=== PATIENT | female | born 1940 | race Caucasian/White ===

== ENCOUNTER 2017-10-04 13:30 | Outpatient (RCR) | payer MEDICARE, OTHER, SELFPAY ==
--- NOTE | 2017-09-14 13:44 | HP.PTEVAL_ITS ---
Patient's Visit Information ROSE RENTERIA is a 77 year old F referred to Physical Therapy by Misael MCDONALD with a diagnosis of Polyarthralgia. Date of Evaluation: 09/14/17 Physical Therapist: Misael Zimmerman DPT, OC - Visit Plan Frequency: 2x /Week Duration: 4-6 Weeks Plan: 2x/week for 3-6 for. 1. LB ROM and NS strength adn teach for HEP, hip flexor and HS stretch. Progress al to HEP. 2. may consider gym exercises or pool after HEP taught to patient and I. - Subjective Subjective: Stiff and hard to get up and down. B/c i am old and don't exercises. Not painful except putting on socks bending over. Feels stiff over all generally. Getting worse. Balance is doing better as she had ex for them last time. Sleep is good. Takes a while to do most things at home but not avoiding anything. Just stiff with most movements. No hobbies. Walking is good and grocery store is fine but tiring. Not employed. - Pain LBP Pain Intensity (Out of 10): 1 Pain Intensity Range: 0, 5 - Objective Walks into PT I, trasners I, bed mobility slow but I. L/S aROM mod limited in all directions, pain slightly with extension but more stiff. C/S aROM 45 ext adn 50 B rotations with stiffness. UE and LE aROM WFL. reflexes 2/3 in patella and achilles adn bi and tri. Sensation WNL to gross light touch in LE. Strength 4-/5 in LE adn UE adn 3+ in core, finds Neutral spine only with Vc and TC. - slump and SLR. HS and hip flexors mod tight at -25 90/90 test B. Shoulders tight with end range of elevation, not painful. - Goals Goal 1:: I approp HEp to minimize symptoms. Goal Time Frame: 4-6 Weeks Goal 2:: Tie shoes without increased back pain Goal Time Frame: 2-4 Weeks Goal 3:: 75% improvement in overall complaint of stiffness adn LBP. Goal Time Frame: 4-6 Weeks - Rehabilitation Potential Physical Therapy Diagnosis: Polyarhralgia Rehabilitation Potential: Fair - Anticipated Interventions Patient/Client Instruction: Educate patient on: Condition, Plan of Care For the Purpose of:: To decrease pain, To increase ROM, To improve ability of physical actions for home/community/work/leisure Therapeutic Exercise to Include: Strength training, Flexibilty training, Active ROM, Dynamic Lumbar Stabilization For the Purpose of:: To decrease pain, To increase ROM, To improve ability of physical actions for home/community/work/leisure Thank you for the opportunity to evaluate your patient. For Medicare and Medicare HMO plans, please review the plan of care and approve it. It will need to be FAXED BACK to us at [phone] for Medicare purposes. Please let me know if there are questions or concerns regarding this plan of care. Physician Signature: Date:
--- NOTE | 2017-10-04 14:02 | HP.PTDCSUM ---
HP - PT D/C Summary It has been my pleasure to treat ROSE RENTERIA under orders from DR.ESMITH Harika for the diagnosis of Polyarthralgia for a total of 8 visit(s). Discharge Date: 10/04/17 Please see the following information for a summary of their discharge status. - Subjective Subjective: Hart roslynt working out with Cassy tomorrow. Exercises in here do not bother her and seem to help. Has a list and will continue. Back is better. Sleep is normal. Activities are normal. Knows how to exercise from here on out. - Pain LBP Pain Intensity (Out of 10): 0 - Objective Objective/Function: achy intermittently. Poor management as patient sat and played cards 3 hours without getting up yesterday. - Goals Goal 1:: I approp HEp to minimize symptoms. Goal Progress: Goal Met Goal 2:: Tie shoes without increased back pain Goal Progress: Progressing Goal 3:: 75% improvement in overall complaint of stiffness adn LBP. Goal Progress: Progressing - Plan Plan: D/C - D/C Information Discharge Comments: D/C to I gym program, pt to orient Dante chowdhury tomorrow is confident she continued on her own. Also will attempt pool ex(with physical fitness trainer). May benefit from PT to teach water ex but wants to try herself first. If there are questions or concerns regarding this patient's physical therapy, please feel free to call me at [phone]. Thank you for the referral of this patient. Sincerely, Misael Zimmerman, DPT, OC
== END 2017-10-04 19:00 | disposition home or self-care (01) ==
LOC: PT 13:30
PROVIDERS: Family Provider Family Medicine; PCP Family Medicine; Visit Provider Family Medicine
DX: M25.50 Pain in unspecified joint (principal)
CPT/HCPCS: 97110; 97162; 97530

== ENCOUNTER → 2017-12-13 13:09 | Outpatient (CLI) | payer MEDICARE, OTHER, SELFPAY ==
--- NOTE | 2017-12-13 13:12 | RAD_ITS ---
STUDY: SWALLOWING STUDY REASON FOR EXAM: Female, 77 years old. Dysphagia TECHNIQUE: The examination was performed with Speech Pathology in attendance. Under fluoroscopic observation, the patient ingested thin barium, thick barium, barium pudding, and barium coated cracker. FLUOROSCOPY TIME: 1:03 minutes/seconds RADIOLOGIST INVOLVEMENT: Radiologist was not present during the procedure, but did review the images. COMPARISON: None. FINDINGS: The following was observed during swallowing of the various mixtures of barium: Thin Barium: There was no evidence of aspiration or laryngeal penetration. Thick Barium: There was no evidence of aspiration or laryngeal penetration. Barium Pudding: There was no evidence of aspiration or laryngeal penetration. Barium Coated Cracker: There was no evidence of aspiration or laryngeal penetration. RAD/Swallowing Function w/Video IMPRESSION: Normal tailored barium swallow study. No evidence of increased risk for aspiration. The swallow study findings were discussed with the patient by the speech pathologist at the conclusion of the examination. Please see speech pathology report for more information and recommendations. The procedure was performed by speech therapy Electronically Signed: Rogelio Dewitt MD at 14:18 EDT , Service support ,
--- NOTE | 2017-12-13 13:30 | SP.MBSS_ITS ---
PRIMARY / SECONDARY DIAGNOSIS: dysphagia (R13.10) REFERRING PHYSICIAN: Dr. Misael Nichols MD CURRENT DIET: regular textures, thin liquids DENTITION: WFL MENTAL STATUS: WNL RESPIRATORY STATUS: O2 via room air PREVIOUS MODIFIED BARIUM SWALLOW STUDY: none REASON FOR REFERRAL: Patient is a 77 year old female referred for a modified barium swallow (MBS) study to objectively assess the Patients oropharyngeal swallow function under fluoroscopy secondary to reported intermittent globus sensation / sensation of stasis located directly below the laryngeal notch following consumption of solids. Patient reports intermittent presentation (just every once in a while), further workup via Barium esophagram scheduled for 12/16/2017. 10/16/2014 Barium esophagram revealed trapping of the 12 mm tablet of barium at the gastroesophageal junction; atherosclerotic tortuosity of the aortic arch and descending thoracic aorta. 11/2014 upper endoscopy revealed minimal esophagitis MEDICAL HISTORY: Chronic sinusitis, hypertension, gastroesophageal reflux disease, prior history of esophagitis. STUDY FINDINGS: Patient participated in a Modified Barium Swallow (MBS) study on 12/13/2017. Dr. Dewitt was the radiologist present for this evaluation. This study was recorded in the lateral view and images were sent to PACs for storage. The following consistencies were presented to this patient for analysis of oropharyngeal swallow function: thin liquids, pudding, and a regular textured, Jacquie Doone cookie. Results of the MBS are as follows: PENETRATION / ASPIRATION SCALE (SOTO): 1 = does not enter airway 2 = enters airway/above vocal folds/ejected 3 = enters airway/above vocal folds/not ejected 4 = enters airway/contacts vocal folds/ejected 5 = enters airway/contacts vocal folds/not ejected 6 = enters airway/below vocal folds/ejected 7 = enters airway/below vocal folds/not ejected despite effort 8 = enters airway/below vocal folds/no effort PENETRATION / ASPIRATION SCALE (SCORE) WITH VIDEOFLOROSCOPIC SCALE SCORE: Thin liquids via cup (single sip): 2 Thin liquids via cup (single sip): 1 Thin liquids via cup (single sip): 1 Thin liquids via straw (single sip): 1 Thin liquids via straw (sequential swallows): 1 Pudding via spoon: 1 Regular textured cookie: 1 Thin liquids via straw (single sip): 1 Thin liquids via straw (single sip): 1 IMPRESSION: DIAGNOSIS: mild pharyngeal dysphagia (R13.13) ORAL PHASE CHARACTERIZED BY: LABIAL SEAL: no labial escape TONGUE CONTROL DURING BOLUS MANIPULATION: cohesive bolus between tongue to palatal seal BOLUS PREPARATION / MASTICATION: timely and efficient chewing and mashing BOLUS TRANSPORT / LINGUAL MOTION: brisk tongue motion ORAL RESIDUE: intermittent trace residue lining oral structures PHARYNGEAL PHASE CHARACTERIZED BY: INITIATION OF PHARYNGEAL SWALLOW: bolus head at posterior laryngeal surface of epiglottis at first hyoid excursion SOFT PALATE ELEVATION: no bolus between soft palate and pharyngeal wall LARYNGEAL ELEVATION: complete superior movement of thyroid cartilage with complete approximation of arytenoids cartilage to epiglottic petiole ANTERIOR HYOID EXCURSION: complete anterior movement EPIGLOTTIC MOVEMENT: complete epiglottic inversion LARYNGEAL VESTIBULE CLOSURE AT HEIGHT OF SWALLOW: complete laryngeal vestibule closure with no air/contrast in laryngeal vestibule PHARYNGEAL STRIPPING WAVE: pharyngeal stripping wave present / complete PHARYNGOESOPHAGEAL SEGMENT OPENING: partial distension and partial duration; partial obstruction of flow TONGUE BASE RETRACTION: trace column of contrast between tongue base and posterior pharyngeal wall PHARYNGEAL RESIDUE: collection of residue within or on pharyngeal structures ( pharyngoesophageal segment opening most prominently with purees and solids, valleculae with solids) ESOPHAGEAL PHASE CHARACTERIZED BY: ESOPHAGEAL BOLUS CLEARANCE IN THE UPRIGHT POSITION: could not view DIET TEXTURE RECOMMENDATIONS: Will recommend a regular-soft textured, thin liquid diet. COMPENSATORY STRATEGIES RECOMMENDED: Reduced bolus volume, liquid chaser, avoid dry foods. INTERPRETATION OF RESULTS: Patient presents with mild pharyngeal dysphagia (R13.12). Pharyngeal phase marked by mild delay in pharyngeal swallow onset timing (albeit clinically insignificant); and pharyngeal dysmotility attributed to reduced tongue based retraction resulting in pharyngeal retention within the valleculae (with solid textures only) and reduced pharyngoesophageal segment relaxation resulting in pharyngeal retention within the pharyngoesophageal segment (with more vicious textures). All deficits ameliorated with bolus volume adjustments and alternation of liquids and solids (liquid wash). Post prandial residue located within the pharyngoesophageal segment opening occasionally spilling into the pyriforms likely resulting in globus sensation below the laryngeal notch; presentation during study not significant enough to suspect significant aspiration risk with reduction in bolus volume and alternating bites and sips. RECOMMENDATIONS: Patient able to comprehend and express recommended intake precautions detailed above with sufficient detail to suggest high likelihood of compliance. Provided brief overview of signs and symptoms of aspiration, with recommendations for the Patient to further discuss symptoms with PCP. No further skilled speech- language services warranted at this time targeting dysphagia. ADDITIONAL COMMENTS/RECOMMENDATIONS: Results and recommendations were discussed with the Patient immediately following MBS completion, with the Patient verbalizing understanding and agreement with all recommendations and education provided. IMAGE COUNT: [phone] G-CODES: SWALLOWING [id number] Current Status: CI SWALLOWING G8997 Goal Status: CI SWALLOWING G8998 Discharge Status: CI
== END ==
PROVIDERS: Family Provider Family Medicine; PCP Family Medicine; Visit Provider Family Medicine
DX: R13.10 Dysphagia, unspecified (principal)
CPT/HCPCS: 74230; 92611; G8996; G8997; G8998

== ENCOUNTER → 2017-12-15 08:20 | Outpatient (CLI) | payer MEDICARE, OTHER, SELFPAY ==
--- NOTE | 2017-12-15 08:23 | RAD_ITS ---
STUDY: AIR-CONTRAST ESOPHAGRAM STUDY REASON FOR EXAM: Female, 77 years old. Vomiting RADIATION DOSAGE (If Supplied By Facility): CTDIvol = ( ) mGy, DLP = ( ) mGycm FLUOROSCOPY TIME (if supplied): (0:54) minutes/seconds, 14 spot views. And 2 overhead views were obtained TECHNIQUE: Barium pill swallow with sips of water is performed at the beginning of the study . Multiple barium swallows were performed under fluoroscopic monitoring. Multiple views of the esophagus, the upper stomach were performed. COMPARISON: None. FINDINGS: Barium pill swallow with sips of water is performed at the beginning of the study the pill was retained in the lower esophagus at the gastroesophageal junction due to a moderate stricture. The esophagus appears normal in size. There is a small hiatal hernia with gastroesophageal reflux up to the oli. There is a stricture at the gastroesophageal junction most likely due to reflux esophagitis. RAD/Esophagus Only IMPRESSION: Stricture at the gastroesophageal junction most likely due to reflux esophagitis. Small hiatal hernia with gastroesophageal reflux up to the oli. Electronically Signed: Eric Salgado MD at 9:10 EDT Tel , Service support ,
== END ==
PROVIDERS: Family Provider Family Medicine; PCP Family Medicine; Visit Provider Family Medicine
DX: R13.10 Dysphagia, unspecified (principal)
CPT/HCPCS: 74220

== ENCOUNTER 2018-01-20 05:45 | Day surgery (SDC) | payer MEDICARE, OTHER, SELFPAY ==
--- NOTE | 2018-01-20 | IMM_PTH ---
PATIENT: ROSE RENTERIA LOC: EN U#:[id number] AGE/SX: 77/F ROOM: RE01/20/[address]: Dr. Golden Nixon MD : 1940 BED: DIS: 01/20/2018 SPEC #: [id number] RECD: 01/21/18 09:48 STATUS: CAMILLE AISHWARYA #: [id number] MARK: 01/20/18 00:[address]: Golden Nixon DEPT: IMMUNOHISTOCHEMISTRY RECD BY: John Colin ENTERED: 01/21/18 09:48 SP TYPE: IMMUNO OTHR DR: Dr. Misael Nichols MD Tissues: Gastric mucous membrane Procedures: H Pylori (initial) PHYSICIAN & INSTITUTION [place] [address] SPECIMEN INFORMATION: Tissue Source: B ? Antral biopsy Clinical Info: Esophageal stricture, reflux Specimen Number: [id number] CPT code: 49135 METHODOLOGY: Deparaffinized sections of prefer/formalin-fixed tissue or PAP/DQ stained slides are incubated with monoclonal/polyclonal antibodies/oligonucleotide probes. Localization is made via biotin free immunoperoxidase method. Appropriate controls are performed and reacted as expected. Results on target cell population are indicated in the following table: RESULTS: ANTIBODY / CLONE RESULT Block B H Pylori (polyclonal) negative These tests were developed and their performance characteristics determined by [facility]. They may not have been cleared or approved by the U.S. Food and Drug Administration. The FDA has determined that such clearance or approval is not necessary. INTERPRETATION: B. Antral biopsy: Negative for Helicobacter pylori organisms. SJ:crystal 01/21/18
--- NOTE | 2018-01-20 | EGD_PTH ---
PATIENT: ROSE RENTERIA LOC: [facility] U#:[id number] AGE/SX: 77/F ROOM: RE01/20/[address]: Dr. Golden Nixon MD : 1940 BED: DIS: 01/20/2018 SPEC #: [id number] RECD: 01/20/18 09:47 STATUS: CAMILLE AISHWARYA #: [id number] MARK: 01/20/18 00:[address]: Golden Nixon DEPT: SURGICAL PATHOLOGY RECD BY: John Colin ENTERED: 01/21/18 08:52 SP TYPE: EGD BIOPSY CHENG DR: Dr. Misael Nichols MD Tissues: A - Duodenum, NOS B - Gastric mucous membrane C - Esophageal mucous membrane Procedures: Surgery Specimen Level IV HEADER OPERATION: EGD PRE-OP DIAGNOSIS: Esophageal stricture, reflux TISSUE SUBMITTED: A ? Duodenal biopsy, B ? Antral biopsy for H. pylori and path, C ? Distal esophagus biopsy MICROSCOPIC DIAGNOSIS A. Duodenal biopsy: Fragment of small intestinal mucosa, no pathologic diagnosis. B. Antral biopsy: Mild gastritis. C. Distal esophagus, biopsy: Fragment of squamous mucosa with chronic inflammation. SJ:crystal 01/21/18 COMMENT B. The results of immunohistochemistry for Helicobacter pylori will be reported separately ([id number]). MICROSCOPIC DESCRIPTION Slides are reviewed. B. The specimen shows fragments of gastric mucosa with chronic inflammatory cell infiltrates in the lamina propria consisting of lymphocytes and plasma cells, consistent with mild chronic gastritis. GROSS DESCRIPTION A - Received in fixative is one container labeled with the patient's name and designated duodenal biopsy. The specimen consists of one irregular fragment of light landeros soft tissue that measures 0.3 x 0.3 x 0.1 cm. The specimen is totally submitted in one cassette. B - Received in fixative is one container labeled with the patient's name and designated antral biopsy. The specimen consists of two irregular fragments of light landeros soft tissue that in aggregate measure 0.5 x 0.3 x 0.1 cm. The specimen is totally submitted in one cassette. C - Received in fixative is one container labeled with the patient's name and designated distal esophagus biopsy. The specimen consists of one irregular fragment of light landeros soft tissue that measures 0.3 x 0.2 x 0.1 cm. The specimen is totally submitted in one cassette. / SHAE:crystal 01/20/18 TC:3 CPT: 78690 x3
--- NOTE | 2018-01-20 05:45 | DT_ITS ---
This patient was seen during an EMR downtime January 17, 2018 - January 24, 2018. This patient may have a combination of paper and electronic documentation or all paper documentation. All documentation is viewable within the e-chart portion of [facility] for each patient visit.
== END 2018-01-20 07:42 | disposition home or self-care (01) ==
LOC: EN 05:46 → AC 05:47
PROVIDERS: Family Provider Family Medicine; PCP Family Medicine; Visit Provider Surgery
PROC: (CPT 43239; principal; 2018-01-20 06:25)
DX: K21.0 Gastro-esophageal reflux disease with esophagitis (principal); K22.2 Esophageal obstruction; K29.70 Gastritis, unspecified, without bleeding; K44.9 Diaphragmatic hernia without obstruction or gangrene; M19.90 Unspecified osteoarthritis, unspecified site
CPT/HCPCS: 43239; 43249; 88305; 88342; 99152; 99153; J7120; J2405

== ENCOUNTER → 2018-03-22 11:01 | Outpatient (CLI) | payer MEDICARE, OTHER, SELFPAY ==
[2018-03-22 14:29] LABS: Absolute Lymphocyte Count 1.58 X10^3/ul (0.83-4.51); Absolute Neutrophil Count 4.3 X10^3/uL (2.0-7.7); Basophil# 0.01 X10^3/uL; Basophil% 0.1 % (0-1); Eosinophil# 0.24 X10^3/uL; Eosinophils% 3.5 % (0-5); Hematocrit 47.5 % (37-47); Hemoglobin 15.8 g/dl (12.0-15.0); Lymphocyte # 1.58 X10^3/ul (4.0); Lymphocyte % 22.8 % (19-41); Mean Corp Hgb Conc 33.3 g/gl (32-36); Mean Corpuscular Hgb 30.7 pg (27.0-32.0); Mean Corpuscular Volume 92.4 fL (81-99); Mean Platelet Vol. 8.7 fl (6.2-12.0); Monocyte% 11.6 % (0-10); Neutrophil # 4.28 X10^3/uL (2.7-7.7); Neutrophil % 61.9 % (47-70); Platelet Count 294 K/mm3 (150-450); RBC Distribution Width CV 12.6 % (11.6-14.6); RBC Distribution Width SD 42.3 fl (35.1-43.9); Red Blood Count 5.14 M/mm3 (4.2-5.4); White Blood Count 6.9 K/mm3 (4.4-11.0)
[2018-03-22 14:34] LABS: POSITIVE COUNT NO; POSITIVE DIFFERENTIAL NO; POSITIVE MORPHOLOGY NO
[2018-03-22 14:53] LABS: ALB/GLOB Ratio 0.8 RATIO (0.9-2.4); AST(SGOT) 25 U/L (15-37); Alanine Aminotransfer ALT/SGPT 22 U/L (13-56); Albumin, Serum 3.5 g/dL (3.2-5.0); Alkaline Phosphatase 66 U/L (45-117); Anion Gap 9 (5-15); BUN 10 mg/dL (7-18); BUN/Creat Ratio 10.8 RATIO (10-20); Calcium,Total 8.8 mg/dL (8.5-10.1); Chloride 104 mmol/L (98-107); Creatinine, Serum 0.92 mg/dL (0.55-1.02); EST Glomerular Filtration Rate 62 mL/min (>60); Est Glom Filt Rate - Afr Amer 75 mL/min (>60); Globulin 4.2 g/dL (2.2-4.2); Glucose 89 mg/dL (74-106); Potassium 4.7 mmol/L (3.5-5.1); Protein, Total 7.7 g/dL (6.4-8.2); Sodium Level 141 mmol/L (136-145); T4 Free Direct 1.14 ng/dL (0.76-1.46); Thyroid Stim Hormone (TSH) 1.09 uIU/mL (0.358-3.74)
== END ==
PROVIDERS: Family Provider Family Medicine; PCP Family Medicine; Visit Provider Family Medicine
DX: L65.9 Nonscarring hair loss, unspecified (principal)
CPT/HCPCS: 36415; 80053; 84439; 84443; 85025

== ENCOUNTER → 2018-03-31 08:40 | Outpatient (CLI) | payer MEDICARE, OTHER, SELFPAY ==
[2018-04-01 14:06] LABS: Anti-Centromere B Ab <0.2 AI (0.0-0.9); Anti-Chromatin <0.2 AI (0.0-0.9); Anti-Jo <0.2 AI (0.0-0.9); Anti-Scleroderma-70 AB <0.2 AI (0.0-0.9); RNP Ab <0.2 AI (0.0-0.9); SJOGREN'S Anti-SS-A test < 0.2 AI (0.0-0.9); SJOGREN'S Anti-SS-B test < 0.2 AI (0.0-0.9); Smith Ab <0.2 AI (0.0-0.9)
[2018-04-01 18:37] LABS: Anti-dsDNA Ab <1 IU/mL (0-9)
[2018-04-07 16:10] LABS: Immunoglobulin A 329 mg/dL (64-422); Immunoglobulin E 32 IU/mL (0-100); Immunoglobulin G 1083 mg/dL (700-1600); Immunoglobulin M 159 mg/dL (26-217); Testosterone, % Free 3.01 % (0.50-2.80); Testosterone, Free 1.35 ng/dL (0.10-0.85); Testosterone, Total 45 ng/dL (3-41)
[2018-04-08 14:11] LABS: DHEA Sulfate 34.4 ug/dL (13.9-142.8)
== END ==
PROVIDERS: Family Provider Family Medicine; PCP Family Medicine; Visit Provider Family Medicine
DX: L65.9 Nonscarring hair loss, unspecified (principal)
CPT/HCPCS: 36415; 82533; 82627; 82784; 82785; 84402; 84403; 86225; 86235; 82626

== ENCOUNTER → 2018-04-25 09:20 | Outpatient (CLI) | payer MEDICARE, OTHER, SELFPAY ==
[2018-04-26 06:07] LABS: HEPATITIS B SURFACE AG Negative (Negative); Hepatitis A AB, Total Positive (Negative); Hepatitis A IgM Antibody Negative (Negative); Hepatitis B Core AB IgM Negative (Negative); Hepatitis B Core Ab Total Negative (Negative); Hepatitis C Ab <0.1 s/co ratio (0.0-0.9)
[2018-04-27 11:50] LABS: Hep B Surface Antibodies Non Reactive (.)
== END ==
PROVIDERS: Family Provider Family Medicine; PCP Family Medicine; Visit Provider Nurse Practitioner Family
DX: L66.1 Lichen planopilaris (principal)
CPT/HCPCS: 36415; 86704; 86705; 86706; 86708; 86709; 86803; 87340

== ENCOUNTER → 2018-11-07 11:36 | Outpatient (CLI) | payer MEDICARE, SELFPAY ==
[2018-09-17 12:22] VITALS: BMI 31.6
[2018-11-07 14:05] LABS: ALB/GLOB Ratio 0.9 RATIO (0.9-2.4); AST(SGOT) 25 U/L (15-37); Alanine Aminotransfer ALT/SGPT 22 U/L (13-56); Albumin, Serum 3.5 g/dL (3.2-5.0); Alkaline Phosphatase 74 U/L (45-117); Anion Gap 8 (5-15); BUN 13 mg/dL (7-18); BUN/Creat Ratio 15.5 RATIO (10-20); Chloride 102 mmol/L (98-107); Cholesterol 199 mg/dL (200); Creatinine, Serum 0.84 mg/dL (0.55-1.02); EST Glomerular Filtration Rate 69 mL/min (>60); Est Glom Filt Rate - Afr Amer 84 mL/min (>60); Globulin 3.8 g/dL (2.2-4.2); Glucose 100 mg/dL (74-106); High Density Lipoprotein 65 mg/dL; Potassium 4.9 mmol/L (3.5-5.1); Protein, Total 7.3 g/dL (6.4-8.2); Sodium Level 138 mmol/L (136-145); Triglycerides 98 mg/dL; Very Low Density Lipoprotein 20 mg/dL (5-40)
== END ==
PROVIDERS: Family Provider Family Medicine; PCP Family Medicine; Referring Provider Family Medicine; Visit Provider Family Medicine
DX: E78.00 Pure hypercholesterolemia, unspecified (principal)
CPT/HCPCS: 36415; 80053; 80061

== ENCOUNTER → 2019-05-11 | Outpatient (CLI) | payer MEDICARE, SELFPAY ==
[2018-09-17 12:22] VITALS: BMI 31.6
[2019-05-11 12:44] LABS: Anion Gap 6 (5-15); BUN 13 mg/dL (7-18); BUN/Creat Ratio 15.5 RATIO (10-20); Calcium,Total 8.7 mg/dL (8.5-10.1); Chloride 108 mmol/L (98-107); Cholesterol 176 mg/dL (200); Creatinine, Serum 0.84 mg/dL (0.55-1.02); EST Glomerular Filtration Rate 69 mL/min (>60); Est Glom Filt Rate - Afr Amer 84 mL/min (>60); Glucose 95 mg/dL (74-106); High Density Lipoprotein 58 mg/dL; Potassium 4.3 mmol/L (3.5-5.1); Sodium Level 139 mmol/L (136-145); Thyroid Stim Hormone (TSH) 1.28 uIU/mL (0.358-3.74); Triglycerides 98 mg/dL; Very Low Density Lipoprotein 20 mg/dL (5-40)
== END | disposition home or self-care (01) ==
LOC: MFPLAB 09:49
PROVIDERS: Family Provider Family Medicine; PCP Family Medicine; Referring Provider Family Medicine; Visit Provider Family Medicine
DX: L65.9 Nonscarring hair loss, unspecified (principal); E78.00 Pure hypercholesterolemia, unspecified
CPT/HCPCS: 36415; 80048; 80061; 84443

== ENCOUNTER → 2020-02-20 | Outpatient (CLI) | payer MEDICARE, OTHER, SELFPAY ==
[2018-09-17 12:22] VITALS: BMI 31.6
--- NOTE | 2020-02-20 09:15 | BD_ITS ---
STUDY: DUAL ENERGY X-RAY ABSORPTIOMETRY / DXA REASON FOR EXAM: Female, 79 years old. Age of abhinav 48. Pat is 133.1# and 55 and quot; a loss of 2.75 and quot;. Took an HRT for a short time in the past. Exercises a little. TECHNIQUE: Bone Mineral Density (BMD) measurements of lumbar spine and bilateral hips were obtained. COMPARISON: Comparison is made with prior examination dated July 13, 2017. FINDINGS: Lumbar Spine (L1-L4): g/cm2 (0.990) / T-score (-1.5) / Z-score (0.4) Findings are suggestive of osteopenia with a low fracture risk. Left Femur Total: g/cm2 (0.963) / T-score (-0.4) / Z-score (1.7) Left Femoral Neck: g/cm2 (0.872) / T-score (-1.2) / Z-score (1.0) Right Femur Total: g/cm2 (1.026) / T-score (0.1) / Z-score (2.2) Right Femoral Neck: g/cm2 (0.906) / T-score (0.9) / Z-score (1.3) The T-Scores on the most recent prior examination were: Lumbar Spine (L1-L4): There has been worsening of bone density since the previous examination. Left Femur Total: which represents a worsening of 0.2%. Right Femur Total: which represents an improvement of 2.5%. BD/Dexa Bone Density Study IMPRESSION: The patient is considered osteopenic as outlined below according to World [employer] Organization (WHO) criteria with a low fracture risk. There has been worsening of bone density since the previous examination. Reference Information: The T-score is the number of standard deviations above or below the standard which is normal for young adults at their peak bone mineral density. The World Health Organization (WHO) interprets the T-scores as follows: Above -1 Normal bone density Between -1 and -2.5 Osteopenia Equal to / or below -2.5 Osteoporosis As a practical clinical guideline, osteopenia may be graded as follows: Mild -1 through -1.5 Moderate -1.6 through -2.0 Severe -2.1 through -2.4 The Z-score is the number of standard deviations above or below age-matched controls. A Z-score of less than -1.5 would be considered abnormal. References: 1. NIH Osteoporosis and Related Bone Diseases http://www.osteo.org 2. International Society for Clinical Densitometry http://www.iscd.org 3. National Osteoporosis Foundation http://www.nof.org Electronically Signed: Lauri Hickman, at 13:46 EDT , Service support ,
--- NOTE | 2020-02-20 09:23 | BI_ITS ---
MAMMOGRAPHY - BILATERAL SCREENING REASON FOR EXAM: Female, 79 years old. Routine annual screening examination. PERTINENT HISTORY: Non-contributory. TECHNIQUE: Digital bilateral breast lorrie (3D mammographic acquisition) in the CC and MLO projections. 2-D mediolateral oblique (MLO) and craniocaudad (CC) views of both breasts were obtained. CAD: Full Field Digital Mammography with Computer Added Detection was performed. COMPARISON: Comparison is made with prior study dated October 28, 2015 and September 07, 2013. FINDINGS: Breast Composition: The breasts are heterogeneously dense, which may obscure small masses. There are no dominant masses or suspicious calcifications. Stable benign-appearing right axillary lymph node. No other significant abnormalities are identified. There has been no significant change since the prior study. BI/SCREEN MAMM (CAD) W/LORRIE BILAT IMPRESSION: Stable bilateral screening mammogram. Yearly follow-up mammogram recommended. (A) ASSESSMENT CATEGORY: BIRADS Category 2: Benign. A letter regarding these results will be sent to the patient by the facility within 30 days. Approximately 10% of breast cancers are not detected by mammography. A normal mammogram should not delay biopsy of a clinically suspicious abnormality. [id number] Electronically Signed: Lauri Hickman, at 10:17 EDT , Service support ,
== END | disposition home or self-care (01) ==
PROVIDERS: PCP Family Medicine; Referring Provider Family Medicine; Visit Provider Family Medicine
DX: Z78.0 Asymptomatic menopausal state (principal); Z12.31 Encounter for screening mammogram for malignant neoplasm of breast
CPT/HCPCS: 77063; 77067; 77080

== ENCOUNTER → 2020-02-27 | Outpatient (CLI) | payer MEDICARE, OTHER, SELFPAY ==
[2018-09-17 12:22] VITALS: BMI 31.6
--- NOTE | 2020-02-27 09:25 | RAD_ITS ---
STUDY: X-RAY CHEST REASON FOR EXAM: Female, 79 years old. Left anterior chest wall pain along T8-9 in lateral clavicular line/anterior axillary line under breast tissue TECHNIQUE: PA and lateral views of the chest. COMPARISON: Comparison is made with prior study dated July 01, 2017. FINDINGS: Hyperinflation. Scattered calcified granulomas. The lungs are clear. There is no demonstrated pleural abnormality. Normal size heart. Normal mediastinum and lev. Normal visualized pulmonary arteries. There is atherosclerotic calcification of the aortic arch with tortuosity. There is a dextroscoliosis of the thoracic spine. Normal visualized ribs, clavicles, and shoulders. There is no demonstrated abnormality of the visualized soft tissue structures of the upper abdomen. RAD/Chest PA and Lateral IMPRESSION: Hyperinflation. No acute abnormality is seen. Electronically Signed: Lauri Hickman, at 9:44 EDT , Service support ,
== END | disposition home or self-care (01) ==
LOC: MTRAD 09:21
PROVIDERS: PCP Family Medicine; Referring Provider Family Medicine; Visit Provider Family Medicine
DX: R07.89 Other chest pain (principal)
CPT/HCPCS: 71046

== ENCOUNTER 2020-04-23 12:00 | Outpatient (RCR) | payer MEDICARE, OTHER, SELFPAY ==
[2018-09-17 12:22] VITALS: BMI 31.6
--- NOTE | 2020-03-21 12:59 | HP.PTEVAL_ITS ---
Patient's Visit Information ROSE RENTERIA is a 79 year old F referred to Physical Therapy by Dr. Misael Nichols MD with a diagnosis of LOW BACK PAIN. Date of Evaluation: 03/21/20 Physical Therapist: Lashon Malloy PT, Cert MDT - Visit Plan Frequency: 1-2x /Week Duration: 4-6 Weeks Plan: AQUATIC THERAPY FOR PAIN RELIEF, POSTURE CORRECTION/STRENGTHENING, INSTRUCTION IN APPROPRIATE BODY MECHANICS AND ACTIVITY MODIFICATIONS. DLS STARTING WITH A NEUTRAL SPINE PROGRESSING ROM TOLERATED. EDGARD LE ROM, STRETCHING AND STRENGTHENING. HEP INSTRUCTION. - Subjective Work/Leisure: RETIRED. READS A LOT. Present symptoms: LOW BACK PAIN. SOMETIMES IT MOVES TO THE RIGHT BUT MOSTLY ON THE SPINE. SOME PAIN ON LEFT HIP TOO. Present since: OFF AND ON FOR YEARS. IT IS GETTING WORSE. DAILY DISCOMFORT NOW. Pain Scale: WORST 5/10, LEAST 3/10. Currently: 4/10. Commenced as a result of: NO APPARENT REASON. Symptoms at onset: LOW BACK. Worse: STANDING IN THE KITCHEN PREPARING MEALS, LIFTING, RISING FROM SITTING, GETTING OUT OF THE CAR, INITIATING GAIT AFTER SITTING. Better: LYING IN BED OR LYING ON FLOOR WITH LEGS ON SOFA. SITTING STILL, TYLON[place]. Disturbed sleep: NO. Previous history/Previous treatment: PHYSICAL THERAPY A COUPLE YEARS AGO - DIDN'T REALLY HELP - THEY GAVE ME SOME EX'S OUT THERE'. NO BACK SURGERY. NO BACK INJECTIONS. NO CHIROPRACTOR. NO PRESCRIPTION MEDICATIONS. Coughing/sneezing/straining: POSITIVE. Gait: PATIENT REPORTS DIFFICULTY STANDING UP STRAIGHT TO WALK AFTER SITTING BUT THEN GETS STRAIGHTENED UP BETTER WITH TIME. BACK GETS TIRED WALING. Difficulty initiating urinatin: NO. Accidents: NO. Unexplained weight loss: NO. Imaging: NO LUMBAR X-RAY OR MRI PER PATIENT REPORT. PMH: UNREMARKABLE, PARTIAL LUNG REMOVED IN 40'S, LEFT CTR. EDGARD FOOT SX FOR BUNIONS. OTHER: PATIENT REPORTS SHE ENJOYS SWIMMING AND SHE HAS SILVER SNEAKERS. SHE HAS BEEN IN OUR POOL BUT HAS NOT HAD POOL THERPAY. - Objective Sitting/Standing Posture: POOR. Lordosis: REDUCED. Lateral shift: NO. Relevant shift: N/A. Active Correction of posture: NE. Other Observations: INDEP GAIT INTO PT WITHOUT ANY ASSISTIVE DEVICES OR LOB. DIFFICULTY TRANSITIONING FROM SIT TO STAND AND INITIATING GAIT AFTER SITTING. Motor deficit: EDGARD LE STRENGTH GROSSLY 5/5 WITH MMT'ING EXCEPT HIPS 4/5. Sensory deficit: EDGARD LE LIGHT TOUCH SENSATION INTACT AND SYMMETRICAL. ROM deficit: MILD EDGARD LE HS AND GASTROC SOLEUS TIGHTNESS. MILD EDGARD HIP IR TIGHTNESS LEFT > RIGHT AND MILD INCREASED C/O LEFT HIP PAIN WITH HIP IR TESTING. Reflexes: NT. Dural Signs: NEGATIVE EDGARD LE'S. Lumbar mvmt loss: flex - NIL. ext - CONNIE. R SG - CONNIE. L SG - CONNIE. C/O INCREASED LBP WITH LUMBAR ROM TESTING ALL PLANES EXCEPT FLEXION. Core strength: POOR. Palpation: INCREASED MUSCLE TONE WITH PALPATION OF EDGARD LUMBAR PARASPINALS BUT NO ACUTE LUMBOSACRAL OR HIP TENDERNESS. OTHER: APARNA TESTING IS QUESTIONABLY POSITIVE EDGARD LE'S BUT TESTING INCREASES IPSILATERAL LBP AND DOES NOT PRODUCE GROIN PAIN. TREATMENT: NEUROMUSCULAR REEDUCATION - RETRAINING OF MVMT AND POSTURE FOR SITTING, LYING AND STANDING ACTIVITIES. - Goals Goal 1:: DECREASE C/O LB AND LEFT HIP PAIN Goal Time Frame: 4-6 Weeks Goal 2:: IMPROVE PERSONAL CARE, LIFTING, WALKING, STANDING, SOCIAL LIFE, TRAVEL AND HOMEMAKING FUNCTION. Goal Time Frame: 4-6 Weeks Goal 3:: INSTRUCT IN PROPHYLAXIS Goal Time Frame: 4-6 Weeks - Anticipated Interventions Patient/Client Instruction: Educate patient on: Condition, Plan of Care, Risk Factors, Benefits of Fitness Program For the Purpose of:: To improve self management Therapeutic Exercise to Include: Strength training, Body mechanics, Postural training, Flexibilty training, Gait and locomotor training, Neuromotor development, In an aquatic setting, Dynamic Lumbar Stabilization For the Purpose of:: To decrease pain, To increase ROM, To improve muscle performance and motor function, To increase tolerance to a ctivity/condition/position, To improve ability of physical actions for home/community/work/leisure, To improve gait and locomotor functions Cryotherapy (ice pack, ice massage): Yes Thermo therapy (hot pack): Yes Ultrasound (thermal/non thermal): Yes For the Purpose of:: To decrease pain, To improve nutrient delivery to tissue Thank you for the opportunity to evaluate your patient. For Medicare and Medicare HMO plans, please review the plan of care and approve it. It will need to be FAXED BACK to us at [phone] for Medicare purposes. For Medicare only, by signing this I certify the plan of care. Please let me know if there are questions or concerns regarding this plan of care. Physician Signature: Date:
--- NOTE | 2020-04-23 12:26 | HP.PTDCSUM ---
It has been my pleasure to treat ROSE RENTERIA referred by Dr. Misael Nichols MD, with the diagnosis of LOW BACK PAIN for a total of 10 visit(s). Discharge Date: 04/23/20 Please see the following information for a summary of their discharge status. Subjective: PATIENT REPORTS THERE ARE DAYS FOR TWO OR THREE HOURS SHE IS FINE. HER PAIN COMES AND GOES. A LOT OF PAIN TODAY FOR NO APPARENT REASON. PATIENT REPORTS SHE HAS FOLLOW UP PENDING WITH DR. NICHOLS NEXT WEEK. PATIENT REPORTS SHE REALLY LIKES THE WATER THERAPY AND PLANS TO CONTINUE ON HER OWN AT THIS POINT. OVER-ALL SHE DOES NOT FEEL SHE HAS MADE PROGRESS WITH HER BACK PAIN THOUGH. PATIENT REPORTS SHE IS NO WORSE. LB Pain Intensity (Out of 10): 7 R hip Pain Intensity (Out of 10): 5 % Improvement: 0 Objective/Function: PATIENT WAS SEEN TODAY FOR RE-ASSESSMENT OF PROGRESS TOWARD THE SET PT GOALS AND THE NEED FOR FURTHER PHYSICAL THERAPY VS READINESS FOR DISCHARGE. PATIENT HAS TOLERATED AQUATIC THERAPY WELL AND IS NO WORSE OVER-ALL BUT SHE IS NOT MAKING PROGRESS IN TERMS OF PAIN REDUCTION. WOULD RECOMMEND CONTINUED INDEP POOL PROGRAM AND PHYSICIAN RE-ASSESSMENT. PATIENT IS AGREEABLE AND HAS QUESTIONS FOR DR. NICHOLS ABOUT MASSAGE THERAPY, ACCUPUNCTURE AND CHIROPRACTIC. Goal 1:: DECREASE C/O LB AND LEFT HIP PAIN Goal Progress: Not Progressing Goal 2:: IMPROVE PERSONAL CARE, LIFTING, WALKING, STANDING, SOCIAL LIFE, TRAVEL AND HOMEMAKING FUNCTION. Goal Progress: Not Progressing Goal 3:: INSTRUCT IN PROPHYLAXIS Goal Progress: Not Progressing Plan: D/C TO INDEP POOL PROGRAM. PATIENT AGREEABLE. If there are questions or concerns regarding this patient's physical therapy, please feel free to call me at [phone]. Thank you for the referral of this patient. Sincerely, Lashon Malloy, PT, Cert MDT
== END 2020-04-23 19:00 | disposition home or self-care (01) ==
LOC: PT 12:00
PROVIDERS: PCP Family Medicine; Visit Provider Family Medicine
DX: M25.552 Pain in left hip (principal); M54.5 Low back pain; G89.29 Other chronic pain
CPT/HCPCS: 97112; 97113; 97162; 97164

== ENCOUNTER → 2020-11-11 10:15 | Outpatient (CLI) | payer MEDICARE, OTHER, SELFPAY ==
[2018-09-17 12:22] VITALS: BMI 31.6
[2020-11-11 12:05] LABS: Absolute Lymphocyte Count 1.58 X10^3/uL (0.83-4.51); Absolute Neutrophil Count 4.7 X10^3/uL (2.0-7.7); Basophil# 0.02 X10^3/uL; Basophil% 0.3 % (0-1); Eosinophil# 0.29 X10^3/uL; Hematocrit 46.5 % (37-47); Hemoglobin 14.9 g/dL (12.0-15.0); Lymphocyte # 1.58 X10^3/ul (4.0); Lymphocyte % 21.8 % (19-41); Mean Corpuscular Hgb 29.7 pg (27.0-32.0); Mean Corpuscular Volume 92.8 fL (81-99); Mean Platelet Vol. 8.6 fl (6.2-12.0); Monocyte# 0.65 X10^3/uL; NRBC Flagged by Analyzer 0 % (0-5); Neutrophil # 4.68 X10^3/uL (2.7-7.7); Neutrophil % 64.6 % (47-70); Platelet Count 309 K/mm3 (150-450); RBC Distribution Width CV 12.7 % (11.6-14.6); RBC Distribution Width SD 43.2 fl (35.1-43.9); Red Blood Count 5.01 M/mm3 (4.2-5.4); White Blood Count 7.2 K/mm3 (4.4-11.0)
[2020-11-11 12:24] LABS: Vitamin D,25 Hydroxy 27.4 ng/mL
[2020-11-11 12:38] LABS: PTHIN 74.2 pg/mL (18.4-80.1)
[2020-11-11 12:56] LABS: ALB/GLOB Ratio 0.9 RATIO (0.9-2.4); AST(SGOT) 23 U/L (15-37); Alanine Aminotransfer ALT/SGPT 26 U/L (13-56); Albumin, Serum 3.5 g/dL (3.2-5.0); Alkaline Phosphatase 69 U/L (45-117); Anion Gap 4 (5-15); BUN 15 mg/dL (7-18); Chloride 104 mmol/L (98-107); Creatinine, Serum 0.84 mg/dL (0.55-1.02); EST Glomerular Filtration Rate 69 mL/min (>60); Est Glom Filt Rate - Afr Amer 84 mL/min (>60); Globulin 3.9 g/dL (2.2-4.2); Glucose 104 mg/dL (74-106); Potassium 4.6 mmol/L (3.5-5.1); Protein, Total 7.4 g/dL (6.4-8.2); Sodium Level 137 mmol/L (136-145); Thyroid Stim Hormone (TSH) 1.51 uIU/mL (0.358-3.74)
== END ==
PROVIDERS: PCP Family Medicine; Referring Provider Family Medicine; Visit Provider Family Medicine
DX: M85.80 Other specified disorders of bone density and structure, unspecified site (principal); M47.816 Spondylosis without myelopathy or radiculopathy, lumbar region
CPT/HCPCS: 36415; 80053; 82306; 83970; 84443; 85025

== ENCOUNTER 2020-12-19 09:00 | Outpatient (RCR) | payer MEDICARE, OTHER, SELFPAY ==
[2018-09-17 12:22] VITALS: BMI 31.6
--- NOTE | 2020-11-18 13:24 | HP.PTEVAL_ITS ---
Patient's Visit Information ROSE RENTERIA is a 80 year old F referred to Physical Therapy by Dr. Misael Nichols MD with a diagnosis of Lumbar pain, arthritis, deconditioning. Date of Evaluation: 11/18/20 Physical Therapist: Elmo Henson DPT - Visit Plan Frequency: 1-2x /Week Duration: 2 Months Plan: Start with ROM of lumbar spine, and core strengthening progression as tolerated. - Subjective Pt. is here today for her initial evaluation with diagnosis of low back pain and arthritis, deconditioning. Pt. reports no mech of injury. My pain just aches all the time. She reports having to lie down to rest frequently. Pt. is able to complete all of her ADLs, but needs rest periods due to her back being achey. Pt. reports doing less since COVID and not getting out as much. She reports overall stiff feeling in lumbar spine. Pt. denies N/T in either LE, no LE weakness noted, no saddle region pain and no changes in B/B. She reports doing ALDs, but has to take frequent rest periods due to her lumbar spine symptoms. Sleeping okay, symptoms are not waking her up at night. No night pain. Pt. reports symptoms are the worst with initial getting up after prolonged sitting and increased pain after prolonged standing. She ws diagnosed previously with arthritis of her spine. Pt. is hopeful to get back to all recreational walking and sikhism/recreational activities without limitations. - Pain Lumbar spine Pain Intensity (Out of 10): 5 Pain Intensity Range: 2, 6 Comment: achey - Objective POSTURE: Pt. has slight forward lean. with normal iliac crest hights Pt. has slight increase in lumbar lordosis, but minimal. PALPATION: Pt. has tenderness along R side lumbar spine, I usually get muscle spams there, but not too frequently. Pt. refering to R sided lumbar erector spinea. NEURO: Pt. has normal sensation and normal DTR of B achilles and patellar tendons. Pt. is able to rise on heels and toes without limitations, she did require balance aid for stability. ROM: LUMBAR SPINE: flexion nil loss (required increased time to progress ROM) with increased pain upon rising, extension mod loss (improved with reps), SB mod loss bilat, rotation min/mod loss bilat. Pt. had greatest symptoms with flexion of lumbar spine. B hips normal ROM, except decreased hip extension with L hip (pain at anterior hip). MMT: Pt. has generally good strength of BLEs, slight weakness with B knee ext 4+/5 and with hip flexion 4/5, hip abd 4/5. Core strength- poor. GAIT: Pt. ambulates well. She has normal step length. Pt. has decreased arm swing and increased postural sway with gait. STAIRS: step to pattern noted with use of BHR. - Special Tests L/S Slump test left side: Negative L/S Slump test right side: Negative L/S Left Straight Leg Raise: Negative L/S Right Straight Leg Raise: Negative Lumbar Standing: Flexion - Mechanical Response: No effect Lumbar Standing: Flexion - Symptoms During Testing: Decreases Lumbar Standing: Flexion - Symptoms After Testing: No better Lumbar Standing: Extension - Mechanical Response: No effect Lumbar Standing: Extension - Symptoms During Testing: Decreases Lumbar Standing: Extension - Symptoms After Testing: Better - Goals Goal 1:: LTG: Pt. to be I with HEP. Goal Time Frame: 4-6 Weeks Goal 2:: STG: Pt. to be able to reduce acute on set of soreness with stretching exercises allowing increased tolerance to all ADLs and recreational activities. Goal Time Frame: 2-4 Weeks Goal 3:: LTG: Pt. to have increased lumbar spine ROM by 25% in all directions. Goal Time Frame: 4-6 Weeks Goal 4:: LTG: pt. to have increased core and BLEs strength increased by 1/2 grade of all effected musculature. Goal Time Frame: 4-6 Weeks Goal 5:: LTG: pt. to tolerate all ADLs with 0-2/10 pain. Goal Time Frame: 4-6 Weeks - Rehabilitation Potential Physical Therapy Diagnosis: Pt. has signs and symptoms consistent with low back pain without radiculopathy and generalized deconditioning. Pt. has marked hypomobility in her lumbar spine and decreased BLE and core strength. Pt. would benefit from PT to address above limitations progressing back to all recreational activities without limitations. Rehabilitation Potential: Good - Anticipated Interventions Patient/Client Instruction: Educate patient on: Condition, Plan of Care, Risk Factors, Benefits of Fitness Program For the Purpose of:: To improve decision making, To facilitate caregiver knowledge, To improve self management, To prevent re-injury, To improve ability to perform tasks related to life management, To improve tolerance to ADL's Therapeutic Exercise to Include: Strength training, Power training, Endurance training, Body mechanics, Postural training, Gait and locomotor training, Passive ROM, Active ROM, Dynamic Lumbar Stabilization, Hugo Exercises For the Purpose of:: To decrease pain, To increase ROM, To improve nutrient delivery to tissue, To increase oxygenation perfusion, To improve muscle performance and motor function, To improve ability to perform ADL's, To increase tolerance to activity/condition/position, To improve health of tissue, To decrease soft tissue restriction, To increase flexibility/ROM Thank you for the opportunity to evaluate your patient. For Medicare and Medicare HMO plans, please review the plan of care and approve it. It will need to be FAXED BACK to us at [phone] for Medicare purposes. For Medicare only, by signing this I certify the plan of care. Please let me know if there are questions or concerns regarding this plan of care. Physician Signature: Date:
--- NOTE | 2021-01-14 11:06 | HP.PTDCSUM_ITS ---
It has been my pleasure to treat ROSE RENTERIA referred by Dr. Misael Nichols MD, with the diagnosis of Lumbar pain, arthritis, deconditioning for a total of 9 visit(s). Discharge Date: 12/19/20 Please see the following information for a summary of their discharge status. Subjective: vacumming is hard and cleaning around the house. Pt's reports being HEP compliant and is 80% better overall. She is independent with her HEP and will be DC from PT at this point in time. Lumbar spine Pain Intensity (Out of 10): 3 % Improvement: 80 Objective/Function: The pt. did well with PT today. Hip flex bilat 5/5, knee ext bilat 5/5, knee flex 5/5, rectus abdominis 4/5 and causes some pain. Lumbar flex WNL, lumbar ext minimal limitation, ;umbar side-bending minimal limitation, lumbar rotation WNL. She still has back pain when driving and sitting for long periods of time, but feels she can progress on her own. Goal 1:: LTG: Pt. to be I with HEP. 12/19/2020: Pt. will be d/c and continue to be independent with her HEP. Goal Progress: Progressing Goal 2:: STG: Pt. to be able to reduce acute on set of soreness with stretching exercises allowing increased tolerance to all ADLs and recreational activities. Goal Progress: Goal Met Goal 3:: LTG: Pt. to have increased lumbar spine ROM by 25% in all directions. 12/19/2020: Pt. has minimal limitation with lumbar extension, but all other directions have increased. Goal Progress: Goal Met Goal 4:: LTG: pt. to have increased core and BLEs strength increased by 1/2 gr patricio of all effected musculature. Goal Progress: Goal Met Goal 5:: LTG: pt. to tolerate all ADLs with 0-2/10 pain. Goal Progress: Goal Met Plan: The pt. will be discharged today and will be independent with her HEP. The pt. is going to continue to work on ROM and core strength and will call if she needs anything. Discharge Comments: Pt. has progressed well with ROM and core strength. She is to continue strengthening her core and general muscle strength. Pt. was educated about how to perform ADL's at home with proper body mechanics. She states that she will be independent with her HEP. If there are questions or concerns regarding this patient's physical therapy, please feel free to call me at [phone]. Thank you for the referral of this patient. Sincerely, OFELIA BirminghamT
== END 2020-12-19 19:00 | disposition home or self-care (01) ==
LOC: PT 09:00
PROVIDERS: PCP Family Medicine; Referring Provider Family Medicine; Visit Provider Family Medicine
DX: M54.5 Low back pain (principal); M19.90 Unspecified osteoarthritis, unspecified site
CPT/HCPCS: 97110; 97161; 97530

== ENCOUNTER → 2021-05-14 | Outpatient (CLI) | payer MEDICARE, OTHER, SELFPAY ==
[2021-05-14 12:44] LABS: Color, Urine Yellow (Yellow); Glucose, Dipstick Normal (Normal); Ketone-Dipstick Negative (Negative); Leukocyte Esterase-Dipstick Negative /ul (Negative); Nitrite-Dipstick Negative (Negative); Occult Blood-Urine Negative /ul (Negative); Protein-Dipstick Negative (Negative); Urine Bilirubin Dipstick Negative (Negative); Urine Clarity Sl. Cloudy (Clear); Urine Urobilinogen Normal (Normal)
== END | disposition home or self-care (01) ==
LOC: LABSPEC 10:26
PROVIDERS: PCP Family Medicine; Referring Provider Family Medicine; Visit Provider Family Medicine
DX: R30.0 Dysuria (principal)
CPT/HCPCS: 81002; 87086

== ENCOUNTER → 2021-06-02 | Outpatient (CLI) | payer MEDICARE, OTHER, SELFPAY | END | disposition home or self-care (01) | PROVIDERS: PCP Family Medicine; Referring Provider Family Medicine; Visit Provider Family Medicine | DX: U07.1 COVID-19 (principal) | CPT/HCPCS: 87635; U0005; U0003 ==

== ENCOUNTER 2021-06-03 15:06 | Outpatient (CLI) | payer MEDICARE, OTHER, SELFPAY ==
[2021-06-03 15:25] VITALS: BP 144/62; PULSE 90; RESP 20; TEMP 37.1; O2SAT 97; BMI 28.3
[2021-06-03] MEDS: 0.9% Saline Lock 10 ML Syringe IV (15:32)
[2021-06-03 15:56] VITALS: BP 140/50; PULSE 74; RESP 16; TEMP 36.8; O2SAT 96
[2021-06-03 16:50] VITALS: BP 149/66; PULSE 77; RESP 16; TEMP 36.9; O2SAT 97
== END 2021-06-03 16:57 | disposition home or self-care (01) ==
LOC: MS3OUT 15:07 → MS3 15:08
PROVIDERS: PCP Family Medicine; Referring Provider Nurse Practitioner Adult Health; Visit Provider Nurse Practitioner Adult Health
DX: Z23 Encounter for immunization (principal); U07.1 COVID-19
CPT/HCPCS: J7050; M0243; A4216; Q0244

== ENCOUNTER 2021-12-07 15:18 | Emergency (ER) | payer MEDICARE, SELFPAY ==
[2021-12-07 15:19] VITALS: BP 178/55; PULSE 72; RESP 16; TEMP 36.3; O2SAT 97; BMI 28.0
[2021-12-07 15:32] VITALS: BP 178/74; PULSE 76; RESP 18; O2SAT 97
--- NOTE | 2021-12-07 15:41 | EKG12_ITS ---
Test Reason : WEAKNESS Blood Pressure : / mmHG Vent. Rate : 072 BPM Atrial Rate : 072 BPM P-R Int : 166 ms QRS Dur : 120 ms QT Int : 418 ms P-R-T Axes : 077 067 141 degrees QTc Int : 457 ms Normal sinus rhythm Left bundle branch block Abnormal ECG Confirmed by MIKI HOUSE, COLLEEN ([id number]), editor index KAYLEEN HENRY ([id number]) on 12/09/2021 11:12:12 AM Referred By: KEVYN Confirmed By:COLLEEN LIVINGSTON MD
--- NOTE | 2021-12-07 15:42 | EDS_ITS ---
HPI History of Present Illness Chief Complaint: Weakness Detail of Chief Complaint: Lightheaded and generalized weakness and not feeling well Informant: patient Narrative Narrative: Patient presents to the emergency department complaint of not feeling well that started while driving home this afternoon. Patient had been at a restaurant and it was cool inside and she that she stepped out into the heat. She felt well and got in her car and started driving and while driving she began feeling extremely lightheaded and feeling like she was going to pass out. Patient was able to pull up hand to the side of the road and she waited about 5 or 10 minutes and her symptoms passed but she generally felt weak afterwards. Patient was able to drive home. Currently just states that she just does not feel quite right and feels somewhat weak. She denies focal weakness. She denies vision changes. She denies headache. She denies chest pain. She denies abdominal pain. She denies recent illness. Prior similar symptoms: No PFSH PFSH Medical History (Updated 12/07/21 @ 16:[address] Sondra Winn, DO) Arthritis Difficulty swallowing Esophageal stricture GERD (gastroesophageal reflux disease) Home Medications calcium carbonate 200 mg calcium (500 mg) chewable tablet 200 mg PO TID PRN tab 01/07/18 [History Last Taken Unknown] multivitamin 1 tab PO DAILY 06/03/21 [History Last Taken Unknown] Allergy/AdvReac Type Severity Reaction Status Date / Time codeine AdvReac Nausea Verified 12/07/21 15:20 Family History Sister Heart disease Mother CVA (cerebral vascular accident) Surgical History history bilateral cataract surgery history foot surgery history left breast biopsy History of colonoscopy (~2017) History of lung surgery History of right breast biopsy History of tubal ligation Social History (Updated 09/17/18 @ 12:36 by Matt PEÑA, PA) Smoking Status: Never smoker alcohol intake: never substance use type: does not use ROS ROS ED Constitutional Constitutional ED: Reports systems reviewed and no addt'l complaints, except as documented; Denies body ache(s), change in weight or chills Eyes Eyes: Denies acute decrease in peripheral vision, change in vision, double vision or loss of vision ENT ENT ED: Reports none; Denies ear pain, lip swelling, loss taste/smell, neck pain, otalgia or sore throat Cardiovascular Cardiovascular: Reports none; Denies abdominal pain, chest pain with activity, leg edema, lightheadedness, palpitations, rapid heart rate or syncope Respiratory/Chest Respiratory/Chest: Reports none; Denies change in mental status, dry cough, dy spnea, hemoptysis, shortness of breath at rest or shortness of breath with exertion Gastrointestinal Gastrointestinal: Reports none; Denies abdominal pain, change in stool character, diarrhea, hematemesis, hematochezia, melena, rectal bleeding or vomiting Genitourinary Genitourinary ED: Reports none; Denies abdominal discomfort, anuria, dysuria, genital pain or polyuria Musculoskeletal Musculoskeletal: Reports none; Denies arthralgias, back pain, difficulty walking, extremity pain, muscle weakness or myalgias Integumentary Reports none; Denies abscess or rash Neurologic Neurologic: Reports none, weakness and other Details: Lightheaded ; Denies abnormal gait, confusion, focal weakness, frequent falls, headache(s), loss of vision, numbness, paresthesias, radicular pain or vertigo Psychiatric Psychiatric: Reports systems reviewed and no addt'l complaints, except as documented and none; Denies behavioral changes, confusion, difficulty concentrating, hallucinations, suicidal ideation, tactile hallucinations or visual hallucinations Endocrine Endocrinology: Denies none, cold intolerance, excessive sweating, fatigue or heat intolerance Hematologic/Lymphatic Hematologic/Lymphatic: Reports none; Denies anemia, easy bleeding or easy bruis ing Allergic/Immunologic Allergic/Immunologic ED: Denies as per HPI, none, lip swelling, mouth swelling, throat swelling, tongue swelling or hives EXAM Physical Exam Const Vital Signs: 12/07/21 15:19 12/07/21 15:29 12/07/21 15:32 Temperature 97.4 F L Temperature Source Temporal Pulse Rate 72 76 Pulse Rate [Lying] Pulse Rate [Sitting (for 1 minute prior to obtaining)] Pulse Rate [Standing (for 1 minute prior to obtaining)] Respiratory Rate 16 18 Respiratory Effort Normal Respiratory Pattern Normal Blood Pressure 178/55 H 178/74 H Blood Pressure [Lying] Blood Pressure [Sitting (for 1 minute prior to obtaining)] Blood Pressure [Standing (for 1 minute prior to obtaining)] Blood Pressure Mean 96 108 Blood Pressure Mean [Lying] Blood Pressure Mean [Sitting (for 1 minute prior to obtaining)] Blood Pressure Mean [Standing (for 1 minute prior to obtaining)] Pulse Ox 97 97 Oxygen Delivery Method Room Air Room Air 12/07/21 16:01 Temperature Temperature Source Pulse Rate Pulse Rate [Lying] 76 Pulse Rate [Sitting (for 1 minute prior to obtaining)] 78 Pulse Rate [Standing (for 1 minute prior to obtaining)] 76 Respiratory Rate Respiratory Effort Respiratory Pattern Blood Pressure Blood Pressure [Lying] 134/50 H Blood Pressure [Sitting (for 1 minute prior to obtaining)] 180/74 H Blood Pressure [Standing (for 1 minute prior to obtaining)] 194/65 H Blood Pressure Mean Blood Pressure Mean [Lying] 78 Blood Pressure Mean [Sitting (for 1 minute prior to obtaining)] 109 Blood Pressure Mean [Standing (for 1 minute prior to obtaining)] 108 Pulse Ox Oxygen Delivery Method Positive well nourished and well developed General Appearance ED: well developed and NAD HEENT Reports TM's clear and moist mucous membranes normocephalic and atraumatic; Negative for trauma or tenderness Tympanic Membrane ED: Yes TM's clear Eyes PERRL and EOMs intact bilaterally General Eye ED: Negative for pale conjunctiva or scleral icterus Neck no lymphadenopathy, supple and no JVD General: Negative for tenderness Chest Wall inspection of chest normal and palpation of chest normal Chest: Negative for tenderness Resp normal respiratory effort and clear to auscultation bilaterally Effort and Inspection: Negative for respiratory distress or pain with movement Auscultation: Negative for rhonchi, wheezes or diminished lung sounds Cardio regular rate, regular rhythm, S1 normal heart sound, S2 normal heart sound and no murmurs Peripheral Pulses: pulses 2+ throughout GI normal to inspection, nondistended, normoactive bowel sounds, soft to palpation, non-tender, non-distended and no masses Back/Spine no CVA tenderness and no thoracic nor lumbar tenderness Extremity normal to inspection General Extremety ED: Negative for edema General Extremity: Negative for edema Neuro oriented x3, CN's II-XII intact bilaterally, no sensory deficits noted and gait normal Sensorium / Orientation: awake, alert, oriented to person, oriented to place and oriented to time Motor Exam: strength 5/5 throughout and strength abnormal Psych mental status grossly normal Skin no rashes or lesions noted and no wounds MDM MDM MDM Narrative Medical decision making narrative: IV line established on arrival. Patient placed on a teletypesetter monitor. Orthostatic vital signs were negative. 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 It did look changed when compared with EKG from 2009. The stress echo EKG was from 2013. Patient remained essentially asymptomatic in the department. At this point etiology of her lightheadedness is unclear however its resolved. Patient advised to follow-up with primary care physician 3 to 5 days. She is to return if chest pain, shortness of breath, dizziness, or condition should worsen anyway. Lab Data Attestation: I reviewed the patient's lab results. Labs: Laboratory Results - last 24 hr 12/07/21 12/07/21 12/07/21 15:40 15:40 15:40 WBC 9.8 RBC 4.83 Hgb 14.7 Hct 45.3 MCV 93.8 MCH 30.4 MCHC 32.5 RDW Std Deviation 42.6 RDW Coeff of Lanie 12.3 Plt Count 296 MPV 8.2 Immature Gran % (Auto) 0.300 Neut % (Auto) 69.7 Lymph % (Auto) 15.8 L Sullivan % (Auto) 11.2 H Eos % (Auto) 2.8 Baso % (Auto) 0.2 Absolute Neuts (auto) 6.8 Absolute Lymphs (auto) 1.55 Nucleated RBC % 0 Sodium 138 Potassium 3.6 Chloride 104 Carbon Dioxide 30.0 Anion Gap 4 L BUN 12 Creatinine 0.90 Estim Creat Clear Calc 42.39 Est GFR (MDRD) Af Amer 76 Est GFR (MDRD) Non-Af 63 BUN/Creatinine Ratio 13.3 Glucose 95 Calcium 8.9 Troponin I High Sens < 3 L Urine Color Yellow Urine Clarity Clear Urine pH 6.0 Ur Specific [place] 1.010 Urine Protein Negative Urine Glucose (UA) Normal Urine Ketones Negative Urine Occult Blood Negative Urine Nitrite Negative Urine Bilirubin Negative Urine Urobilinogen Normal Ur Leukocyte Esterase Negative Urine RBC 0 SEEN Urine WBC 0 SEEN Ur Squamous Epith Cells 0 SEEN Urine Bacteria 0 SEEN Urine Mucus 0 SEEN EKG Initial EKG: Attestation: I personally reviewed and interpreted this EKG as follows: Comments: 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 and nonspecific ST changes Prior EKG tracings: available for review Prior: Unchanged Discharge Plan Triage Chief Complaint: Weakness ED Provider: Ungur,Remus Dx/Rx/DC Orders Clinical Impression: Dizziness Instructions: ED Dizziness, Uncertain Cause, ED Weakness (Uncertain Cause) Prescriptions: No Action calcium carbonate [Tums] 200 mg calcium (500 mg) tablet,chewable 200 mg PO TID PRN (Reason: .) RF: 0 multivitamin Tablet 1 tab PO DAILY RF: 0 Primary Care Provider: Misael Nichols Referrals: Misael Nichols MD [Primary Care Provider] - 3-5 Days Activity Restrictions/Additional Instructions: Keep a log of your blood pressure daily and follow-up with primary care physician. Disposition Disposition: Home, Self Care
[2021-12-07 15:55] LABS: Bacteria 0 SEEN /hpf (None Seen); Mucous, Urine 0 SEEN /hpf (<or=2+); Red Blood Cells-Urine 0 SEEN /hpf (0-5); Squamous Epithelial Cells - UA 0 SEEN /hpf (5-10); White Blood Cells 0 SEEN /hpf (0-5)
[2021-12-07 15:58] LABS: Absolute Lymphocyte Count 1.55 X10^3/uL (0.83-4.51); Absolute Neutrophil Count 6.8 X10^3/uL (2.0-7.7); Basophil# 0.02 X10^3/uL; Basophil% 0.2 % (0-1); Color, Urine Yellow (Yellow); Eosinophil# 0.27 X10^3/uL; Eosinophils% 2.8 % (0-5); Glucose, Dipstick Normal (Normal); Hematocrit 45.3 % (37-47); Hemoglobin 14.7 g/dL (12.0-15.0); Ketone-Dipstick Negative (Negative); Leukocyte Esterase-Dipstick Negative /ul (Negative); Lymphocyte # 1.55 X10^3/ul (0.83-4.51); Lymphocyte % 15.8 % (19-41); Mean Corp Hgb Conc 32.5 g/dL (32-36); Mean Corpuscular Hgb 30.4 pg (27.0-32.0); Mean Corpuscular Volume 93.8 fL (81-99); Mean Platelet Vol. 8.2 fl (6.2-12.0); Monocyte% 11.2 % (0-10); NRBC Flagged by Analyzer 0 % (0-5); Neutrophil # 6.83 X10^3/uL (2.7-7.7); Neutrophil % 69.7 % (47-70); Nitrite-Dipstick Negative (Negative); Occult Blood-Urine Negative /ul (Negative); Platelet Count 296 K/mm3 (150-450); Protein-Dipstick Negative (Negative); RBC Distribution Width CV 12.3 % (11.6-14.6); RBC Distribution Width SD 42.6 fl (35.1-43.9); Red Blood Count 4.83 M/mm3 (4.2-5.4); Urine Bilirubin Dipstick Negative (Negative); Urine Clarity Clear (Clear); Urine Urobilinogen Normal (Normal); White Blood Count 9.8 K/mm3 (4.4-11.0)
[2021-12-07 16:01] VITALS: BP 134/50; BP 180/74; BP 194/65; PULSE 76; PULSE 78
[2021-12-07] MEDS: 0.9% Normal Saline 1,000 ML 150 ML IV (16:01)
[2021-12-07 16:17] LABS: Anion Gap 4 (5-15); BUN 12 mg/dL (7-18); BUN/Creat Ratio 13.3 RATIO (10-20); Calcium,Total 8.9 mg/dL (8.5-10.1); Chloride 104 mmol/L (98-107); EST Glomerular Filtration Rate 63 mL/min (>60); Est Glom Filt Rate - Afr Amer 76 mL/min (>60); Estimated Creatinine Clearance 42.39 ml/min; Glucose 95 mg/dL (74-106); Potassium 3.6 mmol/L (3.5-5.1); Sodium Level 138 mmol/L (136-145); Troponin-I HS < 3 pg/mL (3.0-54.0)
[2021-12-07 16:44] VITALS: BP 194/65; PULSE 75; RESP 17
== END 2021-12-07 16:49 | disposition home or self-care (01) ==
PROVIDERS: Emergency Provider Emergency Medicine; PCP Family Medicine; Visit Provider Emergency Medicine
DX: R53.1 Weakness (principal); R42 Dizziness and giddiness; M19.90 Unspecified osteoarthritis, unspecified site; K21.9 Gastro-esophageal reflux disease without esophagitis; R13.10 Dysphagia, unspecified
CPT/HCPCS: 80048; 81001; 84484; 85025; 93005; 99285; J7030; A4216

== ENCOUNTER 2022-03-17 10:00 | Outpatient (RCR) | payer MEDICARE, SELFPAY ==
--- NOTE | 2022-02-05 09:57 | HP.PTEVAL_ITS ---
Patient's Visit Information [facility] AZRA RENTERIA is a 81 year old F referred to Physical Therapy by Dr. Misael Nichols MD with a diagnosis of feeling off balance/opthalmic vestibular dysfunction. Date of Evaluation: 02/05/22 Physical Therapist: ALEXANDRA Arredondo - Visit Plan Frequency: 1-2x /Week Duration: 6 Weeks Plan: Re-test smooth pursuit and try to advance to standing. Start seated head moving exercises. Advance VOR. Test CATSIB and FGA when feel pt is ready for it - Subjective Pt reports that when she is driving if she looks down at the panel and then looks back up it does not seem right and turning head right and left does not seem right. She feels like she is stumbling around. She feels likes she is not with it. She was in ER (1 month ago) and she got really cold and then it was warm outside and coming back into [place] she got lightheaded and felt like she was going to pass out and daughter took her to the ER. She has a lot of sinus issues. She has no head aches. She has some neck pain occ. She wakes up a couple of times during the night. She reports that she is a slow walker. She is not afraid to fall. She tends to stumble on the R foot. Sit to stand too quick or sit up really quick.... Her head feels full. - Objective Smooth pursuit with horizontal (pt could move her eyes horizontally for 10 seconds and then really felt head pressure and off). she did track well. Smooth pursuit with vertical eye movements (pt could move her eyes for about 15 seconds but struggled with eye tracking and would jump ahead of the moving target... she did have to stop due to eye fatigue and feeling off. Pt likes to walk with her head straight. When she turns her head horizontally, more so to the Right, she tends to become unsteady and off balance). - Balance/Special Test Scores Dizziness Score: 14 - Goals Goal 1:: I HEP Goal Time Frame: 8-12 Weeks Goal 2:: Be able to walk with horizontal head turns without veering and feeling dizzy or off balance Goal Time Frame: 8-12 Weeks Goal 3:: Test on the CATSIB and FGA when able Goal Time Frame: 2-4 Weeks Goal 4:: Be able to complete 60 seconds of horizontal and vertical smooth pursuit in standing without feeling off Goal Time Frame: 2-4 Weeks - Rehabilitation Potential Rehabilitation Potential: Good - Anticipated Interventions Thank you for the opportunity to evaluate your patient. For Medicare and Medicare HMO plans, please review the plan of care and approve it. It will need to be FAXED BACK to us at [phone] for Medicare purposes. For Medicare only, by signing this I certify the plan of care. Please let me know if there are questions or concerns regarding this plan of care. Physician Signature: Date:
--- NOTE | 2022-05-11 10:22 | HP.PT.NRP ---
ROSE RENTERIA was seen in my office for initial evaluation on 02/05/22. The following Plan of Care was established for this patient: Initial Frequency: 1-2x /Week Initial Duration: 6 Weeks This patient was last seen in our office 03/17/22. Pertinent comments regarding their Physical therapy will appear below: DC PT (pt was going to call in after her Dr appt and she did not) At this point I will be discontinuing this patient from physical therapy. I would be happy to see this patient again in the future if found appropriate by the physician. Thank you! Gracie Garcia, ALEXANDRA Balance/Gait/Functional tests - Balance/Special Test Scores CATSIB Score (Max score 120 seconds): 110 Dizziness Score: 14
== END 2022-03-17 19:00 | disposition home or self-care (01) ==
LOC: PT 10:00
PROVIDERS: PCP Family Medicine; Referring Provider Family Medicine; Visit Provider Family Medicine
DX: H81.8X9 Other disorders of vestibular function, unspecified ear (principal)
CPT/HCPCS: 97110; 97161

== ENCOUNTER → 2022-07-17 | Outpatient (CLI) | payer MEDICARE, SELFPAY ==
--- NOTE | 2022-07-17 09:32 | RAD_ITS ---
STUDY: X-RAY - ESOPHAGUS (BARIUM SWALLOW) WITH FLUOROSCOPY REASON FOR EXAM: Female, 82 years old. DYSPHAGIA TECHNIQUE: 21 view(s) of the esophagus were obtained following swallowing of barium. FLUOROSCOPY TIME (if supplied): (31 seconds) minutes/seconds COMPARISON: None. FINDINGS: There is no demonstrated esophageal foreign body. Mild degree of narrowing at the gastroesophageal junction. The patient ingested a 12 mm tablet of barium. The tablet is trapped at the gastroesophageal junction. There is atherosclerotic calcification of the aortic arch with tortuosity of the descending aorta. Normal visualized pulmonary parenchyma. There are diffuse degenerative changes of the visualized thoracic spine. RAD/Esophagus Single Contrast IMPRESSION: Narrowing of the distal esophagus at the level of the gastroesophageal junction with trapping of the ingested 12 mm tablet of barium. Electronically Signed: Lauri Hickman MD at 15:22 EST ,
== END | disposition home or self-care (01) ==
LOC: RAD 09:31
PROVIDERS: PCP Family Medicine; Visit Provider Otolaryngology
DX: R13.10 Dysphagia, unspecified (principal)
CPT/HCPCS: 74220

== ENCOUNTER → 2022-08-05 | Outpatient (CLI) | payer MEDICARE, SELFPAY ==
[2022-08-05 12:45] LABS: Absolute Lymphocyte Count 1.75 X10^3/uL (0.83-4.51); Absolute Neutrophil Count 4.7 X10^3/uL (2.0-7.7); Basophil# 0.04 X10^3/uL; Basophil% 0.5 % (0-1); Eosinophil# 0.37 X10^3/uL; Eosinophils% 4.8 % (0-5); Hematocrit 45.3 % (37-47); Hemoglobin 15.1 g/dL (12.0-15.0); Lymphocyte # 1.75 X10^3/ul (0.83-4.51); Lymphocyte % 22.6 % (19-41); Mean Corp Hgb Conc 33.3 g/dL (32-36); Mean Corpuscular Hgb 30.8 pg (27.0-32.0); Mean Corpuscular Volume 92.4 fL (81-99); Mean Platelet Vol. 8.4 fl (6.2-12.0); Monocyte# 0.82 X10^3/uL; Monocyte% 10.6 % (0-10); NRBC Flagged by Analyzer 0 % (0-5); Neutrophil # 4.73 X10^3/uL (2.7-7.7); Neutrophil % 61.1 % (47-70); Platelet Count 302 K/mm3 (150-450); RBC Distribution Width CV 11.9 % (11.6-14.6); RBC Distribution Width SD 40.8 fl (35.1-43.9); White Blood Count 7.7 K/mm3 (4.4-11.0)
[2022-08-05 13:19] LABS: ALB/GLOB Ratio 0.9 RATIO (0.9-2.4); AST(SGOT) 17 U/L (15-37); Alanine Aminotransfer ALT/SGPT 21 U/L (13-56); Albumin, Serum 3.3 g/dL (3.2-5.0); Alkaline Phosphatase 71 U/L (45-117); Anion Gap 7 (5-15); BUN 14 mg/dL (7-18); Chloride 104 mmol/L (98-107); Creatinine, Serum 0.78 mg/dL (0.55-1.02); EST Glomerular Filtration Rate 75 mL/min (>60); Est Glom Filt Rate - Afr Amer 91 mL/min (>60); Globulin 3.6 g/dL (2.2-4.2); Glucose 100 mg/dL (74-106); Potassium 4.6 mmol/L (3.5-5.1); Protein, Total 6.9 g/dL (6.4-8.2); Sodium Level 138 mmol/L (136-145)
== END | disposition home or self-care (01) ==
LOC: MFPLAB 11:24
PROVIDERS: PCP Family Medicine; Referring Provider Family Medicine; Visit Provider Family Medicine
DX: I10 Essential (primary) hypertension (principal); R21 Rash and other nonspecific skin eruption
CPT/HCPCS: 36415; 80053; 85025

== ENCOUNTER → 2023-01-25 | Outpatient (CLI) | payer MEDICARE, SELFPAY ==
--- NOTE | 2023-01-25 16:03 | RAD_ITS ---
INDICATION: Cough EXAMINATION/TECHNIQUE: X-RAY - XR Chest 2 Views COMPARISON: 02/27/2020 FINDINGS: LINES/DEVICES: None. LUNGS: No consolidation, edema or effusion. No pneumothorax. MEDIASTINUM AND CARDIOVASCULAR STRUCTURES: Cardiac silhouette not enlarged. Central airways and mediastinal contour are unremarkable. BONES AND SOFT TISSUES: Unremarkable. RAD/Chest PA and Lateral IMPRESSION: No radiographic evidence of acute cardiopulmonary disease. Electronically Signed: Jeffry Donato MD at 17:28 EDT ,
== END | disposition home or self-care (01) ==
PROVIDERS: PCP Family Medicine; Referring Provider Nurse Practitioner Family; Visit Provider Nurse Practitioner Family
DX: R05.9 Cough, unspecified (principal)
CPT/HCPCS: 71046

== ENCOUNTER → 2023-02-09 | Outpatient (CLI) | payer MEDICARE, SELFPAY ==
[2023-02-09 13:43] LABS: Vitamin D,25 Hydroxy 33.6 ng/mL
[2023-02-09 14:19] LABS: ALB/GLOB Ratio 0.8 RATIO (0.9-2.4); AST(SGOT) 19 U/L (15-37); Alanine Aminotransfer ALT/SGPT 21 U/L (13-56); Albumin, Serum 3.2 g/dL (3.2-5.0); Alkaline Phosphatase 64 U/L (45-117); Anion Gap 6 (5-15); BUN 10 mg/dL (7-18); BUN/Creat Ratio 12.1 RATIO (10-20); Chloride 104 mmol/L (98-107); Cholesterol 206 mg/dL (200); Creatinine, Serum 0.83 mg/dL (0.55-1.02); EST Glomerular Filtration Rate 70 mL/min (>60); Est Glom Filt Rate - Afr Amer 85 mL/min (>60); Globulin 4.2 g/dL (2.2-4.2); Glucose 103 mg/dL (74-106); High Density Lipoprotein 63 mg/dL; Potassium 4.3 mmol/L (3.5-5.1); Protein, Total 7.4 g/dL (6.4-8.2); Sodium Level 136 mmol/L (136-145); Thyroid Stim Hormone (TSH) 1.14 uIU/mL (0.358-3.74); Triglycerides 92 mg/dL; Very Low Density Lipoprotein 18 mg/dL (5-40)
[2023-02-09 15:06] LABS: Microalbumin,Random Urine 9.8 mg/L (NO RANGE EST.); Microalbumin:Creatinine Ratio 5.9 mg/g CRE (<30 mg/g CRE)
== END | disposition home or self-care (01) ==
LOC: MFPLAB 09:53
PROVIDERS: PCP Family Medicine; Visit Provider Family Medicine
DX: M85.80 Other specified disorders of bone density and structure, unspecified site (principal); I10 Essential (primary) hypertension; E78.00 Pure hypercholesterolemia, unspecified
CPT/HCPCS: 36415; 80053; 80061; 82043; 82306; 82570; 84443

== ENCOUNTER → 2023-02-24 | Outpatient (CLI) | payer MEDICARE, SELFPAY ==
--- NOTE | 2023-02-24 09:23 | BI_ITS ---
MAMMOGRAPHY - BILATERAL SCREENING REASON FOR EXAM: Female, 82 years old. Routine annual screening examination. PERTINENT HISTORY: Non-contributory. History of bilateral breast biopsies. TECHNIQUE: Digital bilateral breast lorrie (3D mammographic acquisition) in the CC and MLO projections. 2-D mediolateral oblique (MLO) and craniocaudad (CC) views of both breasts were obtained. CAD: Full Field Digital Mammography with Computer Added Detection was performed. COMPARISON: Comparison is made with prior study February 20, 2020 and October 28, 2015. FINDINGS: Breast Composition: The breasts are heterogeneously dense, which may obscure small masses. There are no dominant masses or suspicious calcifications. A tissue clip marker is seen in the upper central portion of the left breast. No other significant abnormalities are identified. There has been no significant change since the prior study. BI/SCRN MAMM (CAD)W/LORRIE BILAT IMPRESSION: Stable bilateral screening mammogram. Yearly follow-up mammogram recommended. (A) ASSESSMENT CATEGORY: BIRADS Category 2: Benign. A letter regarding these results will be sent to the patient by the facility within 30 days. Approximately 10% of breast cancers are not detected by mammography. A normal mammogram should not delay biopsy of a clinically suspicious abnormality. [id number] Electronically Signed: Lauri Hickman MD at 10:18 EDT ,
== END | disposition home or self-care (01) ==
LOC: OPBI 09:22
PROVIDERS: PCP Family Medicine; Referring Provider Family Medicine; Visit Provider Family Medicine
DX: Z12.31 Encounter for screening mammogram for malignant neoplasm of breast (principal)
CPT/HCPCS: 77063; 77067

== ENCOUNTER 2023-03-05 09:30 | Outpatient (RCR) | payer MEDICARE, SELFPAY ==
--- NOTE | 2023-02-23 15:34 | HP.PTEVAL_ITS ---
Patient's Visit Information Visit Information Visit Information: [facility] AZRA RENTERIA is a 82 year old F referred to Physical Therapy by Dr. Misael Nichols MD with a diagnosis of dizzyness, balance. Date of Evaluation: 02/23/23 Physical Therapist: Misael Zimmerman, DPT, OCS, CSCS Visit Plan Frequency: 1x/Week Duration: 2-4 Weeks Plan: weekly x 2-4 as helpful for trial of adaptation exercises and progression if helpful or referral back to doctor for possible orthostatic checks. Subjective Subjective: Getting lightheaded so bad I think I might pass out. happening more frequently. it started 2 months ago. Not spinning, just lightheadedness. Happened at a greenhouse once adn at [employer] once. They last seconds. Then feels fuzzy for a little bit. Seems fuzzy in between. May happen if she bends over or comes up too quick or turns head quick. Balance feels OK in between epidsodes. No falls. No AD needed. Sleep is OK about normal. Employed: no Hobbies: none spends day Breakfasts and lunch, girls night out, bible study, dom[employer]entis. Lives alone, one story house, two steps to enter which are no problem. Basic ADLs are OK. Put on HTN medication. about a month ago. Objective Objective: Walks I and safely back to PT with good balance. Trasnfer bed and chair I. Steps reciprocal up no rail and descends with one rail I. cervical aROM WFL and without pain. UE AROM WFL reflexes 2/3 bi/tri/patella/achilles Sensation UE and LE WNL to gross light touch. - B hallpike do but does get dizzy consistently recovering from dependent position. Oculomotor: no nystagmus with gaze or head shake. - ocular tilt - skew eye deviation - head thrust Pursuit and saccades are normal VOR is good but symptomatic after 30 seconds 3/10 for 5 seconds. Balance/Special Test Scores Functional Gait Assessment Score: 26 % Disability: 13.3400 CATSIB Score (Max score 120 seconds): 120 Dizziness Score: 20 Goals Goal 1:: VOR x 60 seconds without lightheaded feeling. Goal Time Frame: 2-4 Weeks Goal 2:: Pt feel 95% better in overall dizzy feeling Goal Time Frame: 2-4 Weeks Goal 3:: I management condition Goal Time Frame: 2-4 Weeks Goal 4:: 5 or less DHI Goal Time Frame: 2-4 Weeks Rehabilitation Potential Physical Therapy Diagnosis: Orthostatic hypotension vs vestibular weakness. Rehabilitation Potential: Questionable Anticipated Interventions Patient/Client Instruction: Educate patient on: Condition and Plan of Care For the Purpose of:: To increase tolerance to activity/condition/position Comment: adaptation ex For the Purpose of:: To increase tolerance to activity/condition/position Text: Thank you for the opportunity to evaluate your patient. For Medicare and Medicare HMO plans, please review the plan of care and approve it. It will need to be FAXED BACK to us at [phone] for Medicare purposes. For Medicare only, by signing this I certify the plan of care. Please let me know if there are questions or concerns regarding this plan of care. Physician Signature: Date:
--- NOTE | 2023-03-05 09:59 | HP.PTDCSUM_ITS ---
Discharge Summary D/C summary: It has been my pleasure to treat ROSE RENTERIA referred by Dr. Misael Nichols MD, with the diagnosis of dizzyness, balance for a total of 2 visit(s). Discharge Date: Please see the following information for a summary of their discharge status. Subjective Subjective: Everything stopped and I am fine. Doing exercises but not as often as I should. Normal activities and no symptoms. None in 3 weeks. Exercises do not make her symptomatic. Overall Improvement % Improvement: 100 Objective Objective/Function: Does get some minor fuzzyness with VOR H 60 seconds when I ask her to speed up as she was going fairly slow. Balance is excellent for her age and able to do VOR with just slight symptoms now but more so when she moves her head faster. Otherwise she is feeling pretty normal. No neck problems were found according to patient but she was referred to patient experience coordinator which is next week. Since she has not had any symptoms in over 3 weeks, she is wondering if she needs to keep that appointment, she will discuss that with her family doctor this afternoon. Goals Goal 1:: VOR x 60 seconds without lightheaded feeling. Goal Progress: slowly yes Goal 2:: Pt feel 95% better in overall dizzy feeling Goal Progress: Goal Met Goal 3:: I management condition Goal Progress: Goal Met Goal 4:: 5 or less DHI Goal Progress: Goal Met Plan [facility] D/C Information d/c sentence: If there are questions or concerns regarding this patient's physical therapy, please feel free to call me at [phone]. Thank you for the referral of this patient. Sincerely, Misael Zimmerman, DPT, OCS, CSCS Balance/Gait/Functional tests Balance/Special Test Scores Functional Gait Assessment Score: 27 % Disability: 10.0000 CATSIB Score (Max score 120 seconds): 120 Dizziness Score: 4
== END 2023-03-05 19:00 | disposition home or self-care (01) ==
LOC: PT 09:30
PROVIDERS: PCP Family Medicine; Referring Provider Family Medicine; Visit Provider Family Medicine
DX: R42 Dizziness and giddiness (principal)
CPT/HCPCS: 97161; 97164

== ENCOUNTER → 2023-04-29 | Outpatient (CLI) | payer MEDICARE, SELFPAY ==
--- NOTE | 2023-04-29 07:11 | ECHOCS_ITS ---
Reason For Study: Abnormal EKG Procedure This was a 2D Doppler, Color Flow transthoracic echocardiogram. The study was technically difficult. Contrast injection was performed. Exam performed in department. Left Ventricle Normal size and thickness. The left ventricular ejection fraction is 60 %. Unable to assess diastolic dysfunction due to arrhythmia. Right Ventricle Normal right ventricle. Atria There is mild biatrial dilatation. Lipomatous hypertrophy of the atrial septum. Mitral Valve Mild (1+) mitral valve insufficiency. Tricuspid Valve Mild tricuspid valve insufficiency. Normal pulmonary artery pressure. Aortic Valve Aortic sclerosis, no stenosis. Pulmonic Valve Mild (1+) pulmonic valve insufficiency. Great Vessels Normal sized aortic root. Pericardium/Pleural No pericardial effusion. Medication 22 gauge I.V. with prn adaptor inserted into right arm. Diluted definity 1ml given slow IV push to enhance endocardial definition. MMode/2D Measurements & Calculations LVIDd: 3.5 cm IVSd: 0.76 cm Ao root diam: 2.5 cm LVIDs: 2.8 cm LVPWd: 0.92 cm LA dimension: 3.0 cm FS: 19.2 % LAV(MOD-bp): 28.9 ml LVAd ap4: 21.7 cm2 SV(MOD-sp4): 35.8 ml LAV(MOD-bp) Indexed: 19.5 ml/m2 LVLd ap4: 6.4 cm LAV(MOD-sp2): 22.0 ml EDV(MOD-sp4): 60.8 ml LAV(MOD-sp4): 29.6 ml EDV(sp4-el): 62.5 ml LVAs ap4: 12.5 cm2 LVLs ap4: 5.3 cm ESV(MOD-sp4): 25.0 ml ESV(sp4-el): 25.0 ml EF(MOD-sp4): 58.9 % EF(sp4-el): 60.0 % SV(sp4-el): 37.5 ml LA A4 area: 13.8 cm2 RA A4 area: 16.2 cm2 TAPSE: 1.3 cm Doppler Measurements & Calculations MV E max don: 92.9 cm/sec Lat Peak E' Don: 7.8 cm/sec Med Peak E' Don: 6.0 cm/sec E/E' lat: 11.9 E/E' med: 15.4 MV V2 max: 88.4 cm/sec Ao V2 max: 79.8 cm/sec LV V1 max: 85.8 cm/sec MV max P.1 mmHg Ao max P.6 mmHg LV V1 max P.0 mmHg MV V2 mean: 50.7 cm/sec LV V1 mean P.4 mmHg MV mean P.2 mmHg LV V1 mean: 54.3 cm/sec MV V2 VTI: 17.2 cm LV V1 VTI: 13.2 cm PA V2 max: 94.8 cm/sec TR max don: 271.0 cm/sec TR max P.4 mmHg ECHO/Echo Complete W/ Contrast Interpretation Summary The left ventricular ejection fraction is 60 %. Unable to assess diastolic dysfunction due to arrhythmia. There is mild biatrial dilatation. Mild (1+) mitral valve insufficiency. Mild tricuspid valve insufficiency. Mild (1+) pulmonic valve insufficiency. Ordering Physician: Jessica Bernard Referring Physician: Jessica Bernard Performed By: Avery Hanson [facility]
--- NOTE | 2023-04-29 12:26 | STRESSREP ---
Stress Test Report Date: 04/29/2023 Procedure: Pharmacologic stress nuclear imaging study Indications: Abnormal ECG Consent: Per the patient Procedure: The patient underwent pharmacologic (Regadenoson 0.4mg ) evaluation with a peak heart rate of 106 beats per minute (77%predicted maximal heart rate) and a peak blood pressure of 134/70 mmHg. The baseline ECG demonstrated atrial fibrillation with left bundle branch block. The peak pharmacologic ECG demonstrated no diagnostic changes. There were no cardiac dysrhythmias pretest, during pharmacologic infusion, or recovery. There was no complaint of chest discomfort during pharmacologic infusion or recovery. The patient was injected with 11.5 millicuries of technetium 99m Cardiolite and subsequently rest SPECT Cardiolite nuclear imaging was obtained in the horizontal long, vertical long, and short axis views. The patient underwent pharmacologic (Regadenoson) evaluation. The patient was injected with 34.3 millicuries of technetium 99m Cardiolite and subsequently stress SPECT Cardiolite nuclear imaging was obtained in the horizontal long, vertical long, and short axis views. A gated Cardiolite study at peak stress was obtained. The examination was stopped secondary to completion of protocol. Rest and stress SPECT Cardiolite nuclear imaging status post realignment, normalization, and attenuation correction demonstrate no fixed or reversible perfusion defects. There is end systolic thickening and brightening. The gated Cardiolite study demonstrates myocardial thickening and inward wall motion. The reported LVEF is 86%. Impression: 1. Pharmacologic (Regadenoson) evaluation 2. Peak pharmacologic ECG with no diagnostic changes secondary to baseline abnormality. 3. Baseline atrial fibrillation with left bundle branch block. 5. Rest and stress SPECT Cardiolite nuclear imaging demonstrate relative uniform tracer uptake and myocardial perfusion appearing within normal limits. 6. The gated Cardiolite study reports an LVEF of 86%. This note was generated with Liquiteriaation software. It may contain incorrect words, spelling, and punctuation that were not noted in checking the note before signing.
== END | disposition home or self-care (01) ==
PROVIDERS: PCP Family Medicine; Referring Provider Internal Medicine Cardiovascular Disease; Visit Provider Internal Medicine Cardiovascular Disease
DX: R94.31 Abnormal electrocardiogram [ECG] [EKG] (principal); R06.09 Other forms of dyspnea
CPT/HCPCS: 78452; 93017; 93306; A9500; Q9957; A4216; C8929; J2785

== ENCOUNTER → 2023-05-14 | Outpatient (CLI) | payer MEDICARE, SELFPAY | END | disposition home or self-care (01) | LOC: PSN 12:11 | PROVIDERS: PCP Family Medicine; Referring Provider Internal Medicine Cardiovascular Disease; Visit Provider Internal Medicine Cardiovascular Disease | DX: R94.31 Abnormal electrocardiogram [ECG] [EKG] (principal); R42 Dizziness and giddiness; R06.09 Other forms of dyspnea; I10 Essential (primary) hypertension | CPT/HCPCS: 93225; 93226 ==

== ENCOUNTER 2023-06-01 14:28 | Outpatient (CLI) | payer MEDICARE, SELFPAY ==
--- NOTE | 2023-06-01 14:29 | RAD_ITS ---
INDICATION: polyarthralgia and R hip pain worse than L hip pain EXAMINATION/TECHNIQUE: X-RAY - XR Hips Bilateral with Pelvis when performed; 2 Views COMPARISON: No relevant prior comparison study available FINDINGS: PELVIC BONES: No displaced fracture, destructive or sclerotic lesions. Note that overlapping bowel shadows may however obscure fine detail. Sacroiliac joints are unremarkable. No widening of the pubic symphysis. HIPS: Symmetric moderate hip joint arthrosis. No displaced fracture seen in this frontal view. SOFT TISSUES: No soft tissue swelling or gas. RAD/Hips B/L min 2 views w/ Pelvis IMPRESSION: Age consistent bilateral hip joint arthrosis without fracture or suspicious osseous lesion Electronically Signed: Rogelio Dewitt MD at 17:04 EDT ,
[2023-06-01 17:35] LABS: Absolute Neutrophil Count 5.3 X10^3/uL (2.0-7.7); Basophil# 0.03 X10^3/uL; Basophil% 0.3 % (0-1); Eosinophil# 0.44 X10^3/uL; Eosinophils% 5.1 % (0-5); Hematocrit 46.2 % (37-47); Lymphocyte % 21.9 % (19-41); Mean Corp Hgb Conc 32.5 g/dL (32-36); Mean Corpuscular Hgb 29.9 pg (27.0-32.0); Mean Corpuscular Volume 92.2 fL (81-99); Mean Platelet Vol. 8.2 fl (6.2-12.0); Monocyte# 0.96 X10^3/uL; Monocyte% 11.1 % (0-10); NRBC Flagged by Analyzer 0 % (0-5); Neutrophil # 5.32 X10^3/uL (2.7-7.7); Neutrophil % 61.4 % (47-70); Platelet Count 315 K/mm3 (150-450); RBC Distribution Width CV 12.1 % (11.6-14.6); RBC Distribution Width SD 41.3 fl (35.1-43.9); Red Blood Count 5.01 M/mm3 (4.2-5.4); White Blood Count 8.7 K/mm3 (4.4-11.0)
[2023-06-01 18:00] LABS: PTHIN 78.2 pg/mL (18.4-80.1)
[2023-06-01 18:15] LABS: ALB/GLOB Ratio 0.8 RATIO (0.9-2.4); AST(SGOT) 20 U/L (15-37); Alanine Aminotransfer ALT/SGPT 21 U/L (13-56); Albumin, Serum 3.3 g/dL (3.2-5.0); Alkaline Phosphatase 73 U/L (45-117); Anion Gap 7 (5-15); BUN 11 mg/dL (7-18); BUN/Creat Ratio 8.9 RATIO (10-20); CRP 5.58 mg/L (0.0-3.0); Calcium,Total 8.8 mg/dL (8.5-10.1); Chloride 104 mmol/L (98-107); Creatinine, Serum 1.23 mg/dL (0.55-1.02); EST Glomerular Filtration Rate 44 mL/min (>60); Est Glom Filt Rate - Afr Amer 53 mL/min (>60); Globulin 4.4 g/dL (2.2-4.2); Glucose 97 mg/dL (74-106); Protein, Total 7.7 g/dL (6.4-8.2); Rheumatoid Factor < 10.0 IU/mL (<15); Sodium Level 138 mmol/L (136-145); Thyroid Stim Hormone (TSH) 1.07 uIU/mL (0.358-3.74)
[2023-06-01 18:43] LABS: Hepatitis C Antibody Non-Reactive (Nonreactive); Vitamin D,25 Hydroxy 25.3 ng/mL
[2023-06-03 12:09] LABS: ANTINUCLEAR ANTIBODIES DIRECT Negative (Negative)
[2023-06-03 15:08] LABS: Lyme Scn Total Ab w/Rflx Negative (Negative); PROEL- A/G Ratio 1.1 (0.7-1.7); PROEL- Albumin 3.6 g/dL (2.9-4.4); PROEL- Alpha-1 Globulin 0.3 g/dL (0.0-0.4); PROEL- Alpha-2 Globulin 0.9 g/dL (0.4-1.0); PROEL- Beta Globulin 1.1 g/dL (0.7-1.3); PROEL- Gamma Globulin 1.1 g/dL (0.4-1.8); PROEL- Globulin, Total 3.4 g/dL (2.2-3.9); PROEL-M-Spike Not Observed g/dL (Not Observed)
== END 2023-06-01 23:59 | disposition home or self-care (01) ==
LOC: MTLAB 14:29
PROVIDERS: PCP Family Medicine; Referring Provider Family Medicine; Visit Provider Family Medicine
DX: M85.80 Other specified disorders of bone density and structure, unspecified site (principal); M25.551 Pain in right hip; M25.552 Pain in left hip; I10 Essential (primary) hypertension
CPT/HCPCS: 36415; 73521; 80053; 82306; 83970; 84165; 84443; 85025; 86038; 86140; 86431; 86618; 86803

== ENCOUNTER 2023-09-07 12:30 | Outpatient (RCR) | payer MEDICARE, SELFPAY ==
--- NOTE | 2023-07-15 16:04 | HP.PTEVAL ---
Patient's Visit Information Visit Information Visit Information: [facility] AZRA RENTERIA is a 82 year old F referred to Physical Therapy by Dr. Misael Nichols MD with a diagnosis of HIP ARTHRITIS BILATERAL ,BACK PAIN ,OSTEOPROSIS. Date of Evaluation: 07/15/23 Physical Therapist: Vadim Betancur, PT, Cert MDT, OCS Visit Plan Frequency: 2x /Week Duration: 4 Weeks Plan: PT INTERVETIONS AQUATIC THERAPY ROM/STRENGTHENING HIPS /KNEES ,DLS ,LE FLEXABLITY ,DLS ,AND LUMBAR ROM Subjective Subjective: This 82 y/o female presents to physical therapy with back pain and hip pain right > left. Patient ahs had hip back pain for many years but pain in hip ahs increased past 6 months . Patient [address] DR recommended PT ,x-rays hip mild/mod DJD ,and DDD and h/o osteoporosis . Patient has been on heart monitor due to light headiness. Patient symmetrical LBP and and posterior glut and groin pain > right. Patient has radicular symptoms to foot .Aggravating factors standing walking. bending , lifting and affects housework tasks. Patient ahs difficulty donning socks > right leg. Alleviating rest. Coughing/sneezing-. No abnormal night pain. Bowel/bladder -. Denies paresthesia/tingling - Patient has had prior PT in past to included Aquatics. Patient condition affects QOL and function. Patient goals to decrease pain. VOCATION: retired SOCIAL: Pain Bilateral Back: Pain Intensity (Out of 10): 8 Pain Intensity Range: 10 Objective Objective: POSTURTE: mild forward posture GAIT: reciprocal mild antalgic mild slow alvina , NEURO: denies parestehesia/tingling ,reflexes L3-4,L4-5,L5-S 1/3 SYMMTRIES: align AROM HIP: right 90 degrees right ,hip abd 35 degrees , IR 0 degrees , left 95 flexion hip ,abduction 35 degrees ,IR 0 degrees LUMBAR ROM: flexion mod loss ,extension severe ,side glides mod loss MMT: ( peak force) quads 23.5 right ,left 22.3, hams right 24.8 ,left 23,.8 ,hip flexion 13.2 right, left 14.2 ,hip abd right 10.7 ,left 10.2 Special Tests L/S Slump test left side: Negative L/S Slump test right side: Negative L/S Left Straight Leg Raise: Negative L/S Right Straight Leg Raise: Negative R Hip Scour: Positive R Hip Quadrant - Intraarticular Pathology: Positive R Hip APARNA - Intraarticular Pathology: Positive R Hip Trendelenberg - Glut Medius: Negative L Hip Scour: Positive L Hip Quadrant - Intraarticular Pathology: Positive L Hip APARNA - Intraarticular Pathology: Positive L Hip Trendelenberg - Glut Medius: Negative Balance/Special Test Scores Lower Extremity Functional Score: 25 Goals Goal 1:: Patient to be I with Aquatic PT for hip and back. Goal Time Frame: 4-6 Weeks Goal 2:: Patient to improve lumbar ROM for function of recovery to put on shoes and socks Goal Time Frame: 4-6 Weeks Goal 3:: Patient to improve AROM hip flexion by 5-10 degrees to improve ability to put on pants Goal Time Frame: 4-6 Weeks Goal 4:: Patient to improve peak force of hips by 5-10# to improve strength for gait Goal Time Frame: 4-6 Weeks Goal 5:: Patient to improve LFES SCORE by 5 points to improve QOL Goal Time Frame: 4-6 Weeks Goal 6:: Patient to demonstrate 40% improvement with less pain and improve function Goal Time Frame: 4-6 Weeks Rehabilitation Potential Physical Therapy Diagnosis: This patient has bilateral hip pain ,decrease ROM ,strength ,impairs gait and decrease lumbar ROM with back pain with position walking/standing thus will benefit from skilled PT Rehabilitation Potential: Good Anticipated Interventions Patient/Client Instruction: Educate patient on: Condition and Plan of Care For the Purpose of:: To decrease pain, To increase ROM, To improve muscle performance and motor function, To improve ability to perform ADL's, To increase tolerance to activity/condition/position, To improve ability of physical actions for home/community/work/leisure, To improve health of tissue, To decrease soft tissue restriction, To increase flexibility/ROM, To reduce risk of recurrence and To improve tolerance to ADL's Therapeutic Exercise to Include: Strength training, Endurance training, Balance training, Postural training, Flexibilty training, In an aquatic setting , Passive ROM and Dynamic Lumbar Stabilization For the Purpose of:: To decrease pain, To increase ROM, To improve muscle performance and motor function, To improve ability to perform ADL's, To increase tolerance to activity/condition/position, To improve ability of physical actions for home/community/work/leisure, To improve gait and locomotor functions, To improve health of tissue, To decrease soft tissue restriction, To increase flexibility/ROM, To improve endurance, To improve balance and To improve tolerance to ADL's Text: Thank you for the opportunity to evaluate your patient. For Medicare and Medicare HMO plans, please review the plan of care and approve it. It will need to be FAXED BACK to us at [phone] for Medicare purposes. For Medicare only, by signing this I certify the plan of care. Please let me know if there are questions or concerns regarding this plan of care. Physician Signature: Date:
--- NOTE | 2023-09-07 13:52 | HP.PTDCSUM ---
Discharge Summary D/C summary: It has been my pleasure to treat ROSE RENTERIA referred by Dr. Misael Nichols MD, with the diagnosis of HIP ARTHRITIS BILATERAL ,BACK PAIN ,OSTEOPROSIS for a total of 12 visit(s). Discharge Date: 09/07/23 Please see the following information for a summary of their discharge status. Subjective Subjective: I can do ex's on own ,but I still hurt Standing 15mins , Pain Bilateral Back: Pain Intensity (Out of 10): 1 hips: Pain Intensity (Out of 10): 7 Overall Improvement % Improvement: 30 Objective Objective/Function: Objective: POSTURTE: mild forward posture GAIT: reciprocal mild antalgic mild slow alvina , NEURO: denies parestehesia/tingling ,reflexes L3-4,L4-5,L5-S 1/3 SYMMTRIES: align AROM HIP: right 98 degrees right ,hip abd 35 degrees , IR 7 degrees , left 99 flexion hip ,abduction 35 degrees ,IR 5 degrees LUMBAR ROM: flexion mod loss ,extension severe ,side glides mod loss MMT: ( peak force) quads 28.5 right ,left 23.3, hams right 27.8 ,left 25,.8 ,hip flexion 23.8 right, left 22.9 ,hip abd right 18.9 ,left 15.2 Special Tests L/S Slump test left side: Negative Goals Goal 1:: Patient to be I with Aquatic PT for hip and back. Goal Progress: Progressing Goal 2:: Patient to improve lumbar ROM for function of recovery to put on shoes and socks Goal Progress: Progressing Goal 3:: Patient to improve AROM hip flexion by 5-10 degrees to improve ability to put on pants Goal Progress: Progressing Goal 4:: Patient to improve peak force of hips by 5-10# to improve strength for gait Goal Progress: Progressing Goal 5:: Patient to improve LFES SCORE by 5 points to improve QOL Goal Progress: Progressing Goal 6:: Patient to demonstrate 40% improvement with less pain and improve function Plan Plan: D/C D/C Information Discharge Comments: Aquatic d/c sentence: If there are questions or concerns regarding this patient's physical therapy, please feel free to call me at [phone]. Thank you for the referral of this patient. Sincerely, Vadim Betancur, PT, Cert MDT, OCS Balance/Gait/Functional tests Balance/Special Test Scores Lower Extremity Functional Score: 45 Improvement % Improvement: 30
== END 2023-09-07 19:00 | disposition home or self-care (01) ==
LOC: PT 12:30
PROVIDERS: PCP Family Medicine; Referring Provider Family Medicine; Visit Provider Family Medicine
DX: M16.0 Bilateral primary osteoarthritis of hip (principal); M81.0 Age-related osteoporosis without current pathological fracture; M54.9 Dorsalgia, unspecified
CPT/HCPCS: 97113; 97162; 97530

== ENCOUNTER → 2023-09-16 | Outpatient (CLI) | payer MEDICARE, SELFPAY ==
[2023-09-16 12:18] LABS: Hematocrit 45.8 % (37-47); Hemoglobin 14.9 g/dL (12.0-15.0); Mean Corp Hgb Conc 32.5 g/dL (32-36); Mean Corpuscular Volume 92.3 fL (81-99); Mean Platelet Vol. 8.4 fl (6.2-12.0); Platelet Count 318 K/mm3 (150-450); RBC Distribution Width CV 12.4 % (11.6-14.6); RBC Distribution Width SD 42.5 fl (35.1-43.9); Red Blood Count 4.96 M/mm3 (4.2-5.4); White Blood Count 8.1 K/mm3 (4.4-11.0)
[2023-09-16 12:29] LABS: ALB/GLOB Ratio 0.8 RATIO (0.9-2.4); AST(SGOT) 21 U/L (15-37); Alanine Aminotransfer ALT/SGPT 23 U/L (13-56); Albumin, Serum 3.3 g/dL (3.2-5.0); Alkaline Phosphatase 80 U/L (45-117); Anion Gap 2 (5-15); BUN 11 mg/dL (7-18); BUN/Creat Ratio 14.1 RATIO (10-20); Calcium,Total 9.3 mg/dL (8.5-10.1); Chloride 102 mmol/L (98-107); Creatinine, Serum 0.78 mg/dL (0.55-1.02); EST Glomerular Filtration Rate 75 mL/min (>60); Est Glom Filt Rate - Afr Amer 90 mL/min (>60); Globulin 4.4 g/dL (2.2-4.2); Glucose 109 mg/dL (74-106); Lipase 34 U/L (13-75); Potassium 4.2 mmol/L (3.5-5.1); Protein, Total 7.7 g/dL (6.4-8.2); Sodium Level 133 mmol/L (136-145)
[2023-09-16 12:31] LABS: Erythrocyte Sedimentation Rate 35 mm/hr (0-30)
== END | disposition home or self-care (01) ==
LOC: MTLAB 10:32
PROVIDERS: PCP Family Medicine; Referring Provider Family Medicine; Visit Provider Family Medicine
DX: R10.13 Epigastric pain (principal); R63.4 Abnormal weight loss; M54.9 Dorsalgia, unspecified
CPT/HCPCS: 36415; 80053; 83690; 85027; 85652

== ENCOUNTER → 2023-10-11 | Outpatient (CLI) | payer MEDICARE, SELFPAY ==
--- OUTSIDE RECORDS SUMMARY | 2023-10-11 10:33 | XMS RPT_ITS | CCD ---
Author Name Unknown Address [address] [place] [address] Organization [facility] Care Team Providers Care Market Research Worker Name Role Phone GHAZOUL, ANUP Unavailable Unavailable SELF, SELF Unavailable Unavailable GHAZOUL, ANUP Unavailable Unavailable GHAZOUL, ANUP Unavailable Unavailable GHAZOUL, ANUP Unavailable Unavailable GHAZOUL, ANUP Unavailable Unavailable BOLDEN, THU A Unavailable Unavailable GHAZOUL, ANUP Unavailable Unavailable BOLDEN, THU A Unavailable Unavailable Nicki Curtis Unavailable Unavailable Allergies Allergy Classification Reported Allergen(s) Allergy Type Date of Onset Reaction(s) Facility (1 source) Adhesive Tape drug allergy 0 skin rash and skin break down [facility] Work Phone: (1 source) Codeine Drug Allergy [address] [facility] Work Phone: Medications Completed/Discontinued Medications Medication Drug Class(es) Dates Sig (Normalized) Sig (Original) fluorouracil 50 mg/ml topical cream (1 source) Nucleoside Metabolic Inhibitor Start: 12-03-2009 EFUDEX 5 % CREA apply twice a day for a month then stop for a month. FLUOROURACIL [id number] Vadim Harp MD fluticasone propionate 0.05 mg/actuat metered dose nasal spray (1 source) Corticosteroid Start: 07-21-2011 FLONASE 50 MCG/ACT SUSP Take as directed (0.05 Mg/inh) FLUTICASONE PROPIONATE [id number] Valery Panda nitroglycerin 0.4 mg sublingual tablet (1 source) Nitrate Vasodilator Start: 07-21-2011 NITROSTAT 0.4 MG SUBL 1 tablet under tongue every 5 min up to 3 X NITROGLYCERIN [id number] Valery Panda omeprazole 20 mg delayed release oral capsule (1 source) Proton Pump Inhibitor Start: 07-21-2011 take 1 tablet by mouth once daily OMEPRAZOLE 20 MG CPDR One tablet by mouth daily OMEPRAZOLE [id number] Valery Panda Problems Active Problems Problem Classification Problem Date Documented Da te Episodic/Chronic Essential hypertension (1 source) Hypertensive disorder; Translations: [Essential (primary) hypertension] Onset: 07-21-2011 07-21-2011 Chronic Melanomas of skin (2 sources) Melanoma in situ of right upper limb, including shoulder; Translations: [Melanoma in situ of right upper limb, including shoulder] Onset: 06-17-2018 Chronic Past or Other Problems Problem Classification Problem Date Documented Date Episodic/Chronic Neoplasms of unspecified nature or uncertain behavior (1 source) Neoplasm of uncertain behavior of skin; Translations: [Neoplasm of uncertain behavior of skin] Onset: 12-03-2009 12-11-2009 Episodic Nonmalignant breast conditions (1 source) Unspecified lump in breast; Translations: [Unspecified lump in breast] Onset: 12-03-2009 12-11-2009 Episodic Nonspecific chest pain (1 source) Precordial pain; Translations: [Precordial pain] Onset: 07-21-2011 07-21-2011 Episodic Other eye disorders (1 source) Unspecified ptosis of unspecified eyelid; Translations: [Unspecified ptosis of unspecified eyelid] Onset: 12-03-2009 12-11-2009 Episodic Other lower respiratory disease (1 source) Dyspnea; Translations: [Dyspnea, unspecified] Onset: 07-21-2011 07-21-2011 Episodic Other screening for suspected conditions (not mental disorders or infectious disease) (1 source) Electrocardiogram abnormal; Translations: [Abnormal electrocardiogram [ECG] [EKG]] Onset: 07-21-2011 07-21-2011 Episodic Results Test Name Value Interpretation Reference Range Facil ity Vital Signs Date Time Vital Sign Value Performing Clinician Facility 05-20-2017 09:23-0400 BMI (Body Mass Index) 31.75 kg/m2 Nicki Curtis [facility] Work Phone: 05-20-2017 09:23-0400 Body Temperature 98.4 [degF] Nicki Curtis [facility] Work Phone: 05-20-2017 09:23-0400 BP Diastolic 91 mm[Hg] [facility] [employer] Work Phone: 05-20-2017 09:23-0400 BP Systolic 152 mm[Hg] [facility] [employer] Work Phone: 05-20-2017 09:23-0400 Height 137.16 cm [facility] [employer] Work Phone: 05-20-2017 09:23-0400 Pulse (Heart Rate) 72 /min [facility] Work Phone: 05-20-2017 09:23-0400 Respiratory Rate 18 /min [facility] [employer] Work Phone: 05-20-2017 09:23-0400 Weight 59.74 kg [facility] [employer] Work Phone: Encounters Encounter Date Encounter Type Care Provider Facility Start: 07-19-2018 Patient encounter procedure [facility] Start: 06-29-2018 Patient encounter procedure [facility] Start: 06-17-2018 End: 06-17-2018 Patient encounter procedure [facility] Start: 06-14-2018 Patient encounter procedure [facility] Procedures Date Procedure Procedure Detail Performing Clinician Start: 05-20-2017 End: 05-20-2017 Colonoscopy flx dx w/collj spec when pfrmd Golden Nixon MD Work Phone: Start: 05-20-2017 Screening for malign ant neoplasm of colon Screening for colon cancer [facility] Plan of Treatment Date Care Activity Detail Author Start: 06-15-2017 End: 06-15-[address] [facility] Work Phone: Start: 05-20-2017 End: 05-20-2017 Colonoscopy flx dx w/collj spec when pfrmd Colonoscopy [facility] [employer] Work Phone: Start: 05-20-2017 End: 05-20-[address] [facility] Work Phone: Summary Purpose Family History No Family History Records Found Advance Directives No Advanced Directives Records Found Additional Source Comments INFORMATION SOURCE (unrecogn ized section and content) FOR RECORDS PERTAINING TO PATIENTS WHO ARE OR HAVE BEEN ENROLLED IN A CHEMICAL DEPENDENCY/SUBSTANCEABUSE PROGRAM, SOME INFORMATION MAY BE OMITTED. This clinical summary was aggregated from multiple sources. Caution should be exercised in using it in the provision of clinical care. This summary normalizes information from multiple sources, and as a consequence, information in this document may materially change the coding, format and clinical context of patient data. In addition, data may be omitted in some cases. CLINICAL DECISIONS SHOULD BE BASED ON THE PRIMARY CLINICAL RECORDS. [facility]. provides no warranty or guarantee of the accuracy or completeness of information in this document.
[2023-10-11 12:22] LABS: Erythrocyte Sedimentation Rate 11 mm/hr (0-30)
[2023-10-11 12:25] LABS: Urine Sodium 65 mmol/L (Not Establ.)
[2023-10-11 12:29] LABS: ALB/GLOB Ratio 0.8 RATIO (0.9-2.4); AST(SGOT) 18 U/L (15-37); Alanine Aminotransfer ALT/SGPT 21 U/L (13-56); Albumin, Serum 3.3 g/dL (3.2-5.0); Alkaline Phosphatase 71 U/L (45-117); Anion Gap 2 (5-15); BUN 10 mg/dL (7-18); BUN/Creat Ratio 14.1 RATIO (10-20); CRP < 2.90 mg/L (0.0-3.0); Chloride 106 mmol/L (98-107); Creatinine, Serum 0.71 mg/dL (0.55-1.02); EST Glomerular Filtration Rate 83 mL/min (>60); Est Glom Filt Rate - Afr Amer 101 mL/min (>60); Globulin 3.9 g/dL (2.2-4.2); Glucose 108 mg/dL (74-106); Potassium 4.6 mmol/L (3.5-5.1); Protein, Total 7.2 g/dL (6.4-8.2); Sodium Level 138 mmol/L (136-145)
[2023-10-11 13:09] LABS: Osmolality, Serum 294 mOsm/KG (280-301)
[2023-10-11 13:09] LABS: Osmolality, Urine 436 mOsm/KG
== END | disposition home or self-care (01) ==
LOC: MFPLAB 09:57
PROVIDERS: PCP Family Medicine; Visit Provider Family Medicine
DX: E87.1 Hypo-osmolality and hyponatremia (principal)
CPT/HCPCS: 36415; 80053; 83930; 83935; 84300; 85652; 86140

== ENCOUNTER → 2023-11-23 | Outpatient (CLI) | payer MEDICARE, SELFPAY ==
--- NOTE | 2023-11-23 08:54 | CDU_ITS ---
Reason For Study: Syncope Rt. Velocities/BP Lt. Velocities/BP Prox CCA 94.1/15.5 cm/sec. Prox CCA 86.4/16.0 cm/sec. Mid CCA 78.1/15.5 cm/sec. Mid CCA 87.5/16.0 cm/sec. Dist CCA 76.9/15.5 cm/sec. Dist CCA 72.1/17.1 cm/sec. Prox ICA 65.8/13.0 cm/sec. Prox ICA 67.7/13.8 cm/sec. Mid ICA 69.9/19.3 cm/sec. Mid ICA 81.5/19.4 cm/sec. Dist ICA 93.3/22.2 cm/sec. Dist ICA 107.0/23.0 cm/sec. Rt. ICA/CCA = 1.2. Lt. ICA/CCA = 1.2. Prox ECA 134.8/12.7 cm/sec. Prox ECA 125.3/12.1 cm/sec. Rt. Vert. 44.1/6.6 cm/sec. Lt. Vert. 53.4/6.2 cm/sec. Right Extracranial There is homogeneous, smooth atherosclerotic plaque noted in the right common carotid artery. There is heterogeneous, smooth atherosclerotic plaque noted in the right internal carotid artery. There is intimal thickening but no significant atherosclerotic plaque noted in the right external carotid artery. Antegrade flow is noted in the right vertebral artery. Left Extracranial There is homogeneous, smooth atherosclerotic plaque noted in the left common carotid artery. There is heterogeneous, irregular atherosclerotic plaque noted in the left internal carotid artery. There is intimal thickening but no significant atherosclerotic plaque noted in the left external carotid artery. Antegrade flow is noted in the left vertebral artery. VL/Carotid Duplex Ultrasound Interpretation Summary Mild (<50%) stenosis right extracranial internal carotid. Mild (<50%) stenosis left extracranial internal carotid. Patent and antegrade vertebrals bilaterally. Ordering Physician: Jessica Bernard Referring Physician: Misael Nichols Performed By: Isai Obrien RVT
== END | disposition home or self-care (01) ==
LOC: CVS 08:52
PROVIDERS: PCP Family Medicine; Referring Provider Internal Medicine Cardiovascular Disease; Visit Provider Internal Medicine Cardiovascular Disease
DX: R55 Syncope and collapse (principal); R42 Dizziness and giddiness
CPT/HCPCS: 93880

== ENCOUNTER 2023-12-17 14:18 | Outpatient (CLI) | payer MEDICARE, SELFPAY ==
[2023-12-17 17:30] LABS: Absolute Lymphocyte Count 1.85 X10^3/uL (0.83-4.51); Absolute Neutrophil Count 5.1 X10^3/uL (2.0-7.7); Basophil# 0.03 X10^3/uL; Basophil% 0.4 % (0-1); Eosinophil# 0.26 X10^3/uL; Eosinophils% 3.2 % (0-5); Hematocrit 44.6 % (37-47); Hemoglobin 14.3 g/dL (12.0-15.0); Lymphocyte # 1.85 X10^3/ul (0.83-4.51); Lymphocyte % 22.8 % (19-41); Mean Corp Hgb Conc 32.1 g/dL (32-36); Mean Corpuscular Hgb 29.9 pg (27.0-32.0); Mean Corpuscular Volume 93.1 fL (81-99); Mean Platelet Vol. 8.3 fl (6.2-12.0); Monocyte# 0.84 X10^3/uL; Monocyte% 10.4 % (0-10); NRBC Flagged by Analyzer 0 % (0-5); Platelet Count 291 K/mm3 (150-450); RBC Distribution Width CV 12.5 % (11.6-14.6); RBC Distribution Width SD 42.8 fl (35.1-43.9); Red Blood Count 4.79 M/mm3 (4.2-5.4); White Blood Count 8.1 K/mm3 (4.4-11.0)
[2023-12-17 18:04] LABS: ALB/GLOB Ratio 0.9 RATIO (0.9-2.4); AST(SGOT) 19 U/L (15-37); Alanine Aminotransfer ALT/SGPT 22 U/L (13-56); Albumin, Serum 3.5 g/dL (3.2-5.0); Alkaline Phosphatase 71 U/L (45-117); Anion Gap 4 (5-15); BUN 13 mg/dL (7-18); BUN/Creat Ratio 16.5 RATIO (10-20); Calcium,Total 9.4 mg/dL (8.5-10.1); Chloride 104 mmol/L (98-107); Creatinine, Serum 0.79 mg/dL (0.55-1.02); EST Glomerular Filtration Rate 74 mL/min (>60); Est Glom Filt Rate - Afr Amer 89 mL/min (>60); Globulin 4.1 g/dL (2.2-4.2); Glucose 94 mg/dL (74-106); Potassium 4.1 mmol/L (3.5-5.1); Protein, Total 7.6 g/dL (6.4-8.2); Sodium Level 137 mmol/L (136-145); Thyroid Stim Hormone (TSH) 1.01 uIU/mL (0.358-3.74)
== END 2023-12-17 23:59 | disposition home or self-care (01) ==
LOC: MTLAB 14:19
PROVIDERS: PCP Family Medicine; Referring Provider Family Medicine; Visit Provider Family Medicine
DX: M25.50 Pain in unspecified joint (principal); I48.0 Paroxysmal atrial fibrillation
CPT/HCPCS: 36415; 80053; 84443; 85025

== ENCOUNTER 2024-01-03 19:01 | Emergency (ER) | payer MEDICARE, SELFPAY ==
[2024-01-03] VITALS (16 sets, daily range): BP systolic 168–187; BP diastolic 57–69; PULSE 63–90; RESP 13–25; TEMP 36.4–36.5; O2SAT 92–97; BMI 28.0
--- NOTE | 2024-01-03 19:16 | EKG12_ITS ---
Test Reason : DYSRHYTHMIA Blood Pressure : / mmHG Vent. Rate : 073 BPM Atrial Rate : 073 BPM P-R Int : 184 ms QRS Dur : 124 ms QT Int : 408 ms P-R-T Axes : 068 036 104 degrees QTc Int : 449 ms Normal sinus rhythm Left bundle branch block Abnormal ECG Confirmed by Mark Lau ([id number]), supervising film or videotape editor ELHAM SAUCEDA ([id number]) on 01/04/2024 8:09:43 AM Referred By: GARRETT Confirmed By:Mark Lau
--- NOTE | 2024-01-03 19:17 | EDS_ITS ---
HPI History of Present Illness Chief Complaint: Hypertension [facility] Medical History Abnormal ECG Dyspnea on exertion Essential hypertension Thoracic outlet syndrome Lightheadedness Reactive airway disease Seasonal allergies Contact with and (suspected) exposure to other viral communicable diseases Acute bronchitis, unspecified Over 65 years old COVID-19 Esophageal stricture Arthritis Difficulty swallowing GERD (gastroesophageal reflux disease) Home Medications ?Medication ?Instructions ?Recorded ?Last Taken ?Type B-complex with vitamin C 1 cap PO DAILY 03/03/23 Unknown History acetaminophen 325 mg capsule 325 mg PO ONCE PRN 03/03/23 Unknown History (Tylenol) cholecalciferol (vitamin D3) 125 125 mcg PO DAILY 03/03/23 Unknown History mcg (5,000 unit) capsule zinc sulfate 25 mg zinc (110 mg) 25 mg PO DAILY 03/03/23 Unknown History tablet mecobalamin (vitamin B12) 1,000 1,000 mcg PO DAILY 03/30/23 Unknown History mcg chewable tablet omega-3 900 mg-dha 360 mg-epa 455 1 cap PO DAILY 03/30/23 Unknown History mg-fish oil 1,000 mg capsule (Fish Oil) famotidine 20 mg tablet 40 mg PO BID PRN acid reflex 11/09/23 Unknown History metoprolol succinate 50 mg 50 mg PO DAILY #90 tabs 11/09/23 01/03/24 Rx tablet,extended release 24 hr rivaroxaban 15 mg tablet (Xarelto) 15 mg PO QDAY 11/09/23 Unknown History Allergy/AdvReac Type Severity Reaction Status Date / Time Estrogens Allergy weight gain Verified 01/03/24 19:05 codeine AdvReac Nausea Verified 01/03/24 19:05 Family History Sister Heart disease Mother CVA (cerebral vascular accident) Surgical History History of bilateral carpal tunnel release History of bilateral cataract extraction History of breast biopsy History of foot surgery History of colonoscopy (~2017) History of right breast biopsy History of lung surgery History of tubal ligation Social History Smoking Status: Never smoker alcohol intake: never substance use type: does not use caffeine: Yes Type: coffee Number of servings: 1 and tea Number of servings: 1 EXAM Physical Exam Const Vital Signs: 01/03/24 19:05 01/03/24 19:29 01/03/24 19:29 Temperature 97.5 F L Temperature Source Temporal Pulse Rate 77 Respiratory Rate 18 Respiratory Effort Normal Respiratory Pattern Blood Pressure 178/69 H Blood Pressure Mean 105 Pulse Ox 95 Oxygen Delivery Method Room Air Room Air 01/03/24 19:29 01/03/24 19:39 01/03/24 20:02 Temperature Temperature Source Pulse Rate Respiratory Rate Respiratory Effort Respiratory Pattern Normal Blood Pressure 181/65 H 187/57 H Blood Pressure Mean 103 100 Pulse Ox Oxygen Delivery Method 01/03/24 21:47 Temperature Temperature Source Pulse Rate 70 Respiratory Rate 20 H Respiratory Effort Respiratory Pattern Blood Pressure 183/59 H Blood Pressure Mean 100 Pulse Ox 93 Oxygen Delivery Method Room Air MDM MDM MDM Narrative Medical decision making narrative: HISTORY OF PRESENT ILLNESS: 83-year-old female presents with transient chest tightness and diaphoresis. Notes this occurred prior to arrival. Notes she called EMS her systolic blood pressure 210. Symptoms have since resolved. Patient denies sudden onset of pain, no tearing sensation, no migratory symptoms, no new numbness, weakness or loss of sensation. Patient denies family history or personal history of Connective tissue disorders (Marfan's Syndrome, Maxine Danlos etc) The patient denies recent surgery in the last 4 weeks or immobilization in the last 3 days, denies previous diagnosis of DVT or PE, hemoptysis, unilateral leg swelling or malignancy with treatment the last 6 months or palliative. No estrogen use noted. REVIEW OF SYSTEMS: Pertinent positives: Chest pain, diaphoresis Pertinent negatives: Neck pain, focal neurologic deficit PHYSICAL EXAM: Nursing triage notes reviewed, Vital signs reviewed Constitutional: please see mdm HENT: MMM Eyes: Pupils equal round and reactive to light, Extraocular muscles intact Neck: No stridor, no JVD, full neck ROM Lungs: Clear to auscultation, No wheezing or rales. No increased work of breathing, no conversational dyspnea, no accessory muscle use, no nasal flaring. No respiratory distress noted Heart: Regular rate and rhythm, No murmurs, No rubs and No gallops, 2+ distal pulses (radial, femoral, posterior tibial) in all extremities Abdomen: Soft, there is no tenderness, rigidity, rebound or guarding, no obvious peritoneal signs, no palpable pulsatile abdominal masses, no auscultated abdominal bruit : No CVAT Extremities: No edema Neuro: No focal neurological deficits, cranial nerves II through XII intact, 5/5 strength in all extremities. Intact sensation to light touch in all extremities, 2+ reflexes bilateral patella tendons. Normal gait. No ataxia. Skin: No rash or lesions noted MEDICAL DECISION MAKING: Chief Complaint: Chest pain, elevated blood pressure External records reviewed: Echocardiogram shows ejection fraction 60% Factors affecting care: hypertension, paroxysmal A-fib on Xarelto Social determinants of health: Elderly History obtained from others: EMS Consults: none MDM Narrative: Patient was hemodynamically stable, afebrile nontoxic-appearing. No focal cardiopulmonary normalities noted I considered the following differential diagnosis: ACS, arrhythmia, anemia, electro disturbance, ALL IMAGES (IF OBTAINED) HAVE BEEN PERSONALLY REVIEWED AND INTERPRETED BY MYSELF. High-sensitivity troponin is negative, no evidence of myocardial ischemia x 2 CBC without leukocytosis, severe anemia, no thrombocytopenia. BMP without evidence of significant electrolyte abnormalities, no anion gap, no acute kidney injury. High-sensitivity troponin is negative, no evidence of myocardial ischemia The synthesis of the patient's history, physical exam, labs images suggest no acute life-limiting etiology. Patient initial blood pressure was 228 systolic. This resolved spontaneously to an appropriate 180 systolic. I suspect her symptoms are secondary to elevated blood pressure rather than plaque rupture or ACS. The patient is appropriate for discharge home given negative high- sensitivity troponin protocol. She is appropriate for repeat evaluation by her primary care physician for antihypertensive titration. Strict return precautions were discussed. The patient and/or family, caregivers express understanding. The patient and/or family, caregivers agrees with the plan. Shared decision making: I will have a discussion with the patient and or visitors regarding risk/benefits of further testing or admission. They will be made aware of of the risk/benefits inherent in this decision they will be given the opportunity to voice understanding. Total critical care time today provided was at least 0 minutes. This excludes separately billable procedures. Critical care time (if documented) is secondary to the patient having high probability of clinically significant/life threatening deterioration in the patient's condition which required my urgent intervention. Impression: 1. Chest pain 2. Poorly controlled hypertension Dispo: Discharge home This note was generated with Mavination software. It may contain incorrect words, spelling, and punctuation that were not noted in review of the chart prior to signing. Lab Data Labs: Laboratory Results - last 24 hr 01/03/24 01/03/24 19:30 21:37 WBC 8.8 RBC 4.51 Hgb 13.3 Hct 41.4 MCV 91.8 MCH 29.5 MCHC 32.1 RDW Std Deviation 42.8 RDW Coeff of Lanie 12.7 Plt Count 260 MPV 8.0 Immature Gran % (Auto) 0.300 Neut % (Auto) 60.8 Lymph % (Auto) 23.4 Arthur % (Auto) 10.6 H Eos % (Auto) 4.4 Baso % (Auto) 0.5 Absolute Neuts (auto) 5.4 Absolute Lymphs (auto) 2.07 Nucleated RBC % 0 Sodium 136 Potassium 4.0 Chloride 104 Carbon Dioxide 28.0 Anion Gap 4 L BUN 12 Creatinine 0.85 Estim Creat Clear Calc 38.83 Est GFR (MDRD) Af Amer 82 Est GFR (MDRD) Non-Af 68 BUN/Creatinine Ratio 14.1 Glucose 127 H Calcium 8.8 Troponin I High Sens 4 7 Radiography Diagnostic Testing: Clinical Impression(s) from Imaging Studies Chest X-Ray 01/03/24 20:00 IMPRESSION: Poor inspiration with some bibasilar atelectasis. Electronically Signed: John Quiles MD at 21:04 EDT , Discharge Plan Triage Chief Complaint: Hypertension Other Complaint: Chest Pain ED Provider: Francisco Mattson Dx/Rx/DC Orders Prescriptions: No Action B-complex with vitamin C Capsule 1 cap PO DAILY cholecalciferol (vitamin D3) 125 mcg (5,000 unit) capsule 125 mcg PO DAILY acetaminophen [Tylenol] 325 mg capsule 325 mg PO ONCE PRN zinc sulfate 25 mg zinc (110 mg) tablet 25 mg PO DAILY Fish Oil 900 mg-360 mg- 455 mg-1,000 mg capsule 1 cap PO DAILY mecobalamin (vitamin B12) 1,000 mcg tablet,chewable 1,000 mcg PO DAILY Xarelto 15 mg tablet 15 mg PO QDAY famotidine 20 mg tablet 40 mg PO BID PRN (Reason: acid reflex) metoprolol succinate 50 mg tablet extended release 24 hr 50 mg PO DAILY Qty: 90 3RF Primary Care Provider: Misael Nichols Referrals: Misael Nichols MD [Primary Care Provider] - Print Language: Cape Verdean
[2024-01-03 19:34] LABS: Absolute Lymphocyte Count 2.07 X10^3/uL (0.83-4.51); Absolute Neutrophil Count 5.4 X10^3/uL (2.0-7.7); Basophil# 0.04 X10^3/uL; Basophil% 0.5 % (0-1); Eosinophil# 0.39 X10^3/uL; Eosinophils% 4.4 % (0-5); Hematocrit 41.4 % (37-47); Hemoglobin 13.3 g/dL (12.0-15.0); Lymphocyte # 2.07 X10^3/ul (0.83-4.51); Lymphocyte % 23.4 % (19-41); Mean Corp Hgb Conc 32.1 g/dL (32-36); Mean Corpuscular Hgb 29.5 pg (27.0-32.0); Mean Corpuscular Volume 91.8 fL (81-99); Monocyte# 0.94 X10^3/uL; Monocyte% 10.6 % (0-10); NRBC Flagged by Analyzer 0 % (0-5); Neutrophil # 5.36 X10^3/uL (2.7-7.7); Neutrophil % 60.8 % (47-70); Platelet Count 260 K/mm3 (150-450); RBC Distribution Width CV 12.7 % (11.6-14.6); RBC Distribution Width SD 42.8 fl (35.1-43.9); Red Blood Count 4.51 M/mm3 (4.2-5.4); White Blood Count 8.8 K/mm3 (4.4-11.0)
[2024-01-03 19:54] LABS: Anion Gap 4 (5-15); BUN 12 mg/dL (7-18); BUN/Creat Ratio 14.1 RATIO (10-20); Calcium,Total 8.8 mg/dL (8.5-10.1); Chloride 104 mmol/L (98-107); Creatinine, Serum 0.85 mg/dL (0.55-1.02); EST Glomerular Filtration Rate 68 mL/min (>60); Est Glom Filt Rate - Afr Amer 82 mL/min (>60); Estimated Creatinine Clearance 38.83 ml/min; Glucose 127 mg/dL (74-106); Sodium Level 136 mmol/L (136-145); Troponin-I HS (w/2H Reflex) 4 pg/mL (3.0-54.0)
--- NOTE | 2024-01-03 20:00 | RAD_ITS ---
STUDY: X-RAY CHEST REASON FOR EXAM: Female, 83 years old. chest pain TECHNIQUE: Single AP portable view of the chest. COMPARISON: 01/25/2023 FINDINGS: Poor inspiration with some bibasilar atelectasis. There is no demonstrated pleural abnormality. Normal size heart. Normal mediastinum and lev. Normal visualized pulmonary arteries. Normal visualized aortic arch and descending thoracic aorta. Normal visualized thoracic spine. Normal visualized ribs, clavicles, and shoulders. There is no demonstrated abnormality of the visualized soft tissue structures of the upper abdomen. RAD/Chest 1 View (Portable) IMPRESSION: Poor inspiration with some bibasilar atelectasis. Electronically Signed: John Quiles MD at 21:04 EDT ,
[2024-01-03 21:32] LABS: Reflex Troponin-HS? (from REC) Y
[2024-01-03 22:06] LABS: Troponin-I HS 7 pg/mL (3.0-54.0)
== END 2024-01-03 22:42 | disposition home or self-care (01) ==
PROVIDERS: Emergency Provider Emergency Medicine; PCP Family Medicine; Visit Provider Emergency Medicine
DX: R07.9 Chest pain, unspecified (principal); I48.0 Paroxysmal atrial fibrillation; I10 Essential (primary) hypertension; Z79.01 Long term (current) use of anticoagulants
CPT/HCPCS: 71045; 80048; 84484; 85025; 93005; 99284; A4216

== ENCOUNTER → 2024-01-20 | Outpatient (CLI) | payer MEDICARE, SELFPAY ==
--- NOTE | 2024-01-20 12:50 | RAD_ITS ---
INDICATION: PAIN EXAMINATION/TECHNIQUE: X-RAY - XR Spine Lumbar Min 4 Views COMPARISON: None. FINDINGS: VERTEBRAE: There is an S-shaped scoliotic curvature. No evidence of fracture destructive bony process. No spondylolisthesis. Preservation of the normal lumbar lordosis. Moderate facet arthropathy from L3 to S1. DISCS: Multilevel disc space narrowing most notable at L2-3 T12-L1 and L1-2. Marginal osteophyte formation and endplate sclerosis present. There is mild retrolisthesis of L2 on L3. INCLUDED ABDOMEN: Included bowel gas pattern is non-obstructive. RAD/L/S Spine Min 4 Views IMPRESSION: 1. S-shaped scoliotic curvature and multilevel lumbar spondylosis. 2. Mild retrolisthesis of L2 on L3. 3. No fracture or acute destructive bony process. Electronically Signed: John Pike MD at 20:22 EDT ,
== END | disposition home or self-care (01) ==
LOC: MTRAD 12:44
PROVIDERS: PCP Family Medicine; Referring Provider Family Medicine; Visit Provider Family Medicine
DX: M47.816 Spondylosis without myelopathy or radiculopathy, lumbar region (principal)
CPT/HCPCS: 72110

== ENCOUNTER 2024-02-23 10:00 | Outpatient (RCR) | payer MEDICARE, SELFPAY ==
--- NOTE | 2024-02-01 13:54 | HP.PTEVAL_ITS ---
Patient's Visit Information Visit Information Visit Information: [facility] AZRA RENTERIA is a 83 year old F referred to Physical Therapy by Dr. Misael Nichols MD with a diagnosis of BACK PAIN. Date of Evaluation: 02/01/24 Physical Therapist: Lashon Malloy PT, Cert MDT Visit Plan Frequency: 2x /Week Duration: 4-6 Weeks Plan: GAIT TRAINING WITH LEAST AD FOR SAFETY AND BACK PAIN RELIEF. 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 Subjective Subjective: Work/Leisure: RETIRED. LIVES ALONE ON ONE FLOOR WITH BASEMENT. Present symptoms: LOW BACK AND EDGARD HIP PAIN. EDGARD THIGH PAIN ON THE OUTSIDES. EDGARD KNEE PAIN R>L. Present since: A FEW YEARS Pain Scale: WORST 8/10, LEAST 0/10 Currently: 0/10 Is it getting better, worse or staying the same: WORSENING. Commenced as a result of: NO APPARENT REASON Worse: STANDING, LIFTING, SHOPPING, WALKING Better: SITTING, LYING DOWN Disturbed sleep: NO Previous history/Previous treatment: PHYSICAL THERAPY - WITHOUT BENEFIT Treatment this episode: TYLONOL - DOESN'T REALLY HELP Coughing/sneezing/straining: NEGATIVE FOR INCREASED PAIN. Gait: NO FALLS. FEELS WOBBLY WHEN FIRST GETS UP TO WALK. HIP OR KNEE GIVES OUT SOMETIMES BUT CATCHES HERSELF. DOES NOT USE AD - REFUSES DUE TO PRIDE. Bowel or Bladder Dysfunction: NO Accidents: NO Unexplained weight loss: NO Imaging: YES - SEE [facility] EMR - BACK AND HIPS PMH/Recent major surgery: HTN. ON BLOOD THINNER. RECENT EPISODE OF CHEST PAIN. FOOT SURGERY. PARTIAL LUNG REMOVAL. OSTEOPENIA. Objective Objective: Sitting/Standing Posture: PATIENT STANDS WITH ANTERIOR PELVIC TILT AND INCREASED TRUNK FLEXION. Other Observations: THIS PATIENT AMBULATES INDEP'LY INTO PT WITHOUT ANY ASSISTIVE DEVICES WITH DECREASED CADANCE, INCREASED TRUNK FLEXION AND INTERMITTENT LIMPING ON R LE. SHE HAS DIFFICULTING INITIATING GAIT AFTER SITTING AND DIFFICULTY RISING FROM SITTING BUT ABLE TO DO SO WITHOUT UE ASSIST. R LE BUCKES ON HER INTERMITTENLTY BUT SHE MAINTAINS HER BALANCE INDEP'LY. Sensory deficit: EDGARD LE LIGHT TOUCH SENSATION GROSSLY INTACT AND SYMMETRICAL ROM deficit: EDGARD HIP FLEX, HIP ROTATOR, HS, AND CALF TIGHTNESS. VERY LIMITED IN HIP IR EDGARD. PATIENT C/O PAIN WITH HIP ROM TESTING R>L Motor deficit: EDGARD LE WEAKNESS. R HIP 4-/5, KNEE 4-/5, ANKLE 4/5. L HIP 4-/5, KNEE 4/5, ANKLE 4/5. Reflexes: EDGARD QUADS AND ELOISE'S 1+ Dural Signs: NEGATIVE EDGARD LE'S. Lumbar mvmt loss: flex - MIN ext - CONNIE R SG - CONNIE L SG - CONNIE PATIENT C/O INCREASED PAIN WITH LUMBAR ROM TESTING ALL PLANES BUT IT DOES NOT REMAIN WORSE A RESULT. Core strength: POOR Palpation: PATIENT DENIES TENDERNESS WITH PALPATION OF LOWER THORACIC, LUMBAR, SACRAL AND EDGARD HIP REGIONS. OTHER: PATIENT IS ABLE TO SLS ON EA LE X > 5 SEC EA WITHOUT UE ASSIST BUT SHE IS WOBBLY. TREATMENT: EDUCATED PATIENT ON RISK OF FALLING DUE TO R LE BUCKLING AND BENEFITS OF CANE FOR SAFETY. PATIENT RELUCTANT BUT AGREEABLE TO HAVE GAIT TRAINING. PATIENT ABLE TO RETURN DEMO GOOD SEQUENCING WITH CANE AFTER INSTRUCTION. ALSO INSTRUCTED PATIENT IN CONTINUED USE OF LUMBAR SUPPORT IN SITTING. EDUCATION GIVEN TO PATIENT ABOUT ARTHRITIC CHANGES FOUND ON IMAGING IN BACK. Balance/Special Test Scores Oswestry Low Back Score: 30 Goals Goal 1:: PATIENT WILL REPORT AT LEAST 25% LESS BACK AND HIP PAIN TO EASE ADL'S. Goal Time Frame: 4-6 Weeks Goal 2:: PATIENT WILL COMPLETE 6 STANDS IN 30 SECS WITHOUT UE ASSIST AND WITHOUT C/O INCREASED PAIN TO DEMONSTRATE IMPROVED FUNCTIONAL STRENGTH Goal Time Frame: 4-6 Weeks Goal 3:: PATIENT WILL COMPLETE TUG IN < 15 SECS WITH LEAST AD TO DEMONSTRATE IMPROVED GAIT STABILITY Goal Time Frame: 4-6 Weeks Goal 4:: PATIENT WILL BE ABLE TO WALK FOR AT LEAST 10 MINUTES WITH LEAST AD AND WITHOUT AGGREVATION OF SYMPTOMS IN ORDER TO PERFORM ADL'S AND IADL'S. Goal Time Frame: 4-6 Weeks Goal 5:: PATIENT WILL BE INDEP WITH A HEP FOR CONTINUED IMPROVEMENT ONCE FORMAL PHYSICAL THERAPY CONCLUDES. Goal Time Frame: 4-6 Weeks Rehabilitation Potential Physical Therapy Diagnosis: THIS PATIENT PRESENTS TO PT WITH DIFFICULTY WITH TRANSFERS AND WALKING DUE TO BACK AND LE PAIN, STIFFNESS AND WEAKNESS. Rehabilitation Potential: Fair Anticipated Interventions Patient/Client Instruction: Educate patient on: Condition, Plan of Care and Risk Factors For the Purpose of:: To improve self management Therapeutic Exercise to Include: Strength training, Body mechanics, Postural training, Flexibilty training, Neuromotor development and Dynamic Lumbar Stabilization For the Purpose of:: To decrease pain, To improve muscle performance and motor function, To increase tolerance to activity/condition/position, To improve ability of physical actions for home/community/work/leisure, To improve gait and locomotor functions, To increase flexibility/ROM and To improve safety with gait Cryotherapy (ice pack, ice massage): Yes Thermo therapy (hot pack): Yes Ultrasound (thermal/non thermal): Yes (1.3 W/CM2 X 8 TO LOW BACK) For the Purpose of:: To decrease pain and To improve nutrient delivery to tissue Text: Thank you for the opportunity to evaluate your patient. For Medicare and Medicare HMO plans, please review the plan of care and approve it. It will need to be FAXED BACK to us at [phone] for Medicare purposes. For Medicare only, by signing this I certify the plan of care. Please let me know if there are questions or concerns regarding this plan of care. Physician Signature: Date:
--- NOTE | 2024-02-23 15:10 | HP.PTDCSUM ---
Discharge Summary D/C summary: It has been my pleasure to treat ROSE RENTERIA referred by Dr. Misael Nichols MD, with the diagnosis of BACK PAIN for a total of 6 visit(s). Discharge Date: 02/23/24 Please see the following information for a summary of their discharge status. Subjective Subjective: PATIENT REPORTS SHE HATES TO SAY IT BUT SHE DOESN'T THINK THERAPY IS HELPING. SHE STATES SHE HAS TALKED TO SOME PEOPLE AND SHE THINKS MAYBE SHE SHOULD SEE DR. BERRIOS. THIS PT RECOMMENDED SHE DISCUSS THE PRO'S AND CON'S OF THAT WITH DR. NICHOLS. SHE REPORTS THAT THE HEAT WE PUT ON HER BACK AND SOME OF THE STRETCHES WE TAUGHT HER FEEL GOOD THOUGH. SHE STATES SHE WOULD LIKE TO STOP PT AND FOLLOW UP WITH DR. NICHOLS AT THIS POINT. Pain Low Back: Pain Intensity (Out of 10): 4 Objective Objective/Function: UPON EXAM TODAY THERE ARE NO SIGNIFICANT OBJECTIVE CHANGES BUT PATIENT IS NOW INDEP WITH A HEP THAT SHE CAN TOLERATE TO WORK ON STRETCHING AND STRENGTHENING. SHE STILL REALLY DOESN'T WANT TO USE ANY ASSISTIVE DEVICES TO HELP WITH HER PAIN AND SHE DOESN'T WANT TO CONTINUE PHYSICAL THEARAPY AT THIS POINT. Goals Goal 1:: PATIENT WILL REPORT AT LEAST 25% LESS BACK AND HIP PAIN TO EASE ADL'S. Goal Progress: Not Progressing Goal 2:: PATIENT WILL COMPLETE 6 STANDS IN 30 SECS WITHOUT UE ASSIST AND WITHOUT C/O INCREASED PAIN TO DEMONSTRATE IMPROVED FUNCTIONAL STRENGTH Goal Progress: Not Progressing Goal 3:: PATIENT WILL COMPLETE TUG IN < 15 SECS WITH LEAST AD TO DEMONSTRATE IMPROVED GAIT STABILITY Goal Progress: Not Progressing Goal 4:: PATIENT WILL BE ABLE TO WALK FOR AT LEAST 10 MINUTES WITH LEAST AD AND WITHOUT AGGREVATION OF SYMPTOMS IN ORDER TO PERFORM ADL'S AND IADL'S. Goal Progress: Not Progressing Goal 5:: PATIENT WILL BE INDEP WITH A HEP FOR CONTINUED IMPROVEMENT ONCE FORMAL PHYSICAL THERAPY CONCLUDES. Goal Progress: Not Progressing Plan Plan: D/C D/C Information d/c sentence: If there are questions or concerns regarding this patient's physical therapy, please feel free to call me at [phone]. Thank you for the referral of this patient. Sincerely, Lashon Malloy, PT, Cert MDT Balance/Gait/Functional tests Balance/Special Test Scores Oswestry Low Back Score: 19
== END 2024-02-23 19:00 | disposition home or self-care (01) ==
LOC: PT 10:00
PROVIDERS: PCP Family Medicine; Referring Provider Family Medicine; Visit Provider Family Medicine
DX: M54.9 Dorsalgia, unspecified (principal)
CPT/HCPCS: 97110; 97162; 97530

== ENCOUNTER → 2024-03-30 | Outpatient (CLI) | payer MEDICARE, SELFPAY ==
--- NOTE | 2024-03-30 08:55 | RAD_ITS ---
STUDY: X-RAY - ESOPHAGUS (BARIUM SWALLOW) WITH FLUOROSCOPY REASON FOR EXAM: Female, 83 years old. and with 11 mm tablet TECHNIQUE: 41 fluoroscopic view(s) of the esophagus were obtained following swallowing of barium. FLUOROSCOPY TIME (if supplied): (34 seconds) minutes/seconds. 3.3 mGy. COMPARISON: Comparison is made with prior study dated July 17, 2022. FINDINGS: There is no demonstrated esophageal foreign body. There is no demonstrated stricture or mucosal abnormality. Normal gastroesophageal junction, without a demonstrated hiatal hernia. The patient ingested a 12 mm tablet of barium. The tablet is trapped at the gastroesophageal junction. There is atherosclerotic calcification of the aortic arch with tortuosity of the descending aorta. Normal visualized pulmonary parenchyma. There are diffuse degenerative changes of the visualized thoracic spine. RAD/Esophagus Dual Contrast IMPRESSION: The ingested 12 mm tablet of barium is trapped at the gastroesophageal junction. Electronically Signed: Lauri Hickman MD at 9:33 EDT ,
== END | disposition home or self-care (01) ==
PROVIDERS: PCP Family Medicine; Referring Provider Family Medicine; Visit Provider Family Medicine
DX: K22.2 Esophageal obstruction (principal)
CPT/HCPCS: 74221

== ENCOUNTER 2024-04-28 08:53 | Day surgery (SDC) | payer MEDICARE, SELFPAY ==
[2024-04-28] VITALS (7 sets, daily range): BP systolic 93–126; BP diastolic 39–66; PULSE 55–67; RESP 14–16; TEMP 36.2–36.9; O2SAT 92–98; BMI 27.7
--- NOTE | 2024-04-28 09:19 | PRE.ANES_ITS ---
ASA Classification* ASA Classification ASA Classification: 2 Assessment & Plan Anesthesia* Anesthesia Assessment Anesthesia Assessment: Discussed sedation and/or anesthesia options, risks, benefits, and alternatives with patient/parents/legal guardian/POA. Questions invited. The patient/parents/legal guardian/POA seems to understand and agrees to proceed with anesthesia plan. Reviewed the physical assessment, medical history, allergy history and patient home medications list prior to surgery/procedure/anesthetic and documented any changes. Performed airway and anesthesia risk assessments. Anesthesia Type Anesthesia Type: MAC Anesthesia Focused Assessment* Airway Assessment Mouth opens: >3 cm Mallampati Score: II Focused Labs Anesthesia Preop lab: CBC WBC 8.8 K/mm3 (4.4-11.0) 01/03/24 19:30 RBC 4.51 M/mm3 (4.2-5.4) 01/03/24 19:30 Hgb 13.3 g/dL (12.0-15.0) 01/03/24 19:30 Hct 41.4 % (37-47) 01/03/24 19:30 Plt Count 260 K/mm3 (150-450) 01/03/24 19:30 CHEMISTRY Potassium 4.0 mmol/L (3.5-5.1) 01/03/24 19:30 Sodium 136 mmol/L (136-145) 01/03/24 19:30 BUN 12 mg/dL (7-18) 01/03/24 19:30 Creatinine 0.85 mg/dL (0.55-1.02) 01/03/24 19:30 Glucose 127 mg/dL (74-106) H 01/03/24 19:30 TSH 1.01 uIU/mL (0.358-3.74) 12/17/23 14:21 COAG Pre-Assessment Diagnosis/Proposed Procedure Planned Operative Procedure(s): EGD Anesthesia History 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 When Was Last Pacemaker Check QUESTION #4 FULL TEXT: You/Your Family Experience fever (hyperthermia) with Anesthesia Last Oral Intake Last Oral intake: Last Oral Intake NPO since Meds taken in AM with sips of water? 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: PONV - auto body builder apprentice Female Yes 04/27/24 09:08 HX of Motion Sickness No 04/27/24 09:08 HX of N/V After Surgery Yes 04/27/24 09:08 Non-Smoker Yes 04/27/24 09:08 Duration of Surgery greater No 04/27/24 09:08 than 60 minutes Number of Risk Factors 3 04/27/24 09:08 PONV Score Moderate Risk 04/27/24 09:08 Height & Weight Height & Weight: Anesthesia: Height & Weight Height 4 ft 9 in 04/27/24 08:35 Respiratory Assessment Respiratory Assessment - auto body builder apprentice: Respiratory Tract Infection Hx - auto body builder apprentice Hx Respiratory Tract Infection No 04/27/24 09:08 STOP Sleep Apnea STOP Sleep Apnea - auto body builder apprentice: STOP Sleep Apnea - auto body builder apprentice Hx Hypertension Yes: CONTROLLED WITH MEDS 04/27/24 09:08 Hx Sleep Apnea No 04/27/24 09:08 CPAP BIPAP Do you snore loudly (louder No 04/27/24 09:08 than talking or can be heard Do you often feel tired/ Yes 04/27/24 09:08 fatigued/ sleepy during daytime? Has anyone observed you stop No 04/27/24 09:08 breathing during sleep? STOP Results Positive 04/27/24 09:08 QUESTION #5 FULL TEXT : Do you snore loudly (louder than talking or can be heard through closed doors)? 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 Specify any problems Hx of Preganancy in last 3 No 04/27/24 09:08 Months Nurse Filling Out Transfusion [email or web address] 04/27/24 09:08 & Questions: Date: 04/27/24 04/27/24 09:08 Time: :04/27/24 09:08 Patient unable to answer at this time (ie. confused, unrespo /Reproduction History /Reproductive History - auto body builder apprentice: /Reproductive Hx- auto body builder apprentice Hx Now Gestational Age (in weeks): EDC: Hx Hx Para Hx Section SAB Active Medications Active Medications: Current Medications Generic Name Dose Route Start Last Admin Trade Name Freq PRN Reason Stop Dose Admin Lactated Ringer's 1,000 mls @ 15 mls/hr 04/28/24 09:15 IV .Q48H NIDA PFSH Medical History Abnormal ECG Acute bronchitis, unspecified Arthritis Back pain Cardiology follow-up encounter Chronic cough Contact with and (suspected) exposure to other viral communicable diseases COVID-19 Difficulty swallowing Dyspnea on exertion Esophageal stricture Essential hypertension GERD (gastroesophageal reflux disease) History of echocardiogram History of pain when walking History of stress test Lightheadedness Non-smoker Over 63 years old Reactive airway disease Seasonal allergies Shortness of breath on exertion Thoracic outlet syndrome Wears glasses Home Medications ?Medication ?Instructions ?Recorded ?Last Taken ?Type B-complex with vitamin C 1 cap PO DAILY 03/03/23 Unknown History acetaminophen 325 mg capsule 325 mg PO ONCE PRN pain 03/03/23 Unknown History (Tylenol) cholecalciferol (vitamin D3) 125 125 mcg PO DAILY 03/03/23 Unknown History mcg (5,000 unit) capsule zinc sulfate 25 mg zinc (110 mg) 25 mg PO DAILY 03/03/23 Unknown History tablet mecobalamin (vitamin B12) 1,000 1,000 mcg PO DAILY 03/30/23 Unknown History mcg chewable tablet omega-3 900 mg-dha 360 mg-epa 455 1 cap PO DAILY 03/30/23 04/26/24 History mg-fish oil 1,000 mg capsule (Fish Oil) rivaroxaban 15 mg tablet (Xarelto) 15 mg PO QDAY 11/09/23 04/24/24 History calcium carbonate (Antacid 400 mg PO Q4H PRN heartburn 04/27/24 Unknown History (calcium carbonate)) diltiazem HCl 180 mg 180 mg PO QHS 04/27/24 04/27/24 History capsule,extended release 24 hr (Cardizem CD) Allergy/AdvReac Type Severity Reaction Status Date / Time Estrogens Allergy weight gain Verified 04/28/24 09:16 codeine AdvReac Nausea Verified 04/28/24 09:16 Family History Sister Heart disease Mother CVA (cerebral vascular accident) Surgical History History of bilateral carpal tunnel release History of bilateral cataract extraction History of breast biopsy History of colonoscopy (~2017) History of foot surgery History of lung surgery History of right breast biopsy History of tubal ligation Social History Smoking Status: Never smoker alcohol intake: never substance use type: does not use caffeine: Yes Type: coffee Number of servings: 1 and tea Number of servings: 1 Review of Systems (Anesthesia) ROS Narrative System reviewed and no additional complaints, except as documented.
[2024-04-28] MEDS: Lactated Ringers 1,000 ML 15 ML IV (09:20)
--- NOTE | 2024-04-28 10:02 | HP.PCM_ITS ---
History and Physical Date of Admission: 04/28/24 Intake Vital Signs 01/02/2419:05 02/24/2415:42 03/20/2414:10 Height 4 ft 9 in 4 ft 9 in 4 ft 9 in Weight: 129 lb BMI 27.9 BP 150/75 H Blood Pressure Location Rt brachial Position Sitting Respiration 17 Pulse 62 Pulse Source Monitor Temp 97.6 F L Temp Source Temporal Pulse Oximetry (%) 94 Oxygen Delivery Method room air Intake Visit Reasons: NAUSEA, POSSIBLE SCOPE Chief Complaint: nausea, possible scope Is patient in pain?: No Allergies Estrogens Allergy (Verified 03/20/24 14:11) weight gaincodeine Adverse Reaction (Verified 03/20/24 14:11) Nausea Medications ?Medication ?Instructions ?Recorded ?Confirmed ?Type B-complex with vitamin C 1 cap PO DAILY 03/03/23 03/20/24 History acetaminophen 325 mg capsule 325 mg PO ONCE PRN 03/03/23 03/20/24 History (Tylenol) cholecalciferol (vitamin D3) 125 125 mcg PO DAILY 03/03/23 03/20/24 History mcg (5,000 unit) capsule zinc sulfate 25 mg zinc (110 mg) 25 mg PO DAILY 03/03/23 03/20/24 History tablet mecobalamin (vitamin B12) 1,000 1,000 mcg PO DAILY 03/30/23 03/20/24 History mcg chewable tablet omega-3 900 mg-dha 360 mg-epa 455 1 cap PO DAILY 03/30/23 03/20/24 History mg-fish oil 1,000 mg capsule (Fish Oil) famotidine 20 mg tablet 40 mg PO BID PRN acid reflex 11/09/23 03/20/24 History rivaroxaban 15 mg tablet (Xarelto) 15 mg PO QDAY 11/09/23 03/20/24 History diltiazem HCl 120 mg 120 mg PO QDAY 03/20/24 03/20/24 History capsule,extended release 12 hr Have you fallen in the past year?: No PFSH Medical History Abnormal ECG Dyspnea on exertion Essential hypertension Thoracic outlet syndrome Lightheadedness Reactive airway disease Seasonal allergies Contact with and (suspected) exposure to other viral communicable diseases Acute bronchitis, unspecified Over 63 years old COVID-19 Esophageal stricture Arthritis Difficulty swallowing GERD (gastroesophageal reflux disease) Surgical History History of bilateral carpal tunnel release History of bilateral cataract extraction History of breast biopsy History of foot surgery History of colonoscopy (~2017) History of right breast biopsy History of lung surgery History of tubal ligation Family History Sister Heart diseaseMother CVA (cerebral vascular accident) Social History Smoking Status: Never smoker alcohol intake: never substance use type: does not use caffeine: Yes Type: coffee Number of servings: 1 and tea Number of servings: 1 HPI HPI HPI: Patient is an 83-year-old female here for dysphagia. The patient had an EGD in [address] Nixon. Patient reports that she is not having difficulty but she takes small bites and occasionally feels like food goes very slowly. ROS General General: Yes fatigue; No weight change, appetite, colon cancer, breast cancer or weakness HEENT HEENT: Yes difficulty swallowing; No eye injury, eye surgery, swollen glands or hoarseness Endo Endocrine: No thyroid disease, diabetes mellitus, thyroid cancer, Hair loss, heat intolerance or cold intolerance Skin Skin: No rash or changing moles Musc Musculoskeletal: Yes back problems and arthritis; No rheumatoid arthritis, gout or joint pain Cardio Cardiovascular: Yes atrial fibrillation and high blood pressure; No murmur, pacemaker, heart disease, heart attack, heart stent, palpitations, shortness of breat with exertion or chest pain Psych Psychiatric: No depression, anxiety or hearing voices Resp Respiratory: Yes shortness of breath, No sleep apnea, Yes cough, No COPD, No asthma, No emphysema and No wheezing Gastro Gastrointestinal: No abdominal pain, No nausea or vomiting, No diarrhea, No constipation, No blood in stool, Yes acid reflux, No hemorrhoids, No ulcers, No gallbladder problem and No black,tarry stools Maikel Hematologic: Yes blood thinners, No blood disorders, No bleeding, No anemia and No blood clots Neuro Neurologic: No system reviewed and no additional complaints, except as documented, No as per HPI, No abnormal gait, No abnormal hearing, No abnormal movements, No abnormal speech, No behavioral changes, No burning sensations, No confusion, No convulsions, No disequilibrium, No dizziness, No localized weakness, No frequent falls, No headache(s), No lack of coordination, No loss of vision, No memory loss, No numbness, No other visual disturbances, No radicular pain, No restless legs, No sensory deficit, No syncope, No tingling, No tremor(s), No weakness and No other Exam Const General: cooperative Orientation: alert and oriented x3 HENMT Head: normal to inspection Neck Neck: normal visual inspection and full ROM Chest Chest palpation & inspection: normal inspection of the chest Resp Effort & Inspection: normal respiratory effort Auscultation: clear to auscultation bilaterally Cardio Rate: regular rate Rhythm: regular rhythm GI Inspection: non-distended Palpation: soft and nontender Skin General: no rashes or lesions noted Neuro General: patient alert and patient oriented x3 Extrem General: full ROM Psych Appearance: grossly normal Mental Status: mental status grossly normal Assessment and Plan Assessment and Plan (1) Esophageal stricture: Status: Acute Plan: She has a history of esophageal stricture dilation in the past. She had a repeat study in 2021 that showed a trapping of the barium tablet. She has not had any intervention since then. She says most of the time she does not have any problem swallowing. I did discuss performing EGD with dilation for her. I discussed the risks of bleeding, infection, increased risk of perforation. Patient understands the risks and is under proceed. She will hold her Xarelto and fish oil for 3 days prior to the procedure. Allen Garcia MD Pager: [facility] [address] [place] [address], [address] [place] [phone] Office: I have examined the patient and the H&P has been reviewed. There are no clinical changes since date of exam.
--- NOTE | 2024-04-28 10:31 | PCM.POST.ANE ---
Anesthesia: Postop Eval I Current Vital Signs Temperature: 97.5 F Pulse Rate: 62 Blood Pressure: 101/41 Respiratory Rate: 16 Pulse Ox: 95 Oxygen Delivery Method: Room Air Assessment Airway patent: Yes Spontaneous unlabored respirations: Yes Mental status: Awake and Calm nausea: No Vomiting: No Anesthesia Complication: No Fluid Hydration Crystalloid volume administer (ml): 400 Total IV fluid infused: 400 Progress Note Anesthesia document: Postop Eval 1 completed: Yes
--- NOTE | 2024-04-28 10:55 | OP.EGD_ITS ---
Patient Name: Danyell Elizondo Procedure Date: 04/28/2024 10:04 AM Date of : 1940 Age: 83 Procedure: Upper GI endoscopy Indications: Dysphagia Providers: Allen Garcia MD Referring MD: Allen Garcia MD Medicines: Propofol per Anesthesia Patient Profile: This is an 83 year old female. Refer to note in patient chart for documentation of history and physical. Complications: No immediate complications. Estimated blood loss: Minimal. Procedure: Pre-Anesthesia Assessment: - Prior to the procedure, a History and Physical was performed, and patient medications and allergies were reviewed. The patient's tolerance of previous anesthesia was also reviewed. The risks and benefits of the procedure and the sedation options and risks were discussed with the patient. All questions were answered, and informed consent was obtained. Prior Anticoagulants: The patient has taken Xarelto (rivaroxaban), last dose was 3 days prior to procedure. After reviewing the risks and benefits, the patient was deemed in satisfactory condition to undergo the procedure. After obtaining informed consent, the endoscope was passed under direct vision. Throughout the procedure, the patient's blood pressure, pulse, and oxygen saturations were monitored continuously. The gastroscope was introduced through the mouth, and advanced to the second part of duodenum. The upper GI endoscopy was accomplished without difficulty. The patient tolerated the procedure well. Scope In: 10:14:21 AM Scope Out: 10:20:28 AM Total Procedure Duration Time 0 hours 6 minutes 7 seconds Findings: The esophagus was normal. The stomach was normal. The examined duodenum was normal. One benign-appearing, intrinsic moderate stenosis was found at the gastroesophageal junction. The stenosis was traversed. A TTS dilator was passed through the scope. Dilation with a 12-13.5-15 mm balloon dilator was performed to 16 mm. The dilation site was examined following endoscope reinsertion and showed moderate improvement in luminal narrowing. Estimated blood loss was minimal. Impression: - Normal esophagus. - Normal stomach. - Normal examined duodenum. - Benign-appearing esophageal stenosis. Dilated. - No specimens collected. Recommendation: - Discharge patient to home. - Resume previous diet. - Continue present medications. - Resume Xarelto (rivaroxaban) at prior dose tomorrow. Procedure Code(s): --- Professional --- 34128, Esophagogastroduodenoscopy, flexible, transoral; with transendoscopic balloon dilation of esophagus (less than 30 mm diameter) Diagnosis Code(s): --- Professional --- K22.2, Esophageal obstruction R13.10, Dysphagia, unspecified CPT copyright 2021 [employer]. All rights reserved. The codes documented in this report are preliminary and upon editorial specialist review may be revised to meet current compliance requirements. Allen Garcia MD 04/28/2024 10:55:33 AM This report has been signed electronically. Number of Addenda: 0 Note Initiated On: 04/28/2024 10:04 AM
--- NOTE | 2024-04-28 10:56 | OP.CCLET_ITS ---
04/28/2024 Misael Nichols [address] [place] [address] Re : Upper GI endoscopy procedure for [facility] Dye Dear Dr. Nichols This procedure was performed on Sunday, April 28, 2024. My impressions and recommendations are as follows: Impressions : - Normal esophagus. - Normal stomach. - Normal examined duodenum. - Benign-appearing esophageal stenosis. Dilated. - No specimens collected. Recommendations : - Discharge patient to home. - Resume previous diet. - Continue present medications. - Resume Xarelto (rivaroxaban) at prior dose tomorrow. My findings are described in the full procedure note, which is enclosed. If I can be of further assistance, please feel free to contact me at Doctor phone number(s): , Work: . Sincerely, Allen Garcia MD 04/28/2024 10:55:33 AM This report has been signed electronically.
--- NOTE | 2024-04-28 15:41 | PCM.POSTANE2 ---
Anesthesia Postop Eval I Sum Postop Eval Completion status Anesthesia document: Postop Eval 1 completed: Yes Anesthesia Postop Eval I Summary Anesthesia Postop Eval I Summary: Anesthesia Postop Eval I: Assessment Summary Airway patent Yes 04/28/24 10:33 [email or web address] Spontaneous unlabored Yes 04/28/24 10:33 [email or web address] respirations Mental status Awake,Calm 04/28/24 10:33 [email or web address] nausea No 04/28/24 10:33 [email or web address] Vomiting No 04/28/24 10:33 [email or web address] Anesthesia Postop Eval I: Fluid Summary Crystalloid volume administer 400 04/28/24 10:33 [email or web address] (ml) Colloids volume administered ( ml) Blood Product volume administered (ml) Total IV fluid infused 400 04/28/24 10:33 [email or web address] Anesthesia Postop Eval I: Summary Notes Anesthesia Complication No 04/28/24 10:33 [email or web address] Anesthesia Complication Comment: Post-operative progress note Anesthesia: Postop Eval II Evaluation Mental status: Awake Pain Level: 0 nausea: No Vomiting: No
== END 2024-04-28 11:23 | disposition home or self-care (01) ==
LOC: EN 08:54 → AC 08:57
PROVIDERS: PCP Family Medicine; Referring Provider Family Medicine; Visit Provider Surgery
PROC: 0DJ08ZZ Inspection of Upper Intestinal Tract, Via Natural or Artificial Opening Endoscopic (ICD-10-PCS; CPT 43235; principal; 2024-04-28 09:55)
DX: K22.2 Esophageal obstruction (principal); I48.91 Unspecified atrial fibrillation; R13.10 Dysphagia, unspecified; I10 Essential (primary) hypertension; K21.9 Gastro-esophageal reflux disease without esophagitis; Z79.01 Long term (current) use of anticoagulants
CPT/HCPCS: 43249; J7120; J2405

== ENCOUNTER → 2024-08-21 | Outpatient (CLI) | payer MEDICARE, SELFPAY ==
--- NOTE | 2024-08-21 12:55 | RAD_ITS ---
STUDY: X-RAY CHEST REASON FOR EXAM: Female, 84 years old. SOB TECHNIQUE: PA and lateral views of the chest. COMPARISON: 01/03/2024 FINDINGS: Lungs are expanded with interstitial edema in the lung bases and bilateral pleural effusions. Findings suggest pulmonary vascular congestion/CHF. Follow-up recommended to assure resolution. Normal size heart. Normal mediastinum and lev. Normal visualized pulmonary arteries. There is atherosclerotic calcification of the aortic arch with tortuosity. There are diffuse degenerative changes of the visualized thoracic spine. Normal visualized ribs, clavicles, and shoulders. There is no demonstrated abnormality of the visualized soft tissue structures of the upper abdomen. RAD/Chest PA and Lateral IMPRESSION: Chronic interstitial changes with superimposed interstitial edema and bilateral pleural effusions new since the previous study. Findings suggest pulmonary vascular congestion/CHF. Follow-up recommended to assure resolution Electronically Signed: Rogelio Dewitt MD at 13:06 EST ,
[2024-08-21 16:15] LABS: BNP,B-Type NATRIURETIC PEPTIDE 1008.5 pg/mL (0-100)
[2024-08-21 16:34] LABS: ALB/GLOB Ratio 0.9 RATIO (0.9-2.4); AST(SGOT) 36 U/L (15-37); Alanine Aminotransfer ALT/SGPT 66 U/L (13-56); Albumin, Serum 3.3 g/dL (3.2-5.0); Alkaline Phosphatase 75 U/L (45-117); Anion Gap 7 (5-15); BUN 10 mg/dL (7-18); BUN/Creat Ratio 12.8 RATIO (10-20); Calcium,Total 9.2 mg/dL (8.5-10.1); Chloride 106 mmol/L (98-107); Creatinine, Serum 0.78 mg/dL (0.55-1.02); EST Glomerular Filtration Rate 74 mL/min (>60); Est Glom Filt Rate - Afr Amer 90 mL/min (>60); Globulin 3.8 g/dL (2.2-4.2); Glucose 105 mg/dL (74-106); Potassium 4.3 mmol/L (3.5-5.1); Protein, Total 7.1 g/dL (6.4-8.2); Sodium Level 138 mmol/L (136-145)
== END | disposition home or self-care (01) ==
PROVIDERS: PCP Family Medicine; Referring Provider Family Medicine; Visit Provider Family Medicine
DX: R06.02 Shortness of breath (principal)
CPT/HCPCS: 36415; 71046; 80053; 83880

== ENCOUNTER → 2024-08-25 | Outpatient (CLI) | payer MEDICARE, SELFPAY ==
[2024-08-25 15:48] LABS: BNP,B-Type NATRIURETIC PEPTIDE 797.1 pg/mL (0-100)
[2024-08-25 15:53] LABS: ALB/GLOB Ratio 0.9 RATIO (0.9-2.4); AST(SGOT) 20 U/L (15-37); Alanine Aminotransfer ALT/SGPT 36 U/L (13-56); Albumin, Serum 3.5 g/dL (3.2-5.0); Alkaline Phosphatase 77 U/L (45-117); Anion Gap 5 (5-15); BUN 11 mg/dL (7-18); BUN/Creat Ratio 11.8 RATIO (10-20); CRP 6.64 mg/L (0.0-3.0); Calcium,Total 9.5 mg/dL (8.5-10.1); Chloride 101 mmol/L (98-107); Creatinine, Serum 0.93 mg/dL (0.55-1.02); EST Glomerular Filtration Rate 61 mL/min (>60); Est Glom Filt Rate - Afr Amer 74 mL/min (>60); Globulin 4.1 g/dL (2.2-4.2); Glucose 108 mg/dL (74-106); Protein, Total 7.6 g/dL (6.4-8.2); Sodium Level 132 mmol/L (136-145)
== END | disposition home or self-care (01) ==
LOC: MFPLAB 12:32
PROVIDERS: PCP Family Medicine; Referring Provider Family Medicine; Visit Provider Family Medicine
DX: I50.9 Heart failure, unspecified (principal)

== ENCOUNTER → 2024-09-14 | Outpatient (CLI) | payer MEDICARE, SELFPAY ==
[2024-09-14 15:52] LABS: ALB/GLOB Ratio 0.9 RATIO (0.9-2.4); AST(SGOT) 21 U/L (15-37); Alanine Aminotransfer ALT/SGPT 24 U/L (13-56); Albumin, Serum 3.5 g/dL (3.2-5.0); Alkaline Phosphatase 71 U/L (45-117); Anion Gap 7 (5-15); BUN 12 mg/dL (7-18); BUN/Creat Ratio 12.2 RATIO (10-20); CRP 5.75 mg/L (0.0-3.0); Calcium,Total 9.6 mg/dL (8.5-10.1); Chloride 98 mmol/L (98-107); Creatinine, Serum 0.98 mg/dL (0.55-1.02); EST Glomerular Filtration Rate 57 mL/min (>60); Est Glom Filt Rate - Afr Amer 69 mL/min (>60); Globulin 4.1 g/dL (2.2-4.2); Glucose 102 mg/dL (74-106); Potassium 4.2 mmol/L (3.5-5.1); Protein, Total 7.6 g/dL (6.4-8.2); Sodium Level 134 mmol/L (136-145)
[2024-09-14 16:00] LABS: Absolute Lymphocyte Count 1.35 X10^3/uL (0.83-4.51); Absolute Neutrophil Count 5.5 X10^3/uL (2.0-7.7); Basophil# 0.05 X10^3/uL; Basophil% 0.6 % (0-1); Eosinophil# 0.23 X10^3/uL; Eosinophils% 2.8 % (0-5); Hematocrit 46.9 % (37-47); Hemoglobin 15.6 g/dL (12.0-15.0); Lymphocyte # 1.35 X10^3/ul (0.83-4.51); Lymphocyte % 16.7 % (19-41); Mean Corp Hgb Conc 33.3 g/dL (32-36); Mean Corpuscular Hgb 30.4 pg (27.0-32.0); Mean Corpuscular Volume 91.2 fL (81-99); Mean Platelet Vol. 8.6 fl (6.2-12.0); Monocyte# 0.95 X10^3/uL; Monocyte% 11.8 % (0-10); NRBC Flagged by Analyzer 0 % (0-5); Neutrophil # 5.46 X10^3/uL (2.7-7.7); Neutrophil % 67.6 % (47-70); Platelet Count 341 K/mm3 (150-450); RBC Distribution Width SD 40.5 fl (35.1-43.9); Red Blood Count 5.14 M/mm3 (4.2-5.4); White Blood Count 8.1 K/mm3 (4.4-11.0)
== END | disposition home or self-care (01) ==
LOC: MFPLAB 11:34
PROVIDERS: PCP Family Medicine; Visit Provider Family Medicine
DX: R53.81 Other malaise (principal); I50.9 Heart failure, unspecified
CPT/HCPCS: 36415; 80053; 83880; 85025; 86140

== ENCOUNTER → 2024-10-09 | Outpatient (CLI) | payer MEDICARE, SELFPAY ==
[2024-10-09 20:40] LABS: Anion Gap 9 (5-15); BUN 16 mg/dL (7-18); BUN/Creat Ratio 15.5 RATIO (10-20); Calcium,Total 9.6 mg/dL (8.5-10.1); Chloride 98 mmol/L (98-107); Creatinine, Serum 1.03 mg/dL (0.55-1.02); EST Glomerular Filtration Rate 54 mL/min (>60); Est Glom Filt Rate - Afr Amer 65 mL/min (>60); Glucose 155 mg/dL (74-106); Magnesium 2.2 mg/dL (1.6-2.6); Sodium Level 132 mmol/L (136-145)
== END | disposition home or self-care (01) ==
LOC: MFPLAB 10:10
PROVIDERS: PCP Family Medicine; Referring Provider Family Medicine; Visit Provider Family Medicine
DX: I50.32 Chronic diastolic (congestive) heart failure (principal); I48.0 Paroxysmal atrial fibrillation
CPT/HCPCS: 36415; 80048; 83735; 84443

== ENCOUNTER → 2025-04-18 | Outpatient (CLI) | payer MEDICARE, SELFPAY ==
[2025-04-18 13:09] LABS: AST(SGOT) 22 U/L (<=31); Alanine Aminotransfer ALT/SGPT 9 U/L (<=34); Albumin, Serum 3.9 g/dL (3.4-4.8); Alkaline Phosphatase 61 U/L (35-104); Anion Gap 9 (5-15); BUN 13 mg/dL (4-19); BUN/Creat Ratio 16.9 RATIO (10-20); Calcium,Total 9.6 mg/dL (7.6-11.0); Carbon Dioxide 24.9 mmol/L (21.0-32.0); Chloride 103 mmol/L (98-108); Globulin 3.3 g/dL (2.2-4.2); Glucose 101 mg/dL (70-99); Potassium 5.3 mmol/L (3.3-5.1)
== END | disposition home or self-care (01) ==
LOC: MFPLAB 10:54
PROVIDERS: PCP Family Medicine; Visit Provider Family Medicine
DX: I48.0 Paroxysmal atrial fibrillation (principal); I10 Essential (primary) hypertension
CPT/HCPCS: 36415; 80053; 84443

== ENCOUNTER → 2025-06-04 | Outpatient (CLI) | payer MEDICARE, SELFPAY ==
--- NOTE | 2025-06-04 09:52 | CDU_ITS ---
Reason For Study Reason For Study: lightheadedness Rt. Velocities/BP Lt. Velocities/BP Prox CCA 85.0/11.3 cm/sec. Prox CCA 89.4/13.5 cm/sec. Mid CCA 79.5/14.6 cm/sec. Mid CCA 81.7/16.8 cm/sec. Dist CCA 80.6/12.4 cm/sec. Dist CCA 63.0/11.3 cm/sec. Prox ICA 56.4/10.2 cm/sec. Prox ICA 76.5/16.3 cm/sec. Mid ICA 71.4/15.4 cm/sec. Mid ICA 70.5/17.3 cm/sec. Dist ICA 95.5/18.8 cm/sec. Dist ICA 126.6/22.5 cm/sec. Rt. ICA/CCA = 1.2. Lt. ICA/CCA = 1.5. Prox ECA 112.1/7.7 cm/sec. Prox ECA 112.1/0.0 cm/sec. Rt. Vert. 44.3/6.9 cm/sec. Lt. Vert. 55.6/7.7 cm/sec. Right Extracranial There is homogeneous, smooth atherosclerotic plaque noted in the right common carotid artery. There is heterogeneous, irregular atherosclerotic plaque noted in the right internal carotid artery. There is intimal thickening but no significant atherosclerotic plaque noted in the right external carotid artery. Antegrade flow is noted in the right vertebral artery. Left Extracranial There is homogeneous, smooth atherosclerotic plaque noted in the left common carotid artery. There is heterogeneous, irregular atherosclerotic plaque noted in the left internal carotid artery. There is homogeneous, smooth atherosclerotic plaque noted in the left external carotid artery. Antegrade flow is noted in the left vertebral artery. Procedure Carotid Duplex [id number]. This is a Carotid Duplex examination using B-mode, color flow and specral Doppler. Exam performed in department. VL/Carotid Duplex Ultrasound Interpretation Summary Mild (<50%) stenosis right extracranial internal carotid. Moderate (50-69%) stenosis left extracranial internal carotid. Patent and antegrade vertebrals bilaterally. Ordering Physician: Jessica Bernard Referring Physician: Misael Nichols MD Performed By: Inga Gu RVT
--- NOTE | 2025-06-04 09:52 | ECHOCS_ITS ---
Reason For Study Reason For Study: SOB Procedure This was a 2D Doppler, Color Flow transthoracic echocardiogram. Contrast injection was performed. Exam performed in department. Left Ventricle Normal size and thickness. Severe anterior septal and anterior hypokinesis to akinesis. Estimated LVEF 40%. Stage I diastolic dysfunction. Right Ventricle Normal right ventricle. Atria The left and right atria are normal. Lipomatous hypertrophy of the atrial septum. Mitral Valve Mild diffuse mitral valve thickening. Mild (1+) mitral valve insufficiency. Tricuspid Valve Mild (1+) tricuspid valve insufficiency. Normal pulmonary artery pressure. Aortic Valve Trisinus/trileaflet aortic valve. Pulmonic Valve Trivial pulmonic valve insufficiency. Great Vessels Normal sized aortic root. Pericardium/Pleural No pericardial effusion. Medication 22 gauge I.V. with prn adaptor inserted into left arm. Diluted definity 1ml given slow IV push to enhance endocardial definition. MMode/2D Measurements & Calculations LVIDd: 4.2 cm IVSd: 0.79 cm Ao root diam: 2.6 cm LVIDs: 3.4 cm LVPWd: 0.66 cm RVDd: 3.9 cm FS: 20.3 % LAV(MOD-bp): 41.0 ml LVAd ap4: 29.6 cm2 LVAd ap2: 28.7 cm2 LAV(MOD-bp) Indexed: 30.3 ml/m2 LVLd ap4: 7.6 cm LVLd ap2: 7.5 cm LAV(MOD-sp2): 35.8 ml EDV(MOD-sp4): 92.1 ml EDV(MOD-sp2): 90.9 ml LAV(MOD-sp4): 37.9 ml EDV(sp4-el): 97.7 ml EDV(sp2-el): 93.3 ml LVAs ap4: 20.4 cm2 LVAs ap2: 21.7 cm2 LVLs ap4: 7.1 cm LVLs ap2: 7.1 cm ESV(MOD-sp4): 47.2 ml ESV(MOD-sp2): 55.5 ml ESV(sp4-el): 50.2 ml ESV(sp2-el): 56.2 ml EF(MOD-sp4): 48.8 % EF(MOD-sp2): 39.0 % EF(sp4-el): 48.6 % SV(MOD-sp4): 44.9 ml SV(MOD-sp2): 35.5 ml SV(sp4-el): 47.5 ml SI(MOD-sp4): 33.2 ml/m2 SI(MOD-sp2): 26.2 ml/m2 LA A4 area: 15.8 cm2 LA dimension(2D): 3.3 cm RA A4 area: 11.6 cm2 TAPSE: 2.3 cm Time Measurements MV dec time: 0.28 sec Doppler Measurements & Calculations MV E max don: 68.8 cm/sec Lat Peak E' Don: 8.3 cm/sec Med Peak E' Don: 6.1 cm/sec MV A max don: 119.8 cm/sec E/E' lat: 8.3 E/E' med: 11.2 MV E/A: 0.57 MV V2 max: 135.9 cm/sec MV P1/2t max don: 84.0 cm/sec Ao V2 max: 150.2 cm/sec MV max P.4 mmHg MV P1/2t: 91.6 msec Ao max P.0 mmHg MV V2 mean: 57.6 cm/sec MV dec slope: 268.6 cm/sec2 Ao V2 mean: 101.7 cm/sec MV mean P.7 mmHg MVA(P1/2t): 2.4 cm2 Ao mean P.8 mmHg MV V2 VTI: 35.0 cm Ao V2 VTI: 36.4 cm AV (velocity ratio): 0.70 LV V1 max: 102.6 cm/sec MR max don: 460.7 cm/sec PA V2 max: 110.4 cm/sec LV V1 max P.2 mmHg MR max P.9 mmHg PA V2 mean: 70.5 cm/sec LV V1 mean P.6 mmHg LV V1 mean: 76.0 cm/sec LV V1 VTI: 25.6 cm TR max don: 263.1 cm/sec TR max P.9 mmHg ECHO/Echo Complete W/ Contrast Interpretation Summary Severe anterior septal and anterior hypokinesis to akinesis. Estimated LVEF 40% . Stage I diastolic dysfunction. Lipomatous hypertrophy of the atrial septum. Mild (1+) mitral valve insufficiency. Mild (1+) tricuspid valve insufficiency. Ordering Physician: Jessica Bernard Referring Physician: Jessica Bernard Performed By: Avery Hanson RCS
== END | disposition home or self-care (01) ==
PROVIDERS: PCP Family Medicine; Referring Provider Internal Medicine Cardiovascular Disease; Visit Provider Internal Medicine Cardiovascular Disease
DX: R94.31 Abnormal electrocardiogram [ECG] [EKG] (principal); R42 Dizziness and giddiness; R06.02 Shortness of breath
CPT/HCPCS: 93306; 93880; Q9957; A4216; C8929

== ENCOUNTER 2025-06-20 10:32 | Observation (INO) | payer MEDICARE, SELFPAY ==
--- NOTE | 2025-06-14 12:01 | RAD_ITS ---
PROCEDURE: CHEST PA AND LATERAL 06/14/2025 REASON FOR EXAM: FOR HEART CATH TECHNIQUE: Procedure Code: RADCXR Modality: DX Procedure: CHEST PA AND LATERAL COMPARISON: None FINDINGS: There is vague patchy opacity overlying the right lower lung zone. On the lateral projection this seems to relate to costochondral cartilage anteriorly although it is difficult to be definitive. The lungs are likely hyperinflated. There is subsegmental atelectasis or scarring at the left lung base. No pneumothorax or definite pleural effusion. Dextroconvex curvature of the thoracic spine is present. RAD/Chest PA and Lateral IMPRESSION: Opacity over the right lower lung zone is likely related to overlying calcifica tion of the costochondral junction rather than a true pulmonary process. Consider comparison with any older outside studies. I f clinical concern exists, recommend CT. Reading [facility]
[2025-06-14 13:05] LABS: Hematocrit 44.7 % (37-47); Hemoglobin 15.0 g/dL (12.0-15.0); Immature Granulocytes Count 0.040 X10^3/uL (0.0-0.0); Mean Corp Hgb Conc 33.6 g/dL (32-36); Mean Corpuscular Volume 91.6 fL (81-99); Mean Platelet Vol. 8.1 fl (6.2-12.0); NRBC Flagged by Analyzer 0 % (0-5); Platelet Count 347 K/mm3 (150-450); RBC Distribution Width CV 12.0 % (11.6-14.6); RBC Distribution Width SD 40.4 fl (35.1-43.9); Red Blood Count 4.88 M/mm3 (4.2-5.4); White Blood Count 9.0 K/mm3 (4.4-11.0)
[2025-06-14 13:54] LABS: Anion Gap 12 (5-15); BUN 13 mg/dL (4-19); BUN/Creat Ratio 15.1 RATIO (10-20); Calcium,Total 9.5 mg/dL (7.6-11.0); Carbon Dioxide 26.1 mmol/L (21.0-32.0); Chloride 97 mmol/L (98-108); Glucose 113 mg/dL (70-99); Potassium 3.7 mmol/L (3.3-5.1)
[2025-06-19 08:45] VITALS: BMI 26.2
[2025-06-20] VITALS (11 sets, daily range): BP systolic 109–120; BP diastolic 45–61; PULSE 61–67; RESP 14–18; TEMP 36.4–36.8; O2SAT 95–98; BMI 26.2
--- OUTSIDE RECORDS SUMMARY | 2025-06-20 07:18 | XMS RPT_ITS | CCD ---
Author Organization [facility]iniSyga Care Team Providers Care Emergency Department Technician Name Role Phone GHAZOUL, ANUP Unavailable Unavailable SELF, SELF Unavailable Unavailable GHAZOUL, ANUP Unavailable Unavailable GHAZOUL, ANUP Unavailable Unavailable GHAZOUL, ANUP Unavailable Unavailable GHAZOUL, ANUP Unavailable Unavailable THU NICHOLS Unavailable Unavailable GHAZOUL, ANUP Unavailable Unavailable THU NICHOLS Unavailable Unavailable Nicki Curtis Unavailable Unavailable Dr. Thu Nichols Primary Care Provider Dr. Thu Nichols Referring Provider 1([facility])[phone] Daren PEÑA, MARIANA Rosario Attending Provider Dr. Thu Nichols Primary Care Provider 1([facility])[phone] Thu Nichols Referring Provider 1([facility])[phone] Sveta PEÑA, MARIANA Rosario Attending Provider Dr. Diego Dorantes Attending Provider 1([facility])[phone] Dr. Eloy Hart Attending Provider Dr. Jessica Benrard Attending Provider Dr. Jessica Bernard Referring Provider Dr. Jessica Bernard Other Provider AYLIN Welsh NP Attending Provider Dr. Thu Nichols Primary Care Provider Dr. Thu Nichols Referring Provider [phone] Dr. Thu Nichols Primary Care Provider [phone] Thu Nichols Referring Provider [phone] Dr. Jessica Bernard Attending Provider Dr. Thu Garcia Attending Provider Dr. Jessica Bernard Referring Provider SIMONE HOUSE, THU A Primary Care Physician SIMONE HOUSE, THU A Primary Care Unavailable CRISTY HOUSE, DR MAXIME Prado Attending Unavailab Micheal HOUSE, DR MAXIME Prado Attending Unavailab Bibi HOUSE, THU A Primary Care Unavailable SIMONE HOUSE, THU A Primary Care Unavailable CRISTY HOUSE, DR MAXIME Prado Attending Unavailab Bibi HOUSE, Dr. Douglas Primary Care Provider Simone HOUSE, Dr. Douglas Attending Provider Simone HOUSE, Dr. Douglas Primary Care Physician Simone HOUSE, Dr. Douglas Attending Physician Simone HOUSE, Dr. Douglas Referring Provider Marco Antonio HOUSE, Dr. Lopez Attending Physician 1([facility])[phone] Nichols, Thu Referring Unavailable Nichols, Thu Attending Unavailable Nichols, Thu Primary Care Unavailable Nichols, Thu Primary Care Unavailable Marco Antonio, Jessica Referring Unavailable Marco Antonio, Jessica Attending Unavailable Nichols, Thu Primary Care Unavailable Nichols, Thu Attending Unavailable Nichols, Thu Referring Unavailable Nichols, Thu Attending Unavailable Nichols, Thu Primary Care Unavailable Nichols, Thu Primary Care Unavailable Marco Antonio, Jessica Attending Unavailable Nichols, Thu Referring Unavailable Nichols, Thu Primary Care Unavailable Marco Antonio, Jessica Attending Unavailable Nichols, Thu Referring Unavailable Nichols, Thu Primary Care Unavailable Marco Antonio, Jessica Attending Unavailable Nichols, Thu Primary Care Unavailable Thu Garcia Attending Unavailable Marco Antonio, Jessica Referring Unavailable Nichols, Thu Primary Care Unavailable Rainer Arce Attending Unavailable Nichols, Thu Referring Unavailable Nichols, Thu Referring Unavailable Nichols, Thu Primary Care Unavailable Fransisco Bhatti Attending Unavailable Eloy Hart Attending Unavailable Nichols, Thu Primary Care Unavailable Nichols, Thu Attending Unavailable Nichols, Thu Primary Care Unavailable Nichols, Thu Primary Care Unavailable Nichols, Thu Attending Unavailable Nichols, Thu Referring Unavailable Nichols, Thu Primary Care Unavailable Nichols, Thu Attending Unavailable Nichols, Thu Primary Care Unavailable Marco Antonio, Jessica Attending Unavailable Marco Antonio, Jessica Referring Unavailable Allergies Allergy Classification Reported Allergen(s) Allergy Type Date of Onset Reaction(s) Facility (1 source) Adhesive Tape drug allergy 0 skin rash and skin break down [facility] Work Phone: (20 sources) Codeine; Translations: [codeine] Drug Allergy 0 Nausea, Nausea and vomiting [facility] Work Phone: (9 sources) Estrogens Drug Allergy 3 weight gain [facility] (1 source) Estrogens Drug Allergy 5 [facility] Repository Medications Current Medications Medication Drug Class(es) Dates Sig (Normalized) Sig (Original) acetaminophen 500 mg oral tablet (13 sources) Start: 05-03-2025 take 1 tablet by mouth every six hours as needed Start: 07-31-2024 Tylenol Extra Strength 500 mg oral tablet Dose : 500 mg = 1 tab(s), Oral, q4h, PRN as needed for pain, # 24 tab(s), 0 Refill(s) Start Date: 07/31/24 Status: Ordered Start: 03-03-2023 End: 05-03-2025 take 1 capsule by mouth once as needed for pain Acetaminophen (Tylenol) 325 mg capsule Discontinued 325 mg PO ONCE as needed for pain March 03, 2023 12:00am May 03, 2025 1:40pm ascorbic acid 1000 mg oral capsule (1 source) Vitamin C Start: 05-03-2025 take 1 capsule by mouth once daily B-Complex With Vitamin C (8 sources) Start: 03-03-2023 take 1 capsule by mouth once daily B-Complex With Vitamin C Active 1 CAP PO DAILY March 02, 2023 11:00pm Start: 03-03-2023 take 1 capsule by mo [facility] once daily B-Complex With Vitamin C Active 1 CAP PO DAILY March 03, 2023 12:00am calcium carbonate 500 mg chewable tablet (18 sources) Start: 04-27-2024 take 1 tablet by marcel every four hours as needed for gastroesophageal reflux disease Start: 01-07-2018 End: 11-09-2023 take 1 tablet by mouth three times daily as needed Calcium Carbonate (Tums) 200 mg calcium (500 mg) tablet,chewable Discontinued 200 mg PO THREE TIMES A DAY as needed for . January 07, 2018 12:00am November 09, 2023 2:21pm cholecalciferol 0.125 mg oral capsule (10 sources) Vitamin D Start: 03-03-2023 take 1 capsule by mouth once daily 24 hr dilTIAZem hydrochloride 120 mg extended release oral tablet (5 sources) Calcium Channel Ewa Start: 05-03-2025 take 1 tablet by mouth once daily Start: 04-27-2024 End: 05-03-2025 take 1 capsule by mouth at bedtime, then take 1 capsule by mouth every twenty-four hours Diltiazem Hcl (Cardizem Cd) 180 mg capsule,extended release 24hr Discontinued 180 mg PO AT BEDTIME April 27, 2024 12:00am May 03, 2025 1:38pm Start: 03-20-2024 End: 04-27-2024 take 1 capsule by mouth once daily Diltiazem Hcl 120 mg capsule,extended release 12 hr Discontinued 120 mg PO daily March 20, 2024 12:00am April 27, 2024 9:07am DilTIAZem (Eqv-Tiazac) 180 mg/24 hours oral capsule, extended release (2 sources) Start: 07-31-2024 DilTIAZem (Eqv-Tiazac) 180 mg/24 hours oral capsule, extended release Dose : 180 mg = 1 cap(s), 0 Refill(s) Start Date: 07/31/24 Status: Ordered Fish Oils (2 sources) Start: 07-31-2024 Fish Oil 1000 mg oral capsule Dose : 1,000 mg = 1 cap(s), Oral, qDay, # 90 cap(s), 0 Refill(s) Start Date: 07/31/24 Status: Ordered hydroCHLOROthiazide 25 mg / spironolactone 25 mg oral tablet (2 sources) Thiazide Diuretic, Aldosterone Antagonist Start: 10-26-2024 take 1 tablet by mouth once daily mecobalamin 1 mg chewable tablet (9 sources) Start: 03-30-2023 take 1 tablet by mouth once daily Multivitamin preparation (20 sources) Start: 06-03-2021 take 1 tablet by mouth once daily Multivitamin Active 1 TABLET PO DAILY June 03, 2021 3:23pm Start: 06-03-2021 End: 03-03-2023 take 1 tablet by mouth once daily Multivitamin Discontinued 1 TABLET PO DAILY June 02, 2021 11:00pm March 03, 2023 10:05am Start: 06-03-2021 End: 03-03-2023 take 1 tablet by mouth once daily Multivitamin Discontinued 1 TABLET PO DAILY June 03, 2021 12:00am March 03, 2023 11:05am Start: 06-03-2021 take 1 tablet by marcel th once daily Multivitamin Active 1 TABLET PO DAILY June 02, 2021 11:00pm Start: 06-03-2021 take 1 tablet by marcel th once daily Multivitamin Active 1 TABLET PO DAILY June 03, 2021 12:00am Start: 04-22-2015 End: 01-07-2018 Multivitamin Discontinued 1 EACH PO DAILY April 22, 2015 7:51pm January 07, 2018 3:53pm Start: 04-22-2015 End: 01-07-2018 Multivitamin Discontinued 1 EACH PO DAILY April 21, 2015 11:00pm January 07, 2018 2:53pm Start: 04-22-2015 End: 01-07-2018 Multivitamin Discontinued 1 EACH PO DAILY April 22, 2015 12:00am January 07, 2018 3:53pm [place] 2-Owa-Ght-Fish Oil (Fish Oil) 1,200 (144-216) mg capsule (1 source) Start: 05-03-2025 rivaroxaban 15 mg oral tablet (6 sources) Factor Xa Inhibitor Start: 11-09-2023 take 1 tablet by mouth once daily Vitamin B12 50 mcg oral tablet (2 sources) Start: 07-31-2024 Vitamin B12 50 mcg oral tablet Dose : 50 mcg = 1 tab(s), Oral, Daily, 0 Refill(s) Start Date: 07/31/24 Status: Ordered Vitamin C 500 mg oral tablet, chewable (2 sources) Start: 07-31-2024 Vitamin C 500 mg oral tablet, chewable Dose : 500 mg = 1 tab(s), Chewed, Daily, # 30 tab(s), 0 Refill(s) Start Date: 07/31/24 Status: Ordered Vitamin D3 (2 sources) Start: 07-31-2024 Vitamin D3 Dos e : 100 mcg = 1 tab(s), Oral, Daily, # 90 tab(s), 0 Refill(s) Start Date: 07/31/24 Status: Ordered zinc acetate 25 mg oral capsule (2 sources) Start: 07-31-2024 zinc (as acetate) 25 mg oral capsule Dose : 25 mg = 1 cap(s), Oral, TID, # 250 cap(s), 0 Refill(s) Start Date: 07/31/24 Status: Ordered zinc sulfate 110 mg oral tablet (10 sources) Start: 03-03-2023 take 1 tablet by mouth once daily Completed/Discontinued Medications Medication Drug Class(es) Dates Sig (Normalized) Sig (Original) acetaminophen 325 mg / HYDROcodone bitartrate 5 mg oral tablet (16 sources) Opioid Agonist Start: 04-22-2015 End: 01-07-2018 Hydrocodone-Acetami nophen 1 TABLET tablet Discontinued 1 - 2 {tbl} PO EVERY 4 HOURS NEEDED as needed for Pain April 22, 2015 12:00am January 07, 2018 3:52pm Start: 04-22-2015 End: 01-07-2018 take 1 tablet by mouth every four hours as needed Hydrocodone-Acetaminophen Discontinued 1 - 2 TABLET PO EVERY 4 HOURS NEEDED April 22, 2015 12:00am January 07, 2018 3:52pm amLODIPine 5 mg oral tablet (20 sources) Dihydropyridine Calcium Channel Ewa Start: 03-30-2023 End: 11-09-2023 take 1 tablet by mouth once daily Amlodipine 5 mg tablet Discontinued 5 mg PO DAILY 15 07April 01, 2023 5:13pm November 09, 2023 2:21pm Start: 03-03-2023 End: 03-30-2023 take 1 tablet by mouth once daily Amlodipine 2.5 mg tablet Discontinued 2.5 mg PO DAILY March 30, 2023 10:37am March 30, 2023 11:23am Start: 03-03-2023 End: 03-30-2023 Amlodipine Discontinued MG P O March 03, 2023 12:00am March 30, 2023 10:39am amoxicillin 875 mg / clavulanate 125 mg oral tablet (14 sources) Penicillin-class Antibacterial Start: 05-28-2022 End: 01-23-2023 Amoxicillin-Pot Clavulanate 875-125 mg tablet Discontinued 1 {tbl} PO TWICE A DAY May 28, 2022 12:00am January 23, 2023 12:04pm Start: 05-28-2022 End: 01-23-2023 take 1 tablet by mouth twice daily Amoxicillin-Pot Clavulanate Discontinued 1 TABLET PO TWICE A DAY May 28, 2022 12:00am January 23, 2023 12:04pm B-Complex With Vitamin C capsule (2 sources) Start: 03-03-2023 End: 05-03-2025 B-Complex With Vitamin C cap silvestre Discontinued 1 NMA PO DAILY March 03, 2023 12:00am May 03, 2025 1:41pm Start: 03-03-2023 B-Complex With Vitamin C capsule Active 1 NMA PO DAILY March 03, 2023 12:00am benzonatate 200 mg oral capsule (14 sources) Non-narcotic Antitussive Start: 05-28-2022 End: 03-03-2023 take 1 capsule by mouth three times daily as needed for cough Benzonatate 200 mg capsule Discontinued 200 mg PO THREE TIMES A DAY as needed for cough 30 0 May 28, 2022 12:00am March 03, 2023 11:06am famotidine 20 mg oral tablet (4 sources) Histamine-2 Receptor Antagonist Start: 11-09-2023 End: 04-27-2024 take 2 tablets by mouth twice daily as needed Famotidine 20 mg tablet Discontinued 40 mg PO TWICE A DAY as needed for acid reflex November 09, 2023 12:00am April 27, 2024 9:07am Start: 11-09-2023 take 40 mg by mouth twice iglesia y Famotidine Active 40 MG PO TWICE A DAY November 09, 2023 12:00am fexofenadine / Pseudoephedrine (16 sources) alpha-Adrenergic Agonist, Histamine-1 Receptor Antagonist Start: 04-22-2015 End: 01-07-2018 Fexofenadine/Pseudoephedrine Discontinued April 22, 2015 7:51pm January 07, 2018 3:52pm Start: 04-22-2015 End: 01-07-2018 Fexofenadine/Pseudoephedrine Discontinued April 21, 2015 11:00pm January 07, 2018 2:52pm Start: 04-22-2015 End: 01-07-2018 Fexofenadine/Pseudoephedrine Discontinued April 22, 2015 12:00am January 07, 2018 3:52pm fluorouracil 50 mg/ml topical cream (1 source) Nucleoside Metabolic Inhibitor Start: 12-03-2009 EFUDEX 5 % CREA apply twice a day for a month then stop for a month. FLUOROURACIL [id number] Vadim Harp MD fluticasone propionate 0.05 mg/actuat metered dose nasal spray (1 source) Corticosteroid Start: 07-21-2011 FLONASE 50 MCG/ACT SUSP Take as directed (0.05 Mg/inh) FLUTICASONE PROPIONATE [id number] Valery Panda 24 hr metoprolol succinate 25 mg extended release oral tablet (8 sources) beta-Adrenergic Ewa Start: 11-09-2023 End: 11-09-2023 take 1 tablet by mouth once daily Metoprolol Succinate 25 mg tablet extended release 24 hr Discontinued 25 mg PO daily November 09, 2023 12:00am November 09, 2023 2:51pm Start: 11-09-2023 End: 03-20-2024 take 1 tablet by mouth once daily Metoprolol Succinate 50 mg tablet extended release 24 hr Discontinued 50 mg PO DAILY 90 3 November 09, 2023 12:00am March 20, 2024 2:13pm Start: 11-09-2023 End: 11-09-2023 take 25 mg by mouth once daily Metoprolol Succinate Di scontinued 25 MG PO daily November 09, 2023 12:00am November 09, 2023 2:51pm Multivitamin 1 EACH tablet (2 sources) Start: 04-22-2015 End: 01-07-2018 Multivitamin 1 EACH tablet Discontinued 1 NMA PO DAILY April 22, 2015 12:00am January 07, 2018 3:53pm Multivitamin Tablet (2 sources) Start: 06-03-2021 End: 03-03-2023 Multivitamin Tablet Discontinued 1 {tbl} PO DAILY June 03, 2021 12:00am March 03, 2023 11:05am nitroglycerin 0.4 mg sublingual tablet (1 source) Nitrate Vasodilator Start: 07-21-2011 NITROSTAT 0.4 MG SUBL 1 tablet under tongue every 5 min up to 3 X NITROGLYCERIN [id number] Valery Panda [place] 1-Fli-Ahq-Fish Oil (Fish Oil) 900 mg-360 mg- 455 mg-1,000 mg capsule (9 sources) Start: 03-30-2023 End: 05-03-2025 [place] 0-Rta-Qeq-Fish Oil (Fish Oil) 900 mg-360 mg- 455 mg-1,000 mg capsule Discontinued 1 NMA PO DAILY March 30, 2023 12:00am May 03, 2025 1:39pm Start: 03-30-2023 [place] 3-Dha-Ep a-Fish Oil (Fish Oil) 900 mg-360 mg- 455 mg-1,000 mg capsule Active 1 NMA PO DAILY March 30, 2023 12:00am Start: 03-30-2023 take 1 capsule by [facility] once daily [place] 1-Yoz-Tvv-Fish Oil (Fish Oil) 900 mg-360 mg- 455 mg-1,000 mg capsule Active 1 CAP PO DAILY March 29, 2023 11:00pm Start: 03-30-2023 take 1 capsule by [facility] once daily [place] 3-Gsq-Dsr-Fish Oil (Fish Oil) 900 mg-360 mg- 455 mg-1,000 mg capsule Active 1 CAP PO DAILY March 30, 2023 12:00am omeprazole 20 mg delayed release oral capsule (1 source) Proton Pump Inhibitor Start: 07-21-2011 take 1 tablet by mouth once daily OMEPRAZOLE 20 MG CPDR One tablet by mouth daily OMEPRAZOLE [id number] Valeryobed Panda predniSONE 10 mg oral tablet (12 sources) Start: 01-23-2023 End: 03-03-2023 Prednisone 10 mg tablet Discontinued 10 mg PO .COMPLEX 30 0 January 23, 2023 12:00am March 03, 2023 11:05am Take 4 pills for 3 days, 3 pills for 3 days, 2 pills for 3 days, take 1 pill for 3 days Sodium Bicarbonate-Citric Acid (1 source) Start: 03-03-2023 End: 11-09-2023 Sodium Bicarbonate-Citric Acid ([facility]-[place] Heartburn) 1,650-1,000 mg tablet, effervescent Discontinued 1 {tbl} PO .prn March 03, 2023 12:00am November 09, 2023 2:21pm dissolved in 4 ounces of water Sodium Bicarbonate-Citric Acid ([place] Heartburn) 1,650-1,000 mg tablet, effervescent (9 sources) Start: 03-03-2023 End: 11-09-2023 Sodium Bicarbonate-Citric Acid ([place]ly-[place] Heartburn) 1,650-1,000 mg tablet, effervescent Discontinued 1 {tbl} PO .prn March 03, 2023 12:00am November 09, 2023 2:21pm dissolved in 4 ounces of water Start: 03-03-2023 End: 11-09-2023 Sodium Bicarbonate-Citric Ac id ([facility] Heartburn) 1,650-1,000 mg tablet, effervescent Discontinued 1 TABLET PO .prn March 03, 2023 12:00am November 09, 2023 2:21pm dissolved in 4 ounces of water Start: 03-03-2023 Sodium Bicarbo gaurav-Citric Acid ([place]ly-[place] Heartburn) 1,650-1,000 mg tablet, effervescent Active 1 TABLET PO .prn March 02, 2023 11:00pm dissolved in 4 ounces of water Start: 03-03-2023 Sodium Bicarbo gaurav-Citric Acid ([place] Heartburn) 1,650-1,000 mg tablet, effervescent Active 1 TABLET PO .prn March 03, 2023 12:00am dissolved in 4 ounces of water Problems Active Problems Problem Classification Problem Date Documented Da te Episodic/Chronic Acute bronchitis (16 sources) Acute bronchitis; Translations: [Acute bronchitis, unspecified] Episodic Asthma (16 sources) Reactive airway disease; Translations: [Unspecified asthma, uncomplicated] 01-23-2023 Chronic Cardiac dysrhythmias (9 sources) Paroxysmal atrial fibrillation; Translations: [Paroxysmal atrial fibrillation] Onset: 5 11-09-2023 Chronic Conditions associated with dizziness or vertigo (20 sources) Dizziness; Translations: [Dizziness and giddiness] Onset: 5 12-15-2021 Episodic Congestive heart failure; nonhypertensive (2 sources) Chronic diastolic (congestive) heart failure; Translations: [Heart failure, unspecified] Onset: Chronic Esophageal disorders (16 sources) Stricture of esophagus; Translations: [Esophageal obstruction] 01-07-2018 Chronic Essential hypertension (15 sources) Hypertensive disorder; Translations: [Essential hypertension] Onset: 1 07-21-2011 Chronic Fluid and electrolyte disorders (1 source) Hyperkalemia; Translations: [Hyperkalemia] Onset: 5 Episodic Immunizations and screening for infectious disease (16 sources) Contact with and (suspected) exposure to other viral communicable diseases; Translations: [Contact with or suspected exposure to other viral communicable disease] Episodic Melanomas of skin (2 sources) Melanoma in situ of right upper limb, including shoulder; Translations: [Melanoma in situ of right upper limb, including shoulder] Onset: 8 Chronic Osteoarthritis (3 sources) Unilateral primary osteoarthritis, right hip; Translations: [Osteoarthritis of right hip joint] Onset: 4 06-23-2024 Chronic Other acquired deformities (2 sources) Scoliosis of lumbar spine; Translations: [Scoliosis, unspecified] 06-23-2024 Chronic Other bone disease and musculoskeletal deformities (2 sources) Osteopenia; Translations: [Other specified disorders of bone density and structure, unspecified site] 06-23-2024 Episodic Other circulatory disease (3 sources) Disorder of carotid artery; Translations: [Disorder of arteries and arterioles, unspecified] 10-26-2024 Chronic Other gastrointestinal disorders (3 sources) History of stricture of esophagus; Translations: [Personal history of other diseases of the digestive system] 10-26-2024 Episodic Other lower respiratory disease (9 sources) Dyspnea on exertion; Translations: [Other forms of dyspnea] 03-30-2023 Episodic Other lower respiratory disease (3 sources) Other forms of dyspnea; Translations: [Other respiratory abnormalities] Onset: 5 03-30-2023 Episodic Other screening for suspected conditions (not mental disorders or infectious disease) (15 sources) Electrocardiogram abnormal; Translations: [Abnormal electrocardiogram [ECG] [EKG]] Onset: 1 07-21-2011 Episodic Other upper respiratory disease (12 sources) Seasonal allergy; Translations: [Other seasonal allergic rhinitis] 01-23-2023 Chronic Other upper respiratory disease (4 sources) Other seasonal allergic rhinitis; Translations: [Allergic rhinitis, cause unspecified] 01-23-2023 Chronic Spondylosis; intervertebral disc disorders; other back problems (4 sources) Lumbar radiculopathy; Translations: [Radiculopathy, lumbar region] 06-23-2024 Episodic Syncope (7 sources) Near syncope; Translations: [Syncope and collapse] Onset: 5 11-09-2023 Episodic Unclassified (1 source) Low back pain, unspecified; Translations: [Low back pain, unspecified] Onset: 4 Viral infection (16 sources) Disease caused by 2019-nCoV; Translations: [COVID-19] 06-03-2021 Episodic Past or Other Problems Problem Classification Problem Date Documented Da te Episodic/Chronic Cataract (15 sources) Cataract 03-05-2022 Malaise and fatigue (1 source) Other malaise; Translations: [Other malaise] Onset: 10-03-2024 Episodic Neoplasms of unspecified nature or uncertain behavior [...] [Dyspnea, unspecified] Onset: 07-21-2011 07-21-2011 Episodic Other lower respiratory disease (1 source) Dyspnea, unspecified; Translations: [Dyspnea, unspecified] Onset: 07-31-2024 Episodic Other lower respiratory disease (1 source) Other disorders of lung; Translations: [Other disorders of lung] Onset: 07-31-2024 Episodic Other lower respiratory disease (1 source) Shortness of breath; Translations: [Shortness of breath] Onset: 09-14-2024 Episodic Residual codes; unclassified (1 source) Acquired absence of lung [part of]; Translations: [Acquired absence of lung [part of]] Onset: 12-16-2024 Episodic Unclassified (16 sources) Age more than 65 years; Translations: [Over 65 years old] 06-03-2021 Unclassified (15 sources) history foot surgery 03-05-2022 Unclassified (15 sources) history left breast biopsy 03-05-2022 Results Test Name Value Interpretation Reference Range Facility Basic Metabolic Profile (BMP )on 06-14-2025 BUN/CRE 15.1 RATIO Normal 06-04 [facility] Comment on above: Order Comment: CC CO PY YO THU NICHOLS For heart cath Performed By: #### L 500.2500, L100.0100 #### [facility] [address] [place], [address] Calcium [Mass/Vol] 9.5 mg/dL Normal 7.6-11.0 [facility] Comment on above: Order Comment: CC CO PY YO THU NICHOLS For heart cath Performed By: #### L 500.2500, L100.0100 #### [facility] [address] [place], [address] Chloride [Moles/Vol] 97 mmol/L Low 98-108 [facility] Comment on above: Order Comment: CC CO PY YO THU NICHOLS For heart cath Performed By: #### L 500.2500, L100.0100 #### [facility] [address] [place], [address] CO2 [Moles/Vol] 26.1 mmol/L Normal 21.0-32.0 [facility] Comment on above: Order Comment: CC CO PY YO THU NICHOLS For heart cath Performed By: #### L 500.2500, L100.0100 #### [facility] [address] [place], [address] Creatinine [Mass/Vol] 0.86 mg/dL Normal 0.70-1.20 [facility] Comment on above: Order Comment: CC CO PY YO THU NICHOLS For heart cath Performed By: #### L 500.2500, L100.0100 #### [facility] [address] [place], [address] GAP 12 Normal 5-15 [facility] Comment on above: Order Comment: CC CO MEGHAN NICHOLS For heart cath Performed By: #### L 500.2500, L100.0100 #### [facility] [address] [place], [address] GFR/1.73 sq M.predicted among non-blacks MDRD (S/P/Bld) [Vol rate/Area] 66 mL/min/{1.73_m2} Normal >60 [facility] Comment on above: Order Comment: CC CO MEGHAN NICHOLS For heart cath Result Comment: mL/m in/1.73m2 CKD-EPI Creatinine Equation (2020) Performed By: #### L 500.2500, L100.0100 #### [facility] [address] [place], [address] Glucose [Mass/Vol] 113 mg/dL High 70-99 [facility] Comment on above: Order Comment: CC CO MEGHAN NICHOLS For heart cath Performed By: #### L 500.2500, L100.0100 #### [facility] [address] [place], [address] Potassium [Moles/Vol] 3.7 mmol/L Normal 3.3-5.1 [facility] Comment on above: Order Comment: CC CO MEGHAN NICHOLS For heart cath Performed By: #### L 500.2500, L100.0100 #### [facility] [address] [place], [address] Sodium [Moles/Vol] 134 mmol/L Normal 133-145 [facility] Comment on above: Order Comment: CC CO PY FARIHA NICHOLS For heart cath Performed By: #### L 500.2500, L100.0100 #### [facility] [address] [place], [address] Urea nitrogen [Mass/Vol] 13 mg/dL Normal 4-19 [facility] Comment on above: Order Comment: CC CO PY YO THU NICHOLS For heart cath Performed By: #### L 500.2500, L100.0100 #### [facility] [address] [place], [address] BUN Normal 4-19 [facility] Comment on above: Order Comment: Order Date: 04/20/25 Order Info: 0667-1 - BMP Order Date: 01/12/25 Order Info: 0786-1 - CMP Elevated potassium level Result Comment: DUP ORDERS Performed By: #### L 500.2500 #### [facility] [address] [place], [address] BUN/CRE Normal 10-20 [facility] Comment on above: Order Comment: Order Date: 04/20/25 Order Info: 0667-1 - BMP Order Date: 01/12/25 Order Info: 0786-1 - CMP Elevated potassium level Result Comment: DUP ORDERS Performed By: #### L 500.2500 #### [facility] [address] [place], [address] Calcium Normal 7.6-11.0 [facility] Comment on above: Order Comment: Order Date: 04/20/25 Order Info: 666- - BMP Order Date: 01/12/25 Order Info: 0786-1 - CMP Elevated potassium level Result Comment: DUP ORDERS Performed By: #### L 500.2500 #### [facility] [address] [place], [address] CL Normal 98-108 [facility] Comment on above: Order Comment: Order Date: 04/20/25 Order Info: 0667-1 - BMP Order Date: 01/12/25 Order Info: 0786-1 - CMP Elevated potassium level Result Comment: DUP ORDERS Performed By: #### L 500.2500 #### [facility] [address] [place], [address] CO2 Normal 21.0-32.0 [facility] Comment on above: Order Comment: Order Date: 04/20/25 Order Info: 0667-1 - BMP Order Date: 01/12/25 Order Info: 0786-1 - CMP Elevated potassium level Result Comment: DUP ORDERS Performed By: #### L 500.2500 #### [facility] [address] [place], [address] CREAT,SERUM Normal 0.70-1.20 [facility] Comment on above: Order Comment: Order Date: 04/20/25 Order Info: 0667-1 - BMP Order Date: 01/12/25 Order Info: 0786-1 - CMP Elevated potassium level Result Comment: DUP ORDERS Performed By: #### L 500.2500 #### [facility] [address] [place], [address] eGFR Normal >60 [facility] Comment on above: Order Comment: Order Date: 04/20/25 Order Info: 0667-1 - BMP Order Date: 01/12/25 Order Info: 0786-1 - CMP Elevated potassium level Result Comment: DUP ORDERS Performed By: #### L 500.2500 #### [facility] [address] [place], [address] GAP Normal 5-15 [facility] Comment on above: Order Comment: Order Date: 04/20/25 Order Info: 0667-1 - BMP Order Date: 01/12/25 Order Info: 0786-1 - CMP Elevated potassium level Result Comment: DUP ORDERS Performed By: #### L 500.2500 #### [facility] [address] [place], [address] GLU Normal 70-99 [facility] Comment on above: Order Comment: Order Date: 04/20/25 Order Info: 0667-1 - BMP Order Date: 01/12/25 Order Info: 0786-1 - CMP Elevated potassium level Result Comment: DUP ORDERS Performed By: #### L 500.2500 #### [facility] [address] [place], [address] Potassium Normal 3.3-5.1 [facility] Comment on above: Order Comment: Order Date: 04/20/25 Order Info: 0667-1 - BMP Order Date: 01/12/25 Order Info: 0786-1 - CMP Elevated potassium level Result Comment: DUP ORDERS Performed By: #### L 500.2500 #### [facility] [address] [place], [address] Basic Metabolic Profile (BMP) Normal 133-145 [facility] Comment on above: Order Comment: Order Date: 04/20/25 Order Info: 0667-1 - BMP Order Date: 01/12/25 Order Info: 0786-1 - CMP Elevated potassium level Result Comment: DUP ORDERS Performed By: #### L 500.2500 #### [facility] [address] [place], [address] CBC W/Diff, Automatedon 10-3 0-2025 Absolute Lymph 1.64 X10 3/uL Normal 0.83-4.51 [facility] Comment on above: Order Comment: Comme nts: For heart cath Performed By: #### L 500.2500, L100.0100 #### [facility] [address] [place], [address] Absolute Neut 6.1 X10 3/uL Normal 2.0-7.7 [facility] Comment on above: Order Comment: Comme nts: For heart cath Performed By: #### L 500.2500, L100.0100 #### [facility] [address] [place], [address] Basophils/100 WBC (Bld) 0.4 % Normal 0-1 [facility] Comment on above: Order Comment: Comme nts: For heart cath Performed By: #### L 500.2500, L100.0100 #### [facility] [address] [place], [address] Eosinophils/100 WBC (Bld) 2.8 % Normal 0-5 [facility] Comment on above: Order Comment: Comme nts: For heart cath Performed By: #### L 500.2500, L100.0100 #### [facility] [address] [place], [address] Erythrocyte distribution width (RBC) [Ratio] 12.0 % Normal 11.6-14.6 [facility] Comment on above: Order Comment: Comme nts: For heart cath Performed By: #### L 500.2500, L100.0100 #### [facility] [address] [place], [address] Hematocrit (Bld) [Volume fraction] 44.7 % Normal 37-47 [facility] Comment on above: Order Comment: Comme nts: For heart cath Performed By: #### L 500.2500, L100.0100 #### [facility] [address] [place], [address] Hemoglobin (Bld) [Mass/Vol] 15.0 g/dL Normal 12.0-15.0 [facility] Comment on above: Order Comment: Comme nts: For heart cath Performed By: #### L 500.2500, L100.0100 #### [facility] [address] [place], [address] IG% 0.400 Normal 0.0-0.9 [facility] Comment on above: Order Comment: Comme nts: For heart cath Result Comment: IG% - Immature Granulocytes (promyelocytes, myelocytes and metamyelocytes) > 1% indicates that a LEFT SHIFT is Present. Performed By: #### L 500.2500, L100.0100 #### [facility] [address] [place], [address] Lymphocytes/100 WBC (Bld) 18.2 % Low 19-41 [facility] Comment on above: Order Comment: Comme nts: For heart cath Performed By: #### L 500.2500, L100.0100 #### [facility] [address] [place], [address] MCH (RBC) [Entitic mass] 30.7 pg Normal 27.0-32.0 [facility] Comment on above: Order Comment: Comme nts: For heart cath Performed By: #### L 500.2500, L100.0100 #### [facility] [address] [place], [address] MCHC (RBC) [Mass/Vol] 33.6 g/dL Normal 32-36 [facility] Comment on above: Order Comment: Comme nts: For heart cath Performed By: #### L 500.2500, L100.0100 #### [facility] [address] [place], [address] MCV (RBC) [Entitic vol] 91.6 fL Normal 81-99 [facility] Comment on above: Order Comment: Comme nts: For heart cath Performed By: #### L 500.2500, L100.0100 #### [facility] [address] [place], [address] Monocytes/100 WBC (Bld) 10.0 % Normal 0-10 [facility] Comment on above: Order Comment: Comme nts: For heart cath Performed By: #### L 500.2500, L100.0100 #### [facility] [address] [place], [address] Neutrophils/100 WBC (Bld) 68.2 % Normal 47-70 [facility] Comment on above: Order Comment: Comme nts: For heart cath Performed By: #### L 500.2500, L100.0100 #### [facility] [address] [place], [address] Nucleated RBC (Bld) [#/Vol] 0 10*3/uL Normal 0-5 [facility] Comment on above: Order Comment: Comme nts: For heart cath Performed By: #### L 500.2500, L100.0100 #### [facility] [address] [place], [address] Platelet mean volume (Bld) [Entitic vol] 8.1 fL Normal 6.2-12.0 [facility] Comment on above: Order Comment: Comme nts: For heart cath Performed By: #### L 500.2500, L100.0100 #### [facility] [address] [place], [address] Platelets (Bld) [#/Vol] 347 10*3/uL Normal 150-450 [facility] Comment on above: Order Comment: Comme nts: For heart cath Performed By: #### L 500.2500, L100.0100 #### [facility] [address] [place], [address] RBC (Bld) [#/Vol] 4.88 10*6/uL Normal 4.2-5.4 [facility] Comment on above: Order Comment: Comme nts: For heart cath Performed By: #### L 500.2500, L100.0100 #### [facility] [address] [place], [address] RDW SD 40.4 fl Normal 35.1-43.9 [facility] Comment on above: Order Comment: Comme nts: For heart cath Performed By: #### L 500.2500, L100.0100 #### [facility] [address] [place], [address] WBC (Bld) [#/Vol] 9.0 10*3/uL Normal 4.4-11.0 [facility] Comment on above: Order Comment: Comme nts: For heart cath Performed By: #### L 500.2500, L100.0100 #### [facility] [address] [place], [address] Absolute Neut Normal 2.0-7.7 [facility] Comment on above: Order Comment: Order Date: 10/09/24Order Info: 0184-1 - CBCD Result Comment: DUP ORDERS Performed By: #### L 503.6677 #### [facility] [address] [place], [address] HCT Normal 37-47 [facility] Comment on above: Order Comment: Order Date: 10/09/24Order Info: 0184-1 - CBCD Result Comment: DUP ORDERS Performed By: #### L 503.6620 #### [facility] [address] [place], [address] HGB Normal 12.0-15.0 [facility] Comment on above: Order Comment: Order Date: 10/09/24Order Info: 0184-1 - CBCD Result Comment: DUP ORDERS Performed By: #### L 503.6620 #### [facility] [address] [place], [address] MCH Normal 27.0-32.0 [facility] Comment on above: Order Comment: Order Date: 10/09/24Order Info: 0184-1 - CBCD Result Comment: DUP ORDERS Performed By: #### L 503.6620 #### [facility] [address] [place], [address] MCHC Normal 32-36 [facility] Comment on above: Order Comment: Order Date: 10/09/24Order Info: 0184-1 - CBCD Result Comment: DUP ORDERS Performed By: #### L 503.6620 #### [facility] [address] [place], [address] MCV Normal 81-99 [facility] Comment on above: Order Comment: Order Date: 10/09/24Order Info: 0184-1 - CBCD Result Comment: DUP ORDERS Performed By: #### L 503.6620 #### [facility] [address] [place], [address] NEUT% Normal 47-70 [facility] Comment on above: Order Comment: Order Date: 10/09/24Order Info: 0184-1 - CBCD Result Comment: DUP ORDERS Performed By: #### L 503.6620 #### [facility] [address] [place], [address] PLT Normal 150-450 [facility] Comment on above: Order Comment: Order Date: 10/09/24Order Info: 0184-1 - CBCD Result Comment: DUP ORDERS Performed By: #### L [id number] #### [facility] [address] [place], [address] RBC Normal 4.2-5.4 [facility] Comment on above: Order Comment: Order Date: 10/09/24Order Info: 0184-1 - CBCD Result Comment: DUP ORDERS Performed By: #### L 503.6620 #### [facility] [address] [place], [address] RDW CV Normal 11.6-14.6 [facility] Comment on above: Order Comment: Order Date: 10/09/24Order Info: 0184-1 - CBCD Result Comment: DUP ORDERS Performed By: #### L 503.6620 #### [facility] [address] [place], [address] RDW SD Normal 35.1-43.9 [facility] Comment on above: Order Comment: Order Date: 10/09/24Order Info: 0184-1 - CBCD Result Comment: DUP ORDERS Performed By: #### L 503.6620 #### [facility] [address] [place], [address] WBC Normal 4.4-11.0 [facility] Comment on above: Order Comment: Order Date: 10/09/24Order Info: 0184-1 - CBCD Result Comment: DUP ORDERS Performed By: #### L 503.6620 #### [facility] [address] [place], [address] Chest PA and Lateralon 06-14 Chest PA and Lateral [facility] [address] [place] [address] Chest PA and Lateral MR#: [id number] Acct: [id number] Name: ROSE RENTERIA Rep #: [id number] : 1940 F 84 From: Jakub Masters MD PCP: Dr. Thu Nichols MD Status: PRE OHC Study: Chest PA and Lateral Date of Exam: 06/14/25 Exam# [id number] Ordering Dr: Jessica Bernard MD PROCEDURE: CHEST PA AND LATERAL 06/14/2025 REASON FOR EXAM: FOR HEART CATH TECHNIQUE: Procedure Code: RADCXR Modality: DX Procedure: CHEST PA AND LATERAL COMPARISON: None FINDINGS: There is vague patchy opacity overlying the right lower lung zone. On the lateral projection this seems to relate to costochondral cartilage anteriorly although it is difficult to be definitive. The lungs are likely hyperinflated. There is subsegmental atelectasis or scarring at the left lung base. No pneumothorax or definite pleural effusion. Dextroconvex curvature of the thoracic spine is present. RAD/Chest PA and Lateral IMPRESSION: Opacity over the right lower lung zone is likely related to overlying calcification of the costochondral junction rather than a true pulmonary process. Consider comparison with any older outside studies. If clinical concern exists, recommend CT. Reading Location: [facility] CC: Dr. Jessica Bernard MD; Dr. Thu Nichols MD Per Diem: Signed Normal [facility] Comprehensive Metabolic Prof ilon 06-14-2025 ALB Normal 3.4-4.8 [facility] Comment on above: Order Comment: Order Date: 04/20/25Order Info: 0667-1 - BMPOrder Date: 01/12/25Order Info: 0786-1 - CMPElevated potassium level Result Comment: DUP ORDERS Performed By: #### L [id number] #### [facility] [address] [place], [address] ALK PHOS Normal 35-104 [facility] Comment on above: Order Comment: Order Date: 04/20/25Order Info: 0667-1 - BMPOrder Date: 01/12/25Order Info: 0786-1 - CMPElevated potassium level Result Comment: DUP ORDERS Performed By: #### L [id number] #### [facility] [address] [place], [address] ALT Normal <=34 [facility] Comment on above: Order Comment: Order Date: 04/20/25Order Info: 666-08 - BMPOrder Date: 01/12/25Order Info: 0786-1 - CMPElevated potassium level Result Comment: DUP ORDERS Performed By: #### L [id number] #### [facility] [address] [place], [address] AST Normal <=31 [facility] Comment on above: Order Comment: Order Date: 04/20/25Order Info: 666- - BMPOrder Date: 01/12/25Order Info: 0786-1 - CMPElevated potassium level Result Comment: DUP ORDERS Performed By: #### L [id number] #### [facility] [address] [place], [address] T BILI Normal 0.00-1.30 [facility] Comment on above: Order Comment: Order Date: 04/20/25Order Info: 666-08 - BMPOrder Date: 01/12/25Order Info: 0786-1 - CMPElevated potassium level Result Comment: DUP ORDERS Performed By: #### L [id number] #### [facility] [address] [place], [address] T PROT Normal 5.9-8.4 [facility] Comment on above: Order Comment: Order Date: 04/20/25Order Info: 666- - BMPOrder Date: 01/12/25Order Info: 0786-1 - CMPElevated potassium level Result Comment: DUP ORDERS Performed By: #### L [id number] #### [facility] [address] [place], [address] Carotid Duplex Ultrasound 10-20-2025 Carotid Duplex Ultrasound [facility] [address] [place] [address] Carotid Duplex Ultrasound 06/04/25 1057 MR#: [id number] Acct: [id number] Name: ROSE RENTERIA Rep #: [id number] : 1940 84 From: Thu Garcia MD Attending Dr: Dr. Jessica Bernard MD Status: REG CLI Ordering Dr: Jessica Bernard MD Date: 06/04/25 Location: [facility] Sex: F C Admitted: Reason For Study Reason For Study: lightheadedness Rt. Velocities/BP Lt. Velocities/BP Prox CCA 85.0/11.3 cm/sec. Prox CCA 89.4/13.5 cm/sec. Mid CCA 79.5/14.6 cm/sec. Mid CCA 81.7/16.8 cm/sec. Dist CCA 80.6/12.4 cm/sec. Dist CCA 63.0/11.3 cm/sec. Prox ICA 56.4/10.2 cm/sec. Prox ICA 76.5/16.3 cm/sec. Mid ICA 71.4/15.4 cm/sec. Mid ICA 70.5/17.3 cm/sec. Dist ICA 95.5/18.8 cm/sec. Dist ICA 126.6/22.5 cm/sec. Rt. ICA/CCA = 1.2. Lt. ICA/CCA = 1.5. Prox ECA 112.1/7.7 cm/sec. Prox ECA 112.1/0.0 cm/sec. Rt. Vert. 44.3/6.9 cm/sec. Lt. Vert. 55.6/7.7 cm/sec. Right Extracranial There is homogeneous, smooth atherosclerotic plaque noted in the right common carotid artery. There is heterogeneous, irregular atherosclerotic plaque noted in the right internal carotid artery. There is intimal thickening but no significant atherosclerotic plaque noted in the right external carotid artery. Antegrade flow is noted in the right vertebral artery. Left Extracranial There is homogeneous, smooth atherosclerotic plaque noted in the left common carotid artery. There is heterogeneous, irregular atherosclerotic plaque noted in the left internal carotid artery. There is homogeneous, smooth atherosclerotic plaque noted in the left external carotid artery. Antegrade flow is noted in the left vertebral artery. Procedure Carotid Duplex 75112. This is a Carotid Duplex examination using B-mode, color flow and specral Doppler. Exam performed in department. VL/Carotid Duplex Ultrasound Interpretation Summary Mild (<50%) stenosis right extracranial internal carotid. Moderate (50-69%) stenosis left extracranial internal carotid. Patent and antegrade vertebrals bilaterally. __ Ordering Physician: Jessica Bernard Referring Physician: Thu Nichols MD Performed By: Inga Gu Chad 06/04/251713 Date Thu Garcia MD CC: Dr. Jesisca Bernard MD; Dr. Thu Nichols MD Date Dictated: 06/04/251056 Date Transcribed: 06/04/251713 Per Diem: Signed Normal [facility] Echo Complete W/ Contraston 06-04-2025 Echo Complete W/ Contrast [facility] [address] [place] [address] Echo Complete W/ Contrast 06/04/25 1004 MR#: [id number] Acct: [id number] Name: ROSE RENTERIA AZRA OCONNOR Rep #: [id number] : 1940 84 From: Jessica Bernard MD Attending Dr: Dr. Jessica Bernard MD Status: REG I Ordering Dr: Jessica Bernard MD Date: 06/04/25 Location: [facility] Sex: F C Admitted: Reason For Study Reason For Study: SOB Procedure This was a 2D Doppler, Color Flow transthoracic echocardiogram. Contrast injection was performed. Exam performed in department. Left Ventricle Normal size and thickness. Severe anterior septal and anterior hypokinesis to akinesis. Estimated LVEF 40%. Stage I diastolic dysfunction. Right Ventricle Normal right ventricle. Atria The left and right atria are normal. Lipomatous hypertrophy of the atrial septum. Mitral Valve Mild diffuse mitral valve thickening. Mild (1+) mitral valve insufficiency. Tricuspid Valve Mild (1+) tricuspid valve insufficiency. Normal pulmonary artery pressure. Aortic Valve Trisinus/trileaflet aortic valve. Pulmonic Valve Trivial pulmonic valve insufficiency. Great Vessels Normal sized aortic root. Pericardium/Pleural No pericardial effusion. Medication 22 gauge I.V. with prn adaptor inserted into left arm. Diluted definity 1ml given slow IV push to enhance endocardial definition. MMode/2D Measurements Calculations LVIDd: 4.2 cm IVSd: 0.79 cm Ao root diam: 2.6 cm LVIDs: 3.4 cm LVPWd: 0.66 cm RVDd: 3.9 cm FS: 20.3 % __ LAV(MOD-bp): 41.0 ml LVAd ap4: 29.6 cm2 LVAd ap2: 28.7 cm2 LAV(MOD-bp) Indexed: 30.3 ml/m2 LVLd ap4: 7.6 cm LVLd ap2: 7.5 cm LAV(MOD-sp2): 35.8 ml EDV(MOD-sp4): 92.1 ml EDV(MOD-sp2): 90.9 ml LAV(MOD-sp4): 37.9 ml EDV(sp4-el): 97.7 ml EDV(sp2-el): 93.3 ml LVAs ap4: 20.4 cm2 LVAs ap2: 21.7 cm2 LVLs ap4: 7.1 cm LVLs ap2: 7.1 cm ESV(MOD-sp4): 47.2 ml ESV(MOD-sp2): 55.5 ml ESV(sp4-el): 50.2 ml ESV(sp2-el): 56.2 ml EF(MOD-sp4): 48.8 % EF(MOD-sp2): 39.0 % EF(sp4-el): 48.6 % __ SV(MOD-sp4): 44.9 ml SV(MOD-sp2): 35.5 ml SV(sp4-el): 47.5 ml SI(MOD-sp4): 33.2 ml/m2 SI(MOD-sp2): 26.2 ml/m2 __ LA A4 area: 15.8 cm2 LA dimension(2D): 3.3 cm RA A4 area: 11.6 cm2 __ TAPSE: 2.3 cm Time Measurements MV dec time: 0.28 sec Doppler Measurements Calculations MV E max vivek: 68.8 cm/sec Lat Peak E' Vivek: 8.3 cm/sec Med Peak E' Vivek: 6.1 cm/sec MV A max vivek: 119.8 cm/sec E/E' lat: 8.3 E/E' med: 11.2 MV E/A: 0.57 __ MV V2 max: 135.9 cm/sec MV P1/2t max vivek: 84.0 cm/sec Ao V2 max: 150.2 cm/sec MV max P.4 mmHg MV P1/2t: 91.6 msec Ao max P.0 mmHg MV V2 mean: 57.6 cm/sec MV dec slope: 268.6 cm/sec2 Ao V2 mean: 101.7 cm/sec MV mean P.7 mmHg MVA(P1/2t): 2.4 cm2 Ao mean P.8 mmHg MV V2 VTI: 35.0 cm Ao V2 VTI: 36.4 cm AV (velocity ratio): 0.70 __ LV V1 max: 102.6 cm/sec MR max vivek: 460.7 cm/sec PA V2 max: 110.4 cm/sec LV V1 max P.2 mmHg MR max P.9 mmHg PA V2 mean: 70.5 cm/sec LV V1 mean P.6 mmHg LV V1 mean: 76.0 cm/sec LV V1 VTI: 25.6 cm __ TR max vivek: 263.1 cm/sec TR max P.9 mmHg ECHO/Echo Complete W/ Contrast Interpretation Summary Severe anterior septal and anterior hypokinesis to akinesis. Estimated LVEF 40%. Stage I diastolic dysfunction. Lipomatous hypertrophy of the atrial septum. Mild (1+) mitral valve insufficiency. Mild (1+) tricuspid valve insufficiency. __ Ordering Physician: Jessica Bernard Referring Physician: Jessica Bernard Performed By: Avery Hanson, [facility] 06/04/25 1153 Date Jessica Bernard MD CC: Dr. Jessica Bernard MD; Dr. Thu Nichols MD Date Dictated: 06/04/25 1004 Date Transcribed: 06/04/25 1153 Per Diem: Signed Normal [facility] Cardiology Visit Reporton Cardiology Visit Report [facility] [address] [place] [address] OFFICE VISIT Date of Service: 05/03/25 MR#: [id number] Acct: [id number] Name: ROSE RENTERIA ANN Rep #: [id number] : 1940 Provider: Dr. Jessica Bernard MD Age/Sex: 84/F Location: [facility] [place].[facility] Status: Signed HPI HPI History of Present Illness Details: This lady with history of paroxysmal atrial fibrillation and hypertension is here for follow-up visit. Denies any chest pains. No shortness of breath. No palpitations. No orthopnea or PND. According to her, she occasionally feels lightheaded for a few seconds. No syncope or presyncope. Intake Vital Signs 10/26/24 09:54 05/03/25 13:32 Height 4 ft 6.5 in 4 ft 6.5 in Weight: 116 lb 112 lb BMI 27.4 26.5 BP 119/65 123/66 H Blood Pressure Location Lt brachial Lt brachial Position Sitting Sitting Respiration 18 16 Pulse 63 66 Pulse Source NIBP Monitor Intake Visit Reasons: 6 M FU [employer] Supervisor Required: No Accompanied by: Self Is patient in pain?: No Allergies Estrogens Allergy (Verified 05/03/25 13:32) weight gain codeine Adverse Reaction (Verified 05/03/25 13:32) Nausea Medications ???Medication ???Instructions ???Recorded ???Confirmed ???Type cholecalciferol (vitamin D3) 125 125 mcg PO DAILY 03/03/23 05/03/25 History mcg (5,000 unit) capsule zinc sulfate 25 mg zinc (110 mg) 25 mg PO DAILY 03/03/23 05/03/25 H istory tablet mecobalamin (vitamin B12) 1,000 1,000 mcg PO DAILY 03/30/23 History mcg chewable tablet rivaroxaban 15 mg tablet (Xarelto) 15 mg PO QDAY 11/09/23 05/03/25 History calcium carbonate (Antacid 400 mg PO Q4H PRN heartburn 05/03/25 History (calcium carbonate)) spironolactone 25 tab PO DAILY 10/26/24 05/03/25 His tory mg-hydrochlorothiaz chris 25 mg tablet acetaminophen 500 mg tablet 500 mg PO Q6H PRN 05/03/25 5 History (Tylenol Extra Strength) ascorbic acid (vitamin C) 1,000 mg 1,000 mg PO QDAY 05/03/25 History capsule diltiazem HCl 120 mg 120 mg PO QDAY 05/03/25 05/03/25 H istory tablet,extended release 24 hr omega 6-lnx-mas-fish oil 1,200 mg 1 cap PO DAILY 05/03/25 05/03/25 History (144 mg-216 mg) capsule (Fish Oil) Ejection fraction %: 60 Have you fallen in the past year?: No PFSH Medical History Wears glasses Back pain Non-smoker Shortness of breath on exertion Chronic cough History of pain when walking History of stress test History of echocardiogram Cardiology follow-up encounter Abnormal ECG Dyspnea on exertion Essential hypertension Thoracic outlet syndrome Lightheadedness Reactive airway disease Seasonal allergies Contact with and (suspected) exposure to other viral communicable diseases Acute bronchitis, unspecified Over 63 years old COVID-19 Esophageal stricture Arthritis Difficulty swallowing GERD (gastroesophageal reflux disease) Surgical History History of bilateral carpal tunnel release History of bilateral cataract extraction History of breast biopsy History of foot surgery History of colonoscopy ( 2017) History of right breast biopsy History of lung surgery History of tubal ligation Family History Sister Heart disease Mother CVA (cerebral vascular accident) Social History Smoking Status: Never smoker alcohol intake: never substance use type: does not use caffeine: Yes Type: coffee Number of servings: 1 and tea Number of servings: 1 ROS Const Const: Negative for fatigue or weakness Eyes Eyes: Negative for change in vision ENT ENT: Positive for balance problems; Negative for dizziness Cardio Chest Pain: No Palpitations: No Edema: None Resp Respiratory: Positive for SOB with activity; Negative for SOB at rest or SOB orthopnea SOB lying down GI GI: Negative nausea or heartburn Musc Musc: Positive for balance problems Neuro Neuro: Positive for lightheadedness; Negative for dizziness, near syncope, syncope or weakness Endo Endo: Negative for fatigue Cardiology Exam Const Appearance: comfortable and no acute distress Nutritional Appearance: well nourished Neck Neck: no JVD Carotids: Negative bruit Chest Auscultation: Bilateral: Clear to Auscultation Cardio Rate: regular rate Rhythm: regular rhythm Heart sounds: S1 normal and S2 normal Neuro General: patient alert, patient awake and patient oriented x3 Extremities Lower Extremity Edema: None: Bilateral Supplemental Info Supplemental Information Diagnostics: Electrocardiogram Echocardiog (more content not included)... Normal [facility] Anion gap in Serum or Plasma Ordered By: Thu Nichols on 04-18-2025 Anion gap [Moles/Vol] 9 mmol/L 5-15 [facility] BUN/creatinine ratioOrdered By: Thu Nichols on 04-18-2025 Urea nitrogen/Creatinine [Mass ratio] 16.9 mg/mg 10-20 [facility] Bilirubin, totalOrdered By: Thu Nichols on 04-18-2025 Bilirubin [Mass/Vol] 0.39 mg/dL 0.00-1.30 [facility] Carbon dioxide, total [Moles /volume] in Central venous bloodOrdered By: Thu Nichols on 04-18-2025 CO2 [Moles/Vol] 24.9 mmol/L 21.0-32.0 [facility] Chloride assayOrdered By: Johnnie Nichols on 04-18-2025 Chloride [Moles/Vol] 103 mmol/L 98-108 [facility] Comprehensive Metabolic Prof ilon 04-18-2025 Albumin [Mass/Vol] 3.9 g/dL Normal 3.4-4.8 [facility] Comment on above: Order Comment: Order Date: 04/18/25Order Info: 0786-1 - CMPOrder Info: 3016-3 - TSH Performed By: #### L [id number] #### [facility] [address] [place], [address] Albumin/Globulin [Mass ratio] 1.2 {ratio} Normal 0.9-2.4 [facility] Comment on above: Order Comment: Order Date: 04/18/25Order Info: 0786-1 - CMPOrder Info: 3016-3 - TSH Performed By: #### L [id number] #### [facility] [address] [place], [address] ALK PHOS 61 U/L Normal 35-104 [facility] Comment on above: Order Comment: Order Date: 04/18/25Order Info: 0786-1 - CMPOrder Info: 3016-3 - TSH Performed By: #### L [id number] #### [facility] [address] [place], [address] ALT [Catalytic activity/Vol] 9 U/L Normal <=34 [facility] Comment on above: Order Comment: Order Date: 04/18/25Order Info: 0786-1 - CMPOrder Info: 3015-3 - TSH Performed By: #### L [id number] #### [facility] [address] [place], [address] AST [Catalytic activity/Vol] 22 U/L Normal <=31 [facility] Comment on above: Order Comment: Order Date: 04/18/25Order Info: 785-1 - CMPOrder Info: 3015-3 - TSH Performed By: #### L [id number] #### [facility] [address] [place], [address] Bilirubin [Mass/Vol] 0.39 mg/dL Normal 0.00-1.30 [facility] Comment on above: Order Comment: Order Date: 04/18/25Order Info: 785-1 - CMPOrder Info: 3 - TSH Performed By: #### L [id number] #### [facility] [address] [place], [address] BUN/CRE 16.9 RATIO Normal 10-20 [facility] Comment on above: Order Comment: Order Date: 04/18/25Order Info: 07-1 - CMPOrder Info: 3 - TSH Performed By: #### L [id number] #### [facility] [address] [place], [address] Calcium [Mass/Vol] 9.6 mg/dL Normal 7.6-11.0 [facility] Comment on above: Order Comment: Order Date: 04/18/25Order Info: 0786-1 - CMPOrder Info: 3015-3 - TSH Performed By: #### L [id number] #### [facility] [address] [place], [address] Chloride [Moles/Vol] 103 mmol/L Normal 98-108 [facility] Comment on above: Order Comment: Order Date: 04/18/25Order Info: 0786-1 - CMPOrder Info: 3015-3 - TSH Performed By: #### L [id number] #### [facility] [address] [place], [address] CO2 [Moles/Vol] 24.9 mmol/L Normal 21.0-32.0 [facility] Comment on above: Order Comment: Order Date: 04/18/25Order Info: 0786-1 - CMPOrder Info: 3015-10 - TSH Performed By: #### L [id number] #### [facility] [address] [place], [address] Creatinine [Mass/Vol] 0.77 mg/dL Normal 0.70-1.20 [facility] Comment on above: Order Comment: Order Date: 04/18/25Order Info: 0786-1 - CMPOrder Info: 3015-10 - TSH Performed By: #### L [id number] #### [facility] [address] [place], [address] GAP 9 Normal 5-15 [facility] Comment on above: Order Comment: Order Date: 04/18/25Order Info: 0786-1 - CMPOrder Info: 3 - TSH Performed By: #### L [id number] #### [facility] [address] [place], [address] GFR/1.73 sq M.predicted among non-blacks MDRD (S/P/Bld) [Vol rate/Area] 75 mL/min/{1.73_m2} Normal >60 [facility] Comment on above: Order Comment: Order Date: 04/18/25Order Info: 0786-1 - CMPOrder Info: 3015-3 - TSH Result Comment: mL/m in/1.73m2 CKD-EPI Creatinine Equation (2020) Performed By: #### L [id number] #### [facility] [address] [place], [address] Globulin (S) [Mass/Vol] 3.3 g/dL Normal 2.2-4.2 [facility] Comment on above: Order Comment: Order Date: 04/18/25Order Info: 0786-1 - CMPOrder Info: 3 - TSH Performed By: #### L [id number] #### [facility] [address] [place], [address] Glucose [Mass/Vol] 101 mg/dL High 70-99 [facility] Comment on above: Order Comment: Order Date: 04/18/25Order Info: 86-1 - CMPOrder Info: 3015-3 - TSH Performed By: #### L [id number] #### [facility] [address] [place], [address] Potassium [Moles/Vol] 5.3 mmol/L High 3.3-5.1 [facility] Comment on above: Order Comment: Order Date: 04/18/25Order Info: 07-1 - CMPOrder Info: 3015- - TSH Performed By: #### L [id number] #### [facility] [address] [place], [address] Sodium [Moles/Vol] 137 mmol/L Normal 133-145 [facility] Comment on above: Order Comment: Order Date: 04/18/25Order Info: 0786-1 - CMPOrder Info: 3015-3 - TSH Performed By: #### L [id number] #### [facility] [address] [place], [address] T PROT 7.2 g/dL Normal 5.9-8.4 [facility] Comment on above: Order Comment: Order Date: 04/18/25Order Info: 0786-1 - CMPOrder Info: 3015-3 - TSH Performed By: #### L [id number] #### [facility] [address] [place], [place], [id number] Urea nitrogen [Mass/Vol] 13 mg/dL Normal 4-19 [facility] Comment on above: Order Comment: Order Date: 04/18/25Order Info: 0786-1 - CMPOrder Info: 3016-3 - TSH Performed By: #### L [id number] #### [facility] [address] [place], [place], [address] Glomerular filtration rate ( GFR) estimation/1.73 sq m using serum, plasma, or whole bOrdered By: Thu Nichols on 04-18-2025 GFR/1.73 sq M.predicted among non-blacks MDRD (S/P/Bld) [Vol rate/Area] 75 mL/min/{1.73_m2} >60 [facility] Comment on above: mL/min/1.73m2 CKD-EP I Creatinine Equation (2020) Laboratory - Chemistry and C hemistry - challengeOrdered By: Thu Nichols on 04-18-2025 AST [Catalytic activity/Vol] 22 U/L <32 [facility] Potassium measurement (mass/ volume)Ordered By: Thu Nichols on 04-18-2025 Potassium (Unsp spec) [Mass/Vol] 5.3 mmol/L High 3.3-5.1 [facility] Serum creatinine measurement (mass/volume)Ordered By: Thu Nichols on 04-18-2025 Creatinine [Mass/Vol] 0.77 mg/dL 0.70-1.20 [facility] Serum globulin measurementOr dered By: Thu Nichols on 04-18-2025 Globulin (S) [Mass/Vol] 3.3 g/dL 2.2-4.2 [facility] Serum glucose measurement (m ass/volume)Ordered By: Thu Nichols on 04-18-2025 Glucose [Mass/Vol] 101 mg/dL High 70-99 [facility] Serum or plasma alanine canseco otransferase (ALT) measurementOrdered By: Thu Nichols on 04-18-2025 ALT [Catalytic activity/Vol] 9 U/L <35 [facility] Serum or plasma albumin jordan urement (mass/volume)Ordered By: Thu Nichols on 04-18-2025 Albumin [Mass/Vol] 3.9 g/dL 3.4-4.8 [facility] Serum or plasma albumin/glob ulin mass ratioOrdered By: Thu Nichols on 04-18-2025 Albumin/Globulin [Mass ratio] 1.2 {ratio} 0.9-2.4 [facility] Serum or plasma alkaline maggie sphatase measurementOrdered By: Thu Nichols on 04-18-2025 ALP [Catalytic activity/Vol] 61 U/L 35-104 [facility] Serum or plasma calcium jordan urement (mass/volume)Ordered By: Thu Nichols on 04-18-2025 Calcium [Mass/Vol] 9.6 mg/dL 7.6-11.0 [facility] Serum or plasma urea nitroge n measurement (mass/volume)Ordered By: Thu Nichols on 04-18-2025 Urea nitrogen [Mass/Vol] 13 mg/dL 4-19 [facility] Sodium levelOrdered By: Thu Nichols on 04-18-2025 Sodium [Moles/Vol] 137 mmol/L 133-145 [facility] TSH DL <= 0.005 mIU/L QnOrde red By: Thu Nichols on 04-18-2025 TSH Qn 1.300 uIU/mL 0.300-4.200 [facility] Thyroid Stim Hormone (TSH)on 04-18-2025 TSH 1.300 uIU/mL Normal 0.300-4.200 [facility] Comment on above: Order Comment: Order Date: 04/18/25Order Info: 0786-1 - CMPOrder Info: 3016-3 - TSH Performed By: #### L [id number] #### [facility] [address] [place], [address] Total proteinOrdered By: Monique Nichols on 04-18-2025 Protein [Mass/Vol] 7.2 g/dL 5.9-8.4 [facility] Cardiology Visit Reporton Cardiology Visit Report [facility] [address] [place] [address] OFFICE VISIT Date of Service: 10/26/24 MR#: [id number] Acct: [id number] Name: ROSE RENTERIA Rep #: [id number] : 1940 Provider: Dr. Jessica Bernard MD Age/Sex: 84/F Location: [facility] [place].[facility] Status: Signed HPI HPI History of Present Illness Details: This lady with history of paroxysmal atrial fibrillation is here for follow-up visit. Denies any complaints. No palpitations. No chest pains. No shortness of breath. No orthopnea or PND. No ankle edema. Tolerating her Xarelto well and denies any abnormal bleeding. No lightheadedness or dizziness. No syncope or presyncope. No nausea or vomiting. Intake Vital Signs 06/23/24 10:10 10/26/24 09:54 Height 4 ft 6.5 in 4 ft 6.5 in Weight: 116 lb BMI 27.4 BP 119/65 Blood Pressure Location Lt brachial Position Sitting Respiration 18 Pulse 63 Pulse Source NIBP Intake Visit Reasons: 6 M FU [employer] Supervisor Required: No Accompanied by: Self Is patient in pain?: No Allergies Estrogens Allergy (Verified 10/26/24 10:31) weight gain codeine Adverse Reaction (Verified 10/26/24 10:31) Nausea Medications ???Medication ???Instructions ???Recorded ???Confirmed ???Type B-complex with vitamin C 1 cap PO DAILY 03/03/23 10/26/24 H istory acetaminophen 325 mg capsule 325 mg PO ONCE PRN pain 03/03/23 0 10/26/24 History (Tylenol) cholecalciferol (vitamin D3) 125 125 mcg PO DAILY 03/03/23 10/26/24 History mcg (5,000 unit) capsule zinc sulfate 25 mg zinc (110 mg) 25 mg PO DAILY 03/03/23 10/26/24 H istory tablet mecobalamin (vitamin B12) 1,000 1,000 mcg PO DAILY 03/30/23 History mcg chewable tablet omega-3 900 mg-dha 360 mg-epa 455 1 cap PO DAILY 03/30/23 10/26/24 History mg-fish oil 1,000 mg capsule (Fish Oil) rivaroxaban 15 mg tablet (Xarelto) 15 mg PO QDAY 11/09/23 10/26/24 History calcium carbonate (Antacid 400 mg PO Q4H PRN heartburn 10/26/24 History (calcium carbonate)) diltiazem HCl 180 mg 180 mg PO QHS 04/27/24 10/26/24 Hi story capsule,extended release 24 hr (Cardizem CD) spironolactone 25 tab PO DAILY 10/26/24 10/26/24 His tory mg-hydrochlorothiaz chris 25 mg tablet Ejection fraction %: 60 Have you fallen in the past year?: No PFSH Medical History Abnormal ECG Acute bronchitis, unspecified Arthritis Back pain Cardiology follow-up encounter Chronic cough Contact with and (suspected) exposure to other viral communicable diseases COVID-19 Difficulty swallowing Dyspnea on exertion Esophageal stricture Essential hypertension GERD (gastroesophageal reflux disease) History of echocardiogram History of pain when walking History of stress test Lightheadedness Non-smoker Over 63 years old Reactive airway disease Seasonal allergies Shortness of breath on exertion Thoracic outlet syndrome Wears glasses Surgical History History of bilateral carpal tunnel release History of bilateral cataract extraction History of breast biopsy History of colonoscopy ( 2017) History of foot surgery History of lung surgery History of right breast biopsy History of tubal ligation Family History Sister Heart disease Mother CVA (cerebral vascular accident) Social History Smoking Status: Never smoker alcohol intake: never substance use type: does not use caffeine: Yes Type: coffee Number of servings: 1 and tea Number of servings: 1 ROS Const Const: Positive for fatigue; Negative for weakness, headache(s) or weight gain ENT ENT: Positive for balance problems; Negative for headache(s), dizziness or Nosebleed/epistaxis Cardio Chest Pain: No Palpitations: No Edema: None Muscle aches with walking: None Resp Respiratory: Negative for SOB with activity, SOB at rest or SOB orthopnea SOB lying down GI GI: Negative nausea, vomiting or heartburn Musc Musc: Positive for balance problems; Negative for muscle aches/ myalgia, muscle weakness or joint pain Neuro Neuro: Positive for vertigo; Negative for dizziness, lightheadedness, near syncope, syncope, headache(s) or weakness Endo Endo: Positive for fatigue Cardiology Exam Const Appearance: comfortable and no acute distress Nutritional Appearance: well nourished Neck Neck: no JVD Carotids: Negative bruit Chest Auscultation: Bilateral: Clear to Auscultation Cardio Rate: regular rate Rhythm: regular rhythm Heart sounds: S1 normal and S2 normal Neuro General: patient alert, patient awake and patient oriented x3 Extremitie (more content not included)... Normal [facility] Basic Metabolic Profile (BMP )on 10-09-2024 BUN/CRE 15.5 RATIO Normal 10-20 [facility] Comment on above: Order Comment: Order Date: 10/09/24Order Info: 666-08 - BMPOrder Info: [id number] - MGOrder Info: 6-3 - TSH Performed By: #### L [id number] #### [facility] [address] [place], [address] CA,Total 9.6 mg/dL Normal 8.5-10.1 [facility] Comment on above: Order Comment: Order Date: 10/09/24Order Info: 666-08 - BMPOrder Info: - MGOrder Info: 3016-3 - TSH Performed By: #### L [id number] #### [facility] [address] [place], [address] Chloride [Moles/Vol] 98 mmol/L Normal 98-107 [facility] Comment on above: Order Comment: Order Date: 10/09/24Order Info: 666-08 - BMPOrder Info: [id number] - MGOrder Info: 3016-3 - TSH Performed By: #### L [id number] #### [facility] [address] [place], [address] CO2 [Moles/Vol] 25.0 mmol/L Normal 21.0-32.0 [facility] Comment on above: Order Comment: Order Date: 10/09/24Order Info: 666- - BMPOrder Info: [id number] - MGOrder Info: 3015-3 - TSH Performed By: #### L [id number] #### [facility] [address] [place], [address] Creatinine [Mass/Vol] 1.03 mg/dL High 0.55-1.02 [facility] Comment on above: Order Comment: Order Date: 10/09/24Order Info: 666- - BMPOrder Info: [id number] - MGOrder Info: 3015-3 - TSH Result Comment: The validity of the calculated GFR GFRAA in patients over 70 years has not been determined. Clinical correlation is essential. Performed By: #### L [id number] #### [facility] [address] [place], [address] EST GFR - AA 65 mL/min Normal >60 [facility] Comment on above: Order Comment: Order Date: 10/09/24Order Info: 666-08 - BMPOrder Info: [id number] - MGOrder Info: 3015-3 - TSH Result Comment: Afri can Danish GFR Calc Performed By: #### L [id number] #### [facility] [address] [place], [address] GAP 9 Normal 5-15 [facility] Comment on above: Order Comment: Order Date: 10/09/24Order Info: 666-08 - BMPOrder Info: [id number] - MGOrder Info: 3015-10 - TSH Performed By: #### L [id number] #### [facility] [address] [place], [address] GFR/1.73 sq M.predicted among non-blacks MDRD (S/P/Bld) [Vol rate/Area] 54 mL/min/{1.73_m2} Low >60 [facility] Comment on above: Order Comment: Order Date: 10/09/24Order Info: 666- - BMPOrder Info: [id number] - MGOrder Info: 3015-3 - TSH Result Comment: Non- GFR Calc Performed By: #### L [id number] #### [facility] [address] [place], [address] Glucose [Mass/Vol] 155 mg/dL High 74-106 [facility] Comment on above: Order Comment: Order Date: 10/09/24Order Info: 666- - BMPOrder Info: [id number] - MGOrder Info: 3 - TSH Result Comment: Fast ing Glucose result greater than or equal to 126 mg/dL suggests DIABETES MELLITUS per A.D.A. criteria. Performed By: #### L [id number] #### [facility] [address] [place], [address] Potassium [Moles/Vol] 4.0 mmol/L Normal 3.5-5.1 [facility] Comment on above: Order Comment: Order Date: 10/09/24Order Info: 666-08 - BMPOrder Info: [id number] - MGOrder Info: 3015-10 - TSH Performed By: #### L [id number] #### [facility] [address] [place], [address] Sodium [Moles/Vol] 132 mmol/L Low 136-145 [facility] Comment on above: Order Comment: Order Date: 10/09/24Order Info: 666-08 - BMPOrder Info: [id number] - MGOrder Info: 3015-10 - TSH Performed By: #### L [id number] #### [facility] [address] [place], [address] Urea nitrogen [Mass/Vol] 16 mg/dL Normal 7-18 [facility] Comment on above: Order Comment: Order Date: 10/09/24Order Info: 666-08 - BMPOrder Info: [id number] - MGOrder Info: 3 - TSH Performed By: #### L [id number] #### [facility] [address] [place], [address] Magnesiumon 10-09-2024 Magnesium [Mass/Vol] 2.2 mg/dL Normal 1.6-2.6 [facility] Comment on above: Order Comment: Order Date: 10/09/24Order Info: 06- - BMPOrder Info: - MGOrder Info: 3016-3 - TSH Performed By: #### L [id number] #### [facility] [address] [place], [place], [address] Thyroid Stim Hormone (TSH)on 10-09-2024 TSH 1.300 uIU/mL Normal 0.358-3.740 [facility] Comment on above: Order Comment: Order Date: 10/09/24Order Info: 666-08 - BMPOrder Info: - MGOrder Info: 6-3 - TSH Performed By: #### L [id number] #### [facility] [address] [place], [address] BNP,B-Type NATRIURETIC PEPTI Dana 09-14-2024 Natriuretic peptide B (Bld) [Mass/Vol] 604.0 pg/mL High 0-100 [facility] Comment on above: Performed By: #### L [id number] #### [facility] [address] [place], [place], [address] CBC W/Diff, Automatedon 08-18 Absolute Lymph 1.35 X10 3/uL Normal 0.83-4.51 [facility] Comment on above: Order Comment: Order Date: 09/14/24 Order Info: 0184-1 - CBCD Performed By: #### L 501.6710, L100.0100, [id number] #### [facility] [address] [place], [address] Absolute Neut 5.5 X10 3/uL Normal 2.0-7.7 [facility] Comment on above: Order Comment: Order Date: 09/14/24 Order Info: 0184-1 - CBCD Performed By: #### L 501.6710, L100.0100, [id number] #### [facility] [address] [place], [address] Basophils/100 WBC (Bld) 0.6 % Normal 0-1 [facility] Comment on above: Order Comment: Order Date: 09/14/24 Order Info: 0184-1 - CBCD Performed By: #### L 501.6710, L100.0100, [id number] #### [facility] [address] [place], [address] Eosinophils/100 WBC (Bld) 2.8 % Normal 0-5 [facility] Comment on above: Order Comment: Order Date: 09/14/24 Order Info: 0184-1 - CBCD Performed By: #### L 501.6710, L100.0100, [id number] #### [facility] [address] [place], [address] Erythrocyte distribution width (RBC) [Ratio] 12.0 % Normal 11.6-14.6 [facility] Comment on above: Order Comment: Order Date: 09/14/24 Order Info: 0184-1 - CBCD Performed By: #### L 501.6710, L100.0100, [id number] #### [facility] [address] [place], [address] Hematocrit (Bld) [Volume fraction] 46.9 % Normal 37-47 [facility] Comment on above: Order Comment: Order Date: 09/14/24 Order Info: 0184-1 - CBCD Performed By: #### L 501.6710, L100.0100, [id number] #### [facility] [address] [place], [address] Hemoglobin (Bld) [Mass/Vol] 15.6 g/dL High 12.0-15.0 [facility] Comment on above: Order Comment: Order Date: 09/14/24 Order Info: 0184-1 - CBCD Performed By: #### L 501.6710, L100.0100, [id number] #### [facility] [address] [place], [address] IG% 0.500 Normal 0.0-0.9 [facility] Comment on above: Order Comment: Order Date: 09/14/24 Order Info: 0184- - CBCD Result Comment: IG% - Immature Granulocytes (promyelocytes, myelocytes and metamyelocytes) > 1% indicates that a LEFT SHIFT is Present. Performed By: #### L 501.6710, L100.0100, L500.4050 #### [facility] [address] [place], [address] Lymphocytes/100 WBC (Bld) 16.7 % Low 19-41 [facility] Comment on above: Order Comment: Order Date: 09/14/24 Order Info: 0184- - CBCD Performed By: #### L 501.6710, L100.0100, [id number] #### [facility] [address] [place], [address] MCH (RBC) [Entitic mass] 30.4 pg Normal 27.0-32.0 [facility] Comment on above: Order Comment: Order Date: 09/14/24 Order Info: 0184- - CBCD Performed By: #### L 501.6710, L100.0100, [id number] #### [facility] [address] [place], [address] MCHC (RBC) [Mass/Vol] 33.3 g/dL Normal 32-36 [facility] Comment on above: Order Comment: Order Date: 09/14/24 Order Info: 0184- - CBCD Performed By: #### L 501.6710, L100.0100, L500.4050 #### [facility] [address] [place], [address] MCV (RBC) [Entitic vol] 91.2 fL Normal 81-99 [facility] Comment on above: Order Comment: Order Date: 09/14/24 Order Info: 0184-1 - CBCD Performed By: #### L 501.6710, L100.0100, [id number] #### [facility] [address] [place], [address] Monocytes/100 WBC (Bld) 11.8 % High 0-10 [facility] Comment on above: Order Comment: Order Date: 09/14/24 Order Info: 0184-1 - CBCD Performed By: #### L 501.6710, L100.0100, [id number] #### [facility] [address] [place], [address] Neutrophils/100 WBC (Bld) 67.6 % Normal 47-70 [facility] Comment on above: Order Comment: Order Date: 09/14/24 Order Info: 0184-1 - CBCD Performed By: #### L 501.6710, L100.0100, [id number] #### [facility] [address] [place], [address] Nucleated RBC (Bld) [#/Vol] 0 10*3/uL Normal 0-5 [facility] Comment on above: Order Comment: Order Date: 09/14/24 Order Info: 0184-1 - CBCD Performed By: #### L 501.6710, L100.0100, L500.4050 #### [facility] [address] [place], [address] Platelet mean volume (Bld) [Entitic vol] 8.6 fL Normal 6.2-12.0 [facility] Comment on above: Order Comment: Order Date: 09/14/24 Order Info: 0184-1 - CBCD Performed By: #### L 501.6710, L100.0100, L500.4050 #### [facility] [address] [place], [address] Platelets (Bld) [#/Vol] 341 10*3/uL Normal 150-450 [facility] Comment on above: Order Comment: Order Date: 09/14/24 Order Info: 0184-1 - CBCD Performed By: #### L 501.6710, L100.0100, [id number] #### [facility] [address] [place], [address] RBC (Bld) [#/Vol] 5.14 10*6/uL Normal 4.2-5.4 [facility] Comment on above: Order Comment: Order Date: 09/14/24 Order Info: 0184-1 - CBCD Performed By: #### L 501.6710, L100.0100, L500.4050 #### [facility] [address] [place], [address] RDW SD 40.5 fl Normal 35.1-43.9 [facility] Comment on above: Order Comment: Order Date: 09/14/24 Order Info: 0184-1 - CBCD Performed By: #### L 501.6710, L100.0100, [id number] #### [facility] [address] [place], [address] WBC (Bld) [#/Vol] 8.1 10*3/uL Normal 4.4-11.0 [facility] Comment on above: Order Comment: Order Date: 09/14/24 Order Info: 0184-1 - CBCD Performed By: #### L 501.6710, L100.0100, L500.4050 #### [facility] [address] [place], [address] CRPon 09-14-2024 C-REACTIVE PROT 5.75 mg/L High 0.0-3.0 [facility] Comment on above: Order Comment: Order Date: 09/14/24 Order Info: 0786-1 - CMP Order Info: [id number] - CRP Result Comment: C-Re active Protein (CRP) provides useful information for the diagnosis, therapy and monitoring of inflammatory processes and associated diseases. For the evaluation of Relative Risk for Cardiovascular Disease, a High Sensitivity CRP (HSCRP) should be ordered. Performed By: #### L 501.6710, L100.0100, L500.4050 #### [facility] [address] [place], [address] Comprehensive Metabolic Prof ilon 09-14-2024 Albumin [Mass/Vol] 3.5 g/dL Normal 3.2-5.0 [facility] Comment on above: Order Comment: Order Date: 09/14/24 Order Info: 0786-1 - CMP Order Info: [id number] - CRP Performed By: #### L 501.6710, L100.0100, L500.4050 #### [facility] [address] [place], [address] Albumin/Globulin [Mass ratio] 0.9 {ratio} Normal 0.9-2.4 [facility] Comment on above: Order Comment: Order Date: 09/14/24 Order Info: 0786-1 - CMP Order Info: [id number] - CRP Performed By: #### L 501.6710, L100.0100, L500.4050 #### [facility] [address] [place], [address] ALK P 71 U/L Normal 45-117 [facility] Comment on above: Order Comment: Order Date: 09/14/24 Order Info: 0786-1 - CMP Order Info: [id number] - CRP Performed By: #### L 501.6710, L100.0100, L500.4050 #### [facility] [address] [place], [address] ALT [Catalytic activity/Vol] 24 U/L Normal 13-56 [facility] Comment on above: Order Comment: Order Date: 09/14/24 Order Info: 0786-1 - CMP Order Info: [id number] - CRP Performed By: #### L 501.6710, L100.0100, L500.4050 #### [facility] [address] [place], [address] AST [Catalytic activity/Vol] 21 U/L Normal 15-37 [facility] Comment on above: Order Comment: Order Date: 09/14/24 Order Info: 0786-1 - CMP Order Info: [id number] - CRP Performed By: #### L 501.6710, L100.0100, L500.4050 #### [facility] [address] [place], [address] Bilirubin [Mass/Vol] 0.50 mg/dL Normal 0.20-1.00 [facility] Comment on above: Order Comment: Order Date: 09/14/24 Order Info: 0786-1 - CMP Order Info: [id number] - CRP Result Comment: For patients on eltrombopag therapy, use of Dimension [place] TBIL is not recommended. Performed By: #### L 501.6710, L100.0100, L500.4050 #### [facility] [address] [place], [address] BUN/CRE 12.2 RATIO Normal 10-20 [facility] Comment on above: Order Comment: Order Date: 09/14/24 Order Info: 0786-1 - CMP Order Info: [id number] - CRP Performed By: #### L 501.6710, L100.0100, L500.4050 #### [facility] [address] [place], [address] CA,Total 9.6 mg/dL Normal 8.5-10.1 [facility] Comment on above: Order Comment: Order Date: 09/14/24 Order Info: 0786-1 - CMP Order Info: [id number] - CRP Performed By: #### L 501.6710, L100.0100, L500.4050 #### [facility] [address] [place], [address] Chloride [Moles/Vol] 98 mmol/L Normal 98-107 [facility] Comment on above: Order Comment: Order Date: 09/14/24 Order Info: 0786-1 - CMP Order Info: [id number] - CRP Performed By: #### L 501.6710, L100.0100, L500.4050 #### [facility] [address] [place], [address] CO2 [Moles/Vol] 29.0 mmol/L Normal 21.0-32.0 [facility] Comment on above: Order Comment: Order Date: 09/14/24 Order Info: 0786- - CMP Order Info: [id number] - CRP Performed By: #### L 501.6710, L100.0100, L500.4050 #### [facility] [address] [place], [address] Creatinine [Mass/Vol] 0.98 mg/dL Normal 0.55-1.02 [facility] Comment on above: Order Comment: Order Date: 09/14/24 Order Info: 0786- - CMP Order Info: [id number] - CRP Result Comment: The validity of the calculated GFR GFRAA in patients over 70 years has not been determined. Clinical correlation is essential. Performed By: #### L 501.6710, L100.0100, L500.4050 #### [facility] [address] [place], [address] EST GFR - AA 69 mL/min Normal >60 [facility] Comment on above: Order Comment: Order Date: 09/14/24 Order Info: 0786-1 - CMP Order Info: [id number] - CRP Result Comment: Afri can Danish GFR Calc Performed By: #### L 501.6710, L100.0100, L500.4050 #### [facility] [address] [place], [address] GAP 7 Normal 5-15 [facility] Comment on above: Order Comment: Order Date: 09/14/24 Order Info: 0786-1 - CMP Order Info: [id number] - CRP Performed By: #### L 501.6710, L100.0100, L500.4050 #### [facility] [address] [place], [address] GFR/1.73 sq M.predicted among non-blacks MDRD (S/P/Bld) [Vol rate/Area] 57 mL/min/{1.73_m2} Low >60 [facility] Comment on above: Order Comment: Order Date: 09/14/24 Order Info: 0786-1 - CMP Order Info: [id number] - CRP Result Comment: Non- GFR Calc Performed By: #### L 501.6710, L100.0100, L500.4050 #### [facility] [address] [place], [address] Globulin (S) [Mass/Vol] 4.1 g/dL Normal 2.2-4.2 [facility] Comment on above: Order Comment: Order Date: 09/14/24 Order Info: 0786-1 - CMP Order Info: [id number] - CRP Performed By: #### L 501.6710, L100.0100, L500.4050 #### [facility] [address] [place], [address] Glucose [Mass/Vol] 102 mg/dL Normal 74-106 [facility] Comment on above: Order Comment: Order Date: 09/14/24 Order Info: 0786-1 - CMP Order Info: [id number] - CRP Result Comment: Fast ing Glucose result from 100 to 125 mg/dL suggests IMPAIRED HOMEOSTASIS per A.D.A. criteria. Performed By: #### L 501.6710, L100.0100, L500.4050 #### [facility] [address] [place], [address] Potassium [Moles/Vol] 4.2 mmol/L Normal 3.5-5.1 [facility] Comment on above: Order Comment: Order Date: 09/14/24 Order Info: 0786-1 - CMP Order Info: [id number] - CRP Performed By: #### L 501.6710, L100.0100, L500.4050 #### [facility] [address] [place], [address] Sodium [Moles/Vol] 134 mmol/L Low 136-145 [facility] Comment on above: Order Comment: Order Date: 09/14/24 Order Info: 0786-1 - CMP Order Info: [id number] - CRP Performed By: #### L 501.6710, L100.0100, L500.4050 #### [facility] [address] [place], [address] T PROT 7.6 g/dL Normal 6.4-8.2 [facility] Comment on above: Order Comment: Order Date: 09/14/24 Order Info: 0786-1 - CMP Order Info: [id number] - CRP Performed By: #### L 501.6710, L100.0100, L500.4050 #### [facility] [address] [place], [address] Urea nitrogen [Mass/Vol] 12 mg/dL Normal 7-18 [facility] Comment on above: Order Comment: Order Date: 09/14/24 Order Info: 0786-1 - CMP Order Info: [id number] - CRP Performed By: #### L 501.6710, L100.0100, L500.4050 #### [facility] [address] [place], [address] BNP,B-Type NATRIURETIC PEPTI Dana 08-25-2024 Natriuretic peptide B (Bld) [Mass/Vol] 797.1 pg/mL High 0-100 [facility] Comment on above: Performed By: #### L 503.6620 #### [facility] [address] [place], [address] CRPon 08-25-2024 C-REACTIVE PROT 6.64 mg/L High 0.0-3.0 [facility] Comment on above: Order Comment: Order Date: 08/25/24 Order Info: 0786-1 - CMP Order Info: [id number] - CRP Result Comment: C-Re active Protein (CRP) provides useful information for the diagnosis, therapy and monitoring of inflammatory processes and associated diseases. For the evaluation of Relative Risk for Cardiovascular Disease, a High Sensitivity CRP (HSCRP) should be ordered. Performed By: #### L 501.6710, L500.4050 #### [facility] [address] [place], [address] Comprehensive Metabolic Prof ilon 08-25-2024 Albumin [Mass/Vol] 3.5 g/dL Normal 3.2-5.0 [facility] Comment on above: Order Comment: Order Date: 08/25/24 Order Info: 0786-1 - CMP Order Info: [id number] - CRP Performed By: #### L 501.6710, L500.4050 #### [facility] [address] [place], [address] Albumin/Globulin [Mass ratio] 0.9 {ratio} Normal 0.9-2.4 [facility] Comment on above: Order Comment: Order Date: 08/25/24 Order Info: 0786-1 - CMP Order Info: [id number] - CRP Performed By: #### L 501.6710, L500.4050 #### [facility] [address] [place], [address] ALK P 77 U/L Normal 45-117 [facility] Comment on above: Order Comment: Order Date: 08/25/24 Order Info: 0786-1 - CMP Order Info: [id number] - CRP Performed By: #### L 501.6710, L500.4050 #### [facility] [address] [place], [address] ALT [Catalytic activity/Vol] 36 U/L Normal 13-56 [facility] Comment on above: Order Comment: Order Date: 08/25/24 Order Info: 0786-1 - CMP Order Info: [id number] - CRP Performed By: #### L 501.6710, L500.4050 #### [facility] [address] [place], [address] AST [Catalytic activity/Vol] 20 U/L Normal 15-37 [facility] Comment on above: Order Comment: Order Date: 08/25/24 Order Info: 0786-1 - CMP Order Info: [id number] - CRP Performed By: #### L 501.6710, L500.4050 #### [facility] [address] [place], [address] Bilirubin [Mass/Vol] 0.60 mg/dL Normal 0.20-1.00 [facility] Comment on above: Order Comment: Order Date: 08/25/24 Order Info: 0786-1 - CMP Order Info: [id number] - CRP Result Comment: For patients on eltrombopag therapy, use of Dimension [place] TBIL is not recommended. Performed By: #### L 501.6710, L500.4050 #### [facility] [address] [place], [address] BUN/CRE 11.8 RATIO Normal 10-20 [facility] Comment on above: Order Comment: Order Date: 08/25/24 Order Info: 0786-1 - CMP Order Info: [id number] - CRP Performed By: #### L 501.6710, L500.4050 #### [facility] [address] [place], [address] CA,Total 9.5 mg/dL Normal 8.5-10.1 [facility] Comment on above: Order Comment: Order Date: 08/25/24 Order Info: 0786-1 - CMP Order Info: [id number] - CRP Performed By: #### L 501.6710, L500.4050 #### [facility] [address] [place], [address] Chloride [Moles/Vol] 101 mmol/L Normal 98-107 [facility] Comment on above: Order Comment: Order Date: 08/25/24 Order Info: 0786-1 - CMP Order Info: [id number] - CRP Performed By: #### L 501.6710, L500.4050 #### [facility] [address] [place], [address] CO2 [Moles/Vol] 26.0 mmol/L Normal 21.0-32.0 [facility] Comment on above: Order Comment: Order Date: 08/25/24 Order Info: 07-1 - CMP Order Info: [id number] - CRP Performed By: #### L 501.6710, L500.4050 #### [facility] [address] [place], [address] Creatinine [Mass/Vol] 0.93 mg/dL Normal 0.55-1.02 [facility] Comment on above: Order Comment: Order Date: 08/25/24 Order Info: 07-1 - CMP Order Info: [id number] - CRP Result Comment: The validity of the calculated GFR GFRAA in patients over 70 years has not been determined. Clinical correlation is essential. Performed By: #### L 501.6710, L500.4050 #### [facility] [address] [place], [address] EST GFR - AA 74 mL/min Normal >60 [facility] Comment on above: Order Comment: Order Date: 08/25/24 Order Info: 0786-1 - CMP Order Info: [id number] - CRP Result Comment: Afri can Danish GFR Calc Performed By: #### L 501.6710, L500.4050 #### [facility] [address] [place], [address] GAP 5 Normal 5-15 [facility] Comment on above: Order Comment: Order Date: 08/25/24 Order Info: 0786-1 - CMP Order Info: [id number] - CRP Performed By: #### L 501.6710, L500.4050 #### [facility] [address] [place], [address] GFR/1.73 sq M.predicted among non-blacks MDRD (S/P/Bld) [Vol rate/Area] 61 mL/min/{1.73_m2} Normal >60 [facility] Comment on above: Order Comment: Order Date: 08/25/24 Order Info: 0786-1 - CMP Order Info: [id number] - CRP Result Comment: Non- GFR Calc Performed By: #### L 501.6710, L500.4050 #### [facility] [address] [place], [address] Globulin (S) [Mass/Vol] 4.1 g/dL Normal 2.2-4.2 [facility] Comment on above: Order Comment: Order Date: 08/25/24 Order Info: 0786-1 - CMP Order Info: [id number] - CRP Performed By: #### L 501.6710, L500.4050 #### [facility] [address], [address] Glucose [Mass/Vol] 108 mg/dL High 74-106 [facility] Comment on above: Order Comment: Order Date: 08/25/24 Order Info: 0786-1 - CMP Order Info: [id number] - CRP Result Comment: Fast ing Glucose result from 100 to 125 mg/dL suggests IMPAIRED HOMEOSTASIS per A.D.A. criteria. Performed By: #### L 501.6710, L500.4050 #### [facility] [address] [place], [address] Potassium [Moles/Vol] 4.0 mmol/L Normal 3.5-5.1 [facility] Comment on above: Order Comment: Order Date: 08/25/24 Order Info: 0786-1 - CMP Order Info: [id number] - CRP Performed By: #### L 501.6710, L500.4050 #### [facility] [address] [place], [address] Sodium [Moles/Vol] 132 mmol/L Low 136-145 [facility] Comment on above: Order Comment: Order Date: 08/25/24 Order Info: 0786-1 - CMP Order Info: [id number] - CRP Performed By: #### L 501.6710, L500.4050 #### [facility] [address] [place], [address] T PROT 7.6 g/dL Normal 6.4-8.2 [facility] Comment on above: Order Comment: Order Date: 08/25/24 Order Info: 0786-1 - CMP Order Info: [id number] - CRP Performed By: #### L 501.6710, L500.4050 #### [facility] [address] [place], [address] Urea nitrogen [Mass/Vol] 11 mg/dL Normal 7-18 [facility] Comment on above: Order Comment: Order Date: 08/25/24 Order Info: 0786-1 - CMP Order Info: [id number] - CRP Performed By: #### L 501.6710, L500.4050 #### [facility] [address] [place], [address] BNP,B-Type NATRIURETIC PEPTI Dana 08-21-2024 Natriuretic peptide B (Bld) [Mass/Vol] 1008.5 pg/mL High 0-100 [facility] Comment on above: Performed By: #### L 503.6620 #### [facility] [address] [place], [address] Chest PA and Lateralon 08-21 Chest PA and Lateral [facility] [address] [place] [address] Chest PA and Lateral MR#: [id number] Acct: [id number] Name: ROSE RENTERIA ANN Rep #: [id number] : [id number] F 84 From: Lito Dewitt MD PCP: Dr. Thu Nichols MD Status: REG CLI Study: Chest PA and Lateral Date of Exam: 08/21/24 Exam# [id number] Ordering Dr: Thu Nichols MD -[id number] STUDY: X-RAY CHEST REASON FOR EXAM: Female, 84 years old. SOB TECHNIQUE: PA and lateral views of the chest. COMPARISON: 01/03/2024 FINDINGS: Lungs are expanded with interstitial edema in the lung bases and bilateral pleural effusions. Findings suggest pulmonary vascular congestion/CHF. Follow-up recommended to assure resolution. Normal size heart. Normal mediastinum and lev. Normal visualized pulmonary arteries. There is atherosclerotic calcification of the aortic arch with tortuosity. There are diffuse degenerative changes of the visualized thoracic spine. Normal visualized ribs, clavicles, and shoulders. There is no demonstrated abnormality of the visualized soft tissue structures of the upper abdomen. RAD/Chest PA and Lateral IMPRESSION: Chronic interstitial changes with superimposed interstitial edema and bilateral pleural effusions new since the previous study. Findings suggest pulmonary vascular congestion/CHF. Follow-up recommended to assure resolution Electronically Signed: Rogelio Dewitt MD at 13:06 EST , CC: Dr. Thu Nichols MD Per Diem: Signed Normal [facility] [facility] Comprehensive Metabolic Prof ilon 08-21-2024 Albumin [Mass/Vol] 3.3 g/dL Normal 3.2-5.0 [facility] Comment on above: Order Comment: Order Date: 08/25/24 Order Info: 0786-1 - CMP Order Info: [id number] - CRP Performed By: #### L 501.6710, [id number] #### [facility] [address] [place], [address] Albumin/Globulin [Mass ratio] 0.9 {ratio} Normal 0.9-2.4 [facility] Comment on above: Order Comment: Order Date: 08/25/24 Order Info: 0786-1 - CMP Order Info: [id number] - CRP Performed By: #### L 501.6710, [id number] #### [facility] [address] [place], [address] ALK P 75 U/L Normal 45-117 [facility] Comment on above: Order Comment: Order Date: 08/25/24 Order Info: 0786-1 - CMP Order Info: [id number] - CRP Performed By: #### L 501.6710, [id number] #### [facility] [address] [place], [address] ALT [Catalytic activity/Vol] 66 U/L High 13-56 [facility] Comment on above: Order Comment: Order Date: 08/25/24 Order Info: 0786-1 - CMP Order Info: [id number] - CRP Performed By: #### L 501.6710, [id number] #### [facility] [address] [place], [address] AST [Catalytic activity/Vol] 36 U/L Normal 15-37 [facility] Comment on above: Order Comment: Order Date: 08/25/24 Order Info: 0786-1 - CMP Order Info: [id number] - CRP Performed By: #### L 501.6710, [id number] #### [facility] [address] [place], [address] Bilirubin [Mass/Vol] 0.60 mg/dL Normal 0.20-1.00 [facility] Comment on above: Order Comment: Order Date: 08/25/24 Order Info: 0786-1 - CMP Order Info: [id number] - CRP Result Comment: For patients on eltrombopag therapy, use of Dimension [place] TBIL is not recommended. Performed By: #### L 501.6710, [id number] #### [facility] [address] [place], [address] BUN/CRE 12.8 RATIO Normal 10-20 [facility] Comment on above: Order Comment: Order Date: 08/25/24 Order Info: 0786-1 - CMP Order Info: [id number] - CRP Performed By: #### L 501.6710, [id number] #### [facility] [address] [place], [address] CA,Total 9.2 mg/dL Normal 8.5-10.1 [facility] Comment on above: Order Comment: Order Date: 08/25/24 Order Info: 0786-1 - CMP Order Info: [id number] - CRP Performed By: #### L 501.6710, [id number] #### [facility] [address] [place], [address] Chloride [Moles/Vol] 106 mmol/L Normal 98-107 [facility] Comment on above: Order Comment: Order Date: 08/25/24 Order Info: 0786-1 - CMP Order Info: [id number] - CRP Performed By: #### L 501.6710, [id number] #### [facility] [address] [place], [address] CO2 [Moles/Vol] 25.0 mmol/L Normal 21.0-32.0 [facility] Comment on above: Order Comment: Order Date: 08/25/24 Order Info: 0786-1 - CMP Order Info: [id number] - CRP Performed By: #### L 501.6710, [id number] #### [facility] [address] [place], [address] Creatinine [Mass/Vol] 0.78 mg/dL Normal 0.55-1.02 [facility] Comment on above: Order Comment: Order Date: 08/25/24 Order Info: 0786-1 - CMP Order Info: [id number] - CRP Result Comment: The validity of the calculated GFR GFRAA in patients over 70 years has not been determined. Clinical correlation is essential. Performed By: #### L 501.6710, [id number] #### [facility] [address] [place], [address] EST GFR - AA 90 mL/min Normal >60 [facility] Comment on above: Order Comment: Order Date: 08/25/24 Order Info: 0786-1 - CMP Order Info: [id number] - CRP Result Comment: Afri can Danish GFR Calc Performed By: #### L 501.6710, [id number] #### [facility] [address] [place], [address] GAP 7 Normal 5-15 [facility] Comment on above: Order Comment: Order Date: 08/25/24 Order Info: 0786-1 - CMP Order Info: [id number] - CRP Performed By: #### L 501.6710, [id number] #### [facility] [address] [place], [address] GFR/1.73 sq M.predicted among non-blacks MDRD (S/P/Bld) [Vol rate/Area] 74 mL/min/{1.73_m2} Normal >60 [facility] Comment on above: Order Comment: Order Date: 08/25/24 Order Info: 0786-1 - CMP Order Info: [id number] - CRP Result Comment: Non- GFR Calc Performed By: #### L 501.6710, [id number] #### [facility] [address] [place], [address] Globulin (S) [Mass/Vol] 3.8 g/dL Normal 2.2-4.2 [facility] Comment on above: Order Comment: Order Date: 08/25/24 Order Info: 0786-1 - CMP Order Info: [id number] - CRP Performed By: #### L 501.6710, [id number] #### [facility] [address] [place], [address] Glucose [Mass/Vol] 105 mg/dL Normal 74-106 [facility] Comment on above: Order Comment: Order Date: 08/25/24 Order Info: 0786-1 - CMP Order Info: [id number] - CRP Result Comment: Fast ing Glucose result from 100 to 125 mg/dL suggests IMPAIRED HOMEOSTASIS per A.D.A. criteria. Performed By: #### L 501.6710, [id number] #### [facility] [address] [place], [address] Potassium [Moles/Vol] 4.3 mmol/L Normal 3.5-5.1 [facility] Comment on above: Order Comment: Order Date: 08/25/24 Order Info: 0786-1 - CMP Order Info: [id number] - CRP Performed By: #### L 501.6710, [id number] #### [facility] [address] [place], [address] Sodium [Moles/Vol] 138 mmol/L Normal 136-145 [facility] Comment on above: Order Comment: Order Date: 08/25/24 Order Info: 0786-1 - CMP Order Info: [id number] - CRP Performed By: #### L 501.6710, [id number] #### [facility] [address] [place], [address] T PROT 7.1 g/dL Normal 6.4-8.2 [facility] Comment on above: Order Comment: Order Date: 08/25/24 Order Info: 0786-1 - CMP Order Info: [id number] - CRP Performed By: #### L 501.6710, [id number] #### [facility] [address] [place], [address] Urea nitrogen [Mass/Vol] 10 mg/dL Normal 7-18 [facility] Comment on above: Order Comment: Order Date: 08/25/24 Order Info: 0786-1 - CMP Order Info: [id number] - CRP Performed By: #### L 501.6710, [id number] #### [facility] [address] [place], [address] XR CHEST 2 VIEWSon XR CHEST 2 VIEWS ORIGINAL EXAMINATION: TWO XRAY VIEWS OF THE CHEST 07/31/2024 12:26 pm COMPARISON: None. HISTORY: ORDERING SYSTEM PROVIDED HISTORY: Reason for Exam: HISTORY OF LOBECTOMY, TB Chronic dyspnea. FINDINGS: The heart size is normal. The lungs are mildly hyperexpanded. There is minimal scarring at the left lung base. No pleural fluid or pneumothorax is present. There is no pulmonary edema or acute infiltrate. There is mild S-shaped thoracolumbar scoliosis. No acute skeletal abnormality is present. IMPRESSION: 1. Mild scarring at the left lung base. 2. No acute abnormality. Interpreted by: Ata Graff MD Preliminary Report By: Ata Graff MD Electronically signed By Ata Graff MD Dictated Date: 08/01/2024 3:52:23 AM Prelim Date: 08/01/2024 3:54:09 AM Sign Date: 08/01/2024 3:54:09 AM Ordering Provider: MAXIME MUNIZ Normal [facility] .Auto Diffon 07-31-2024 Basophil, Absolute 0.0 10 3/mcL Normal 0.0-0.2 [facility] Comment on above: Performed By: #### A JUDI MARTINIFF, ANEU, CBC, GFR, BMP, ALB, ABSGEL #### [address] [address] Basophils/100 WBC (Bld) 0.6 % Normal 0.0-2.5 [facility] Comment on above: Performed By: #### A JUDI MARTINIFF, ANEU, CBC, GFR, BMP, ALB, ABSGEL #### [address] [address] Eosinophil, Absolute 0.3 10 3/mcL Normal 0.0-0.7 [facility] Comment on above: Performed By: #### A BOGEL, ADIFF, ANEU, CBC, GFR, BMP, ALB, ABSGEL #### [address] [address] Eosinophils/100 WBC (Bld) 4.4 % Normal 0.0-7.0 [facility] Comment on above: Performed By: #### A BOGEL, ADIFF, ANEU, CBC, GFR, BMP, ALB, ABSGEL #### [address] [address] Lymphocyte, Absolute 1.5 10 3/mcL Normal 0.9-4.3 [facility] Comment on above: Performed By: #### A BOGEL, ADIFF, ANEU, CBC, GFR, BMP, ALB, ABSGEL #### [address] [address] Lymphocytes/100 WBC (Bld) 20.2 % Normal 20.0-40.0 [facility] Comment on above: Performed By: #### A BOGEL, ADIFF, ANEU, CBC, GFR, BMP, ALB, ABSGEL #### [address] [address] Monocyte, Absolute 0.8 10 3/mcL Normal 0.1-1.4 [facility] Comment on above: Performed By: #### A BOGEL, ADIFF, ANEU, CBC, GFR, BMP, ALB, ABSGEL #### [address] [address] Monocytes/100 WBC (Bld) 11.2 % Normal 2.0-13.0 [facility] Comment on above: Performed By: #### A BOGEL, ADIFF, ANEU, CBC, GFR, BMP, ALB, ABSGEL #### [address] [address] Neutrophils/100 WBC (Bld) 63.6 % Normal 50.0-75.0 [facility] Comment on above: Performed By: #### A BOGEL, ADIFF, ANEU, CBC, GFR, BMP, ALB, ABSGEL #### [address] [address] .GFRon 07-31-2024 GFR 92 ml/min/1.73sqm [facility] Comment on above: Result Comment: GFR Population mean for , Non- Americans Ages 20-29 = 116 mL/min/1.73 sq.m. Ages 30-39 = 107 mL/min/1.73 sq.m. Ages 40-49 = 99 mL/min/1.73 sq.m. Ages 50-59 = 93 mL/min/1.73 sq.m. Ages 60-69 = 85 mL/min/1.73 sq.m. Ages 70+ = 75 mL/min/1.73 sq.m. Chronic Kidney Disease: Less than 60 mL/min/1.73 square meters End Stage Renal Disease: Less than 15 mL/min/1.73 square meters Performed By: #### A BOGEL, ADIFF, ANEU, CBC, GFR, BMP, ALB, ABSGEL #### [address] [address] GFR Non- 76 ml/min/1.73sqm [facility] Comment on above: Result Comment: GFR Population mean for , Non- Americans Ages 20-29 = 116 mL/min/1.73 sq.m. Ages 30-39 = 107 mL/min/1.73 sq.m. Ages 40-49 = 99 mL/min/1.73 sq.m. Ages 50-59 = 93 mL/min/1.73 sq.m. Ages 60-69 = 85 mL/min/1.73 sq.m. Ages 70+ = 75 mL/min/1.73 sq.m. Chronic Kidney Disease: Less than 60 mL/min/1.73 square meters End Stage Renal Disease: Less than 15 mL/min/1.73 square meters Performed By: #### A BOGEL, ADIFF, ANEU, CBC, GFR, BMP, ALB, ABSGEL #### [address] [address] .NEUABSon 07-31-2024 Neutrophil, Absolute 4.8 10 3/mcL Normal 2.3-8.1 [facility] Comment on above: Performed By: #### A VERONICA ADIFF, ANEU, CBC, GFR, BMP, ALB, ABSGEL #### [address] [place], [place] [address] ABO/Rh (Gel)on 07-31-2024 ABO/Rh Interp Positive Invalid Interpretation Code [facility] Comment on above: Order Comment: SURG NIDA 1/14 -AC Performed By: #### A VERONICA ADIFF, ANEU, CBC, GFR, BMP, ALB, ABSGEL #### [address] [address] ABS (Gel)on 07-31-2024 ABSC Interp (Gel) Negative Normal [facility] Comment on above: Order Comment: SURG NIDA /14 -AC Performed By: #### A VERONICA ADIFF, ANEU, CBC, GFR, BMP, ALB, ABSGEL ####[address] [address] ALBon 07-31-2024 Albumin Level 3.3 G/dL Low 3.4-4.8 [facility] Comment on above: Performed By: #### A VERONICA, ADIFF, ANEU, CBC, GFR, BMP, ALB, ABSGEL #### [address] [address] BMPon 07-31-2024 BUN/Creatinine Ratio 14 ratio Normal 7-27 [facility] Comment on above: Performed By: #### A CINTHYAEL, ADIFF, ANEU, CBC, GFR, BMP, ALB, ABSGEL #### [address] [address] Calcium [Mass/Vol] 9.6 mg/dL Normal 8.4-10.2 [facility] Comment on above: Performed By: #### A CINTHYAEL, ADIFF, ANEU, CBC, GFR, BMP, ALB, ABSGEL #### [address] [address] Chloride [Moles/Vol] 101 mmol/L Normal 98-107 [facility] Comment on above: Performed By: #### A BOGEL, ADIFF, ANEU, CBC, GFR, BMP, ALB, ABSGEL #### [address] [address] CO2 [Moles/Vol] 31 mmol/L Normal 23-31 [facility] Comment on above: Performed By: #### A BOGEL, ADIFF, ANEU, CBC, GFR, BMP, ALB, ABSGEL #### [address] [address] Creatinine [Mass/Vol] 0.73 mg/dL Normal 0.55-1.02 [facility] Comment on above: Result Comment: Test ing performed on [employer] Dimension EXL analyzer using a modified kinetic Burke technique. Performed By: #### A BOGEL, ADIFF, ANEU, CBC, GFR, BMP, ALB, ABSGEL #### [place] [address] Electrolyte Balance 8.0 mEq/L Normal 4.0-15.0 [facility] Comment on above: Performed By: #### A BOGEL, ADIFF, ANEU, CBC, GFR, BMP, ALB, ABSGEL #### [address] [address] Glucose [Mass/Vol] 98 mg/dL Normal 83-110 [facility] Comment on above: Performed By: #### A BOGEL, ADIFF, ANEU, CBC, GFR, BMP, ALB, ABSGEL #### [address] [address] Potassium [Moles/Vol] 4.5 mmol/L Normal 3.5-5.1 [facility] Comment on above: Performed By: #### A BOGEL, ADIFF, ANEU, CBC, GFR, BMP, ALB, ABSGEL #### [address] [address] Sodium [Moles/Vol] 140 mmol/L Normal 136-145 [facility] Comment on above: Performed By: #### A BOGEL, ADIFF, ANEU, CBC, GFR, BMP, ALB, ABSGEL #### [address] [address] Urea nitrogen [Mass/Vol] 10 mg/dL Normal 7-18 [facility] Comment on above: Performed By: #### A BOGEL, ADIFF, ANEU, CBC, GFR, BMP, ALB, ABSGEL #### [address] [address] CBCon 07-31-2024 Erythrocyte distribution width (RBC) [Ratio] 13.6 % Normal 11.5-15.5 [facility] Comment on above: Order Comment: Pre-A dmission Testing Performed By: #### A BOGEL, ADIFF, ANEU, CBC, GFR, BMP, ALB, ABSGEL #### [address] [address] Hematocrit (Bld) [Volume fraction] 43.7 % Normal 34.0-46.0 [facility] Comment on above: Order Comment: Pre-A dmission Testing Performed By: #### A BOGEL, ADIFF, ANEU, CBC, GFR, BMP, ALB, ABSGEL #### [address] [address] Hgb 14.8 G/dL Normal 12.0-16.0 [facility] Comment on above: Order Comment: Pre-A dmission Testing Performed By: #### A BOGEL, ADIFF, ANEU, CBC, GFR, BMP, ALB, ABSGEL #### [address] [address] MCH (RBC) [Entitic mass] 30.9 pg Normal 27.0-33.0 [facility] Comment on above: Order Comment: Pre-A dmission Testing Performed By: #### A BOGEL, ADIFF, ANEU, CBC, GFR, BMP, ALB, ABSGEL #### [address] [address] MCHC 33.8 G/dL Normal 32.0-36.0 [facility] Comment on above: Order Comment: Pre-A dmission Testing Performed By: #### A BOGEL, ADIFF, ANEU, CBC, GFR, BMP, ALB, ABSGEL #### [address] [address] MCV (RBC) [Entitic vol] 91.3 fL Normal 80.0-99.0 [facility] Comment on above: Order Comment: Pre-A dmission Testing Performed By: #### A BOGEL, ADIFF, ANEU, CBC, GFR, BMP, ALB, ABSGEL #### [address] [address] Platelet 318 10 3/mcL Normal 150-450 [facility] Comment on above: Order Comment: Pre-A dmission Testing Performed By: #### A BOGEL, ADIFF, ANEU, CBC, GFR, BMP, ALB, ABSGEL #### [address] [address] Platelet mean volume (Bld) [Entitic vol] 6.4 fL Low 6.6-10.5 [facility] Comment on above: Order Comment: Pre-A dmission Testing Performed By: #### A BOGEL, ADIFF, ANEU, CBC, GFR, BMP, ALB, ABSGEL #### [address] [address] RBC 4.78 10 6/mcL Normal 4.10-5.30 [facility] Comment on above: Order Comment: Pre-A dmission Testing Performed By: #### A BOGEL, ADIFF, ANEU, CBC, GFR, BMP, ALB, ABSGEL #### [address] [address] WBC 7.6 10 3/mcL Normal 4.5-10.8 [facility] Comment on above: Order Comment: Pre-A dmission Testing Performed By: #### A BOGEL, ADIFF, ANEU, CBC, GFR, BMP, ALB, ABSGEL #### [address] [address] [address] HIP W/O CONTRAST RIGHTon 07-31-2024 CT HIP W/O CONTRAST RIGHT ORIGINAL EXAMINATION: CT OF THE RIGHT HIP WITHOUT CONTRAST 07/31/2024 12:26 pm TECHNIQUE: CT of the right hip was performed without the administration of intravenous contrast. Multiplanar reformatted images are provided for review. Automated exposure control, iterative reconstruction, and/or weight based adjustment of the mA/kV was utilized to reduce the radiation dose to as low as reasonably achievable. COMPARISON: None. HISTORY ORDERING SYSTEM PROVIDED HISTORY: Reason for Exam: Unilateral primary osteoarthritis, right hip Pre-op. Chronic rt hip pain. MAYDA protocol. FINDINGS: CT performed for surgical planning purposes. Degenerative changes seen of the visualized lumbar spine and sacroiliac joints. Moderate to severe degenerative changes seen in both hips. No fractures visible. No aggressive bony lesions. Atherosclerotic vascular calcifications noted. There is diverticulosis of the visualized colon. Exaggerated lateral tilt/subluxation of both patellas noted. There are degenerative changes in both knees. IMPRESSION: 1. CT performed for surgical planning purposes. 2. Degenerative changes the visualized spine, sacroiliac joints, hips and knees. 3. Atherosclerosis. 4. Diverticulosis. Interpreted by: Aime Garcia MD Preliminary Report By: Aime Garcia MD Electronically signed By Aime Garcia MD Dictated Date: 07/31/2024 12:51:10 PM Prelim Date: 07/31/2024 1:03:22 PM Sign Date: 07/31/2024 1:03:22 PM Ordering Provider: MAXIME Riojas [facility] LABORATORYOrdered By: Monse Galdamez on 07-31-2024 ABO and Rh group Nom (Bld) Blood group A Rh(D) positive Invalid Interpretation Code AO BB Auto SS Blood group antibody screen Ql Negative ABSC (07/31/24 11:18 AM) Normal AO BB Auto SS LABORATORYOrdered By: SYSTEM SYSTEM on 07-31-2024 Albumin BCP dye [Mass/Vol] 3.3 G/dL Low 3.4 - 4.8 G/dL AO ADM SS Basophils (Bld) [#/Vol] 0.0 103/mcL Normal 0.0 - 0.2 10^3/mcL AO Workflow SS Basophils/100 WBC (Bld) 0.6 % Normal 0.0 - 2.5 % AO Workflow SS Calcium [Mass/Vol] 9.6 mg/dL Normal 8.4 - 10. 2 mg/dL AO ADM SS Chloride [Moles/Vol] 101 mmol/L Normal 98 - 10 7 mmol/L AO ADM SS CO2 [Moles/Vol] 31 mmol/L Normal 23 - 31 mmol/L AO ADM SS Creatinine [Mass/Vol] 0.73 mg/dL Normal 0.55 - 1.02 mg/dL AO ADM SS Comment on above: Interpretive Data: T esting performed on [employer] Dimension EXL analyzer using a modified kinetic Burke technique. Electrolyte Balance 8.0 mEq/L Normal 4.0 - 15 .0 mEq/L AO ADM SS Eosinophil, Absolute 0.3 103/mcL Normal 0.0 - 0 .7 10^3/mcL AO Workflow SS Eosinophils/100 WBC (Bld) 4.4 % Normal 0.0 - 7.0 % AO Workflow SS Erythrocyte distribution width (RBC) [Ratio] 13.6 % Normal 11.5 - 15.5 % AO Workflow SS GFR/1.73 sq M.predicted among blacks MDRD (S/P/Bld) [Vol rate/Area] 92 ml/min/1.73sqm Invalid Interpretation Code AO Chemistry S Comment on above: Interpretive Data: GFR Population mean for , Non- Americans Ages 20-29 = 116 mL/min/1.73 sq.m. Ages 30-39 = 107 mL/min/1.73 sq.m. Ages 40-49 = 99 mL/min/1.73 sq.m. Ages 50-59 = 93 mL/min/1.73 sq.m. Ages 60-69 = 85 mL/min/1.73 sq.m. Ages 70+ = 75 mL/min/1.73 sq.m. Chronic Kidney Disease: Less than 60 mL/min/1.73 square meters End Stage Renal Disease: Less than 15 mL/min/1.73 square meters GFR/1.73 sq M.predicted among non-blacks MDRD (S/P/Bld) [Vol rate/Area] 76 ml/min/1.73sqm Invalid Interpretation Code AO Chemistry S Comment on above: Interpretive Data: GFR Population mean for , Non- Americans Ages 20-29 = 116 mL/min/1.73 sq.m. Ages 30-39 = 107 mL/min/1.73 sq.m. Ages 40-49 = 99 mL/min/1.73 sq.m. Ages 50-59 = 93 mL/min/1.73 sq.m. Ages 60-69 = 85 mL/min/1.73 sq.m. Ages 70+ = 75 mL/min/1.73 sq.m. Chronic Kidney Disease: Less than 60 mL/min/1.73 square meters End Stage Renal Disease: Less than 15 mL/min/1.73 square meters Glucose [Mass/Vol] 98 mg/dL Normal 83 - 110 mg/dL AO ADM SS Hematocrit (Bld) [Volume fraction] 43.7 % Normal 34.0 - 46.0 % AO Workflow SS Hemoglobin (Bld) [Mass/Vol] 14.8 G/dL Normal 12.0 - 16.0 G/dL AO Workflow SS Lymphocytes (Bld) [#/Vol] 1.5 103/mcL Normal 0. 9 - 4.3 10^3/mcL AO Workflow SS Lymphocytes/100 WBC (Bld) 20.2 % Normal 20.0 - 40. 0 % AO Workflow SS MCH (RBC) [Entitic mass] 30.9 pg Normal 27. 0 - 33.0 pg AO Workflow SS MCHC 33.8 G/dL Normal 32.0 - 36.0 G/dL AO Workflow SS MCV (RBC) [Entitic vol] 91.3 fL Normal 80.0 - 99.0 fL AO Workflow SS Monocytes (Bld) [#/Vol] 0.8 103/mcL Normal 0.1 - 1.4 10^3/mcL AO Workflow SS Monocytes/100 WBC (Bld) 11.2 % Normal 2.0 - 13.0 % AO Workflow SS Neutrophils (Bld) [#/Vol] 4.8 103/mcL Normal 2. 3 - 8.1 10^3/mcL AO Workflow SS Neutrophils/100 WBC (Bld) 63.6 % Normal 50.0 - 75. 0 % AO Workflow SS Platelet mean volume (Bld) [Entitic vol] 6.4 fL Low 6.6 - 10.5 fL AO Workflow SS Platelets (Bld) [#/Vol] 318 103/mcL Normal 150 - 450 10^3/mcL AO Workflow SS Potassium [Moles/Vol] 4.5 mmol/L Normal 3.5 - 5.1 mmol/L AO ADM SS RBC (Bld) [#/Vol] 4.78 106/mcL Normal 4.10 - 5.3 0 10^6/mcL AO Workflow SS Sodium [Moles/Vol] 140 mmol/L Normal 136 - 145 mmol/L AO ADM SS Urea nitrogen [Mass/Vol] 10 mg/dL Normal 7 - 18 mg/d L AO ADM SS Urea nitrogen/Creatinine [Mass ratio] 14 ratio Normal 7 - 27 ratio AO ADM SS WBC (Bld) [#/Vol] 7.6 103/mcL Normal 4.5 - 10.8 10^3/mcL AO Workflow SS LABORATORYOrdered By: Solange Varela on 07-31-2024 MRSA (PCR) Not Detected 1 (07/31/24 11:18 AM) Normal Not Detected Auto Viro/Sero SS Comment on above: Result Comment: Note s MRSA PCR Int MRSA DNA not detected by Real-Time Polymerase Chain Reaction (PCR). A negative result may be due to intermittent colonization. Colonization may vary depending on patient treatment, patient status, or exposure to high-risk environments.As with all PCR based in vitro diagnostic tests, extremely low levels of target below the limit of detection of the assay may be detected, but results may not be reproducible. Invalid Interpretation Code Auto Viro/Sero SS MRSAPCRon 07-31-2024 MRSA (PCR) Not detected Normal Not Detected [facility] Comment on above: Result Comment: Note s [id number] Performed By: #### M RSAPCR #### [address] [address] MRSA PCR Int Normal [facility] Comment on above: Result Comment: MRSA DNA not detected by Real-Time Polymerase Chain Reaction (PCR). A negative result may be due to intermittent colonization. Colonization may vary depending on patient treatment, patient status, or exposure to high-risk environments. As with all PCR based in vitro diagnostic tests, extremely low levels of target below the limit of detection of the assay may be detected, but results may not be reproducible. See Below Performed By: #### M RSAPCR #### [address] [address] L/S Spine Bending Flex/[place] 06-23-2024 L/S Spine Bending Flex/Ext [facility] [address] [place] [address] L/S Spine Bending Flex/Ext MR#: [id number] Acct: [id number] Name: ROSE RENTERIA ANN Rep #: [id number] : 1940 F 83 From: Benny Coyle MD PCP: Dr. Thu Nichols MD Status: DEP AMB Study: L/S Spine Bending Flex/Ext Date of Exam: 06/23 Exam# [id number] Ordering Dr: Selena Gómez -[id number] EXAM: XR LUMBOSACRAL SPINE FLEXION/EXTENSION ONLY, 2 OR 3 VIEWS CLINICAL INDICATION: back pain -- flex/ext TECHNIQUE: Lateral flexion/extension views of the lumbar spine and sacrum. COMPARISON: No relevant prior studies available. FINDINGS: VERTEBRAE: There is no change in alignment with flexion or extension views. Preserved vertebral body height. No fracture. No spondylolisthesis. Preservation of the normal lumbar lordosis. No significant facet arthropathy. No instability. DISC SPACES: There is disc space narrowing at L1-2. GASTROINTESTINAL TRACT: Unremarkable as visualized. Included bowel gas pattern is non-obstructive. RAD/L/S Spine Bending Flex/Ext IMPRESSION: No acute osseous abnormalities lumbar spine. There are degenerative changes with disc space narrowing. There is no change with flexion or extension views. Electronically Signed: Benny Coyle MD at 0:02 EST , CC: MARIANA Woody; Dr. Thu Nichols MD Per Diem: Signed Normal [facility] Orthopedic Visit Reporton Orthopedic Visit Report [facility] [address] [place] [address] OFFICE VISIT Date of Service: 06/23/24 MR#: [id number] Acct: [id number] Name: ROSE RENTERIA ANN Rep #: [id number] : [id number] Provider: Dr. Fransisco Bhatti MD Age/Sex: 83/F Location: [facility] [place].JAN Status: Signed Intake Vital Signs 04/28/24 09:17 06/23/24 10:10 Height 4 ft 9 in 4 ft 6.5 in Weight: 130 lb 8 oz BMI 30.9 Intake Visit Reasons: LUMBAR SPINE Accompanied by: Self Is patient in pain?: No Allergies Estrogens Allergy (Verified 06/23/24 10:10) weight gain codeine Adverse Reaction (Verified 06/23/24 10:10) Nausea Medications ???Medication ???Instructions ???Recorded ???Confirmed ???Type B-complex with vitamin C 1 cap PO DAILY 03/03/23 06/23/24 History acetaminophen 325 mg capsule 325 mg PO ONCE PRN pain 03/03/23 06/23/24 History (Tylenol) cholecalciferol (vitamin D3) 125 125 mcg PO DAILY 03/03/23 06/23/24 History mcg (5,000 unit) capsule zinc sulfate 25 mg zinc (110 mg) 25 mg PO DAILY 03/03/23 06/23/24 History tablet mecobalamin (vitamin B12) 1,000 1,000 mcg PO DAILY 03/30/23 06/23/24 History mcg chewable tablet omega-3 900 mg-dha 360 mg-epa 455 1 cap PO DAILY 03/30/23 06/23/24 History mg-fish oil 1,000 mg capsule (Fish Oil) rivaroxaban 15 mg tablet (Xarelto) 15 mg PO QDAY 11/09/23 06/23/24 History calcium carbonate (Antacid 400 mg PO Q4H PRN heartburn 04/27/24 06/23/24 History (calcium carbonate)) diltiazem HCl 180 mg 180 mg PO QHS 04/27/24 06/23/24 History capsule,extended release 24 hr (Cardizem CD) Have you fallen in the past year?: No PFSH Medical History Wears glasses Back pain Non-smoker Shortness of breath on exertion Chronic cough History of pain when walking History of stress test History of echocardiogram Cardiology follow-up encounter Abnormal ECG Dyspnea on exertion Essential hypertension Thoracic outlet syndrome Lightheadedness Reactive airway disease Seasonal allergies Contact with and (suspected) exposure to other viral communicable diseases Acute bronchitis, unspecified Over 65 years old COVID-19 Esophageal stricture Arthritis Difficulty swallowing GERD (gastroesophageal reflux disease) Surgical History History of bilateral carpal tunnel release History of bilateral cataract extraction History of breast biopsy History of foot surgery History of colonoscopy ( 2017) History of right breast biopsy History of lung surgery History of tubal ligation Family History Sister Heart disease Mother CVA (cerebral vascular accident) Social History Smoking Status: Never smoker alcohol intake: never substance use type: does not use caffeine: Yes Type: coffee Number of servings: 1 and tea Number of servings: 1 HPI LUMBAR SPINE Details: This documentation accurately reflects the service provided and the decisions made by me, Dr. Fransisco Bhatti MD 06/23/24 1006. Part of today???s visit was documented by Pebbles NIELSEN and Selena PEÑA, acting as scribe. ROSE RENTERIA is a 83 year old F here today for Lumbar Spine pain. Patient states that her back has bothered her for about 4 years and with in the last few months it has gotten worse. She has been using a walker for the last 2 weeks, prior to this no ambulatory device was used. Patient states her pain is in the middle of her lower back. Patient states that she has pain that goes down her right leg. Patient states that her Rt hip is bothering her and she thought that she was going to fall this morning cause of it. Patient has never had injections in her back. No recent MRI or CT of back. Patient states she has had PT recently, finishing it back in February after about one month of treatment 2x per week. Patient states heat doesn't really help her pain. Patient states if she is sitting still and not moving around her pain is ok. Patient states standing and being on her feet is when he back hurts. Patient is taking Tylenol for her pain. Ortho Exam General General: Yes no acute distress Neurologic: Yes alert and Yes oriented x3 Spine SPINE TESTING CERVICAL THORACIC LUMBAR Musculoskeletal Strength 0=absent - 5=normal Details: Neurological exam of the lower extremities shows 5x5 power except right hip flexion which showed 4- strength and pain. Very antalgic when going from sitting to standing or standing to sitting. Normal sensations across all dermatomes. No hyperreflexia. No midline or paraspinal tenderness. Range of motion of right hip shows severe pain in all directions. Coding Level of (more content not included)... Normal [facility] Absolute lymphocyte countOrd ered By: Thu Nichols on 12-17-2023 Lymphocytes Auto (Unsp spec) [#/Vol] 1.85 10*3/uL 0.83-4.51 [facility] Automated lymphocyte count a s percentage of total leukocytesOrdered By: Thu Nichols on 12-17-2023 Lymphocytes/100 WBC Auto (Unsp spec) 22.8 % 19-41 [facility] Basophil percentageOrdered B y: Thu Nichols on 12-17-2023 Basophils/100 WBC (Bld) 0.4 % 0-1 [facility] Bilirubin [Mass/Vol] 0.50 mg/dL 0.20-1.00 [facility] Comment on above: For patients on eltr ombopag therapy, use of [place] TBIL is not recommended. Chloride [Moles/Vol] 104 mmol/L 98-107 [facility] Eosinophils/100 WBC (Bld) 3.2 % 0-5 [facility] Glucose [Mass/Vol] 94 mg/dL 74-106 [facility] Hemoglobin (Bld) [Mass/Vol] 14.3 g/dL 12.0-15.0 [facility] Monocytes/100 WBC (Bld) 10.4 % 0-10 [facility] Neutrophils (Bld) [#/Vol] 5.1 10*3/uL 2.0-7.7 [facility] Neutrophils/100 WBC (Bld) 63.0 % 47-70 [facility] Potassium [Moles/Vol] 4.1 mmol/L 3.5-5.1 [facility] Protein [Mass/Vol] 7.6 g/dL 6.4-8.2 [facility] Sodium [Moles/Vol] 137 mmol/L 136-145 [facility] WBC (Bld) [#/Vol] 8.1 10*3/uL 4.4-11.0 [facility] Determination of erythrocyte mean corpuscular volume (MCV)Ordered By: Thu Nichols on 12-17-2023 MCV (RBC) [Entitic vol] 93.1 fL 81-99 [facility] Erythrocyte distribution wid th ratioOrdered By: Thu Nichols on 12-17-2023 Erythrocyte distribution width (RBC) [Ratio] 12.5 % 11.6-14.6 [facility] Erythrocyte distribution wid th standard deviationOrdered By: Thu Nichols on 12-17-2023 Erythrocyte distribution width (RBC) [Entitic vol] 42.8 fL 35.1-43.9 [facility] Hematocrit Auto (Bld) [Volum e fraction]Ordered By: Thu Nichols on 12-17-2023 Hematocrit (Bld) [Volume fraction] 44.6 % 37-47 [facility] Immature granulocytes/100 WB C Auto (Bld)Ordered By: Thu Nichols on 12-17-2023 Immature granulocytes/100 WBC (Bld) 0.200 % 0.0-0.9 [facility] Comment on above: IG% - Immature Granu locytes (promyelocytes, myelocytes and metamyelocytes) > 1% indicates that a LEFT SHIFT is Present. Laboratory - Chemistry and C hemistry - challengeOrdered By: Thu Nichols on 12-17-2023 Albumin/Globulin [Mass ratio] 0.9 {ratio} 0.9-2.4 [facility] ALP [Catalytic activity/Vol] 71 U/L 45-117 [facility] ALT [Catalytic activity/Vol] 22 U/L 13-56 [facility] CO2 [Moles/Vol] 29.0 mmol/L 21.0-32.0 [facility] Globulin (S) [Mass/Vol] 4.1 g/dL 2.2-4.2 [facility] Urea nitrogen/Creatinine [Mass ratio] 16.5 mg/mg 10-20 [facility] Laboratory - Hematology and Cell countsOrdered By: Thu Nichols on 12-17-2023 MCH (RBC) [Entitic mass] 29.9 pg 27.0-32.0 [facility] MCHC (RBC) [Mass/Vol] 32.1 g/dL 32-36 [facility] Nucleated RBC/100 WBC (Bld) [Ratio] 0 % 0-5 [facility] Platelet mean volume (Bld) [Entitic vol] 8.3 fL 6.2-12.0 [facility] Platelets (Bld) [#/Vol] 291 10*3/uL 150-450 [facility] No Panel InformationOrdered By: Thu Nichols on 12-17-2023 Estimated GFR (MDRD) Amer 89 mL/min >60 [facility] Comment on above: GFR Calc Estimated GFR (MDRD) Non-Af Amer 74 mL/min >60 [facility] Comment on above: Non- GFR Calc RBC Auto (Bld) [#/Vol]Ordere d By: Thu Nichols on 12-17-2023 RBC (Bld) [#/Vol] 4.79 10*6/uL 4.2-5.4 [facility] Serum or plasma calcium jordan urement (mass/volume)Ordered By: Thu Nichols on 12-17-2023 Calcium [Mass/Vol] 9.4 mg/dL 8.5-10.1 [facility] Serum or plasma creatinine m easurement (mass/volume)Ordered By: Thu Nichols on 12-17-2023 Creatinine [Mass/Vol] 0.79 mg/dL 0.55-1.02 [facility] Comment on above: The validity of the calculated GFR & GFRAA in patients over 70 years has not been determined. Clinical correlation is essential. Serum or plasma thyroid stim ulating hormone (TSH) measurement (units/volume)Ordered By: Thu Nichols on 12-17-2023 TSH Qn 1.01 uIU/mL 0.358-3.74 [facility] Serum or plasma urea nitroge n measurement (mass/volume)Ordered By: Thu Nichols on 12-17-2023 Urea nitrogen [Mass/Vol] 13 mg/dL 7-18 [facility] Thin prep Papanicolaou smear with manual screeningOrdered By: Thu Nichols on 12-17-2023 Thin prep Papanicolaou smear with manual screening 3.5 g/dL 3.2-5.0 [facility] Thin prep Papanicolaou smear with manual screening 19 U/L 15-37 [facility] Thin prep Papanicolaou smear with manual screening 4 5-15 [facility] Basophil percentageOrdered B y: Thu Nichols on 10-11-2023 Bilirubin [Mass/Vol] 0.50 mg/dL 0.20-1.00 [facility] Comment on above: For patients on eltr ombopag therapy, use of [place] TBIL is not recommended. Chloride [Moles/Vol] 106 mmol/L 98-107 [facility] Glucose [Mass/Vol] 108 mg/dL 74-106 [facility] Comment on above: Fasting Glucose resu lt from 100 to 125 mg/dL suggests IMPAIRED HOMEOSTASIS per A.D.A. criteria. Potassium [Moles/Vol] 4.6 mmol/L 3.5-5.1 [facility] Protein [Mass/Vol] 7.2 g/dL 6.4-8.2 [facility] Sodium [Moles/Vol] 138 mmol/L 136-145 [facility] Erythrocyte sedimentation ra teOrdered By: Thu Nichols on 10-11-2023 ESR (Bld) [Velocity] 11 mm/h 0-30 [facility] Laboratory - Chemistry and C hemistry - challengeOrdered By: Thu Nichols on 10-11-2023 Sodium (U) [Moles/Vol] 65 mmol/L Not Establ. [facility] Albumin/Globulin [Mass ratio] 0.8 {ratio} 0.9-2.4 [facility] ALP [Catalytic activity/Vol] 71 U/L 45-117 [facility] ALT [Catalytic activity/Vol] 21 U/L 13-56 [facility] CO2 [Moles/Vol] 30.0 mmol/L 21.0-32.0 [facility] Globulin (S) [Mass/Vol] 3.9 g/dL 2.2-4.2 [facility] Urea nitrogen/Creatinine [Mass ratio] 14.1 mg/mg 10-20 [facility] No Panel InformationOrdered By: Thu Nichols on 10-11-2023 C-Reactive Protein Extended Range < 2.90 mg/L 0.0-3.0 [facility] Comment on above: C-Reactive Protein ( CRP) provides useful information for thediagnosis, therapy and monitoring of inflammatory processesand associated diseases. For the evaluation of Relative Riskfor Cardiovascular Disease, a High Sensitivity CRP (HSCRP)should be ordered. Estimated GFR (MDRD) Amer 101 mL/min >60 [facility] Comment on above: GFR Calc Estimated GFR (MDRD) Non-Af Amer 83 mL/min >60 [facility] Comment on above: Non- GFR Calc Serum or plasma calcium jordan urement (mass/volume)Ordered By: Thu Nichols on 10-11-2023 Calcium [Mass/Vol] 9.0 mg/dL 8.5-10.1 [facility] Serum or plasma creatinine m easurement (mass/volume)Ordered By: Thu Nichols on 10-11-2023 Creatinine [Mass/Vol] 0.71 mg/dL 0.55-1.02 [facility] Comment on above: The validity of the calculated GFR & GFRAA in patients over 70 years has not been determined. Clinical correlation is essential. Serum or plasma urea nitroge n measurement (mass/volume)Ordered By: Thu Nichols on 10-11-2023 Urea nitrogen [Mass/Vol] 10 mg/dL 7-18 [facility] Thin prep Papanicolaou smear with manual screeningOrdered By: Thu Nichols on 10-11-2023 Thin prep Papanicolaou smear with manual screening 3.3 g/dL 3.2-5.0 [facility] Thin prep Papanicolaou smear with manual screening 18 U/L 15-37 [facility] Thin prep Papanicolaou smear with manual screening 2 5-15 [facility] Thin prep Papanicolaou smear with manual screening 294 mOsm/KG 280-301 [facility] Urine osmolality measurement Ordered By: Thu Nichols on 10-11-2023 Osmolality (U) [Osmolality] 436 mOsm/KG >50 [facility] Comment on above: Normal Urine Referen ce Ranges Random: 50 - 1200 mOsm/kg H20 depending on fluid intake Random: >850 mOsm/kg after 12 hour fluid restriction 24 hour: ~300 - 900 mOsm/kg H2O Basophil percentageOrdered B y: Thu Nichols on 09-16-2023 Bilirubin [Mass/Vol] 0.40 mg/dL 0.20-1.00 [facility] Comment on above: For patients on eltr ombopag therapy, use of [place] TBIL is not recommended. Chloride [Moles/Vol] 102 mmol/L 98-107 [facility] Glucose [Mass/Vol] 109 mg/dL 74-106 [facility] Comment on above: Fasting Glucose resu lt from 100 to 125 mg/dL suggests IMPAIRED HOMEOSTASIS per A.D.A. criteria. Hemoglobin (Bld) [Mass/Vol] 14.9 g/dL 12.0-15.0 [facility] Potassium [Moles/Vol] 4.2 mmol/L 3.5-5.1 [facility] Comment on above: Slight Hemolysis, Re sult may be falsely increased. Protein [Mass/Vol] 7.7 g/dL 6.4-8.2 [facility] Sodium [Moles/Vol] 133 mmol/L 136-145 [facility] WBC (Bld) [#/Vol] 8.1 10*3/uL 4.4-11.0 [facility] Determination of erythrocyte mean corpuscular volume (MCV)Ordered By: Thu Nichols on 09-16-2023 MCV (RBC) [Entitic vol] 92.3 fL 81-99 [facility] Erythrocyte distribution wid th ratioOrdered By: Thu Nichols on 09-16-2023 Erythrocyte distribution width (RBC) [Ratio] 12.4 % 11.6-14.6 [facility] Erythrocyte distribution wid th standard deviationOrdered By: Tuh Nichols on 09-16-2023 Erythrocyte distribution width (RBC) [Entitic vol] 42.5 fL 35.1-43.9 [facility] Erythrocyte sedimentation ra teOrdered By: Thu Nichols on 09-16-2023 ESR (Bld) [Velocity] 35 mm/h 0-30 [facility] Hematocrit Auto (Bld) [Volum e fraction]Ordered By: Thu Nichols on 09-16-2023 Hematocrit (Bld) [Volume fraction] 45.8 % 37-47 [facility] Laboratory - Chemistry and C hemistry - challengeOrdered By: Thu Nichols on 09-16-2023 Albumin/Globulin [Mass ratio] 0.8 {ratio} 0.9-2.4 [facility] ALP [Catalytic activity/Vol] 80 U/L 45-117 [facility] ALT [Catalytic activity/Vol] 23 U/L 13-56 [facility] CO2 [Moles/Vol] 29.0 mmol/L 21.0-32.0 [facility] Globulin (S) [Mass/Vol] 4.4 g/dL 2.2-4.2 [facility] Lipase [Catalytic activity/Vol] 34 U/L 13-75 [facility] Comment on above: Please note:LIPASE r evised reference range effective 22. New Lipase methodology. Expected to produce lower values than the previous assay method. NEW Reference Range: 13 - 75 U/L Urea nitrogen/Creatinine [Mass ratio] 14.1 mg/mg 10-20 [facility] Laboratory - Hematology and Cell countsOrdered By: Thu Nichols on 09-16-2023 MCH (RBC) [Entitic mass] 30.0 pg 27.0-32.0 [facility] MCHC (RBC) [Mass/Vol] 32.5 g/dL 32-36 [facility] Platelets (Bld) [#/Vol] 318 10*3/uL 150-450 [facility] No Panel InformationOrdered By: Thu Nichols on 09-16-2023 Estimated GFR (MDRD) Amer 90 mL/min >60 [facility] Comment on above: GFR Calc Estimated GFR (MDRD) Non-Af Amer 75 mL/min >60 [facility] Comment on above: Non- GFR Calc Platelet mean volume Tan-Ec ker (Bld) [Entitic vol]Ordered By: Thu Nichols on 09-16-2023 Platelet mean volume (Bld) [Entitic vol] 8.4 fL 6.2-12.0 [facility] RBC Auto (Bld) [#/Vol]Ordere d By: Thu Nichols on 09-16-2023 RBC (Bld) [#/Vol] 4.96 10*6/uL 4.2-5.4 [facility] Serum or plasma calcium jordan urement (mass/volume)Ordered By: Thu Nichols on 09-16-2023 Calcium [Mass/Vol] 9.3 mg/dL 8.5-10.1 [facility] Serum or plasma creatinine m easurement (mass/volume)Ordered By: Thu Nichols on 09-16-2023 Creatinine [Mass/Vol] 0.78 mg/dL 0.55-1.02 [facility] Comment on above: The validity of the calculated GFR & GFRAA in patients over 70 years has not been determined. Clinical correlation is essential. Serum or plasma urea nitroge n measurement (mass/volume)Ordered By: Thu Nichols on 09-16-2023 Urea nitrogen [Mass/Vol] 11 mg/dL 7-18 [facility] Thin prep Papanicolaou smear with manual screeningOrdered By: Thu Nichols on 09-16-2023 Thin prep Papanicolaou smear with manual screening 3.3 g/dL 3.2-5.0 [facility] Thin prep Papanicolaou smear with manual screening 21 U/L 15-37 [facility] Comment on above: Slight Hemolysis, Re sult may be falsely increased. Thin prep Papanicolaou smear with manual screening 2 5-15 [facility] Absolute lymphocyte countOrd ered By: Thu Nichols on 06-01-2023 Lymphocytes Auto (Unsp spec) [#/Vol] 1.90 10*3/uL 0.83-4.51 [facility] Basophil percentageOrdered B y: Thu Nichols on 06-01-2023 Basophils/100 WBC (Bld) 0.3 % 0-1 [facility] Bilirubin [Mass/Vol] 0.40 mg/dL 0.20-1.00 [facility] Comment on above: For patients on eltr ombopag therapy, use of [place] TBIL is not recommended. Chloride [Moles/Vol] 104 mmol/L 98-107 [facility] Eosinophils/100 WBC (Bld) 5.1 % 0-5 [facility] Glucose [Mass/Vol] 97 mg/dL 74-106 [facility] Neutrophils (Bld) [#/Vol] 5.3 10*3/uL 2.0-7.7 [facility] Neutrophils/100 WBC (Bld) 61.4 % 47-70 [facility] Potassium [Moles/Vol] 4.0 mmol/L 3.5-5.1 [facility] Protein [Mass/Vol] 7.7 g/dL 6.4-8.2 [facility] Sodium [Moles/Vol] 138 mmol/L 136-145 [facility] WBC (Bld) [#/Vol] 8.7 10*3/uL 4.4-11.0 [facility] Blood erythrocytes count (nu mber/volume)Ordered By: Thu Nichols on 06-01-2023 RBC (Bld) [#/Vol] 5.01 10*6/uL 4.2-5.4 [facility] Blood hemoglobin measurement (mass/volume)Ordered By: Thu Nichols on 06-01-2023 Hemoglobin (Bld) [Mass/Vol] 15.0 g/dL 12.0-15.0 [facility] Blood lymphocytes/100 leukoc ytesOrdered By: Thu Nichols on 06-01-2023 Lymphocytes/100 WBC (Bld) 21.9 % 19-41 [facility] Blood monocytes/100 leukocyt esOrdered By: Thu Nichols on 06-01-2023 Monocytes/100 WBC (Bld) 11.1 % 0-10 [facility] Blood platelet mean volumeOr dered By: Thu Nichols on 06-01-2023 Platelet mean volume (Bld) [Entitic vol] 8.2 fL 6.2-12.0 [facility] Determination of erythrocyte mean corpuscular volume (MCV)Ordered By: Thu Nichols on 06-01-2023 MCV (RBC) [Entitic vol] 92.2 fL 81-99 [facility] Hematocrit Auto (Bld) [Volum e fraction]Ordered By: Thu Nichols on 06-01-2023 Hematocrit (Bld) [Volume fraction] 46.2 % 37-47 [facility] Laboratory - Chemistry and C hemistry - challengeOrdered By: Thu Nichols on 06-01-2023 Albumin [Mass/Vol] 3.6 g/dL 2.9-4.4 [facility] ALP [Catalytic activity/Vol] 73 U/L 45-117 [facility] ALT [Catalytic activity/Vol] 21 U/L 13-56 [facility] CO2 [Moles/Vol] 27.0 mmol/L 21.0-32.0 [facility] Globulin (S) [Mass/Vol] 4.4 g/dL 2.2-4.2 [facility] Urea nitrogen/Creatinine [Mass ratio] 8.9 mg/mg 10-20 [facility] Laboratory - Hematology and Cell countsOrdered By: Thu Nichols on 06-01-2023 Erythrocyte distribution width (RBC) [Entitic vol] 41.3 fL 35.1-43.9 [facility] Erythrocyte distribution width (RBC) [Ratio] 12.1 % 11.6-14.6 [facility] Immature granulocytes/100 WBC (Bld) 0.200 % 0.0-0.9 [facility] Comment on above: IG% - Immature Granu locytes (promyelocytes, myelocytes and metamyelocytes) > 1% indicates that a LEFT SHIFT is Present. MCH (RBC) [Entitic mass] 29.9 pg 27.0-32.0 [facility] Nucleated RBC/100 WBC (Bld) [Ratio] 0 % 0-5 [facility] MCHC Auto (RBC) [Mass/Vol]Or dered By: Thu Nichols on 06-01-2023 MCHC (RBC) [Mass/Vol] 32.5 g/dL 32-36 [facility] No Panel InformationOrdered By: Thu Nichols on 06-01-2023 Addendum Document Comment . [facility] Comment on above: The SPE pattern appe ars unremarkable. Evidence ofmonoclonal protein is not apparent. [id number] 0.3 g/dL 0.0-0.4 [facility] [id number]-5-[id number] 0.9 g/dL 0.4-1.0 [facility] Anti-Nuclear Antibody Screen Negative Negative [facility] Comment on above: Performed at: - [facility] [id number] Director: Tuan Hartman PhD, Phone: [phone] Estimated GFR (MDRD) Amer 53 mL/min >60 [facility] Comment on above: GFR Calc Estimated GFR (MDRD) Non-Af Amer 44 mL/min >60 [facility] Comment on above: Non- GFR Calc Gamma Globulins 1.1 g/dL 0.4-1.8 [facility] Hepatitis C Antibody Non-Reactive Nonreactive [facility] Comment on above: Non Reactive: < 0.8 Equivocal: >/= 0.8 to < 1.0 Reactive: >/= 1.0The CDC recommends that a reactive/equivocal HCV antibody result be followed up by the HCV Nucleic Acid Amplificationtest (568922) Parathyroid Hormone (Intact) 78.2 pg/mL 18.4-80.1 [facility] Thyroid Stimulating Hormone (TSH) 1.07 uIU/mL 0.358-3.74 [facility] Vitamin D 25-Hydroxy 25.3 ng/mL [facility] Comment on above: Vitamin D 25(OH) Sta tus Range Deficiency <20 ng/mL (50nmol/L) Insufficiency 20 - 30 ng/mL (50 - 75 nmol/L) Sufficiency 30 - 100 ng/mL (75 - 250 nmol/L) Toxicity >100 ng/mL (>250 nmol/L) Platelets bldOrdered By: Monique Nichols on 06-01-2023 Platelets (Bld) [#/Vol] 315 10*3/uL 150-450 [facility] Protein Fractions Elph [Inte rp]Ordered By: Thu Nichols on 06-01-2023 Protein Fractions [Interp] Comment . [facility] Comment on above: Protein electrophore sis scan will follow via computer,mail, or platform builder delivery. Serum albumin to globulin ra dayana by protein electrophoresisOrdered By: Thu Nichols on 06-01-2023 Albumin/Globulin Elph [Mass ratio] 1.1 0.7-1.7 [facility] Serum globulin measurement ( mass/volume)Ordered By: Thu Nichols on 06-01-2023 Globulin (S) [Mass/Vol] 3.4 g/dL 2.2-3.9 [facility] Serum or plasma C reactive p rotein measurement (mass/volume)Ordered By: Thu Nichols on 06-01-2023 CRP [Mass/Vol] 5.58 mg/L 0.0-3.0 [facility] Comment on above: C-Reactive Protein ( CRP) provides useful information for thediagnosis, therapy and monitoring of inflammatory processesand associated diseases. For the evaluation of Relative Riskfor Cardiovascular Disease, a High Sensitivity CRP (HSCRP)should be ordered. Serum or plasma albumin jordan urement (mass/volume)Ordered By: Thu Nichols on 06-01-2023 Albumin [Mass/Vol] 3.3 g/dL 3.2-5.0 [facility] Serum or plasma albumin/glob ulin mass ratioOrdered By: Thu Nichols on 06-01-2023 Albumin/Globulin [Mass ratio] 0.8 {ratio} 0.9-2.4 [facility] Serum or plasma beta globuli n measurement by electrophoresis (mass/volume)Ordered By: Thu Nichols on 06-01-2023 Beta globulin Elph [Mass/Vol] 1.1 g/dL 0.7-1.3 [facility] Serum or plasma calcium jordan urement (mass/volume)Ordered By: Thu Nichols on 06-01-2023 Calcium [Mass/Vol] 8.8 mg/dL 8.5-10.1 [facility] Serum or plasma creatinine m easurement (mass/volume)Ordered By: Thu Nichols on 06-01-2023 Creatinine [Mass/Vol] 1.23 mg/dL 0.55-1.02 [facility] Comment on above: The validity of the calculated GFR & GFRAA in patients over 70 years has not been determined. Clinical correlation is essential. Serum or plasma protein mono clonal measurement by electrophoresis (mass/volume)Ordered By: Thu Nichols on 06-01-2023 Protein.monoclonal Elph [Mass/Vol] Not Observed g/dL Not Observed [facility] Serum or plasma urea nitroge n measurement (mass/volume)Ordered By: Thu Nichols on 06-01-2023 Urea nitrogen [Mass/Vol] 11 mg/dL 7-18 [facility] Serum rheumatoid factor dete ctionOrdered By: Thu Nichols on 06-01-2023 Rheumatoid factor Ql (S) < 10.0 IU/mL <15 [facility] Thin prep Papanicolaou smear with manual screeningOrdered By: Thu Nichols on 06-01-2023 Thin prep Papanicolaou smear with manual screening 20 U/L 15-37 [facility] Thin prep Papanicolaou smear with manual screening 7 5-15 [facility] Thin prep Papanicolaou smear with manual screening Negative Negative [facility] Comment on above: Lyme antibodies not detected. Reflex testing is notindicated.No laboratory evidence of infection with B. burgdorferi(Lyme disease). Negative results may occur in patientsrecently infected (less than or equal to 14 days) with B.burgdorferi. If recent infection is suspected, repeattesting on a new sample collected in 7 to 14 days isrecommended.Performed at: [address] [id number] Director: Tuan Hartman PhD, Phone: [phone] Total protein bloodOrdered B y: Thu Nichols on 06-01-2023 Protein [Mass/Vol] 7.0 g/dL 6.0-8.5 [facility] Basophil percentageOrdered B y: Thu Nichols on 02-09-2023 Bilirubin [Mass/Vol] 0.60 mg/dL 0.20-1.00 [facility] Comment on above: For patients on eltr ombopag therapy, use of Dimension [place] TBIL is not recommended. Chloride [Moles/Vol] 104 mmol/L 98-107 [facility] Cholesterol [Mass/Vol] 206 mg/dL <200 [facility] Comment on above: <200 mg/dL Desirable 200-240 mg/dL Borderline >240 mg/dL High Risk Glucose [Mass/Vol] 103 mg/dL 74-106 [facility] Comment on above: Fasting Glucose resu lt from 100 to 125 mg/dL suggests IMPAIRED HOMEOSTASIS per A.D.A. criteria. Potassium [Moles/Vol] 4.3 mmol/L 3.5-5.1 [facility] Protein [Mass/Vol] 7.4 g/dL 6.4-8.2 [facility] Sodium [Moles/Vol] 136 mmol/L 136-145 [facility] Triglyceride [Mass/Vol] 92 mg/dL <199 [facility] Comment on above: The drugs N-Acetylcy steine and Metamizole may falsely depress this assay.Serum Triglycerides Reference Interval Normal <150 mg/dL Borderline high 150 - 199 mg/dL High 200 - 499 mg/dL Very High > or = 500 mg/dL Laboratory - Chemistry and C hemistry - challengeOrdered By: Thu Nichols on 02-09-2023 ALP [Catalytic activity/Vol] 64 U/L 45-117 [facility] ALT [Catalytic activity/Vol] 21 U/L 13-56 [facility] CO2 [Moles/Vol] 26.0 mmol/L 21.0-32.0 [facility] Globulin (S) [Mass/Vol] 4.2 g/dL 2.2-4.2 [facility] Urea nitrogen/Creatinine [Mass ratio] 12.1 mg/mg 10-20 [facility] No Panel InformationOrdered By: Thu Nichols on 02-09-2023 Estimated GFR (MDRD) Amer 85 mL/min >60 [facility] Comment on above: GFR Calc Estimated GFR (MDRD) Non-Af Amer 70 mL/min >60 [facility] Comment on above: Non- GFR Calc Thyroid Stimulating Hormone (TSH) 1.14 uIU/mL 0.358-3.74 [facility] Urine Microalbumin/Creatinine Ratio 5.9 mg/g CRE <30 [facility] Vitamin D 25-Hydroxy 33.6 ng/mL [facility] Comment on above: Vitamin D 25(OH) Sta tus Range Deficiency <20 ng/mL (50nmol/L) Insufficiency 20 - 30 ng/mL (50 - 75 nmol/L) Sufficiency 30 - 100 ng/mL (75 - 250 nmol/L) Toxicity >100 ng/mL (>250 nmol/L) Serum or plasma albumin jordan urement (mass/volume)Ordered By: Thu Nichols on 02-09-2023 Albumin [Mass/Vol] 3.2 g/dL 3.2-5.0 [facility] Serum or plasma albumin/glob ulin mass ratioOrdered By: Thu Nichols on 02-09-2023 Albumin/Globulin [Mass ratio] 0.8 {ratio} 0.9-2.4 [facility] Serum or plasma calcium jordan urement (mass/volume)Ordered By: Thu Nichols on 02-09-2023 Calcium [Mass/Vol] 9.0 mg/dL 8.5-10.1 [facility] Serum or plasma cholesterol in HDL measurement (mass/volume)Ordered By: Thu Nichols on 02-09-2023 Cholesterol in HDL [Mass/Vol] 63 mg/dL >40 [facility] Comment on above: The drugs N-Acetylcy steine and Metamizole may falsely depress this assay. Reference Range HDL <40 mg/dL Low HDL Cholesterol HDL >or= 60 mg/dL High HDL Cholesterol Serum or plasma cholesterol in VLDL measurement (mass/volume)Ordered By: Thu Nichols on 02-09-2023 Cholesterol in VLDL [Mass/Vol] 18 mg/dL 5-40 [facility] Serum or plasma creatinine m easurement (mass/volume)Ordered By: Thu Nichols on 02-09-2023 Creatinine [Mass/Vol] 0.83 mg/dL 0.55-1.02 [facility] Comment on above: The validity of the calculated GFR & GFRAA in patients over 70 years has not been determined. Clinical correlation is essential. Serum or plasma low density lipoprotein (LDL) cholesterol measurement (mass/volume)Ordered By: Thu Nichols on 02-09-2023 Cholesterol in LDL [Mass/Vol] 125 mg/dL 0-130 [facility] Serum or plasma urea nitroge n measurement (mass/volume)Ordered By: Thu Nichols on 02-09-2023 Urea nitrogen [Mass/Vol] 10 mg/dL 7-18 [facility] Thin prep Papanicolaou smear with manual screeningOrdered By: Thu Nichols on 02-09-2023 Thin prep Papanicolaou smear with manual screening 19 U/L 15-37 [facility] Thin prep Papanicolaou smear with manual screening 6 5-15 [facility] Thin prep Papanicolaou smear with manual screening 9.8 mg/L NO RANGE EST. [facility] Urine creatinine measurement (mass/volume)Ordered By: Thu Nichols on 02-09-2023 Creatinine (U) [Mass/Vol] 165.00 mg/dL NO RANGE EST. [facility] No Panel Informationon 01-23 POC SARS CoV-2 Antigen Negative [facility] Absolute lymphocyte counton 08-05-2022 Lymphocytes Auto (Unsp spec) [#/Vol] 1.75 10*3/uL 0.83-4.51 [facility] Work Phone: Basophil percentageon 2021 Basophils/100 WBC (Bld) 0.5 % 0-1 [facility] Work Phone: Bilirubin [Mass/Vol] 0.60 mg/dL 0.20-1.00 [facility] Work Phone: Comment on above: For patients on eltr ombopag therapy, use of Dimension [place] TBIL is not recommended. Chloride [Moles/Vol] 104 mmol/L 98-107 [facility] Work Phone: Eosinophils/100 WBC (Bld) 4.8 % 0-5 [facility] Work Phone: Glucose [Mass/Vol] 100 mg/dL 74-106 [facility] Work Phone: Comment on above: Fasting Glucose resu lt from 100 to 125 mg/dL suggests IMPAIRED HOMEOSTASIS per A.D.A. criteria. Neutrophils (Bld) [#/Vol] 4.7 10*3/uL 2.0-7.7 [facility] Work Phone: Neutrophils/100 WBC (Bld) 61.1 % 47-70 [facility] Work Phone: Potassium [Moles/Vol] 4.6 mmol/L 3.5-5.1 [facility] Work Phone: Protein [Mass/Vol] 6.9 g/dL 6.4-8.2 [facility] Work Phone: Sodium [Moles/Vol] 138 mmol/L 136-145 [facility] Work Phone: WBC (Bld) [#/Vol] 7.7 10*3/uL 4.4-11.0 [facility] Work Phone: Blood erythrocytes count (nu mber/volume)on 08-05-2022 RBC (Bld) [#/Vol] 4.90 10*6/uL 4.2-5.4 [facility] Work Phone: Blood hemoglobin measurement (mass/volume)on 08-05-2022 Hemoglobin (Bld) [Mass/Vol] 15.1 g/dL 12.0-15.0 [facility] Work Phone: Blood lymphocytes/100 leukoc yteson 08-05-2022 Lymphocytes/100 WBC (Bld) 22.6 % 19-41 [facility] Work Phone: Blood monocytes/100 leukocyt eson 08-05-2022 Monocytes/100 WBC (Bld) 10.6 % 0-10 [facility] Work Phone: Blood platelet mean volumeon 08-05-2022 Platelet mean volume (Bld) [Entitic vol] 8.4 fL 6.2-12.0 [facility] Work Phone: [phone] Determination of erythrocyte mean corpuscular volume (MCV)on 08-05-2022 MCV (RBC) [Entitic vol] 92.4 fL 81-99 [facility] Work Phone: [phone] Hematocrit Auto (Bld) [Volum e fraction]on 08-05-2022 Hematocrit (Bld) [Volume fraction] 45.3 % 37-47 [facility] Work Phone: [phone] Laboratory - Chemistry and C hemistry - challengeon 08-05-2022 ALP [Catalytic activity/Vol] 71 U/L 45-117 [facility] Work Phone: [phone] ALT [Catalytic activity/Vol] 21 U/L 13-56 [facility] Work Phone: [phone] CO2 [Moles/Vol] 27.0 mmol/L 21.0-32.0 [facility] Work Phone: [phone] Globulin (S) [Mass/Vol] 3.6 g/dL 2.2-4.2 [facility] Work Phone: [phone] Urea nitrogen/Creatinine [Mass ratio] 18.0 mg/mg 10-20 [facility] Work Phone: [phone] Laboratory - Hematology and Cell countson 08-05-2022 Erythrocyte distribution width (RBC) [Entitic vol] 40.8 fL 35.1-43.9 [facility] Work Phone: [phone] Erythrocyte distribution width (RBC) [Ratio] 11.9 % 11.6-14.6 [facility] Work Phone: [phone] Immature granulocytes/100 WBC (Bld) 0.400 % 0.0-0.9 [facility] Work Phone: [phone] Comment on above: IG% - Immature Granu locytes (promyelocytes, myelocytes and metamyelocytes) > 1% indicates that a LEFT SHIFT is Present. MCH (RBC) [Entitic mass] 30.8 pg 27.0-32.0 [facility] Work Phone: Nucleated RBC/100 WBC (Bld) [Ratio] 0 % 0-5 [facility] Work Phone: MCHC Auto (RBC) [Mass/Vol]on 08-05-2022 MCHC (RBC) [Mass/Vol] 33.3 g/dL 32-36 [facility] Work Phone: No Panel Informationon 08-05 Estimated GFR (MDRD) Amer 91 mL/min >60 [facility] Work Phone: Comment on above: GFR Calc Estimated GFR (MDRD) Non-Af Amer 75 mL/min >60 [facility] Work Phone: Comment on above: Non- GFR Calc Platelets bldon 08-05-2022 Platelets (Bld) [#/Vol] 302 10*3/uL 150-450 [facility] Work Phone: Serum or plasma albumin jordan urement (mass/volume)on 08-05-2022 Albumin [Mass/Vol] 3.3 g/dL 3.2-5.0 [facility] Work Phone: Serum or plasma albumin/glob ulin mass ratioon 08-05-2022 Albumin/Globulin [Mass ratio] 0.9 {ratio} 0.9-2.4 [facility] Work Phone: [phone] Serum or plasma calcium jordan urement (mass/volume)on 08-05-2022 Calcium [Mass/Vol] 9.0 mg/dL 8.5-10.1 [facility] Work Phone: [phone] Serum or plasma creatinine m easurement (mass/volume)on 08-05-2022 Creatinine [Mass/Vol] 0.78 mg/dL 0.55-1.02 [facility] Work Phone: Comment on above: The validity of the calculated GFR & GFRAA in patients over 70 years has not been determined. Clinical correlation is essential. Serum or plasma urea nitroge n measurement (mass/volume)on 08-05-2022 Urea nitrogen [Mass/Vol] 14 mg/dL 7-18 [facility] Work Phone: Thin prep Papanicolaou smear with manual screeningon 08-05-2022 Thin prep Papanicolaou smear with manual screening 17 U/L 15-37 [facility] Work Phone: Thin prep Papanicolaou smear with manual screening 7 5-15 [facility] Work Phone: Laboratory - Microbiology an d Antimicrobial susceptibilityon 05-28-2022 SARS-CoV-2 (COVID-19) RNA ADILSON+probe Ql (Unsp spec) Not detected [facility] Work Phone: No Panel Informationon 05-28 Influenza Types A,B Rapid (Clinic) Not detected [facility] Work Phone: Absolute lymphocyte counton 12-07-2021 Lymphocytes Auto (Unsp spec) [#/Vol] 1.55 10*3/uL 0.83-4.51 [facility] Work Phone: Basophil percentageon 2021 Basophil percentage 0 SEEN /hpf [facility] Work Phone: Basophils/100 WBC (Bld) 0.2 % 0-1 [facility] Work Phone: Chloride [Moles/Vol] 104 mmol/L 98-107 [facility] Work Phone: Eosinophils/100 WBC (Bld) 2.8 % 0-5 [facility] Work Phone: Glucose [Mass/Vol] 95 mg/dL 74-106 [facility] Work Phone: Neutrophils (Bld) [#/Vol] 6.8 10*3/uL 2.0-7.7 [facility] Work Phone: Neutrophils/100 WBC (Bld) 69.7 % 47-70 [facility] Work Phone: Potassium [Moles/Vol] 3.6 mmol/L 3.5-5.1 [facility] Work Phone: Sodium [Moles/Vol] 138 mmol/L 136-145 [facility] Work Phone: [phone] WBC (Bld) [#/Vol] 9.8 10*3/uL 4.4-11.0 [facility] Work Phone: Bilirubin Test strip Ql (U)o n 12-07-2021 Bilirubin Ql (U) Negative Negative [facility] Work Phone: Blood erythrocytes count (nu mber/volume)on 12-07-2021 RBC (Bld) [#/Vol] 4.83 10*6/uL 4.2-5.4 [facility] Work Phone: Blood hemoglobin measurement (mass/volume)on 12-07-2021 Hemoglobin (Bld) [Mass/Vol] 14.7 g/dL 12.0-15.0 [facility] Work Phone: Blood lymphocytes/100 leukoc yteson 12-07-2021 Lymphocytes/100 WBC (Bld) 15.8 % 19-41 [facility] Work Phone: [phone] Blood monocytes/100 leukocyt eson 12-07-2021 Monocytes/100 WBC (Bld) 11.2 % 0-10 [facility] Work Phone: Blood platelet mean volumeon 12-07-2021 Platelet mean volume (Bld) [Entitic vol] 8.2 fL 6.2-12.0 [facility] Work Phone: Determination of erythrocyte mean corpuscular volume (MCV)on 12-07-2021 MCV (RBC) [Entitic vol] 93.8 fL 81-99 [facility] Work Phone: [phone] Hematocrit Auto (Bld) [Volum e fraction]on 12-07-2021 Hematocrit (Bld) [Volume fraction] 45.3 % 37-47 [facility] Work Phone: Ketones Test strip Ql (U)on 12-07-2021 Ketones Ql (U) Negative Negative [facility] Work Phone: Laboratory - Chemistry and C hemistry - challengeon 12-07-2021 CO2 [Moles/Vol] 30.0 mmol/L 21.0-32.0 [facility] Work Phone: [phone] Urea nitrogen/Creatinine [Mass ratio] 13.3 mg/mg 10-20 [facility] Work Phone: [phone] Laboratory - Hematology and Cell countson 12-07-2021 Erythrocyte distribution width (RBC) [Entitic vol] 42.6 fL 35.1-43.9 [facility] Work Phone: [phone] Erythrocyte distribution width (RBC) [Ratio] 12.3 % 11.6-14.6 [facility] Work Phone: [phone] Immature granulocytes/100 WBC (Bld) 0.300 % 0.0-0.9 [facility] Work Phone: [phone] Comment on above: IG% - Immature Granu locytes (promyelocytes, myelocytes and metamyelocytes) > 1% indicates that a LEFT SHIFT is Present. MCH (RBC) [Entitic mass] 30.4 pg 27.0-32.0 [facility] Work Phone: [phone] Nucleated RBC/100 WBC (Bld) [Ratio] 0 % 0-5 [facility] Work Phone: [phone] MCHC Auto (RBC) [Mass/Vol]on 12-07-2021 MCHC (RBC) [Mass/Vol] 32.5 g/dL 32-36 [facility] Work Phone: [phone] Mucus LM Ql (Urine sed)on Mucus Ql (Urine sed) 0 SEEN /hpf [facility] Work Phone: [phone] Nitrite Test strip Ql (U)on 12-07-2021 Nitrite Ql (U) Negative Negative [facility] Work Phone: [phone] No Panel Informationon 12-07 Estimated Creatinine Clearance Calc 42.39 ml/min [facility] Work Phone: [phone] Estimated GFR (MDRD) Amer 76 mL/min >60 [facility] Work Phone: Comment on above: GFR Calc Estimated GFR (MDRD) Non-Af Amer 63 mL/min >60 [facility] Work Phone: Comment on above: Non- GFR Calc Troponin I High Sensitivity < 3 pg/mL 3.0-54.0 [facility] Work Phone: Comment on above: Please Note: New Niki t Units and Gender Specific Reference Ranges. For more information see Policy Stat Procedure [place] High Sensitivity Troponin (TNIH) and attachments. Platelets bldon 12-07-2021 Platelets (Bld) [#/Vol] 296 10*3/uL 150-450 [facility] Work Phone: Protein Test strip Ql (U)on 12-07-2021 Protein Ql (U) Negative Negative [facility] Work Phone: [phone] Serum or plasma calcium jordan urement (mass/volume)on 12-07-2021 Calcium [Mass/Vol] 8.9 mg/dL 8.5-10.1 [facility] Work Phone: [phone] Serum or plasma creatinine m easurement (mass/volume)on 12-07-2021 Creatinine [Mass/Vol] 0.90 mg/dL 0.55-1.02 [facility] Work Phone: Comment on above: The validity of the calculated GFR & GFRAA in patients over 70 years has not been determined. Clinical correlation is essential. Serum or plasma urea nitroge n measurement (mass/volume)on 12-07-2021 Urea nitrogen [Mass/Vol] 12 mg/dL 7-18 [facility] Work Phone: [phone] Squamous epithelial cells de tection in urine sediment by light microscopyon 12-07-2021 Epithelial cells.squamous LM Ql (Urine sed) 0 SEEN /hpf [facility] Work Phone: [phone] Thin prep Papanicolaou smear with manual screeningon 12-07-2021 Thin prep Papanicolaou smear with manual screening 4 5-15 [facility] Work Phone: [phone] Urine blood detectionon 11-15 RBC Ql (U) Negative Negative [facility] Work Phone: RBC Ql (U) 0 SEEN /hpf [facility] Work Phone: Urine clarityon 12-07-2021 Clarity (U) Clear Clear [facility] Work Phone: Urine color determinationon 12-07-2021 Color (U) Yellow Yellow [facility] Work Phone: Urine glucose detectionon Glucose Ql (U) Normal mg/dl Normal [facility] Work Phone: Urine leukocyte esterase det ection by dipstickon 12-07-2021 Leukocyte esterase Test strip Ql (U) Negative Negative [facility] Work Phone: Urine pHon 12-07-2021 pH (U) 6.0 [pH] [facility] Work Phone: Urine sediment bacteria coun t by microscopy (number/high power field)on 12-07-2021 Bacteria LM.HPF (Urine sed) [#/Area] 0 /[HPF] None Seen [facility] Work Phone: Urine specific gravity measu rementon 12-07-2021 Specific gravity (U) [Rel density] 1.010 [facility] Work Phone: Urobilinogen Auto test strip Ql (U)on 12-07-2021 Urobilinogen Ql (U) Normal mg/dl Normal [facility] Work Phone: Office Visit: screening c-sc opeon 05-20-2017 Fall risk assessment No Invalid Interpretation Code [facility] [employer] Work Phone: Protein mass conc Done Invalid Interpretation Code [facility] [employer] Work Phone: Tobacco smoking status NHIS Never Invalid Interpretation Code [facility] [employer] Work Phone: Tobacco smoking status NHIS Never smoker Invalid Interpretation Code [facility] [employer] Work Phone: 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 ALP enzyme act/vol (Bld) 72 U/L Invalid Interpretation Code [facility] [employer] Work Phone: ALT enzyme act/vol 22 U/L Invalid Interpretation Code [facility] [employer] Work Phone: [phone] AST enzyme act/vol 16 U/L Invalid Interpretation Code [facility] [employer] Work Phone: [phone] Bilirubin mass conc 0.40 mg/dL Invalid Interpretation Code [facility] [employer] Work Phone: [phone] Calcium mass conc 8.5 mg/dL Invalid Interpretation Code [facility] [employer] Work Phone: [phone] Chloride molar conc 105 mmol/L Invalid Interpretation Code [facility] [employer] Work Phone: [phone] CO2 ppres (BldV) 27.0 mmol/L Invalid Interpretation Code [facility] [employer] Work Phone: [phone] Creatinine mass conc 0.9 mg/dL Invalid Interpretation Code [facility] [employer] Work Phone: [phone] Hematocrit Auto Volume Fraction (Bld) 42.8 % Invalid Interpretation Code [facility] [employer] Work Phone: [phone] Hemoglobin mass conc (Bld) 14.9 g/dL Invalid Interpretation Code [facility] [employer] Work Phone: [phone] Platelets Auto #/vol (Bld) 267 10*3/mm3 Invalid Interpretation Code [facility] [employer] Work Phone: [phone] Potassium molar conc 4.1 mmol/L Invalid Interpretation Code [facility] [employer] Work Phone: [phone] RBC Auto #/vol (Bld) 4.81 10*6/uL Invalid Interpretation Code [facility] [employer] Work Phone: [phone] Sodium molar conc 138 mmol/L Invalid Interpretation Code [facility] [employer] Work Phone: [phone] Urea nitrogen mass conc 16 mg/dL Invalid Interpretation Code [facility] [employer] Work Phone: [phone] WBC Auto #/vol (Bld) 7.3 10*3/uL Invalid Interpretation Code [facility] [employer] Work Phone: [phone] 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 Cholesterol in HDL mass conc 54 mg/dL Invalid Interpretation Code [facility] [employer] Work Phone: [phone] Cholesterol in LDL mass conc 126 mg/dL Invalid Interpretation Code [facility] [employer] Work Phone: [phone] Cholesterol mass conc 202 mg/dL Invalid Interpretation Code [facility] Work Phone: Triglyceride mass conc 109 mg/dL Invalid Interpretation Code [facility] Work Phone: Vital Signs Date Time Vital Sign Value Performing Clinician Facility 05-03-2025 13:32-0400 Body height 138.[address] Thu Nichols MD Work Phone: [facility] 05-03-2025 13:32-0400 Body mass index (BMI) [Ratio] 26.5 kg/m2 Dr. Thu Nichols MD Work Phone: [facility] 05-03-2025 13:32-0400 Body weight 50.[address] Thu Nichols MD Work Phone: [facility] 05-03-2025 13:32-0400 Diastolic blood pressure 66 mm[Hg] Dr. Thu Nichols MD Work Phone: [facility] 05-03-2025 13:32-0400 Heart rate 66 /min Dr. Thu Nichols MD Work Phone: [facility] 05-03-2025 13:32-0400 Respiratory rate 16 /min Dr. Thu Nichols MD Work Phone: [facility] 05-03-2025 13:32-0400 Systolic blood pressure 123 mm[Hg] Dr. Thu Nichols MD Work Phone: [facility] 07-31-2024 10:45-[address] MAXIME MUNIZ MD [facility] 07-31-2024 10:45-[address] MAXIME Dyson [facility] 07-31-2024 10:45-0500 Body height [address] MAXIME MUNIZ MD [facility] 07-31-2024 10:45-0500 Body weight 57.[address] MAXIME MUNIZ MD [facility] 07-31-2024 10:45-0500 Body weight 26.98 kg/m2 DR MAXIME MUNIZ MD [facility] 07-31-2024 10:45-0500 Diastolic Blood Pressure Non-Invasive 78 mm[Hg] DR MAXIME MUNIZ MD [facility] 07-31-2024 10:45-0500 Heart rate 66 /min DR MAXIME MUNIZ MD [facility] 07-31-2024 10:45-0500 Respiratory rate 18 /min DR MAXIME MUNIZ MD [facility] 07-31-2024 10:45-0500 Systolic Blood Pressure Non-Invasive 181 mm[Hg] DR MAXIME MUNIZ MD [facility] 11-09-2023 14:10-0400 Body height 142.[address] Thu Nichols Work Phone: [facility] 11-09-2023 14:10-0400 Body mass index (BMI) [Ratio] 28.4 kg/m2 Dr. Thu Nichols Work Phone: [facility] 11-09-2023 14:10-0400 Body weight 57.[address] Thu Nichols Work Phone: [facility] 11-09-2023 14:10-0400 Diastolic blood pressure 81 mm[Hg] Dr. Thu Nichols Work Phone: [facility] 11-09-2023 14:10-0400 Heart rate 66 /min Dr. Thu Nichols Work Phone: [facility] 11-09-2023 14:10-0400 Respiratory rate 16 /min Dr. Thu Nichols Work Phone: [facility] 11-09-2023 14:10-0400 Systolic blood pressure 144 mm[Hg] Dr. Thu Nichols Work Phone: [facility] 03-30-2023 11:06-0400 Diastolic blood pressure 82 mm[Hg] Dr. Thu Nichols Work Phone: [facility] 03-30-2023 11:06-0400 Heart rate 71 /min Dr. Thu Nichols Work Phone: [facility] 03-30-2023 11:06-0400 Systolic blood pressure 153 mm[Hg] Dr. Thu Nichols Work Phone: [facility] 03-30-2023 10:36-0400 Body height 142.[address] Thu Nichols Work Phone: [facility] 03-30-2023 10:36-0400 Body mass index (BMI) [Ratio] 29.3 kg/m2 Dr. Thu Nichols Work Phone: [facility] 03-30-2023 10:36-0400 Body weight 59.[address] Thu Nichols Work Phone: [facility] 03-30-2023 10:36-0400 Respiratory rate 16 /min Dr. Thu Nichols Work Phone: [facility] 03-03-2023 11:02-0400 Body height 142.[address] Thu Nichols Work Phone: [facility] 03-03-2023 11:02-0400 Body mass index (BMI) [Ratio] 29.3 kg/m2 Dr. Thu Nichols Work Phone: [facility] 03-03-2023 11:02-0400 Body weight 59.[address] Thu Nichols Work Phone: [facility] 01-23-2023 12:03-0400 Body temperature 98.2 [degF] Dr. Thu Nichols Work Phone: [facility] 01-23-2023 12:03-0400 Heart rate 80 /min Dr. Thu Nichols Work Phone: [facility] 01-23-2023 12:03-0400 Respiratory rate 18 /min Dr. Thu Nichols Work Phone: [facility] 01-23-2023 12:03-0400 SaO2% (BldA) [Mass fraction] 96 % Dr. Thu Nichols Work Phone: [facility] 05-28-2022 13:30-0400 Body temperature 99.4 [degF] Dr. Thu Nichols Work Phone: [facility] Work Phone: 05-28-2022 13:30-0400 Diastolic blood pressure 64 mm[Hg] Dr. Thu Nichols Work Phone: [facility] Work Phone: 05-28-2022 13:30-0400 Heart rate 77 /min Dr. Thu Nichols Work Phone: [facility] Work Phone: 05-28-2022 13:30-0400 Respiratory rate 14 /min Dr. Thu Nichols Work Phone: [facility] Work Phone: 05-28-2022 13:30-0400 SaO2% (BldA) [Mass fraction] 96 % Dr. Thu Nichols Work Phone: [facility] Work Phone: 05-28-2022 13:30-0400 Systolic blood pressure 124 mm[Hg] Dr. Thu Nichols Work Phone: [facility] Work Phone: 12-07-2021 16:44-0400 Diastolic blood pressure 65 mm[Hg] [facility] Work Phone: 12-07-2021 16:44-0400 Heart rate 75 /min [facility] Work Phone: 12-07-2021 16:44-0400 Respiratory rate 17 /min [facility] Work Phone: 12-07-2021 16:44-0400 Systolic blood pressure 194 mm[Hg] [facility] Work Phone: 12-07-2021 15:32-0400 SaO2% (BldA) [Mass fraction] 97 % [facility] Work Phone: 12-07-2021 15:19-0400 Body height 142.24 cm [facility] Work Phone: 12-07-2021 15:19-0400 Body mass index (BMI) [Ratio] 28 kg/m2 [facility] Work Phone: 12-07-2021 15:19-0400 Body temperature 97.4 [degF] [facility] Work Phone: 12-07-2021 15:19-0400 Body weight 56.69 kg [facility] Work Phone: 05-20-2017 09:23-0400 BMI (Body Mass Index) 31.75 kg/m2 [facility] Work Phone: 05-20-2017 09:23-0400 Body Temperature 98.4 [degF] [facility] Work Phone: 05-20-2017 09:23-0400 BP Diastolic 91 mm[Hg] [facility] Work Phone: 05-20-2017 09:23-0400 BP Systolic 152 mm[Hg] [facility] Work Phone: 05-20-2017 09:23-0400 Height 137.16 cm [facility] Work Phone: 05-20-2017 09:23-0400 Pulse (Heart Rate) 72 /min [facility] Work Phone: 05-20-2017 09:23-0400 Respiratory Rate 18 /min [facility] Work Phone: 05-20-2017 09:23-0400 Weight 59.74 kg [facility] Work Phone: Encounters Encounter Date Encounter Type Care Provider Facility Start: 06-20-2025 ambulatory Thu Nichols Facility:[facility] Start: 06-18-2025 End: 06-18-2025 ambulatory Thu Nichols Facility:[facility] Start: 06-04-2025 ambulatory Thu Nichols Facility:[facility] Start: 06-04-2025 End: 06-04-2025 ambulatory Thu Nichols Facility:[facility] Start: 05-03-2025 End: 05-03-[address] Jessica Bernard MD -[facility] Work Phone: Start: 05-03-2025 End: 05-03-[address] Thu Nichols MD Work Phone: -[facility] Start: 04-23-2025 ambulatory Thu Nichols Facility:[facility] Start: 04-18-2025 End: 04-18-[address] [facility] Start: 04-18-2025 End: 04-18-[address] Thu Nichols MD -[facility] Start: 04-18-2025 End: 04-18-2025 ambulatory Thu Nichols Facility:[facility] Start: 10-26-2024 End: 10-26-2024 ambulatory Thu Nichols Facility:[facility] Start: 10-09-2024 End: 10-09-2024 ambulatory Thu Nichols Facility:[facility] Start: 09-14-2024 End: 09-14-2024 ambulatory Thu Nichols Facility:[facility] Start: 08-25-2024 End: 08-25-2024 ambulatory Thu Nichols Facility:[facility] Start: 08-21-2024 ambulatory THU NICHOLS MD [facility] y[facility] Start: 08-21-2024 End: 08-21-2024 ambulatory Thu Nichols Facility:[facility] Start: 07-31-2024 End: 07-31-[address] MAXIME MUNIZ MD Facility:[facility] Start: 07-31-2024 End: 07-31-[address] MAXIME MUNIZ MD [facility] Start: 07-31-2024 End: 07-31-[address] MAXIME MUNIZ MD [facility] Start: 07-31-2024 End: 07-31-2024 ambulatory THU NICHOLS MD Facility:[facility] Start: 07-31-2024 Encounter for other preprocedural examination DR MAXIME MUNIZ MD [facility] Start: 06-23-2024 End: 06-23-2024 ambulatory Thu Nichols Facility:[facility] Start: 12-17-2023 End: 12-17-[address] Thu Nichols Work Phone: [facility] Work Phone: Start: 12-17-2023 End: 12-17-[address] Thu Nichols Work Phone: [facility] Work Phone: Start: 11-23-2023 Non-patient / Non-visit Dr. Johnnie Nichols Work Phone: [facility] Start: 11-23-2023 End: 11-23-[address] Thu Nichols Work Phone: [facility] Work Phone: Start: 11-23-2023 End: 11-23-[address] Thu Nichols Work Phone: [facility]-Cardiovascula r Services Work Phone: Start: 11-09-2023 End: 11-09-[address] Thu Nichols Work Phone: [facility] Work Phone: Start: 10-11-2023 End: 10-11-2023 ambulatory [facility] Work Phone: Start: 10-11-2023 End: 10-11-2023 Patient encounter procedure [facility] Start: 09-16-2023 End: 09-16-2023 ambulatory [facility] Work Phone: Start: 09-16-2023 End: 09-16-2023 Patient encounter procedure [facility] Work Phone: Start: 09-07-2023 End: 09-07-2023 ambulatory [facility] Work Phone: Start: 09-07-2023 End: 09-07-2023 Discharged Recurring [facility]-Physical Therapy Work Phone: Start: 06-01-2023 End: 06-01-[address] Thu Nichols Work Phone: [facility] Work Phone: Start: 06-01-2023 End: 06-01-[address] Thu Nichols Work Phone: [facility] Work Phone: Start: 05-14-2023 End: 05-14-[address] Thu Nichols Work Phone: [facility]-Pulmonary Services/Neurology Work Phone: Start: 04-30-2023 Non-patient / Non-visit Dr. Johnnie Nichols Work Phone: [facility] Work Phone: Start: 04-29-2023 Non-patient / Non-visit Dr. Johnnie Nichols Work Phone: [facility] Work Phone: Start: 04-29-2023 End: 04-29-[address] Thu Nichols Work Phone: [facility] Work Phone: Start: 04-29-2023 End: 04-29-[address] Thu Nichols Work Phone: [facility]-Cardiovascula r Services Work Phone: Start: 03-30-2023 End: 03-30-[address] Thu Nichols Work Phone: [facility] Work Phone: Start: 03-05-2023 End: 03-05-[address] Thu Nichols Work Phone: [facility] Work Phone: Start: 03-05-2023 End: 03-05-[address] Thu Nichols Work Phone: [facility]-Physical Therapy Work Phone: Start: 03-03-2023 End: 03-03-[address] Thu Nichols Work Phone: [facility] Work Phone: Start: 02-24-2023 End: 02-24-[address] Thu Nichols Work Phone: [facility]-Outpatient Breast Imaging Work Phone: Start: 02-09-2023 End: 02-09-[address] Thu Nichols Work Phone: [facility] Work Phone: Start: 02-09-2023 End: 02-09-[address] Thu Nichols Work Phone: [facility] Start: 01-25-2023 End: 01-25-[address] Thu Nichols Work Phone: [facility] Work Phone: Start: 01-25-2023 End: 01-25-[address] Thu Nichols Work Phone: [facility] Start: 01-23-2023 End: 01-23-[address] Thu Nichols Work Phone: [facility] Start: 08-05-2022 End: 08-05-[address] Thu Nichols Work Phone: [facility] Work Phone: Start: 08-05-2022 End: 08-05-[address] Thu Nichols Work Phone: [facility] Start: 2022 End: [address] Thu Nichols Work Phone: [facility] Work Phone: Start: 2022 End: [address] Thu Nichols Work Phone: [facility]-Radiology, [facility] Start: 05-28-2022 End: 05-28-[address] Thu Nichols Work Phone: [facility] Start: 03-17-2022 End: 03-17-2022 ambulatory [facility] Work Phone: Start: 03-17-2022 End: 03-17-2022 Discharged Recurring [facility]-Physical Therapy Start: 12-07-2021 End: 12-07-2021 Emergency department patient visit [facility]-Emergency Department Start: 07-19-2018 Patient encounter procedure [facility] Start: 06-29-2018 Patient encounter procedure [facility] Start: 06-17-2018 End: 06-17-2018 Patient encounter procedure [facility] Start: 06-14-2018 Patient encounter procedure [facility] Procedures Date Procedure Procedure Detail Performing Clinician Start: 06-01-2023 Plain x-ray of pelvis and lower extremity Dr. Thu Nichols Work Phone: Start: 04-29-2023 Cardiovascular stress test using pharmacologic stress agent Dr. Thu Nichols Work Phone: Start: 03-03-2023 X-ray of cervical spine Dr. Thu Nichols Work Phone: Start: 02-24-[address] Thu Nichols Work Phone: Start: 01-25-2023 Plain chest X-ray Dr. Thu Nichols Work Phone: Start: [address] Thu Nichols Work Phone: Start: 05-20-2017 End: 05-20-2017 Colonoscopy flx dx w/collj spec when pfrmd Golden Nixon MD Work Phone: Start: 05-20-2017 Screening for malignant neoplasm of colon Screening for colon cancer [facility] Colonoscopy DR MAXIME Contreras MD Excision of middle l obe of right lung DR MAXIME MUNIZ MD Ligation of fallopian tube Kiel MUNIZ MD Plan of Treatment Date Care Activity Detail Author Start: 03-03-2023 Patient referral [facility] Work Phone: Start: 06-15-2017 End: 06-15-2017 Appointment Appointment [facility] [employer] Work Phone: Start: 05-20-2017 End: 05-20-2017 Colonoscopy flx dx w/collj spec when pfrmd Colonoscopy [facility] Work Phone: Start: 05-20-2017 End: 05-20-2017 Appointment Appointment [facility] Work Phone: Patient Education ED Dizziness, Uncertain Cause ED Weakness (Uncertain Cause) [facility] Work Phone: Patient referral [facility] Work Phone: US Carotid arteries [facility] Payers Date Payer Category Payer Medicare [id number] 2024 Self-pay [id number] 2024 Medicare [id number] 2016 Unknown [id number] 2003 Medicare [id number] 1938 Unknown [id number] 2.16.8 [id number] 1938 Unknown [id number] 2.16.8 [id number] 1938 Unknown [id number] 2.16.8 [id number] Unknown [id number] Unknown [id number] 2.16.8 [id number] Unknown [id number] 2.16.8 [id number] Unknown [id number] 2.16.8 [id number] Unknown [id number] 2.16.8 [id number] Unknown [id number] 2.16.8 [id number] Unknown [id number] 2.16.8 [id number] Unknown [id number] 2.16.8 [id number] Unknown [id number] 2.16.8 [id number] Unknown [id number] 2.16.8 [id number] Unknown [id number] 2.16.8 [id number] Unknown [id number] 2.16.8 [id number] Unknown [id number] 2.16.8 [id number] Unknown [id number] 2.16.8 [id number] Unknown [id number] 2.16.8 [id number] Unknown [id number] 2.16.8 [id number] Social History Date Type Detail Facility Start: 12-07-2021 End: 11-09-2023 Tobacco smoking status NHIS Unknown if ever smoked [facility] Start: 1940 Sex Assigned At Female [facility] Start: 04-27-2024 End: 07-31-2024 Tobacco smoking status Never smoked tobacco (finding) [facility] Sex Assigned At Sex [facility] Sex Female [facility] Mental Status Date Assessment Result Facility 12-07-2021 Cognitive function Level Of Cons ciousness Awake;Alert;Appropriate;Follow s Commands [facility] Work Phone: Clinical Notes 03-05-2023 to 05-03-2025 Note Date & Type Note Facility 05-03-2025 Progress note [facility] 07-31-2024 Note ORIGINAL EXAMINATION: CT OF THE RIGHT HIP WITHOUT CONTRAST 07/31/2024 12:26 pm TECHNIQUE: CT of the right hip was performed without the administration of intravenous contrast. Multiplanar reformatted images are provided for review. Automated exposure control, iterative reconstruction, and/or weight based adjustment of the mA/kV was utilized to reduce the radiation dose to as low as reasonably achievable. COMPARISON: None. HISTORY ORDERING SYSTEM PROVIDED HISTORY: Reason for Exam: Unilateral primary osteoarthritis, right hip Pre-op. Chronic rt hip pain. MAYDA protocol. FINDINGS: CT performed for surgical planning purposes. Degenerative changes seen of the visualized lumbar spine and sacroiliac joints. Moderate to severe degenerative changes seen in both hips. No fractures visible. No aggressive bony lesions. Atherosclerotic vascular calcifications noted. There is diverticulosis of the visualized colon. Exaggerated lateral tilt/subluxation of both patellas noted. There are degenerative changes in both knees. IMPRESSION: 1. CT performed for surgical planning purposes. 2. Degenerative changes the visualized spine, sacroiliac joints, hips and knees. 3. Atherosclerosis. 4. Diverticulosis. Interpreted by: Aime Garcia MD Preliminary Report By: Aime Garcia MD Electronically signed By Aime Garcia MD Dictated Date: 07/31/2024 12:51:10 PM Prelim Date: 07/31/2024 1:03:22 PM Sign Date: 07/31/2024 1:03:22 PM Ordering Provider: [facility] 09-08-2023 Discharge summary Note Date/Time September 07, 2023 1:52pm [facility] Physical Therapy [facility] [address] [place] [address] / REHABILITATION SERVICES DISCHARGE SUMMARY MR#: [id number] Acct: [id number] Name: ROSE RENTERIA Rep #: [id number] : 1940 83 From: Cert. BRODERICK Pratt, OCS Referring Dr.: Dr. Thu Nichols MD Status: REG RCR Insurance: [employer]URANCE Discharge Summary D/C summary: It has been my pleasure to treat ROSE RENTERIA referred by Dr. Thu Nichols MD, with the diagnosis of HIP ARTHRITIS BILATERAL ,BACK PAIN ,OSTEOPROSIS for a total of 12 visit(s). Discharge Date: 09/07/23 Please see the following information for a summary of their discharge status. Subjective Subjective: I can do ex's on own ,but I still hurt Standing 15mins , Pain Bilateral Back: Pain Intensity (Out of 10): 1 hips: Pain Intensity (Out of 10): 7 Overall Improvement % Improvement: 30 Objective Objective/Function: Objective: POSTURTE: mild forward posture GAIT: reciprocal mild antalgic mild slow alvina , NEURO: denies parestehesia/tingling ,reflexes L3-4,L4-5,L5-S 1/3 SYMMTRIES: align AROM HIP: right 98 degrees right ,hip abd 35 degrees , IR 7 degrees , left 99 flexion hip ,abduction 35 degrees ,IR 5 degrees LUMBAR ROM: flexion mod loss ,extension severe ,side glides mod loss MMT: ( peak force) quads 28.5 right ,left 23.3, hams right 27.8 ,left 25,.8 ,hip flexion 23.8 right, left 22.9 ,hip abd right 18.9 ,left 15.2 Special Tests L/S Slump test left side: Negative Goals Goal 1:: Patient to be I with [facility] PT for hip and back. Goal Progress: Progressing Goal 2:: Patient to improve lumbar ROM for function of recovery to put on shoes and socks Goal Progress: Progressing Goal 3:: Patient to improve AROM hip flexion by 5-10 degrees to improve ability to put on pants Goal Progress: Progressing Goal 4:: Patient to improve peak force of hips by 5-10# to improve strength for gait Goal Progress: Progressing Goal 5:: Patient to improve LFES SCORE by 5 points to improve QOL Goal Progress: Progressing Goal 6:: Patient to demonstrate 40% improvement with less pain and improve function Plan Plan: D/C D/C Information Discharge Comments: [facility] d/c sentence: If there are questions or concerns regarding this patient's physical therapy, please feel free to call me at [phone]. Thank you for the referral of thispatient. Sincerely, Vadim Betancur, PT, Cert MDT, OCS Balance/Gait/Functional tests Balance/Special Test Scores Lower Extremity Functional Score: 45 Improvement % Improvement: 30 <Electronically signed by Vadim Betancur PT, Cert. BRODERICK, OCS> 09/08/23 1108 CC: Dr. Thu Nichols MD ~ DILSHAD Signed [facility] Work Phone: 1(627) 727-671707-21-2023 Discharge summary Author Thu Zimmerman [facility] March 05, 2023 9:59am Note Date/Time March 05, 2023 9:59 am [facility] [address] [place] [address] [address] [place] [address] / REHABILITATION SERVICES DISCHARGE SUMMARY MR#: [id number] Acct: [id number] Name: ROSE RENTERIA Rep #: [id number] : 1940 82 From: Thu Zimmerman DPT, CASIMIRO, CSCS Referring Dr.: Dr. Thu Nichols MD Status: REG RCR Insurance: [employer] S[employer]F [employer] INSURANCE Discharge Summary D/C summary: It has been my pleasure to treat ROSE RENTERIA referred by Dr. Thu Nichols MD, with the diagnosis of dizzyness, balance for a total of 2 visit(s). Discharge Date: Please see the following information for a summary of their discharge status. Subjective Subjective: Everything stopped and I am fine. Doing exercises but not as often as I should. Normal activities and no symptoms. None in 3 weeks. Exercises donot make her symptomatic. Overall Improvement % Improvement: 100 Objective Objective/Function: Does get some minor fuzzyness with VOR H 60 seconds when I ask her to speed up as she was going fairly slow. Balance is excellent for her age and able to do VOR with just slight symptoms now but more so when she moves her head faster. Otherwise she is feeling pretty normal. No neck problems were found according to patient but she was referred to automotive service advisor which is next week. Since she has not had any symptomsin over 3 weeks, she is wondering if she needs to keep that appointment, she will discuss that with her family doctor this afternoon. Goals Goal 1:: VOR x 60 seconds without lightheaded feeling. Goal Progress: slowly yes Goal 2:: Pt feel 95% better in overall dizzy feeling Goal Progress: Goal Met Goal 3:: I management condition Goal Progress: Goal Met Goal 4:: 5 or less DHI Goal Progress: Goal Met Plan Plan: d/c, pt to [facility] until symptom free. D/C Information d/c sentence: If there are questions or concerns regarding this patient's physical therapy, please feel free to call me at [phone]. Thank you for the referral of thispatient. Sincerely, Thu Zimmerman DPT, CASIMIRO, CSCS Balance/Gait/Functional tests Balance/Special Test Scores Functional Gait Assessment Score: 27 % Disability: 10.0000 CATSIB Score (Max score 120 seconds): 120 Dizziness Score: 4 <Electronically signed by CASIMIRO Baker DPT, CSCS> 03/05/23 0959 CC: Dr. Thu Nichols MD ~ EBG Signed [facility] Work Phone: Evaluation + Plan note Future Appointments [facility] evaluation noteNo assessment information available [facility] Work Phone: evaluation note* Diagnosis Onset Date Resolution Status Acute bronchitis, unspecified acute Contact with and (suspected) exposure to other viral communicable diseases acute [facility] Work Phone: Evaluation note* Diagnosis Onset Date Resolution Status Reactive airway disease acut e Seasonal allergies acute [facility] Work Phone: evaluation note* Diagnosis Onset Date Resolution Status Reactive airway disease acut e Seasonal allergies acute Lightheadedness acute [facility] Work Phone: evaluation note* Diagnosis Onset Date Resolution Status Reactive airway disease acut e Seasonal allergies acute Lightheadedness chronic Abnormal ECG chronic Dyspnea on exertion chronic Essential hypertension chron ic Lightheadedness chronic [facility] Work Phone: Evaluation note* Diagnosis Onset Date Resolution Status Lightheadedness chronic Abnormal ECG chronic Dyspnea on exertion chronic Essential hypertension chron ic Lightheadedness chronic [facility] Work Phone: evaluation note* Diagnosis Onset Date Resolution Status Essential hypertension chron ic Paroxysmal atrial fibrillation chronic Pre-syncope resolved [facility] Work Phone: Evaluation note* Diagnosis Onset Date Resolution Status Admit Date Carotid artery disease chronic Se ptember 2024 1:25pm Essential hypertension chronic Se ptember 2024 1:25pm History of esophageal stricture chronic May 03, 2025 1:25pm Paroxysmal atrial fibrillation chronic May 03, 2025 1:25pm [facility] Work Phone: Hospital course Narrative No data available for this section [facility] Hospital Discharge instructions Additional Instructions Keep a log of your blood pressure daily and follow-up with primary care physician.[facility] Work Phone: Hospital Discharge instructions No data available for this section [facility] Progress note No data available for this section [facility] Pronealw note Author Jessica Bernard [facility] Note Date/Time May 03, 2025 1:52pm [facility] [address] [place] [address] OFFICE VISIT Date of Service: 05/03/25 MR#: [id number] Acct: [id number] Name: ROSE RENTERIA ANN Rep #: [id number] : 1940 Provider: Dr. Kade Bernard MD Age/Sex: 84/F Location: [facility] [place] [facility] Status: Signed HPI HPI History of Present Illness Details: This lady with history of paroxysmal atrial fibrillation and hypertension is here for follow-up visit. Denies any chest pains. No shortness of breath. No palpitations. No orthopnea or PND. According to her, she occasionally feels lightheaded for a few seconds. No syncope or presyncope. 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: No Accompanied by: Self Is patient in pain?: No Allergies Estrogens Allergy (Verified 05/03/25 13:32) weight gain codeine Adverse Reaction (Verified 05/03/25 13:32) Nausea Medications ?Medication ?Instructions ?Recorded ?Confirmed ?Type cholecalciferol (vitamin D3) 125 125 mcg PO DAILY 02/1305/03/25 History mcg (5,000 unit) capsule zinc sulfate 25 mg zinc (110 mg) 25 mg PO DAILY 05/03/25 History tablet mecobalamin (vitamin B12) 1,000 1,000 mcg PO DAILY 05/03/25 History mcg chewable tablet rivaroxaban 15 mg tablet (Xarelto) 15 mg PO QDAY 11/0805/03/25 History calcium carbonate (Antacid 400 mg PO Q4H PRN heartburn 04/27/24 05/03/25 History (calcium carbonate)) spironolactone 25 tab PO DAILY 10/26/24 History mg-hydrochlorothiazide 25 mg tablet acetaminophen 500 mg tablet 500 mg PO Q6H PRN 05/03/25 05/03/25 History (Tylenol Extra Strength) ascorbic acid (vitamin C) 1,000 mg 1,000 mg PO QDAY 05/03/25 History capsule diltiazem HCl 120 mg 120 mg PO QDAY 05/03/2504/16 History tablet,extended release 24 hr omega 5-qkn-uyc-fish oil 1,200 mg 1 cap PO DAILY 05/0305/03/25 History (144 mg-216 mg) capsule (Fish Oil) Ejection fraction %: 60 Have you fallen in the past year?: No PFSH Medical History Wears glasses Back pain Non-smoker Shortness of breath on exertion Chronic cough History of pain when walking History of stress test History of echocardiogram Cardiology follow-up encounter Abnormal ECG Dyspnea on exertion Essential hypertension Thoracic outlet syndrome Lightheadedness Reactive airway disease Seasonal allergies Contact with and (suspected) exposure to other viral communicable diseases Acute bronchitis, unspecified Over 63 years old COVID-19 Esophageal stricture Arthritis Difficulty swallowing GERD (gastroesophageal reflux disease) Surgical History History of bilateral carpal tunnel release History of bilateral cataract extraction History of breast biopsy History of foot surgery History of colonoscopy (~2017) History of right breast biopsy History of lung surgery History of tubal ligation Family History Sister Heart disease Mother CVA (cerebral vascular accident) Social History Smoking Status: Never smoker alcohol intake: never substance use type: does not use caffeine: Yes Type: coffee Number of servings: 1 and tea Number of servings: 1 ROS Const Const: Negative for fatigue or weakness Eyes Eyes: Negative for change in vision ENT ENT: Positive for balance problems; Negative for dizziness Cardio Chest Pain: No Palpitations: No Edema: None Resp Respiratory: Positive for SOB with activity; Negative for SOB at rest or SOB orthopnea\SOB lying down GI GI: Negative nausea or heartburn Musc Musc: Positive for balance problems Neuro Neuro: Positive for lightheadedness; Negative for dizziness, near syncope, syncope or weakness Endo Endo: Negative for fatigue Cardiology Exam Const Appearance: comfortable and no acute distress Nutritional Appearance: well nourished Neck Neck: no JVD Carotids: Negative bruit Chest Auscultation: Bilateral: Clear to Auscultation Cardio Rate: regular rate Rhythm: regular rhythm Heart sounds: S1 normal and S2 normal Neuro General: patient alert, patient awake and patient oriented x3 Extremities Lower Extremity Edema: None: Bilateral Supplemental Info Supplemental Information Diagnostics: Electrocardiogram Echocardiogram Stress Test Stress Test Nuclear Medicine Stress Echocardiogram Chest X-Ray Carotid Duplex Past Visits: Cardiology Visit Today Assessment and Plan Assessment and Plan (1) Paroxysmal atrial fibrillation: Status: Chronic Plan: On rivaroxaban and diltiazem. Continue. (2) Essential hypertension: Status: Chronic Plan: Diltiazem and spironolactone?hydrochlorothiazide. (3) Carotid artery disease: Status: Chronic Plan: Check carotid Doppler. (4) History of esophageal stricture: Status: Chronic Plan: As per GI. Plan Rare episodes of lightheadedness. Lasts for a few seconds only. Will check carotid Doppler. Check echocardiogram. Plan Details Follow Up: 6 Months Coding Level of Care Code Off vis,est,level 4 Diagnoses Paroxysmal atrial fibrillation I48.0 Essential hypertension I10 Carotid artery disease I77.9 History of esophageal stricture Z87.19 Coding Level of Care Code Off vis,est,level 4 Diagnoses Paroxysmal atrial fibrillation I48.0 Essential hypertension I10 Carotid artery disease I77.9 History of esophageal stricture Z87.19 Clinical Quality Measures Falls Risk Screening/Assistive Devices Have you fallen in the past year?: No Cardiac Ejection fraction %: 60 05/03/25 1352 <Electronically signed by Jessica Bernard MD> Date _ Jessica Bernard MD [facility] Signature: Date (if applicable) CC: Dr. Thu Nichols MD ~ [facility] Work Phone: Reason for referral (narrative)No reason for referral information [facility] Work Phone: Summary Purpose Family History No Family History Records Found Relationship Condition Age at Onset Recorded Date/T isac sister Cardiac disease Unknown mother Cerebrovascular accident (CVA) Unknown Advance Directives No Advanced Directives Records Found Advance Directive Response Recorded Date/ Time Living Will Yes December 07, 2021 3:29pm Power of Business Objects Yes December 07 3:29pm Advance Directive Response Recorded Date/ Time Living Will Yes December 07, 2021 2:29pm Power of Business Objects Yes December 07 2:29pm Chief Complaint and Reason for Visit Chief Complaint WEAKNESS Chief Complaint VESTIBULAR DYSFUNCTI ON. RX HERE Chief Complaint SORE THROAT/COVID TE ST DYSPHAGIA Reason for Visit Acute bronchitis, un specified Contact with and (suspected) exposure to other viral communicable diseases Chief Complaint Cough EORDER Reason for Visit Reactive airway dise ase Seasonal allergies Chief Complaint Cough EORDER SCREENING CERVICAL SPINE room 3 DIZZINESS/BALANCE RX HERE Reason for Visit Reactive airway dise ase Seasonal allergies Lightheadedness Chief Complaint Cough EORDER SCREENING CERVICAL SPINE room 3 DIZZINESS/BALANCE RX HERE DIZZINESS AND GIDDINESS (DORANTES) ABNORMAL EKG, DYSPNEA ABNORMAL EKG, DYSPNEA Amb Documentation Amb Documentation Reason for Visit Reactive airway dise ase Seasonal allergies Lightheadedness Abnormal ECG Dyspnea on exertion Essential hypertension Lightheadedness Chief Complaint SCREENING CERVICAL SPINE room 3 DIZZINESS/BALANCE RX HERE DIZZINESS AND GIDDINESS (DORANTES) ABNORMAL EKG, DYSPNEA ABNORMAL EKG, DYSPNEA Amb Documentation Amb Documentation Abnormal electrocardiogram [ECG] [EKG] polyarthralgia and R hip pain worse than L hip vargas Reason for Visit Lightheadedness Abnormal ECG Dyspnea on exertion Essential hypertension Lightheadedness Chief Complaint Abnormal electrocard iogram [ECG] [EKG] polyarthralgia and R hip pain worse than L hip vargas HIP,BACK PAIN,OSTEOPOROSIS RX HERE Chief Complaint polyarthralgia and R hip pain worse than L hip vargas HIP,BACK PAIN,OSTEOPOROSIS RX HERE Chief Complaint HIP,BACK PAIN,OSTEOP OROSIS RX HERE Chief Complaint HIP,BACK PAIN,OSTEOP OROSIS RX HERE 6 M FU NEAR SYNCOPE Reason for Visit Essential hypertensi on Paroxysmal atrial fibrillation Pre-syncope Chief Complaint Admit Date 6 M FU May 03, 2025 1:25pm Reason for Visit Admit Date Carotid artery disease May 03 1:25pm Essential hypertension May 03 1:25pm History of esophageal stricture Septembe r 2024 1:25pm Paroxysmal atrial fibrillation May 03, 2025 1:25pm Additional Source Comments INFORMATION SOURCE (unrecogn ized section and content) DATE CREATED AUTHOR 07/24/2018 [facility] DATE CREATED AUTHOR AUTHOR'S ORGANIZ ATION 12/19/2024 [facility] DATE CREATED AUTHOR AUTHOR'S ORGANIZ ATION 06/20/2025 [facility] Goals (unrecognized section and content) Goals may be documented in a n alternate sectionGoals may be documented in an alternate sectionGoals may be documented in an alternate sectionGoals may be documented in an alternate sectionGoals may be documented in an alternate sectionGoals may be documented in an alternate sectionGoals may be documented in an alternate sectionGoals may be documented in an alternate sectionGoals may be documented in an alternate sectionGoals may be documented in an alternate sectionGoals may be documented in an alternate sectionGoals may be documented in an alternate sectionGoals may be documented in an alternate sectionGoals may be documented in an alternate section No data available for this section No data available for this sectionGoals may be documented in an alternate sectionGoals may be documented in an alternate section Care Teams (unrecognized sec tion and content) Team Status: Active Member Role Status Dates Dr. Thu Nichols MD Family Provider Active Dr. Thu Nichols MD Primary Care Provider Active Team Status: Inactive Member Role Status Dates Dr. Thu Nichols MD Primary Care Provider, Referring P ralph Active Kallie PEÑA, PA Attending Provider Active Team Status: Inactive Member Role Status Dates Dr. Thu Nichols MD Primary Care Provider Active RONEN TurpinC Attending Provider, Referring Pr elena Active Team Status: Inactive Member Role Status Dates Dr. Thu Nichols MD Primary Care Provider, Attending P rovider Active Team Status: Inactive Member Role Status Dates Dr. Thu Nichols MD Primary Care Provider, Referring P rovider Active Dr. Diego Dorantes DO Attending Provider Active Team Status: Inactive Member Role Status Dates Dr. Thu Nichols MD Primary Care Provider Active Dr. Eloy Hart MD Attending Provider Active Team Status: Inactive Member Role Status Dates Dr. Thu Nichols MD Primary Care Provide r, Attending Provider, Referring Provider Active Team Status: Inactive Member Role Status Dates Dr. Thu Nichols MD Primary Care Provider, Referring P rovider Active Dr. Jessica Bernard MD Attending Provider Active Team Status: Active Member Role Status Dates Dr. Thu Nichols MD Primary Care Provider Active Dr. Jessica Bernard MD Attending Provider , Referring Provider, Other Provider Active Team Status: Active Member Role Status Dates Dr. Thu Nichols MD Primary Care Provider Active Maritza Welsh [employer], [employer]-C Attending Provider Active Team Status: Inactive Member Role Status Dates Dr. Thu Nichols MD Primary Care Provider Active Dr. Jessica Bernard MD Attending Provider, Referring Pr ovider Active Team Status: Active Member Role Status Dates Dr. Thu Nichols MD Primary Care Provider Active Dr. Thu Garcia MD Attending Provider Active Team Status: Active Member Role Status Dates Dr. Thu Nichols MD Primary Care Provider Active Dr. Thu Garcia MD Attending Provider Active Dr. Jessica Bernard MD Referring Provider Active Team Status: Active Member Role/Relationship Status Dates Dr. Thu Nichols MD Family Provider Active Dr. Thu Nichols MD Primary Care Provider Active Team Status: Inactive Member Role/Relationship Status Dates Dr. hTu Nichols MD Primary Care Provider Active Start: April 18, 2025 End: April 18, 2025 Dr. Thu Nichols MD Attending Provider Active St art: April 18, 2025 End: April 18, 2025 Team Status: Active Member Role/Relationship Status Dates Dr. Thu Nichols MD Primary care physician Active Team Status: Inactive Member Role/Relationship Status Dates Dr. Thu Nichols MD Primary care physician Active Start: April 18, 2025 End: April 18, 2025 Dr. Thu Nichols MD Attending physician Active S tart: April 18, 2025 End: April 18, 2025 Team Status: Inactive Member Role/Relationship Status Dates Dr. Thu Nichols MD Primary care physician Active Start: May 03, 2025 End: May 03, 2025 Dr. Thu Nichols MD Referring Provider Active St art: May 03, 2025 End: May 03, 2025 Dr. Jessica Bernard MD Attending physician Active Start: May 03, 2025 End: May 03, 2025 FOR RECORDS PERTAINING TO PATIENTS WHO ARE [...] BE BASED ON THE PRIMARY CLINICAL RECORDS. [employer] [facility]. provides no warranty or guarantee of the accuracy or completeness of information in this document.
--- NOTE | 2025-06-20 10:45 | EKG12_ITS ---
Test Reason : POST PCI Blood Pressure : */* mmHG Vent. Rate : 58 BPM Atrial Rate : 58 BPM P-R Int : 178 ms QRS Dur : 126 ms QT Int : 440 ms P-R-T Axes : 74 72 223 degrees QTcB Int : 431 ms Sinus bradycardia Left bundle branch block Abnormal ECG When compared with ECG of 18-Jun-2025 09:34, MANUAL COMPARISON REQUIRED DATA IS UNCONFIRMED Confirmed by Mark Lau ([id number]), supervising editor news reel KAYLEEN HENRY ([id number]) on 06/20/2025 2:21:08 PM Referred By: Jessica Bernard Confirmed By: Mark Lau
--- NOTE | 2025-06-20 10:55 | CL.I_ITS ---
Patient Name: ROSE RENTERIA Study Date: 06/20/2025 Performing: Jessica Bernard MD Ht: 54 inches 138.43 cm : 1940 Wt: 111.1 lbs 50.35 kg Age: 84 Gender: female BSA: 1.36 PROCEDURE(S) PERFORMED DC02-(08917)LHC/COR IC12-(36917/C9600)LEOLA W/WO PTCA, SINGLE CORONARY ARTERY CLINICAL PROFILE AND CO-MORBIDITIES Indications: Suspected CAD, LV Dysfunction Heart Failure: None Stress/Imaging Stress/Image Study Performed: No CAD Presentations: No Sxs, no angina. CONCLUSIONS Sub-total Mid LAD 90% Prox OM2 Successful PTCA/LEOLA Prox Mid LAD using Gerald Piercy 2.5x38 mm, optimized proximally using 3.0 mm balloon Successful LEOLA distal Mid LAD using Gerald Piercy 2.5x8 mm RECOMMENDATIONS P2Y12 inhibitors for atleast 6 months Continue patient's NOAC Staged PCI to OM2 DESCRIPTION OF PROCEDURE The patient arrived to the procedure lab. The risks and benefits of the procedure as well as a full description of our services here and lack of surgical backup were fully explained to the patient and/or their significant other prior to the catheterization. The Timeout was completed, verifying the correct patient and procedure. The patient's procedural site was prepped and draped in the usual fashion. Local anesthetic was given subcutaneously to right radial region with Lidocaine 2%. Using a modified Seldinger technique, arterial access was obtained via the right radial artery, a 6Fr sheath was inserted.. Left Coronary Artery selective angiography was performed in multiple views using a 5 Fr. 4.0 Converse catheter. Right Coronary Artery selective angiography was then performed in multiple views using a 5 Fr. 4.0 Converse catheter XB 3.0 Guide catheter was inserted and engaged into the LCA. Runthrough Guide wire was advanced to the LAD. Runthrough Guide wire was inserted as a ian wire XB 2.5 Guide catheter was inserted and engaged into the LCA. Runthrough Guide wire was advanced to the LAD. Emerge 2.00x12 Balloon catheter was inserted. Emerge 2.00x12 Balloon catheter was inserted. PTCA balloon inflated at 13 atms for 10 secs. PTCA balloon inflated at 10 atms for 6 secs. PTCA balloon inflated at 10 atms for 10 secs. PTCA balloon inflated at 10 atms for 6 secs. Piercy Gerald 2.5x38 Drug Eluting stent was inserted. Angiogram performed post stent deployment. Piercy Gerald 2.5x8 Drug Eluting stent was inserted. Drug Eluting stent was removed intact, failed to cross lesion NC Emerge 2.50x20 Balloon catheter was inserted. Angiogram performed post balloon dilatation. Piercy Canvas 2.5x8 Drug Eluting stent was inserted. Angiogram performed post stent deployment. NC Euphora 2.5x8 Balloon catheter was inserted. Angiogram performed post balloon dilatation. NC Euphora 3.0x8 Balloon catheter was inserted. Angiogram performed post balloon dilatation. The arterial sheath was pulled and a TR Band was applied for hemostasis w/ 12ml air CORONARY ANGIOGRAPHY DOMINANCE: Left Dominant LEFT HEART ASSESSMENT Left Ventricular Ejection Fraction: Not assessed LEFT MAIN: Very short LMCA LEFT ANTERIOR DESCENDING ARTERY: LAD: Calcified 50% Proximal lesion in LAD Calcified 99% Mid lesion in LAD Tubular 70% Mid lesion in LAD OM 1: Tubular 90% Proximal lesion in MARG2 OM 2: Tubular 90% Proximal lesion in MARG2 INTERVENTION INFORMATION LESION SITE: LAD (Mid) Lesion Complexity: High/C, lesion length: 36 mm, In-stent restenosis: No Pre Stenosis: 99 % Pre intervention PATRIZIA flow: 2 PROCEDURE: Drug Eluting Stent with pre and post dilatation Post Stenosis: 0 % Post intervention PATRIZIA flow: 3 Lesion Devices: Terumo .014 180cm Runthrough Extra Floppy straight Cordis 6 Fr XB2.5 VBT 100cm Guide Catheter Magdi Sci EMERGE MR 2.00x12 BALLOON Medtronic 2.50 x 38 GERALD FRONTIER LEOLA Medtronic 2.50 x 08 GERALD FRONTIER LEOLA Magdi Sci NC EMERGE MR 2.50x20 BALLOON Medtronic NC EUPHORA RX 2.5x08 BALLOON Medtronic NC EUPHORA RX 3.0x08 BALLOON LESION SITE: LAD (Mid) Pre Stenosis: 70 % Pre intervention PATRIZIA flow: 3 PROCEDURE: Drug Eluting Stent with post dilatation Post Stenosis: 0 % Post intervention PATRIZIA flow: 3 COMPLICATIONS No Complications PROCEDURE MEDICATIONS Versed 1 mg IV Fentanyl 50 mcg IV Versed 2 mg IV Oxygen: 5 L/min via nasal cannula Baby Aspirin (81mg) 1 Tabs PO 06/20/2025 07:43:30 Brilinta 180 mg PO @ 06/20/2025 09:53:38 Heparin given IA 06/20/2025 09:14:35 Heparin 4000 unit(s) IV 06/20/2025 09:30:26 Nitro 200 mcg IC 06/20/2025 09:59:58 Nitro 100 mcg IC 06/20/2025 10:16:26 Verapamil 2.5mg, Ntg 200mcgs, 2000 units of Heparin given IA 06/20/2025 09:14:35 SUMMARY OF HEMODYNAMIC DATA Time AIR REST ECG 07:43:45 AO 126/54 (81) SA 09:24:50 AO 125/53 (79) 09:36:58 AO 138/60 (89) 09:52:43 AO 144/51 (98) 10:00:05 AO 121/58 (84) 10:10:20 AO 96/36 (56) 10:15:03 AO 118/55 (78) 10:22:12 Signed By Jessica Bernard MD On 06/20/2025 10:54:28 Jessica Bernard MD
[2025-06-20] MEDS: 0.9% Normal Saline (1000mL) 1,000 ML 100 ML IV (11:52)
[2025-06-20] MEDS: 0.9% Normal Saline 500 ML IV.SOLN. IV (11:52)
[2025-06-20 11:59] LABS: ACT Activated Clotting Time 301 sec (74-137)
[2025-06-20 11:59] LABS: ACT Activated Clotting Time 255 sec (74-137)
--- NOTE | 2025-06-20 14:15 | CRPHASE1_ITS ---
Patient Communication Patient Information Former Patient:: Phase I PHII Cardiac Rehab Discussed with Patient:: Yes Guide to Cardiac Rehab Given to Patient:: Yes Cardiac Rehab Facility Choice List Given to Patient:: Yes Communication to Cardiac Rehab Ultrasound Technologist:: Jessica Bernard Sessions:: 36 sessions - 3 days/wk, 12 weeks Cardiac Rehabilitation Info Program Information Cardiac Rehabilitation Program Information: Cardiac Rehab The cardiac rehab team at [facility] consists of highly skilled exercise physiologists, nurses, respiratory therapists and physicians working together with you. Our purpose is to help you have a full recovery and achieve the goals you set for yourself. Over the years many of our patients have returned to activities they assumed they would never do again! We can help restore your confidence and motivation to make lifestyle changes that can have a significant impact on your health and quality of life! We can help answer questions and concerns you may have about exercise, lifestyle, medications, diet, stress and anxiety which are common following a hospitalization. WE monitor ECG and vital signs during exercise and discuss your progress with you and report to your physician(s). Cardiac Rehab is proven to help reduce readmissions, improve functional capacity and lower recurrence of problems with your heart. Our Cardiac Rehab program is Certified by the [place] [employer]-Vascular and Pulmonary Rehabilitation (AACVPR) and Accredited by the [employer] through our [facility]. You can contact us at . We invite you to call us with your questions or to get started in our program. If you have other questions or concerns be sure to ask your physician/provider during your follow-up visit. WE look forward to seeing you!
--- NOTE | 2025-06-20 14:16 | CRPHASE1_ITS ---
Cardiac Rehabilitation Info Program Information Cardiac Rehabilitation Program Information: Cardiac Rehab The cardiac rehab team at [facility] consists of highly skilled exercise physiologists, nurses, respiratory therapists and physicians working together with you. Our purpose is to help you have a full recovery and achieve the goals you set for yourself. Over the years many of our patients have returned to activities they assumed they would never do again! We can help restore your confidence and motivation to make lifestyle changes that can have a significant impact on your health and quality of life! We can help answer questions and concerns you may have about exercise, lifestyle, medications, diet, stress and anxiety which are common following a hospitalization. WE monitor ECG and vital signs during exercise and discuss your progress with you and report to your physician(s). Cardiac Rehab is proven to help reduce readmissions, improve functional capacity and lower recurrence of problems with your heart. Our Cardiac Rehab program is Certified by the [place] [employer] Cardio-Vascular and Pulmonary Rehabilitation (AACVPR) and Accredited by the [place] [employer] through our [facility]. You can contact us at . We invite you to call us with your questions or to get started in our program. If you have other questions or concerns be sure to ask your physician/provider during your follow-up visit. WE look forward to seeing you!
--- NOTE | 2025-06-20 14:17 | CRPH1.INSTRU ---
General Education Discussed with Patient CAD and cardiac anatomy and function:: Patient communicates acknowledgment Explanation of diagnoses and procedures:: Patient communicates acknowledgment Sign/Symptoms of [place]:: Patient communicates acknowledgment Antiplatelet therapy: Patient communicates acknowledgment Proper use of NTG-SL: Patient communicates acknowledgment Emergency procedures and activation of EMS: Patient communicates acknowledgment Compliance of all prescribed medications: Patient communicates acknowledgment Smoking Risk Factors Patient Nicotine/Smoking Risk Factors Are:: Non-smoker Response Code Nicotine/Smoking Response Code:: Patient communicates acknowledgment and Family communicates acknowledgment Dyslipidemia Risk Factors Patient Dyslipidemia Risk Factors Are:: Total Cholesterol, Triglycerides, HDL and LDL Recommendations Recommendations Include:: Lipid profile not available Response Code Dyslipidemia Response Code:: Patient communicates acknowledgment Overweight/Obesity Risk Factors Patient Overweight/Obesity Risk Factors Are:: Overweight = 26-29 Recommendations Recommendations Include:: Weight loss of 5-10%, Reduced calorie diet and Exercise 5-7 times/week Response Code Overweight/Obesity:: Patient communicates acknowledgment Hypertension Risk Factors Patient Hypertension Risk Factors Are:: No documented hx of HTN Recommendations Recommendations Include:: Maintain BP <130/85, BP <130/80 if diabetic, DASH dietary guidelines, Decrease/maintain normal body weight and Moderation of ETOH Response Code Hypertension:: Patient communicates acknowledgment Heart Disease Risk Factors Patient Heart Disease Risk Factors Are:: Family history of heart disease < 65 years old Recommendations Recommendations Include:: Educated family members of their risk and Educated family members of importance of prevention of heart disease Response Code Heart Disease Response Code:: Patient communicates acknowledgment Diabetes Risk Factors Patient Diabetes Risk Factors Are:: Elevated blood sugars and Post-op hyperglycemia Recommendations Recommendations Include:: Maintain fasting blood sugars 70-110 md/dL, Maintain HgbA1c of 6% or less, Monitor blood sugar as prescribed, Diabetic dietary guidelines and Decrease/maintain body weight Response Code Diabetes:: Patient communicates acknowledgment Metabolic Syndrome Risk Factors Patient Metabolic Syndrome Risk Factors Are [3 of 5]:: Fasting blood sugar > 100 mg/dL and Waist circumference > 35 [female] or 40 [male] Recommendations Recommendations Include:: Does not meet criteria Response Code Metabolic Syndrome Response Code:: Patient communicates acknowledgment Sedentary Risk Factors Patient Sedentary Risk Factors Are:: Lack of regular exercise Recommendations Recommendations Include:: Aerobic exercise 5-7 times/week for 20-30 minutes continuously, Benefits of regular exercise, Discussed home walking program and Monitored Outpatient Cardiac Rehab Response Code Sedentary Response Code:: Patient communicates acknowledgment Stress Risk Factors Patient Stress Risk Factors Are:: Patient denies stress as a risk factor Recommendations Recommendations Include:: Identification of stressors, and assessment of coping skills and Stress management techniques Response Code Stress Response Code:: Patient communicates acknowledgment
--- NOTE | 2025-06-20 14:49 | DCINST_ITS ---
Discharge Instructions DC O2, CPAP, BIPAP needs Home O2 Discharge instructions: No Dressing / Incision Discharge Activity: Return to Normal Activity Dressing / Incision Call your doctor if your incision/area has: Continuous Slow Oozing, Sudden Increased Bleeding, Increased Pain/ Swelling, Increased Redness, Foul Smelling Discharge and Swelling at the incision site Call your doctor if you observe: Fever of 101 or Higher, Coldness, Increased Pain, Numbness or Tingling and Change in Color Follow Up Care Please Follow Up With: Jessica Bernard MD When: 2-4 weeks Test Results: Test results from this visit will be discussed in further detail at your follow- up appointment, if applicable. Discharge Plan Admission Admit Date/Time: 06/20/25 10:32 Attending Provider: Jessica Bernard Primary Care Provider: Misael Nichols Discharge Orders/Prescriptions Prescriptions: New clopidogrel 75 mg Tablet 75 mg PO DAILY Qty: 30 6RF metoprolol tartrate 25 mg Tablet 25 mg PO BID Qty: 60 11RF Eliquis 5 mg Tablet 2.5 mg PO BID Qty: 60 11RF Continued cholecalciferol (vitamin D3) 125 mcg (5,000 unit) capsule 125 mcg PO DAILY zinc sulfate 25 mg zinc (110 mg) tablet 25 mg PO DAILY mecobalamin (vitamin B12) 1,000 mcg tablet,chewable 1,000 mcg PO DAILY spironolacton-hydrochlorothiaz 25-25 mg tablet PO DAILY acetaminophen [Tylenol Extra Strength] 500 mg tablet 500 mg PO Q6H PRN (Reason: fever or pain) omega 5-exz-pcx-fish oil [Fish Oil] 1,200 (144-216) mg capsule 1 cap PO DAILY ascorbic acid (vitamin C) 1,000 mg capsule 1,000 mg PO QDAY calcium carbonate [Antacid (calcium carbonate)] 200 mg calcium (500 mg) tablet,chewable 400 mg PO Q4H PRN (Reason: heartburn) atorvastatin [Lipitor] 20 mg tablet 20 mg PO QHS Qty: 30 3RF Discontinued Xarelto 15 mg tablet 15 mg PO QDAY diltiazem HCl 120 mg tablet extended release 24 hr 120 mg PO QDAY aspirin 81 mg tablet,delayed release (DR/EC) 81 mg PO QDAY Qty: 30 11RF Referrals / Follow Up: Misael Nichols MD [Primary Care Provider, Family Practice] Disposition Disposition (needs filled in before D/C Order can be placed): Home, Self Care
[2025-06-20] MEDS: APIXABAN 2.5 MG TABLET (WCH) PO (21:38)
[2025-06-21 03:19] VITALS: BP 121/39; PULSE 64; RESP 18; TEMP 36.5; O2SAT 98
[2025-06-21 06:15] LABS: Hematocrit 39.4 % (37-47); Hemoglobin 13.5 g/dL (12.0-15.0); Mean Corp Hgb Conc 34.3 g/dL (32-36); Mean Corpuscular Volume 91.0 fL (81-99); Mean Platelet Vol. 7.8 fl (6.2-12.0); Platelet Count 254 K/mm3 (150-450); RBC Distribution Width CV 12.0 % (11.6-14.6); RBC Distribution Width SD 40.4 fl (35.1-43.9); Red Blood Count 4.33 M/mm3 (4.2-5.4); White Blood Count 9.0 K/mm3 (4.4-11.0)
[2025-06-21 06:50] LABS: AST(SGOT) 28 U/L (<=31); Alanine Aminotransfer ALT/SGPT 10 U/L (<=34); Albumin, Serum 3.5 g/dL (3.4-4.8); Alkaline Phosphatase 61 U/L (35-104); Anion Gap 9 (5-15); BUN 10 mg/dL (4-19); BUN/Creat Ratio 13.6 RATIO (10-20); Calcium,Total 9.0 mg/dL (7.6-11.0); Carbon Dioxide 24.8 mmol/L (21.0-32.0); Chloride 102 mmol/L (98-108); Cholesterol 143 mg/dL (<=200); Estimated Creatinine Clearance 36.26 ml/min (50-250); Globulin 2.8 g/dL (2.2-4.2); Glucose 104 mg/dL (70-99); Low Density Lipoprotein Calc. 71 mg/dL; Potassium 4.2 mmol/L (3.3-5.1); Triglycerides 72 mg/dL; Very Low Density Lipoprotein 14 mg/dL (5-40); cholesterol:hdl ratio screen 2.48
[2025-06-21 08:45] VITALS: BP 116/45; PULSE 60; RESP 16; TEMP 36.6; O2SAT 96
[2025-06-21] MEDS: Cholecalciferol (Vit D3) 125 MCG CAPSULE (5,000 UNITS) PO (08:49)
[2025-06-21 08:50] VITALS: BP 116/45; PULSE 60
[2025-06-21] MEDS: APIXABAN 2.5 MG TABLET (WCH) PO (08:50)
[2025-06-21] MEDS: FLU VACCINE HIGH DOSE 25-26(65YR UP) 180 MCG/0.5 ML SYRINGE IM (09:04)
--- NOTE | 2025-06-21 10:44 | CASEMGMT ---
ANEESH CHESTER NOTE: Discharge order is in. RN CM to room. Pt resting in bed, daughter @ bedside. Pt denies having concerns w/discharging home today. Pt and daughter had questions re: discharge medications. Charisse MELENDREZ, mahin and states will review/clarify discharge instructions with physician and update pt & daughter. Yadiel BRIZUELAN ANEESH CM
--- NOTE | 2025-06-21 11:54 | PHA.DC_ITS ---
Pharmacy [facility] has performed discharge medication counseling for this patient. The patient was counseled on the following discharge medications and changes in medications for homegoing review. - Apixaban 5 mg tablet, Metoprolol tartrate 25 mg tablet, Clopidogrel 75 mg tablet. The Reason for Use, instructions for use, and potential side effects were reviewed for all new medications. The patient's questions regarding all of their medications were answered. - Answered the patient and daughter's questions about the new medications, why we are switching from Xarelto to Eliquis as well as diltiazem to metoprolol. Also answered questions about bleeding side effect from triple anticoagulant therapy. The patient was able to verbally demonstrate an understanding of their discharge medications. Medications at Discharge Home Medications cholecalciferol (vitamin D3) 125 mcg (5,000 unit) capsule 125 mcg PO DAILY 03/03/23 zinc sulfate 25 mg zinc (110 mg) tablet 25 mg PO DAILY 03/03/23 mecobalamin (vitamin B12) 1,000 mcg chewable tablet 1,000 mcg PO DAILY 03/30/23 calcium carbonate (Antacid (calcium carbonate)) 400 mg PO Q4H PRN heartburn 04/27/24 spironolactone 25 mg-hydrochlorothiazide 25 mg tablet tab PO DAILY 10/26/24 acetaminophen 500 mg tablet (Tylenol Extra Strength) 500 mg PO Q6H PRN fever or pain 05/03/25 ascorbic acid (vitamin C) 1,000 mg capsule 1,000 mg PO QDAY 05/03/25 omega 5-dqb-sil-fish oil 1,200 mg (144 mg-216 mg) capsule (Fish Oil) 1 cap PO DAILY 05/03/25 atorvastatin 20 mg tablet (Lipitor) 20 mg PO QHS #30 tabs 06/12/25 metoprolol tartrate 25 mg tablet 25 mg PO BID #60 tabs 06/20/25 apixaban 2.5 mg tablet (Eliquis) 2.5 mg PO BID This RX is for clarification on dose #60 tabs 06/21/25 aspirin 81 mg tablet 81 mg PO QDAY #30 tabs 06/21/25 clopidogrel 75 mg tablet 75 mg PO DAILY #30 tabs 06/21/25
== END 2025-06-21 13:41 | disposition home or self-care (01) ==
LOC: PCU 10:48
PROVIDERS: Admitting Provider Internal Medicine Cardiovascular Disease; PCP Family Medicine; Referring Provider Internal Medicine Cardiovascular Disease; Visit Provider Internal Medicine Cardiovascular Disease
DX: R93.1 Abnormal findings on diagnostic imaging of heart and coronary circulation (principal); I48.0 Paroxysmal atrial fibrillation; I10 Essential (primary) hypertension; R42 Dizziness and giddiness; R06.02 Shortness of breath; R53.83 Other fatigue; Z79.899 Other long term (current) drug therapy; Z79.01 Long term (current) use of anticoagulants; Z79.82 Long term (current) use of aspirin; K21.9 Gastro-esophageal reflux disease without esophagitis; Z82.49 Family history of ischemic heart disease and other diseases of the circulatory system; H53.8 Other visual disturbances; I08.1 Rheumatic disorders of both mitral and tricuspid valves
CPT/HCPCS: 36415; 71046; 80048; 80053; 80061; 85025; 85027; 85347; 92928; 93005; 93454; 96360; 96361; 99152; 99153; 99221; C1769; C1874; C1887; C1894; Q9967; C1725; C9600; G0378

== ENCOUNTER 2025-07-16 12:22 | Observation (INO) | payer MEDICARE, SELFPAY ==
[2025-07-11 13:41] VITALS: BMI 26.2
[2025-07-16] VITALS (11 sets, daily range): BP systolic 104–126; BP diastolic 41–53; PULSE 60–67; RESP 16; TEMP 36.4–36.6; O2SAT 95–98
[2025-07-16 12:24] LABS: ACT Activated Clotting Time 230 sec (74-137)
--- NOTE | 2025-07-16 12:25 | PCM.DC ---
Discharge Instructions DC O2, CPAP, BIPAP needs Home O2 Discharge instructions: No Dressing / Incision Discharge Activity: Return to Normal Activity Dressing / Incision Call your doctor if your incision/area has: Continuous Slow Oozing, Sudden Increased Bleeding, Increased Pain/ Swelling, Increased Redness, Foul Smelling Discharge and Swelling at the incision site Call your doctor if you observe: Fever of 101 or Higher, Coldness, Increased Pain, Numbness or Tingling and Change in Color Follow Up Care Please Follow Up With: Jessica Bernard MD When: 2-4 weeks Test Results: Test results from this visit will be discussed in further detail at your follow-up appointment, if applicable. Discharge Plan Admission Attending Provider: Jessica Bernard Primary Care Provider: Misael Nichols Instructions Print Language: [place] Discharge Orders/Prescriptions Prescriptions: Continued cholecalciferol (vitamin D3) 125 mcg (5,000 unit) capsule 125 mcg PO DAILY zinc sulfate 25 mg zinc (110 mg) tablet 25 mg PO DAILY mecobalamin (vitamin B12) 1,000 mcg tablet,chewable 1,000 mcg PO DAILY spironolacton-hydrochlorothiaz 25-25 mg tablet 1 tab PO DAILY acetaminophen [Tylenol Extra Strength] 500 mg tablet 500 mg PO Q6H PRN (Reason: fever or pain) omega 6-omi-qta-fish oil [Fish Oil] 1,200 (144-216) mg capsule 1 cap PO DAILY ascorbic acid (vitamin C) 1,000 mg capsule 1,000 mg PO QDAY Xarelto 15 mg tablet 15 mg PO QDAY Rx Instructions: must administer with evening meal metoprolol tartrate 25 mg Tablet 25 mg PO BID Qty: 60 11RF calcium carbonate [Antacid (calcium carbonate)] 200 mg calcium (500 mg) tablet,chewable 400 mg PO Q4H PRN (Reason: heartburn) atorvastatin [Lipitor] 20 mg tablet 20 mg PO QHS Qty: 30 3RF clopidogrel 75 mg tablet 75 mg PO DAILY Qty: 30 6RF Discontinued aspirin 81 mg tablet 81 mg PO QDAY Qty: 30 11RF Referrals / Follow Up: Misael Nichols MD [Primary Care Provider, Family Practice] Disposition Disposition (needs filled in before D/C Order can be placed): Home, Self Care
--- NOTE | 2025-07-16 12:30 | EKG12_ITS ---
Test Reason : POST PCI Blood Pressure : */* mmHG Vent. Rate : 63 BPM Atrial Rate : 63 BPM P-R Int : 182 ms QRS Dur : 130 ms QT Int : 430 ms P-R-T Axes : 79 47 148 degrees QTcB Int : 440 ms Normal sinus rhythm Left bundle branch block Abnormal ECG When compared with ECG of 20-Jun-2025 11:21, Nonspecific T wave abnormality has replaced inverted T waves in Inferior leads Confirmed by Mark Lau ([id number]), magazine editor KAYLEEN HENRY ([id number]) on 07/17/2025 11:13:14 AM Referred By: Jessica Bernard Confirmed By: Mark Lau
--- NOTE | 2025-07-16 12:52 | CL.I_ITS ---
Patient Name: ROSE RENTERIA Study Date: 07/16/2025 Performing: Jessica Bernard MD Ht: 54 inches 138.43 cm : 1940 Wt: 111.1 lbs 50.35 kg Age: 84 Gender: female BSA: 1.36 PROCEDURE(S) PERFORMED IC12-(61267/C9600)LEOLA W/WO PTCA, SINGLE CORONARY ARTERY CLINICAL PROFILE AND CO-MORBIDITIES Indications: Staged PCI Heart Failure: NYHA Class: 2, Newly Diagnosed: No, Heart Failure Type: Systolic CONCLUSIONS Successful PTCA/LEOLA Prox OM1 using [place] 2.5x12 mm RECOMMENDATIONS P2Y12 inhibitors for atleast 6 months Continue patient's Rivaroxaban DESCRIPTION OF PROCEDURE The patient arrived to the procedure lab. The risks and benefits of the procedure as well as a full description of our services here and current unavailability of surgical backup were fully explained to the patient and/or their significant other prior to the catheterization. The Timeout was completed, verifying the correct patient and procedure. The patient's procedural site was prepped and draped in the usual fashion. Local anesthetic was given subcutaneously to right radial region with Lidocaine 2%. Using a modified Seldinger technique, arterial access was obtained via the right radial artery, a 6Fr sheath was inserted.. XB 3 Guide catheter was inserted and engaged into the LCA. Runthrough Guide wire was advanced to the 1st OM. [place] 2.5 x 8 Drug Eluting stent was inserted. Drug Eluting stent was removed intact, failed to cross lesion NC Euphora 2.25 x 8 Balloon catheter was inserted. Balloon catheter was advanced across lesion in the first obtuse marginal, proximal PTCA balloon inflated at 12 atms for [address] [place] 2.5 x 15 Drug Eluting stent was inserted. Drug Eluting stent was advanced across the lesion in the first obtuse marginal, proximal. NC Emerge 2.5 x 12 Balloon catheter was inserted. NC Euphora 2.5 x 8 Balloon catheter was inserted. Choice Guide wire was inserted as a ian wire NC Euphora 2.5 x 8 Balloon catheter was reinserted Balloon catheter was advanced across lesion in the first obtuse marginal, proximal. Angiogram performed pre balloon dilatation. Angiogram performed post balloon dilatation. Angiogram performed post balloon dilatation. The arterial sheath was pulled and a TR Band was applied for hemostasis INTERVENTION INFORMATION LESION SITE: 1st OM (Proximal) Lesion Complexity: Non-High/Non-C, lesion length: 14 mm Pre Stenosis: 90 % Pre intervention PATRIZIA flow: 3 PROCEDURE: Drug Eluting Stent with pre and post dilatation Post Stenosis: 0 % Post intervention PATRIZIA flow: 3 Lesion Devices: Terumo .014 180cm Runthrough Extra Floppy straight Cordis 6 Fr XB3.0 100cm Guide Catheter Terumo .014 180cm Runthrough Extra Floppy straight Medtronic NC EUPHORA RX 2.25x08 BALLOON Medtronic 2.50 x 15 GERALD FRONTIER LEOLA Magdi Sci NC EMERGE MR 2.50x12 BALLOON Medtronic NC EUPHORA RX 2.5x08 BALLOON COMPLICATIONS No Complications PROCEDURE MEDICATIONS Fentanyl 50 mcg IV Versed 1 mg IV Oxygen: 2 L/min via nasal cannula Heparin given IA 07/16/2025 11:32:09 Heparin 3000 unit(s) IV 07/16/2025 11:37:27 Heparin 1000 unit(s) IV 07/16/2025 12:18:33 Nitro 100 mcg IC 07/16/2025 12:04:32 Verapamil 2.5mg, Ntg 200mcgs, 2000 units of Heparin given IA 07/16/2025 11:32:09 SUMMARY OF HEMODYNAMIC DATA Time AIR REST ECG 10:53:29 ECG 11:18:13 AO 114/55 (76) SA 11:41:11 Signed By Jessica Bernard MD On 07/16/2025 12:51:35 Jessica Bernard MD
[2025-07-16] MEDS: 0.9% Normal Saline (1000mL) 1,000 ML 75 ML IV (13:09)
--- NOTE | 2025-07-16 15:19 | CRPHASE1 ---
Patient Communication Patient Information Former Patient:: Phase I PHII Cardiac Rehab Discussed with Patient:: Yes Guide to Cardiac Rehab Given to Patient:: Yes Cardiac Rehab Facility Choice List Given to Patient:: Yes Communication to Cardiac Rehab Criminalist:: Jessica Bernard Sessions:: 36 sessions - 3 days/wk, 12 weeks Cardiac Rehabilitation Info Program Information Cardiac Rehabilitation Program Information: Cardiac Rehab The cardiac rehab team at [facility] consists of highly skilled exercise physiologists, nurses, respiratory therapists and physicians working together with you. Our purpose is to help you have a full recovery and achieve the goals you set for yourself. Over the years many of our patients have returned to activities they assumed they would never do again! We can help restore your confidence and motivation to make lifestyle changes that can have a significant impact on your health and quality of life! We can help answer questions and concerns you may have about exercise, lifestyle, medications, diet, stress and anxiety which are common following a hospitalization. WE monitor ECG and vital signs during exercise and discuss your progress with you and report to your physician(s). Cardiac Rehab is proven to help reduce readmissions, improve functional capacity and lower recurrence of problems with your heart. Our Cardiac Rehab program is Certified by the [place] [employer] Cardio-Vascular and Pulmonary Rehabilitation (AACVPR) and Accredited by the [place] [employer] through our [facility]. You can contact us at . We invite you to call us with your questions or to get started in our program. If you have other questions or concerns be sure to ask your physician/provider during your follow-up visit. WE look forward to seeing you!
--- NOTE | 2025-07-16 15:20 | CRPH1.INSTRU ---
General Education Discussed with Patient CAD and cardiac anatomy and function:: Patient communicates acknowledgment Explanation of diagnoses and procedures:: Patient communicates acknowledgment Sign/Symptoms of [place]:: Patient communicates acknowledgment Antiplatelet therapy: Patient communicates acknowledgment Proper use of NTG-SL: Patient communicates acknowledgment Emergency procedures and activation of EMS: Patient communicates acknowledgment Compliance of all prescribed medications: Patient communicates acknowledgment Smoking Risk Factors Patient Nicotine/Smoking Risk Factors Are:: Never smoked Response Code Nicotine/Smoking Response Code:: Not instructed Dyslipidemia Risk Factors Patient Dyslipidemia Risk Factors Are:: Total Cholesterol, Triglycerides, HDL and LDL Recommendations Recommendations Include:: Lipid profile not available, Reviewed NCEP/ATP guidelines and Therapeutic Lifestyle Change dietary guidelines Response Code Dyslipidemia Response Code:: Patient communicates acknowledgment Overweight/Obesity Risk Factors Patient Overweight/Obesity Risk Factors Are:: Overweight = 26-29 Recommendations Recommendations Include:: Weight loss of 5-10%, Reduced calorie diet and Exercise 5-7 times/week Response Code Overweight/Obesity:: Patient communicates acknowledgment Hypertension Risk Factors Patient Hypertension Risk Factors Are:: No documented hx of HTN Recommendations Recommendations Include:: Maintain BP <130/85, DASH dietary guidelines, Decrease/maintain normal body weight and Moderation of ETOH Response Code Hypertension:: Patient communicates acknowledgment Heart Disease Risk Factors Patient Heart Disease Risk Factors Are:: Previous cardiac event Recommendations Recommendations Include:: Educated family members of their risk and Educated family members of importance of prevention of heart disease Response Code Heart Disease Response Code:: Patient communicates acknowledgment Diabetes Risk Factors Patient Diabetes Risk Factors Are:: No documented hx of diabetes Recommendations Recommendations Include:: Maintain fasting blood sugars 70-110 md/dL, Maintain HgbA1c of 6% or less, Monitor blood sugar as prescribed, Diabetic dietary guidelines and Decrease/maintain body weight Response Code Diabetes:: Patient communicates acknowledgment Metabolic Syndrome Recommendations Recommendations Include:: Encouraged follow-up with Primary Care Physician Response Code Metabolic Syndrome Response Code:: Not instructed Sedentary Risk Factors Patient Sedentary Risk Factors Are:: Lack of regular exercise Recommendations Recommendations Include:: Aerobic exercise 5-7 times/week for 20-30 minutes continuously, Benefits of regular exercise, Discussed home walking program and Monitored Outpatient Cardiac Rehab Response Code Sedentary Response Code:: Patient communicates acknowledgment Stress Recommendations Recommendations Include:: Identification of stressors, and assessment of coping skills and Stress management techniques Response Code Stress Response Code:: Patient communicates acknowledgment
[2025-07-17 02:58] VITALS: BP 122/46; PULSE 59; RESP 18; TEMP 36.4; O2SAT 95
[2025-07-17 04:48] LABS: Hematocrit 36.2 % (37-47); Hemoglobin 12.0 g/dL (12.0-15.0); Mean Corp Hgb Conc 33.1 g/dL (32-36); Mean Corpuscular Volume 92.3 fL (81-99); Mean Platelet Vol. 8.3 fl (6.2-12.0); Platelet Count 263 K/mm3 (150-450); RBC Distribution Width CV 11.9 % (11.6-14.6); RBC Distribution Width SD 40.4 fl (35.1-43.9); Red Blood Count 3.92 M/mm3 (4.2-5.4); White Blood Count 8.5 K/mm3 (4.4-11.0)
[2025-07-17 05:14] LABS: AST(SGOT) 23 U/L (<=31); Alanine Aminotransfer ALT/SGPT 9 U/L (<=34); Albumin, Serum 3.3 g/dL (3.4-4.8); Alkaline Phosphatase 59 U/L (35-104); Anion Gap 10 (5-15); BUN 10 mg/dL (4-19); BUN/Creat Ratio 14.2 RATIO (10-20); Calcium,Total 8.4 mg/dL (7.6-11.0); Carbon Dioxide 23.1 mmol/L (21.0-32.0); Chloride 104 mmol/L (98-108); Estimated Creatinine Clearance 35.59 ml/min (50-250); Globulin 2.6 g/dL (2.2-4.2); Glucose 92 mg/dL (70-99); Potassium 3.9 mmol/L (3.3-5.1)
[2025-07-17 08:45] VITALS: BP 123/50; PULSE 65; RESP 17; TEMP 36.9; O2SAT 95
--- NOTE | 2025-07-17 10:22 | PHA.DC.MR.R ---
Pharmacy [facility] Med Reconciliation Pharmacy Service has performed discharge medication reconciliation for this patient. The patient's discharge medication list was reviewed for discrepancies and discrepancies were resolved. Medications at Discharge Home Medications cholecalciferol (vitamin D3) 125 mcg (5,000 unit) capsule 125 mcg PO DAILY 03/03/23 zinc sulfate 25 mg zinc (110 mg) tablet 25 mg PO DAILY 03/03/23 mecobalamin (vitamin B12) 1,000 mcg chewable tablet 1,000 mcg PO DAILY 03/30/23 calcium carbonate (Antacid (calcium carbonate)) 400 mg PO Q4H PRN heartburn 04/27/24 spironolactone 25 mg-hydrochlorothiazide 25 mg tablet 1 tab PO DAILY 10/26/24 acetaminophen 500 mg tablet (Tylenol Extra Strength) 500 mg PO Q6H PRN fever or pain 05/03/25 ascorbic acid (vitamin C) 1,000 mg capsule 1,000 mg PO QDAY 05/03/25 omega 7-hyp-rqn-fish oil 1,200 mg (144 mg-216 mg) capsule (Fish Oil) 1 cap PO DAILY 05/03/25 atorvastatin 20 mg tablet (Lipitor) 20 mg PO QHS #30 tabs 06/12/25 metoprolol tartrate 25 mg tablet 25 mg PO BID #60 tabs 06/20/25 clopidogrel 75 mg tablet 75 mg PO DAILY #30 tabs 06/21/25 rivaroxaban 15 mg tablet (Xarelto) 15 mg PO QDAY 07/09/25
[2025-07-17 11:00] VITALS: PULSE 65
[2025-07-17] MEDS: Zinc Sulfate 50 mg zinc (220 mg) ORAL capsule PO (11:00)
[2025-07-17] MEDS: Cholecalciferol (Vit D3) 125 MCG CAPSULE (5,000 UNITS) PO (11:00)
--- NOTE | 2025-07-17 11:35 | CASEMGMT ---
Patient has order for discharge. RN CM in to discuss needs at discharge. Patient denies needs or help at discharge. Patient had no further questions or concerns.
--- NOTE | 2025-07-17 12:27 | CASEMGMT ---
CALIX Met with patient to complete CALIX form. CALIX form and its content were verbally explained and patient's questions were answered to the best of my ability.? Patient voiced understanding and signed CALIX form.? Patient provided a copy of signed CALIX form and original placed in patient's chart.? Patient had no further questions. Simran Dolan, Discharge Planning Asst
== END 2025-07-17 12:34 | disposition home or self-care (01) ==
LOC: CLSP 12:26 → PCU 12:35
PROVIDERS: Admitting Provider Internal Medicine Cardiovascular Disease; PCP Family Medicine; Referring Provider Internal Medicine Cardiovascular Disease; Visit Provider Internal Medicine Cardiovascular Disease
DX: I25.10 Atherosclerotic heart disease of native coronary artery without angina pectoris (principal); I11.0 Hypertensive heart disease with heart failure; I50.22 Chronic systolic (congestive) heart failure; I48.0 Paroxysmal atrial fibrillation; Z95.5 Presence of coronary angioplasty implant and graft; R06.09 Other forms of dyspnea; Z79.899 Other long term (current) drug therapy; Z79.02 Long term (current) use of antithrombotics/antiplatelets; Z79.82 Long term (current) use of aspirin; I25.5 Ischemic cardiomyopathy
CPT/HCPCS: 36415; 80053; 85027; 85347; 92928; 93005; 96360; 96361; 99152; 99153; 99221; C1887; C1894; Q9967; C1725; C1769; C1874; C9600; G0378

== ENCOUNTER → 2025-08-07 | Outpatient (CLI) | payer MEDICARE, SELFPAY ==
--- NOTE | 2025-08-07 12:58 | PCM.CR.HP2 ---
CR - History & Physical General Arrival date:: 08/07/25 Arrival time:: 12:58 Date of Referral:: 07/30/25 Date of CR Evaluation:: 08/07/25 Referring Physician: Dr. Bernard Primary Diagnosis: PCI w/stenting History of Present Cardiac Event Onset Date PTCA or coronary stenting:: Yes (onset 07/16/25) Vessel: LAD on 06/20/25 and OM 2 on 07/16/25 Medications Ambulatory Orders ?Medication ?Instructions ?Recorded cholecalciferol (vitamin D3) 125 125 mcg PO DAILY 03/03/23 mcg (5,000 unit) capsule zinc sulfate 25 mg zinc (110 mg) 25 mg PO DAILY 03/03/23 tablet mecobalamin (vitamin B12) 1,000 1,000 mcg PO DAILY 03/30/23 mcg chewable tablet calcium carbonate (Antacid 400 mg PO Q4H PRN heartburn 04/27/24 (calcium carbonate)) acetaminophen 500 mg tablet 500 mg PO Q6H PRN fever or pain 05/03/25 (Tylenol Extra Strength) ascorbic acid (vitamin C) 1,000 mg 1,000 mg PO QDAY 05/03/25 capsule omega 3-yxo-lms-fish oil 1,200 mg 1 cap PO DAILY 05/03/25 (144 mg-216 mg) capsule (Fish Oil) atorvastatin 20 mg tablet (Lipitor) 20 mg PO QHS #30 tabs 06/12/25 metoprolol tartrate 25 mg tablet 25 mg PO BID #60 tabs 06/20/25 clopidogrel 75 mg tablet 75 mg PO DAILY #30 tabs 06/21/25 rivaroxaban 15 mg tablet (Xarelto) 15 mg PO QDAY 07/09/25 dapagliflozin propanediol 10 mg 10 mg PO DAILY #90 tabs 07/30/25 tablet (Farxiga) spironolactone 25 mg tablet 25 mg PO BID #90 tabs 07/30/25 Allergies Allergies Estrogens Allergy (Verified 07/30/25 08:11) weight gain codeine Adverse Reaction (Verified 07/30/25 08:11) Nausea Sleep Disorder Evaluation Hx of Sleep Apnea: No Do you snore loudly (louder than talking or can be heard through closed doors)?: No Do you often feel tired/ fatigued/ sleepy during daytime?: No Has anyone observed you stop breathing during sleep?: No History of Hypertension (for STOP score): No STOP Results: Negative Advanced Directives Advanced Directives Do you have a Healthcare Power of Power 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 Past Medical History Covid-19 Screening Physicial Symptoms Other Clinical Concerns Exposure Risk Pertinent Comorbidities 65 years or older:: Yes Has a serious heart condition:: Yes Past Medical Illness Medical History Wears glasses Back pain Non-smoker Shortness of breath on exertion Chronic cough History of pain when walking History of stress test History of echocardiogram Cardiology follow-up encounter Abnormal ECG Dyspnea on exertion Essential hypertension Thoracic outlet syndrome Lightheadedness Reactive airway disease Seasonal allergies Contact with and (suspected) exposure to other viral communicable diseases Acute bronchitis, unspecified Over 65 years old COVID-19 Esophageal stricture Arthritis Difficulty swallowing GERD (gastroesophageal reflux disease) Past Surgical History Surgical History Stented coronary artery (06/20/25) History of bilateral carpal tunnel release History of bilateral cataract extraction History of breast biopsy History of foot surgery History of colonoscopy (~2016) History of right breast biopsy History of lung surgery History of tubal ligation Family History Summary Family History Sister Heart disease Mother CVA (cerebral vascular accident) Social History Smoking History Smoking Status: Never smoker Occupation Occupation (List type of work in comments):: Retired Social Environment Status Marital Status: Current Living Arrangements Living Environment:: Alone Children How many children do you have?: 2 Do any of your children live nearby?: Yes Safety Do you feel safe in your surroundings?: Yes Assistance Do you need any assistance at home?: no Review of Systems Review of Systems Hints Review of Present Symptoms: Reports Fatigue and Appetite - Special Diet; Denies Shortness of Breath at Rest, Shortness of Breath with Exertion, PVD, Operative Discomfort, Angina, Wound Healing, Dizziness/Lightheadedness, Heart Arrhythmia/Irregularities, Appetite - Normal, Sleep - Normal or Sexual Changes Pain Is Patient Pain Free?: No Pain Location: back Risk Factor Assessment Chief Complaint Chief Complaint: PCI w/stent Vital Signs Pulse Ox: 95 Blood Pressure: 114/66 Pulse Pulse Rate: 66 Hypertension Blood Pressure Sitting - Right Arm: 114/66 Obesity Height: 4 ft 6.5 in Weight:: 110 lb Weight in Pounds: 110.0 lbs Body Mass Index (BMI): 26.0 Nutritional Referral for Obesity: No Physical Inactivity Physical Inactivity: Recreational activity Risk Stratification Risk Guidelines: Moderate Risk: Risk Factor for Smoking, Risk Factor for Dyslipidemia, Risk Factor for Diabetes, Risk Factor for Obesity, Risk Factor for Sedentary Lifestyle and Risk Factor for Depression and Highest Risk: Risk Factor for Hypertension For Smoking Smoking Risk Guidelines For Dyslipidemia Dyslipidemia Risk Guidelines For Diabetes Mellitus Diabetes Risk Guidelines For Obesity/Overweight Obesity/Overweight Risk Guidelines For Hypertension Hypertension Risk Guidelines For Sedentary Lifestyle Sedentary Lifestyle Risk Guidelines For Depression Depression Risk Guidelines Family History Family History Sister Heart disease Mother CVA (cerebral vascular accident) Motivation Motivation to Participate On a scale of 1 to 10, how prepared are you to commit to attending program?: 9 What do you see as barriers to successfully being able to complete the program?: nothing What do you see as the benefits of succesfully completing the program? In other words, what do you hope to get out of participating in the program?: more energy Are there issues you are dealing with that will interfere with completing the program?: no Do you have a spouse or signficant other, family or friends who will help support you to complete the program?: yes
[2025-08-07 13:04] VITALS: BP 114/66; PULSE 66; O2SAT 95
[2025-08-07 13:25] VITALS: BP 114/66; BMI 26.0
--- NOTE | 2025-08-07 13:51 | CR.ITP_ITS ---
Diagnosis General Information Admitting Diagnosis: PCI w/stent Personal Learning Style:: Audio/Visual Barriers to Learning: No Barriers Stage of change r/t lifestyle modifications:: Contemplation Gave educational material for:: Treating Heart Disease, How The Heart Works, What it means to have Heart Disease, How Coronary Artery Disease is Diagnosed, Heart Procedures, What Heart Medications Do, Risk Factors & Modifications, Sum[place] ing an Active Life, Nutrition, Emotions & Heart Disease, Stress Management & Relaxation and Sleep Disorders & Heart Disease Education/Goals Cardiac Rehabilitation Goals Personal Goals: Initial Assessment: Improve energy level, Participate in home exercise program, Get back to work, or to resume activities faster, Improve kno wledge of cardiac disease, Improve muscle strength and endurance, Improve diet and eating habits (eat healthier) and Control risk factors (learn risk factor modification) Scale for measuring improvement of personal goals Diagnosis & Disease Process Outcomes/Goals: Pt IDs own risk factors & lifestyle modifications by Session 10, Verbalizes symptoms of angina & response by session 3., Pt independently manages and Other Additional Outcomes/Goals: Plan/Interventions: Assist Pt to ID & engage in lifestyle modification to reduce CVD risk, Instruct on individual risk factors, Review symptoms of angina & emergency actions, Review secondary diagnosis & identify educational needs. and Other see comment 30 day Reassessments:: Not Met 30 day Reassessments:: Not Met 30 day Reassessments:: Not Met 30 day Reassessments:: Not Met Final Reassessments:: Not Met Safety Referral to Physical Therapy: No Referral to [facility] Case Management: No Fall Risk Assessed:: Yes Assistive Devices:: None Exercise - Initial Assessment Visit Date of Eval: 08/07/25 (initial eval) Mets: Pre-: >5 METS for 30 minutes by discharge Physician Prescribed Exercise Modalities: Treadmill, Rower, Schwinn Airdyne AD-7, SciFit Stepper, SciFit Pro- II Ergometer and SciFit Lateral [place] Frequency: 3x/week for 12 weeks [36 sessions] Intensity: 60-80% of age predicted maximum heart rate reserve Duration: 30 - 45 minutes Current METSs:: 3 Target Heart Rate:: 80-100 Resting Blood Pressure: 114/66 EKG Type: NSR/LBBB Outcomes & Goals Goals:: Verbalizes understanding of THR, RPE & goal METS by session 6, Documents in home exercise log/reports 30 min aerobic 5 day/wk by DC, Demonstrates accurate pulse taking by DC and Other additional outcome/goals: see below Intervention & Plan Exercise Program Goals: Instruct on personal THR & RPE, Instruct on MET level & personal MET goal, Show patient to take own pulse /validate performance until accurate, Instruct on home exercise and Other additional plan/int Physical Activity Home Exercise Physical Activity - Home Exercise: Safe Exercise, Warm-up, Self-monitoring, Cool-Down, Home Exercise > 30 min Daily and Sitting Time <3 hours/daily Outcomes & Goals Outcomes/Goals: Demonstrates correct Warm-up/exercise Cool-Down (S3) if = 2.5 METs, Verbalizes symptoms of exercise intolerance by Session 3 (S3), Demonstrate safe equipment use (S3) & follows exercise prescrition (6) and Other: See below Intervention & Plan Plan/Intervention: Instruct warm-up & cool-down if exercising at > 2 METs, Instruct on symptoms of exercise intolerance & actions to take, Instruct & monitor on saf, Assess intial functional capacity & safety risk and Other See below Nutrition - Initial Assessment Program Goals Nutrition Program Goals Patient has diagnosis of Hyperlipidemia (ICD E78)?: No Visit Date of Eval: 08/07/25 (initial eval, Nutrition survey score of 4) Cholesterol/Lipids (Other Core Measures) Determine presence & major risk factors that modify LDL goal: Cigarette smoking, Hypertension or hypertensive medication, Low HDL cholesterol <40 mg/dL*, Family history of premature CHD in Male < 55 years: female <65 yearsFa and Age men > 45 years; women >/= 55 years Outcomes/Goals: Pt IDs own risk factors & lifestyle modifications by Session 10, Verbalizes symptoms of angina & response by session 3., Pt independently manages and Other Additional Outcomes/Goals: Intervention/Plan: Advocate for lipid panel cholesterol medication if applicable, Instruct on personal lipid levels & lipid goals/NCEP guidelines, Instruct on cholesterol and Other additional plan/int Referral to dietitian:: No Diabetes (Other Core Measures) Diabetes Type: Not Applicable Weight Mgt (Other Care) Height: 4 ft 6.5 in Weight:: 110 lb BMI: 26.0 Diagnosis Overweight/Obesity BMI> 30% ICD-10 E66: No Diagnosis High BMI/Morbid Obesity BMI> 35% ICD-10 Z68: No Outcomes/Goals: Pt sets, maintains & shows weight loss goal & trend during rehab and Other additional outcomes/goals Intervention/Plan: Instruct on ideal BMI & set weight loss goal w/patient, Assist pt to ID & incorporate diet changes for weight loss by S9, Refer to Structured Weight Loss program as appropriate, Encourage goal of using 250- 300dcal per session for weight loss and Other additional plan/interventions Healthy Eating Habits Will attend diet classes:: Yes Outcomes/Goals:: Consume diet rich in vegs,fruits,whole grain/high fiber,fish,lean meat, Limit sat/trans fats,cholesterol & added salts & sugars and Other additional outcome/goals: Intervention/Plan:: Assess current eating habits and Other Additional plan/interventions Education Gave educational materials for:: Signs & symptoms of hypoglycemia, Signs & symptoms of hyperglycemia, Relate diabetes to coronary artery disease and Healthy eating Core - Initial Assessment Visit Date of Eval: 08/07/25 (initial eval) Medication Compliance Preventative Medication(s):: Clopidogrel/P2Y12 inhibit, Statin/lipid and Beta brenden H/O mental health issues: depression, anxiety, or addiction?: No Doesn?t believe in the benefits of treatment?: No Believes medications are unnecessary or harmful?: No Has a concern about medication side effects?: No Expresses concern over the cost of medications?: No Outcomes/Goals: Verbalizes medications,desired effect & common side effects @ DC, Pt self-reports following medication regimen, Keeps card in wallet w/medications listed by DC and Other additional outcome/goals: Interventions/plans: Instruct on medication effects & side effects, Review medication list w/patient every two weeks, Instruct importance of taking meds as ordered & assist problem solving and Other additional Tobacco Use Tobacco Use: Non-smoker Hypertension Hypertension Diagnosis:: Hypertension ICD-10 I10 Resting Blood Pressure:: 114/66 [place] [employer] Hypertension Guidelines Outcomes/Goals: Able to verbalize/achieve optimal blood pressure <130/80, Incorporates diet changes & exercise for blood pressure control by DC and Other additional outcomes/goals Interventions/plan: Instruct on optimal blood pressure, hypertension & medications, Instruct on effects of sodium, alcohol, stress, exercise &hypertension and Other additional plan/interventions Tobacco Cessation Referral Smoking Cessation Referral:: No Individual Education/Counseling:: No Education Schedule Given:: Yes Psychosocial - Initial Assess VIsit Date of Eval: 08/07/25 (initial eval) History of previous Mental disease:: No Psychosocial Test Tool Used:: [employer] Power QOL Cardiac and PHQ-9 Questionnaire phq-9 Severity See PHQ-9 Score: 2 Referral to Behavioral Health PS - Interventions: Yes: Attend Stress Management Classes Outcomes/Goals: See list Psychosocial Outcomes/Goals:: ID's personal stressors & 2 strategies to manage stress by discharge and Other Additional outcome/goals: Intervention/Plan: See List Interventions/Plan:: Assess stressors,coping strategies & signs of derpression on admission, Instruct/assist pt to develop coping & personal stress Mgt strategies, Refer to Behavioral Health if appropriate, Refer to Physician if appropriate, Instruct patient to recognize signs & symptoms of depression, I nstruct patient to recog and Other additional plan/intervention Exercise - 30-day Assessment Physician Prescribed Exercise Modalities: Treadmill, Rower, Schwinn Airdyne AD-7, SciFit Stepper, SciFit Pro- II Ergometer and SciFit Lateral Gmat Tutor Exercise - 60-day Assessment Physician Prescribed Exercise Modalities: Treadmill, Rower, Schwinn Airdyne AD-7, SciFit Stepper, SciFit Pro- II Ergometer and SciFit Lateral [place] Exercise - 90-day Assessment Physician Prescribed Exercise Modalities: Treadmill, Rower, Schwinn Airdyne AD-7, SciFit Stepper, SciFit Pro- II Ergometer and SciFit Lateral [place] Exercise - Final/Discharge Physician Prescribed Exercise Modalities: Treadmill, Rower, Schwinn Airdyne AD-7, SciFit Stepper, SciFit Pro- II Ergometer and SciFit Lateral Gmat Tutor Frequency: 3x/week for 12 weeks [36 sessions] Intensity: 60-80% of age predicted maximum heart rate reserve Current METSs:: 3 Target Heart Rate:: 80-100 Nutrition - 30-Day Assessment Weight Mgt (Other Care) Height: 4 ft 6.5 in Weight:: 110 lb BMI: 26.0 Nutrition - 60-Day Assessment Weight Mgt (Other Care) Height: 4 ft 6.5 in Weight:: 110 lb BMI: 26.0 Core - Final Assessment Hypertension Resting Blood Pressure:: 114/66 [place] [employer] Hypertension Guidelines Core - 60-Day Assessment Hypertension Resting Blood Pressure:: 114/66 [place] [employer] Hypertension Guidelines Psychosocial - 30-Day Assess Referral to Behavioral Health PS - Interventions: Yes: Attend Stress Management Classes Psychosocial - 60-Day Assess Referral to Behavioral Health PS - Interventions: Yes: Attend Stress Management Classes Psychosocial - 90-Day Assess Referral to Behavioral Health PS - Interventions: Yes: Attend Stress Management Classes Psychosocial - Final Assessmen Psychosocial Test phq-9 Severity See PHQ-9 Score: 2 Referral to Behavioral Health PS - Interventions: Yes: Attend Stress Management Classes Nutrition - 90-Day Assessment Weight Mgt (Other Care) Height: 4 ft 6.5 in Weight:: 110 lb BMI: 26.0 Nutrition - Final Assessment Program Goals Patient has diagnosis of Hyperlipidemia (ICD E78)?: No Weight Mgt (Other Care) Height: 4 ft 6.5 in Weight:: 110 lb BMI: 26.0
[2025-08-07 14:00] VITALS: BP 114/66; BMI 26.0
== END | disposition home or self-care (01) ==
LOC: CR 12:38
PROVIDERS: PCP Family Medicine; Referring Provider Internal Medicine Cardiovascular Disease; Visit Provider Internal Medicine Cardiovascular Disease
DX: I25.10 Atherosclerotic heart disease of native coronary artery without angina pectoris (principal); I48.0 Paroxysmal atrial fibrillation; I10 Essential (primary) hypertension; I25.5 Ischemic cardiomyopathy; Z95.5 Presence of coronary angioplasty implant and graft